=== PATIENT | male | born 1940 | race Caucasian/White ===

== ENCOUNTER 2017-12-10 10:28 | Emergency (ER) | payer OTHER, SELFPAY | END 2017-12-10 15:09 | disposition home or self-care (01) | PROVIDERS: Emergency Provider Internal Medicine; PCP Family Medicine; Visit Provider Internal Medicine | DX: K57.92 Diverticulitis of intestine, part unspecified, without perforation or abscess without bleeding (principal) | CPT/HCPCS: 74022; 80048; 82150; 82247; 83690; 84450; 84460; 85025; 86140; 99058; 99284 ==

== ENCOUNTER → 2018-02-02 12:38 | Outpatient (CLI) | payer OTHER, SELFPAY ==
[2018-02-02 13:47] LABS: Hematocrit 47.3 % (41-53); Hemoglobin 16.8 g/dL (13.5-17.5)
[2018-02-02 14:47] LABS: Ferritin 32.3 ng/mL (17.9-464)
[2018-02-03 09:14] LABS: 585 Gram Check PASS; Zero Check Sebra Scale PASS
[2018-02-03 09:15] LABS: Amount Collected in g 585 GRAM; Dizziness NO; Postdiastolic BP 82; Postsystolic BP 134; Prediastolic 83; Presystolic 127; Pulse 53; Site of phlebotomy RAC; Swelling NO; Therapeutic Phleb Comment NO COMMENT
== END ==
PROVIDERS: Family Provider Family Medicine; PCP Family Medicine; Visit Provider Family Medicine
DX: E83.119 Hemochromatosis, unspecified (principal)
CPT/HCPCS: 36415; 82728; 85014; 85018; 99195

== ENCOUNTER → 2018-02-07 09:19 | Outpatient (CLI) | payer OTHER, SELFPAY ==
[2018-02-07 10:41] LABS: C-Reactive Protein Quant < 0.5 mg/dL (<1.0)
[2018-02-07 11:22] LABS: Erythrocyte Sedimentation Rate 3 MM/HR (0-15)
== END ==
PROVIDERS: PCP Family Medicine; Visit Provider Ophthalmology
DX: H53.8 Other visual disturbances (principal)
CPT/HCPCS: 36415; 85651; 86140

== ENCOUNTER → 2018-02-10 13:53 | Outpatient (CLI) | payer OTHER, SELFPAY ==
--- NOTE | 2018-03-04 17:16 | PM.CARDMON.1 ---
Project Lead Report Referral & Results Date Patient Seen: 02/10/18 Requesting provider: Farhad Machado Indication: Bradycardia Duration of monitoring (days): 9 Diary information: There are 3 diary entries also say with sinus rhythm T there were 3 patient triggered events associated with sinus rhythm and PVCs Data: Minimum heart rate identified is 36 beats per minute at 22:39 on 02/11/2018 Maximum heart rate identified was 187 beats per minute at 00:38 on 02/11/2018. This was during a 5 beat run of SVT. The maximum sinus heart rate was 120 beats per minute at 09:11 on 02/18/2018 Less than 1% of identified beats were either supraventricular or ventricular ectopic in origin Patient did have extended periods of time with heart rate in the 40s. Clinical correlation suggested
== END ==
PROVIDERS: Family Provider Family Medicine; PCP Family Medicine; Visit Provider Family Medicine
DX: R00.1 Bradycardia, unspecified (principal)
CPT/HCPCS: 0296T; 0298T

== ENCOUNTER → 2018-02-22 14:04 | Outpatient (CLI) | payer OTHER, SELFPAY ==
[2018-02-22 16:05] LABS: Blood Urea Nitrogen 20 mg/dL (9-20); Estimated Glomerular Filt Rate > 60.0 mL/min (>60)
== END ==
PROVIDERS: Family Medicine; Family Provider Family Medicine; PCP Family Medicine; Visit Provider Family Medicine
DX: H53.121 Transient visual loss, right eye (principal)
CPT/HCPCS: 36415; 82565; 84520

== ENCOUNTER → 2018-02-28 10:35 | Outpatient (CLI) | payer OTHER, SELFPAY ==
--- NOTE | 2018-02-28 10:37 | DI.MRI.S_ITS ---
PROCEDURE: MR STROKE Pre- and post-contrast brain MRI, non-contrast brain MR angiogram, pre- and postcontrast neck MR angiogram INDICATIONS: rt eye vision loss TECHNIQUE: Brain: Noncontrast axial T1 spin echo, axial T2 fast spin echo, sagittal and axial FLAIR, coronal T2 fast spin echo, axial gradient echo, axial diffusion and ADC through the brain. After the administration of contrast, axial 3D VIBE of the cranial vasculature and brain. Brain MRA: Non-contrast 3-D time of flight MR angiogram, with multiple secvotr-xtvvqfkji-fzhxdbysfd (MIP) reformats performed. Neck MRA: Axial and sagittal TruFISP through the neck. Coronal dynamic MR angiogram during administration of contrast in the arterial and venous phases, with 3-dimenstional qtduilr-cbtxlijjo-zpgvrdpqup (MIP) reformats constructed from subtraction images. COMPARISON: None. FINDINGS: Image quality: Excellent. BRAIN: CSF spaces: Ventricles are normal in size and shape. Basal cisterns are patent. No extra-axial fluid collections. Brain: No intracranial bleeds or mass effects. Garsia-white matter interface is normal. Diffusion weighted images show no acute ischemic insults. Brainstem appears normal. Normal intravascular flow voids are present. No abnormal intracranial enhancement. Skull and face: Calvarial marrow signal is normal. Orbits appear normal. Sinuses: Sinuses and mastoids are clear. BRAIN MR ANGIOGRAM: Anterior circulation: Intracranial internal carotid arteries are normal in size and enhancement. The flow within the paired anterior cerebral arteries is normal and symmetric. The flow within the middle cerebral arteries is normal and symmetric. The anterior communicating artery is seen. No stenoses, occlusions, or aneurysms. Posterior circulation: The visualized portions of the vertebral arteries demonstrate normal caliber, and join to form a normal appearing basilar artery. The flow within the posterior cerebral arteries is normal and symmetric. No stenoses, occlusions, or aneurysms. NECK MR ANGIOGRAM: Carotids: Great vessels demonstrate a conventional anatomy as they arise from the aortic arch. The origins of the common carotid arteries appear patent. The calibers and courses of both common carotid arteries are normal. The bifurcation regions appear normal bilaterally. The internal carotid arteries demonstrate normal course and caliber. Posterior circulation: The origins of the vertebral arteries appear patent. More superior portions of both vertebral arteries demonstrate normal course and caliber, and join to form a normal appearing basilar artery. Miscellaneous: Subclavian arteries appear patent. Pre-contrast images through the neck show no soft tissue abnormalities. IMPRESSION: BRAIN MRI: Normal for age. Source of current symptoms is not seen. BRAIN MR ANGIOGRAM: Normal intracranial MR angiogram. NECK MR ANGIOGRAM: Normal cervical MR angiogram. Dictated by: David Montgomery M.D. on 02/28/2018 at 14:17 Approved by: David Montgomery M.D. on 02/28/2018 at 14:21
--- NOTE | 2018-02-28 10:37 | DI.ECHO.S_ITS ---
[facility]---------+ [facility] +---------+ : : [address] : : : : [id number] : : : : Phone: [phone]+ Echocardiogram Report + + :Name: TONIA KELLOGG Study Date: 02/28/2018 Height: 66 in : :[facility] Weight: 168 lb : : Gender: Male BSA: 1.9 m2 : :: 1940 Age: 77 yrs BP: 150/72 mmHg: :Reason For Study: TIA : : Performed By: Nurys Garvin : :Referring: MICKIE SALCEDO : + + Interpretation Summary The patient was in sinus bradycardia with heart rates between 49-59 bpm during the exam. The left ventricle is normal in size. The ejection fraction is estimated to be 60-65%. The right ventricle is normal size. The right ventricular systolic function is normal. There is mild to moderate aortic regurgitation. There is mild tricuspid regurgitation. The right ventricular systolic pressure is estimated at 26 mmHg assuming a right atrial pressure of 3 mm Hg. Procedure: A two-dimensional transthoracic echocardiogram with color flow and Doppler was performed. The study quality was technically adequate. There is no prior echocardiogram noted for this patient. The patient was in sinus bradycardia with heart rates between 49-59 bpm during the exam. Left Ventricle: The left ventricle is normal in size. There is normal left ventricular wall thickness. There is no thrombus. The ejection fraction is estimated to be 60-65%. There are no focal wall motion abnormalities. Assessment of diastolic parameters indicates normal left ventricular diastolic function and normal filling pressures. Right Ventricle: The right ventricle is normal size. The right ventricular systolic function is normal. Atria: The left atrium is moderately dilated. Right atrial size is normal. Injection of contrast documented no interatrial shunt. Mitral Valve: The mitral valve is grossly normal. There is mild mitral regurgitation. Aortic Valve: The aortic valve is trileaflet. The aortic valve opens well. There is no aortic valve stenosis. There is mild to moderate aortic regurgitation. Tricuspid Valve: The tricuspid valve is normal in structure and function. There is mild tricuspid regurgitation. The right ventricular systolic pressure is estimated at 26 mmHg assuming a right atrial pressure of 3 mm Hg. Pulmonic Valve: The pulmonic valve is not well visualized. There is mild to moderate pulmonic regurgitation. Great Vessels: The aortic root is normal size. The dimensions of the ascending aorta are normal. The IVC is of normal diameter and collapses greater than 50% with a sniff. This suggests a low right atrial pressure of 3 mm Hg. Pericardium/ Pleura There is no pericardial effusion. There is no pleural effusion. MMode/2D Measurements & Calculations LVIDd: 5.2 cm Ao root diam: 3.3 cm LVIDs: 3.2 cm Aortic Jxn: 2.5 cm FS: 38.8 % asc Aorta Diam: 3.0 cm EPSS: 1.5 cm Ao Arch Diam (Prox Trans): 2.8 cm IVSd: 0.98 cm LVPWd: 0.68 cm LV alvarado. diameter/BSA (cm/m^2): 2.8 LV sys. diameter/BSA (cm/m^2): 1.7 LA dimension: 4.1 cm RA long axis: 4.4 cm LA A2 area: 23.2 cm2 RA area: 16.7 cm2 LA A4 area: 19.6 cm2 RA vol: 53.7 ml LA length (vol): 4.7 cm RA : 28.9 ml/m2 LA vol: 82.6 ml IVC diam: 1.8 cm LA vol index: 44.5 ml/m2 RVDd major: 5.9 cm RVD1 (basal): 3.7 cm RVD2 (mid): 3.4 cm Doppler Measurements & Calculations LVOT Max Juan Daniel: 91.8 cm/sec MV E max juan daniel: 76.6 cm/sec LV V1 max P.4 mmHg MV A max juan daniel: 66.9 cm/sec LV V1 VTI: 22.3 cm MV E/A: 1.1 AI P1/2t: 525.4 msec Med Peak E' Juan Daniel: 8.5 cm/sec AI dec slope: 244.1 cm/sec2 E/E' med: 9.0 Lat Peak E' Juan Daniel: 7.4 cm/sec E/E' lat: 10.4 E/e' average: 9.7 MV dec time: 0.18 sec MV P1/2t: 53.7 msec TR max juan daniel: 241.6 cm/sec MV P1/2t max juan daniel: 76.3 cm/sec TR max P.3 mmHg MVA(P1/2t): 4.1 cm2 PA Accel Time: 0.13 sec Reading Physician:SWATI
== END ==
PROVIDERS: Family Provider Family Medicine; PCP Family Medicine; Visit Provider Family Medicine
DX: G45.9 Transient cerebral ischemic attack, unspecified (principal); H54.7 Unspecified visual loss
CPT/HCPCS: 70553; 93306; A9579

== ENCOUNTER 2018-06-09 09:00 | Emergency (ER) | payer OTHER, SELFPAY ==
[2018-06-09 09:01] VITALS: BP 159/86; PULSE 63; RESP 18; TEMP 36.8; O2SAT 99
--- NOTE | 2018-06-09 09:01 | ED.MALEGU ---
HPI - Male Genitourinary General Chief complaint: Urogenital-Male Stated complaint: URINARY RETENTION,SEVERE Time Seen by Provider: 06/09/18 09:01 Source: patient Mode of arrival: ambulatory Limitations: no limitations History of Present Illness HPI Narrative: 77-year-old male here for evaluation of urinary retention. Patient states that he does have prostate issues. He states that his last normal urination was last evening at approximately 9 o'clock. States that he has had some trickling since then. Has lower abdominal pain. No fevers. Has had a Cook placed in the past but that was after a orthopedic surgery Related Data Home Medications Medication Instructions Recorded Confirmed Travoprost (TRAVATAN OPHTH 0.004%) 1 drp OPHTH HS #0 01/04/12 03/03/18 Previous Rx's Medication Instructions Recorded diclofenac sodium 75 mg PO BIDP PRN #30 ect 09/28/16 epinephrine 1 mg IJ PRN PRN #1 vial 09/28/16 tizanidine 2 mg PO TIDP PRN #30 tab 06/29/17 omeprazole 20 mg PO QDAY #90 cap 09/29/17 gabapentin [Neurontin] 300 mg PO HS #90 cap 10/25/17 tamsulosin [Flomax] 0.4 mg PO QDAY #90 cap 10/28/17 Allergies Allergy/AdvReac Type Severity Reaction Status Date / Time bupivacaine [From MARCAINE] Allergy Severe sob Verified 06/09/18 09:29 Penicillins [PENICILLINS] Allergy Intermediate n/v, Verified 06/09/18 09:29 itching shellfish derived Allergy Intermediate prawns Verified 06/09/18 09:29 [SHELLFISH DERIVED] garlic [GARLIC] Allergy Mild GI upset Verified 06/09/18 09:29 ibuprofen [IBUPROFEN] Allergy Mild dye Verified 06/09/18 09:29 coating of tab red dye [RED DYE] Allergy Mild Verified 06/09/18 09:29 hexachlorophene Allergy Unknown Verified 06/09/18 09:29 [HEXACHLOROPHENE] propoxyphene [From DARVON] AdvReac Mild n/v itching Verified 06/09/18 09:29 raw onion Allergy Unknown GI upset Uncoded 06/09/18 09:29 Review of Systems Constitutional Denies fever(s) and Denies headache(s) ENT Ears, Nose, Mouth, and Throat: Denies headache(s) Cardiovascular Denies chest pain and Denies dyspnea Respiratory Denies dyspnea Gastrointestinal Gastrointestinal: Reports abdominal pain, Denies nausea and Denies vomiting Genitourinary Denies dysuria, Reports urinary hesitancy and Reports urinary incontinence Musculoskeletal Denies myalgias and Denies arthralgias Integumentary/Breasts Denies pruritus Neurologic Denies headache(s) Hematologic/Lymphatic Denies easy bleeding and Denies easy bruising [facility] Medical History BPH (benign prostatic hyperplasia) (Chronic) Cataract (Chronic 2012) Cervical spine disease (Chronic) Chronic back pain (Chronic) Elevated PSA (Chronic) Foot pain (Chronic) GERD (gastroesophageal reflux disease) (Chronic ~1979) Glaucoma (Chronic ~2008) Hayfever (Chronic ~1959) Hemochromatosis (Chronic 1990) IBS (irritable bowel syndrome) (Chronic ~1969) Lumbar spine pain (Chronic) Peptic ulcer disease (Chronic ~1959) Colon polyps (Resolved 2001) Hepatitis A (Resolved ~1961) Recurrent sinusitis (Resolved ~1969) Shoulder pain (Resolved ~1989) Tennis elbow (Resolved) Surgical History Anesthesia complication (Resolved) History of elbow surgery (Resolved ~2010) History of knee surgery (Resolved) History of shoulder surgery (Resolved ~1979) History of shoulder surgery (Resolved ~1979) History of spinal fusion (Resolved 2010) Hx of decompression of ulnar nerve (Resolved ~1989) Family History Father Heart disease Mother Age related osteoporosis Diabetes mellitus Heart disease Hypertension High cholesterol Pneumonia Sister Age: 80 High cholesterol Sister Parkinson's disease Sister Cancer Social History marital status: Smoking Status: Former smoker alcohol intake: current (1-2 A DAY ) substance use type: does not use Exam Initial Vital Signs Initial Vital Signs: Vital Signs Temperature 98.3 F 06/09/18 09:01 Pulse Rate 63 06/09/18 09:01 Respiratory Rate 18 06/09/18 09:01 Blood Pressure 159/86 H 06/09/18 09:01 Pulse Oximetry 99 06/09/18 09:01 Const General: cooperative, healthy appearing, comfortable, well developed, well groomed and No acute distress Orientation: alert, awake and oriented x3 HENMT Head: normal to inspection and normocephalic Resp Effort & Inspection: normal respiratory effort Auscultation: clear to auscultation bilaterally Cardio Rate: regular rate Rhythm: regular rhythm GI Inspection: distended (lower abdomen) Palpation: No firm and tender ( lower abdomen) Back/Spine/Pelvis Back: No CVA tenderness Skin Lesions: no lesions Rashes: no rashes Neuro General: alert, awake and oriented x3 Extrem General: normal to inspection and capillary refill normal Psych Appearance: grossly normal and well kempt Course Orders Ordered: ED Orders 06/09/18 09:22 Urinalysis and Microscopic Stat Vital Signs - 8 hr 06/09/18 09:01 06/09/18 09:48 Temperature 98.3 F Pulse Rate 63 64 Respiratory Rate 18 14 Blood Pressure 159/86 H Blood Pressure [Right Arm] 138/67 Pulse Oximetry 99 100 MDM - Male Genitourinary Lab Data Attestation: I reviewed the patient's lab results. Lab Results 06/09/18 Range/Units 09:22 Urine Color Yellow Urine Appearance Clear Urine pH 6.0 (4.5-8.0) Ur Specific [place] 1.010 (1.000-1.035) Urine Protein Negative (Negative) Urine Glucose (UA) Negative (Normal) g/dL Urine Ketones Trace H (NEGATIVE) Urine Occult Blood Negative (Negative) Urine Nitrate Negative (Negative) Urine Bilirubin Negative (NEGATIVE) Urine Urobilinogen 0.2 (0.2) E.U./dL Ur Leukocyte Esterase Negative (NEGATIVE) Urine RBC None seen (0-5/HPF) Urine WBC None seen (0-5/HPF) Urine Bacteria None seen (None) Ur Culture Indicated? Cult not indicated Micro UA Comment Microscopic normal MDM Narrative Medical decision making narrative: patient with a known history of BPH. Has had multiple prostate biopsies in the past all of which have been benign. Had a postvoid residual of greater than 400 cc in his bladder. Cook catheter was placed. Return of greater than 400 cc of urine. Patient states that he feels much better. Abdomen is less distended. No signs of a urinary tract infection. We did discuss the Cook catheter with the patient and his . Will send home with Cook catheter. Informed him he needed to contact his primary doctor to have a follow-up to have this removed in to discuss the indications for referral to [place] urology. He was given return precautions. He expressed understanding and agreement with plan. Discharge Plan Departure Patient Disposition: Home Clinical Impression: Acute urinary retention Instructions: How to Care for Your Cook Catheter -- Male, DI for Urinary Retention in Men Activity Restrictions/Additional Instructions: continue all of your medications. Call your primary care doctor to schedule a follow-up to have the Cook catheter removed. Return to the emergency department for any new or worsening symptoms. Prescriptions: No Action Travoprost (TRAVATAN OPHTH 0.004%) 1 drp OPHTH HS Qty: 0 RF: 0 epinephrine 1 MG/1 ML solution 1 mg IJ PRN PRNQty: 1 RF: 0 diclofenac sodium 75 MG tablet,delayed release (DR/EC) 75 mg PO BIDP PRNQty: 30 RF: 3 tizanidine 2 MG tablet 2 mg PO TIDP PRNQty: 30 RF: 3 omeprazole 20 MG capsule,delayed release(DR/EC) 20 mg PO QDAY Qty: 90 RF: 3 gabapentin [Neurontin] 300 MG capsule 300 mg PO HS Qty: 90 RF: 3 tamsulosin [Flomax] 0.4 MG capsule,extended release 24hr 0.4 mg PO QDAY Qty: 90 RF: 3
[2018-06-09 09:29] LABS: Bacteria Urine None Seen; RBC Urine None Seen (0-5/HPF); WBC Urine None Seen (0-5/HPF)
[2018-06-09 09:30] LABS: Appearance Urine UA CLEAR; Bilirubin Urine UA NEGATIVE (NEGATIVE); Color Urine UA YELLOW; Glucose Urine UA NEGATIVE (Normal); Ketones Urine UA TRACE (NEGATIVE); Leukocyte Esterase Urine UA NEGATIVE (NEGATIVE); Nitrite Urine UA NEGATIVE (Negative); Occult Blood Urine UA NEGATIVE (Negative); Protein Urine UA NEGATIVE (Negative); Urobilinogen Urine UA 0.2 E.U./dL (0.2)
[2018-06-09 09:45] LABS: Culture Indicated Urine Cult Not Indicated; Urine Comments Microscopic Normal
[2018-06-09 09:48] VITALS: BP 138/67; PULSE 64; RESP 14; O2SAT 100
[2018-06-09 10:38] VITALS: BP 137/63; PULSE 57; RESP 20; O2SAT 95
== END 2018-06-09 10:39 | disposition home or self-care (01) ==
PROVIDERS: Emergency Provider Emergency Medicine; Family Provider Family Medicine; PCP Family Medicine
DX: R33.9 Retention of urine, unspecified (principal)
CPT/HCPCS: 51798; 81001; 99283

== ENCOUNTER 2018-06-27 08:20 | Emergency (ER) | payer OTHER, SELFPAY ==
[2018-06-27 08:30] VITALS: BP 148/90; PULSE 64; RESP 14; TEMP 36.6; O2SAT 99
--- NOTE | 2018-06-27 08:36 | DI.US.S_ITS ---
PROCEDURE: US SCROTUM INDICATIONS: severe L testicle pain TECHNIQUE: Real-time scanning was performed of the scrotum and testicles, with image documentation. Color and pulse Doppler interrogation was performed of both testicles. COMPARISON: None. FINDINGS: Right: Testicle is normal in size at 6.3 x 3.1 x 3.1 cm, and homogenous in echotexture. Epididymis is normal in overall size and morphology. No hydrocele or varicoceles. Overlying scrotal skin is normal in thickness. Left: Testicle is normal in size at 5.7 x 2.6 x 3 cm, and homogeneous in echotexture. Epididymis is normal in overall size and morphology. No hydrocele or varicoceles. Overlying scrotal skin is normal in thickness. Doppler: Color and pulse Doppler demonstrate normal and symmetric arterial flow in both testicles. IMPRESSION: Normal study, without an imaging explanation found for the patient's presenting history of severe left testicle pain. No findings of testicular torsion are seen. Note: Concordant preliminary findings given by the senior operator upon the completion of the examination to Dr. Marcelino at 9 AM [place] time on June 27, 2018. Dictated by: Flavio Pearce M.D. on 06/27/2018 at 8:19 Approved by: Flavio Pearce M.D. on 06/27/2018 at 8:22
[2018-06-27] MEDS: KETOROLAC 60 MG/2 ML VIAL 15 MG IV (08:39)
[2018-06-27] MEDS: SODIUM CHLORIDE 0.9% 1,000 ML 1000 ML IV (08:40)
--- NOTE | 2018-06-27 08:42 | PC.NURSE ---
Upon exam by provider patient very tender to palpation on left testicle. Pain increases with movement.
[2018-06-27 08:44] LABS: Add Manual Diff / Slide Review NO; Basophils Percent Auto 0.9 % (0-2); Eosinophils Percent Auto 2.7 % (2-4); Hematocrit 46.1 % (41-53); Hemoglobin 16.2 g/dL (13.5-17.5); Lymphocytes Percent Auto 21.6 % (25-40); Mean Corpuscular HGB Conc 35.2 % (30-36); Mean Corpuscular Hemoglobin 32.1 PG (26-34); Mean Corpuscular Volume 91.4 fL (80-100); Monocytes Percent Auto 6.6 % (3-14); Neutrophils Absolute Auto 4500 /uL (3000-5900); Neutrophils Percent Auto 68.2 % (50-75); Platelet Count 171 X10^3/uL (150-400); Red Blood Cell Count 5.05 X10^6/uL (4.5-5.9); Red Cell Distribution Width 12.7 % (11.6-14.8); White Blood Cell Count 6.6 X10^3/uL (4.5-11.0)
[2018-06-27 08:55] LABS: BUN Creatinine Ratio 22.2 (6-22); Blood Urea Nitrogen 20 mg/dL (9-20); Calcium 9.3 mg/dL (8.4-10.2); Carbon Dioxide 21 mmol/L (22-32); Chloride 107 mmol/L (98-107); Estimated Glomerular Filt Rate > 60.0 mL/min (>60); Glucose 134 mg/dL (80-110); HEMOLYSIS 19 (0-50); Potassium 4.4 mmol/L (3.4-5.1); Sodium 142 mmol/L (137-145)
--- NOTE | 2018-06-27 08:59 | ED_ITS ---
HPI - Male Genitourinary General Chief complaint: Urogenital-Male Stated complaint: severe pain in left testicle down into lower back Time Seen by Provider: 06/27/18 08:25 Source: patient and family Mode of arrival: ambulatory Limitations: no limitations History of Present Illness HPI Narrative: 77-year-old male presents to the emergency department with a chief complaint of sudden-onset left testicular pain and radiation to his back this morning at about 6:30 a.m.. His pain is much worse with motion and improves with rest. He denies any fever chills. He denies dysuria, frequency or urgency. He denies any hematuria. MD Complaint: testicle pain Onset (ago): hour(s) Duration: constant Location: left testicle Severity: severe Quality: burning Relieving factors: rest Exacerbating factors: movement Reports denies other symptoms Related Data Sexually active: No Home Medications Medication Instructions Recorded Confirmed Travoprost (TRAVATAN OPHTH 0.004%) 1 drp OPHTH HS #0 01/04/12 06/27/18 omeprazole 20 mg PO DAILY 06/27/18 06/27/18 tamsulosin [Flomax] 0.4 mg PO QPM 06/27/18 06/27/18 Previous Rx's Medication Instructions Recorded epinephrine 1 mg IJ PRN PRN #1 vial 09/28/16 gabapentin [Neurontin] 300 mg PO HS #90 cap 10/25/17 finasteride 5 mg tablet 5 mg PO DAILY #30 tab 06/13/18 ketorolac 10 mg PO Q4-6H PRN #20 tab 06/27/18 sulfamethoxazole-trimethoprim 1 tab PO Q12H 14 Days #28 tab 06/27/18 [Bactrim DS] Allergies Allergy/AdvReac Type Severity Reaction Status Date / Time bupivacaine [From MARCAINE] Allergy Severe sob Verified 06/13/18 16:02 Penicillins [PENICILLINS] Allergy Intermediate n/v, Verified 06/13/18 16:02 itching shellfish derived Allergy Intermediate prawns Verified 06/13/18 16:02 [SHELLFISH DERIVED] garlic [GARLIC] Allergy Mild GI upset Verified 06/13/18 16:02 ibuprofen [IBUPROFEN] Allergy Mild dye Verified 06/13/18 16:02 coating of tab red dye [RED DYE] Allergy Mild Verified 06/13/18 16:02 hexachlorophene Allergy Unknown Verified 06/13/18 16:02 [HEXACHLOROPHENE] propoxyphene [From DARVON] AdvReac Mild n/v itching Verified 06/13/18 16:02 raw onion Allergy Unknown GI upset Uncoded 06/13/18 16:02 Review of Systems Review of Systems All systems reviewed & are unremarkable except as noted in HPI and below Constitutional Denies chills, Denies fever(s), Denies lethargy and Denies weakness Eyes Denies change in vision, Denies eye discharge, Denies irritation and Denies loss of vision ENT Ears, Nose, Mouth, and Throat: Denies change in voice, Denies neck pain and Denies sore throat Cardiovascular Denies chest pain, Denies irregular heart rhythm, Denies lightheadedness, Denies palpitations, Denies dyspnea, Denies dyspnea on exertion and Denies orthopnea Respiratory Denies cough, Denies dyspnea, Denies dyspnea on exertion and Denies wheezing Gastrointestinal Gastrointestinal: Denies abdominal pain, Denies change in bowel habits, Denies diarrhea, Denies nausea and Denies vomiting Genitourinary Denies hematuria, Reports flank pain, Reports testicular pain, Denies urinary incontinence and Denies urinary urgency Musculoskeletal Denies neck pain Integumentary/Breasts Denies pruritus, Denies erythema, Denies rash and Denies wounds Neurologic Denies confusion, Denies loss of vision and Denies weakness Psychiatric Denies anxiety, Denies confusion, Denies depression, Denies homicidal ideation and Denies suicidal ideation Endocrine Denies palpitations Hematologic/Lymphatic Denies easy bruising Allergic/Immunologic Denies wheezing [facility] Medical History BPH (benign prostatic hyperplasia) (Chronic) Cataract (Chronic 2012) Cervical spine disease (Chronic) Chronic back pain (Chronic) Elevated PSA (Chronic) Foot pain (Chronic) GERD (gastroesophageal reflux disease) (Chronic ~1979) Glaucoma (Chronic ~2008) Hayfever (Chronic ~1959) Hemochromatosis (Chronic 1990) IBS (irritable bowel syndrome) (Chronic ~1969) Lumbar spine pain (Chronic) Peptic ulcer disease (Chronic ~1959) Colon polyps (Resolved 2001) Hepatitis A (Resolved ~1961) Recurrent sinusitis (Resolved ~1969) Shoulder pain (Resolved ~1989) Tennis elbow (Resolved) Surgical History Anesthesia complication (Resolved) History of elbow surgery (Resolved ~2010) History of knee surgery (Resolved) History of shoulder surgery (Resolved ~1979) History of shoulder surgery (Resolved ~1979) History of spinal fusion (Resolved 2010) Hx of decompression of ulnar nerve (Resolved ~1989) Family History Father Heart disease Mother Age related osteoporosis Diabetes mellitus Heart disease Hypertension High cholesterol Pneumonia Sister Age: 81 High cholesterol Sister Parkinson's disease Sister Cancer Social History marital status: Smoking Status: Former smoker alcohol intake: current (1-2 A DAY ) substance use type: does not use Exam Narrative Exam Narrative: 77-year-old male obviously in pain, lying on his side Initial Vital Signs Initial Vital Signs: Vital Signs Temperature 97.8 F 06/27/18 08:30 Pulse Rate 64 06/27/18 08:30 Respiratory Rate 14 06/27/18 08:30 Blood Pressure 148/90 H 06/27/18 08:30 Pulse Oximetry 99 06/27/18 08:30 Const General: cooperative and well developed Nutritional Appearance: well nourished Orientation: alert, awake, oriented x3 and not confused [facility] Head: normocephalic and atraumatic Ears: external ears normal and TM's normal bilaterally Nose: external nose normal and No nasal discharge Face and sinus: sinuses nontender, face symmetric, no sinus tenderness and No dry mucous membranes Mouth: oral mucosae normal and moist mucous membranes Teeth and gingiva: dentition normal Throat: tonsils normal and uvula midline Eyes General: appearance normal, both eyes and all related structures Eyelids: eyelids normal Conjunctivae: conjunctivae normal Sclera: sclerae normal Pupils: PERRL EOM: EOM intact bilaterally Neck Neck: normal visual inspection, trachea midline, No lymphadenopathy, No midline deformity and No JVD Lymphatic: No lymphedema Chest Chest: normal inspection of the chest Resp Effort & Inspection: normal respiratory effort, able to speak in complete sentences, no respiratory distress and no use of accessory muscles Auscultation: clear to auscultation bilaterally, no rales, no rhonchi and no wheezes Cardio Rate: regular rate Rhythm: regular rhythm Heart Sounds: no click, no gallops, no murmurs and no rubs Pulses: normal peripheral pulses GI Inspection: non-distended Palpation: soft, no hepatosplenomegaly, No guarding, No pulsatile mass and No tender Auscultation: normal bowel sounds Testes: testicular lie normal, epididymides normal, no blue dot sign, not enlarged, no epididymal induration, no testicular mass and no testicular swelling Other: tremendous pain with palpation of left testicle Back/Spine/Pelvis Back: No CVA tenderness Cervical Spine: cervical ROM normal and No pain with cervical ROM Thoracic/Lumbar Spine: thoracic and lumbar spine normal to inspection Course Orders Ordered: ED Orders 06/27/18 09:50 Urine Culture Stat Urine Microscopic Stat Discontinued Medications Sodium Chloride (Normal Saline 0.9%) 1,000 mls @ 1,000 mls/hr IV BOLUS ONE Stop: 06/27/18 09:25 Last Infusion: 06/27/18 10:17 Dose: 0 mls/hr Admin: 06/27/18 08:40 Dose: 1,000 mls/hr Ketorolac Tromethamine (Toradol) 15 mg IV NOW ONE Stop: 06/27/18 08:27 Last Admin: 06/27/18 08:39 Dose: 15 mg Consultations Consultation #1: call to Urology to discuss case can lack of significant findings on ultrasound scrotum as well as CT KUB. In the setting of 70+ leukocytes in the patient's urine with reproducible left testicle pain, which was present during ultrasound it seems reasonable as there is an early epididymitis present. Negative CT KUB makes kidney stone much less likely. Additionally we discussed the possibility of a missed torsion but thought this was less likely given the presence of pain during the ultrasound Vital Signs - 8 hr 06/27/18 10:37 Pulse Rate 50 L Respiratory Rate 14 Blood Pressure [Right Arm] 135/78 Pulse Oximetry 99 MDM - Male Genitourinary Lab Data Result diagrams: 06/27/18 08:30 06/27/18 08:30 Lab Results 06/27/18 06/27/18 06/27/18 Range/Units 08:30 08:30 09:50 WBC 6.6 (4.5-11.0) X10^3/uL RBC 5.05 (4.5-5.9) X10^6/uL Hgb 16.2 (13.5-17.5) g/dL Hct 46.1 (41-53) % MCV 91.4 (80-100) fL MCH 32.1 (26-34) PG MCHC 35.2 (30-36) % RDW 12.7 (11.6-14.8) % Plt Count 171 (150-400) X10^3/uL Neut % (Auto) 68.2 (50-75) % Lymph % (Auto) 21.6 L (25-40) % [place] % (Auto) 6.6 (3-14) % Eos % (Auto) 2.7 (2-4) % Baso % (Auto) 0.9 (0-2) % Neut # (Auto) 4500 (0217-9510) /uL Sodium 142 (137-145) mmol/L Potassium 4.4 (3.4-5.1) mmol/L Chloride 107 (98-107) mmol/L Carbon Dioxide 21 L (22-32) mmol/L BUN 20 (9-20) mg/dL Creatinine 0.90 (0.66-1.25) mg/dL Estimated GFR > 60.0 (>60) mL/min BUN/Creatinine Ratio 22.2 H (6-22) Glucose 134 H (80-110) mg/dL Calcium 9.3 (8.4-10.2) mg/dL Urine RBC 0-1/hpf (0-5/HPF) Urine WBC 10-30/hpf H (0-5/HPF) Urine Bacteria Few (2-10) H (None) Urine Mucus 1+ H (Negative) Ur Culture Indicated? Specimen cultured Micro UA Comment Not Reportable Urine Dip Bedside Urine Glucose Negative Bedside Urine Bilirubin - Negative Bedside Urine Ketone - Negative Urine Specific [place] 1.020 Bedside Urine Occult Blood - Negative Bedside Urine pH 6.0 Bedside Urine Protein - Negative Bedside Urine Urobilinogen - Negative Bedside Urine Nitrite - Negative Bedside Urine Leukocytes + [address] scan - abdomen: Radiologist's impression: Patient: Maurice Field WMR#: [id number] : 3Acct:[id number] Age/Sex: 77 / MDate of Service: 06/27/18 Loc: ED Accession Number: [id number] Procedure: CT kidney ureter bladder (KUB) Ordering Provider: Sylvester Marcelino D.O. PROCEDURE: CT KIDNEY URETER BLADDER (KUB) INDICATIONS: severe LLQ pain, radiates testicle to flank TECHNIQUE: Noncontrast 5 mm thick sections acquired from the diaphragms to the symphysis. 5 mm thick coronal and sagittal reformats were then performed. For radiation dose reduction, the following was used: automated exposure control, adjustment of mA and/or kV according to patient size. COMPARISON: None. FINDINGS: Image quality: Excellent. Lung bases: There is mild dependent atelectasis. Heart size is normal. There is a small hiatal hernia. Urinary system: No kidney stones origin necrosis. There is minimal nonspecific perinephric stranding bilaterally. There is an exophytic left renal cyst identified. Both ureters appear non-dilated throughout their expected courses. Bladder wall thickness is within normal limits; no calcified bladder stones. There is minimal fat stranding along the urinary bladder with mild trabeculation of the bladder wall. There is linear hypoattenuation anteriorly along the bladder wall which may reflect small foci of luminal gas versus fatty change in the bladder wall. There is prominent enlargement of the prostate. Other solid organs: There are 2 cysts demonstrated in the left hepatic lobe. Multiple calcified gallstones are present in the gallbladder without gallbladder wall thickening or pericholecystic fluid. Pancreas is normal in contours. Spleen is normal in size. No adrenal nodules. Peritoneum and bowel: Unenhanced bowel loops demonstrate normal wall thickness and caliber. The appendix is normal in appearance. Colonic diverticulosis is demonstrated without acute diverticulitis. No free fluid or air. Nodes and vessels: No retroperitoneal or mesenteric adenopathy by size criteria. Aorta and inferior vena cava are normal in caliber. Abdominal wall: No ventral hernias. Pelvis: No free pelvic fluid. No inguinal hernias or adenopathy. Bones: No suspicious bony lesions. No vertebral body compression fractures. IMPRESSION: 1. No evidence of nephrolithiasis or obstructive uropathy. 2. Small linear hypodensity anteriorly within the urinary bladder may represent small foci of gas in the bladder versus fatty change along the bladder wall. Cystitis with infection from a gas-forming organism is not excluded. No definite fistula visualized. Recommend correlation with urinalysis. 3. Prominent prostatic enlargement with mild trabeculation of the bladder wall which reflect sequelae of chronic bladder outlet obstruction. 4. Colonic diverticulosis without acute diverticulitis. 5. Cholelithiasis. Dictated by: Pino Hammond M.D. on 06/27/2018 at 9:55 Approved by: Pino Hammond M.D. on 06/27/2018 at 10:01 Discharge Plan Departure Patient Disposition: Home Clinical Impression: Acute epididymitis Discharge Date/Time: 06/27/18 10:43 Interventions: ED Discharge Assessment Last Done: 06/27/18 10:41 Instructions: DI for Epididymitis Activity Restrictions/Additional Instructions: *You have been diagnosed with [ acute epididymitis ] *What to do: *Take medications as directed: new prescriptions have been electronically transmitted to [facility] at your request *Follow up with your primary care provider in 2-3 days, call for an appointment. Let them know you were seen in the Emergency Department and that we ask that you be seen in follow up. it would seem likely that Dr. Machado will refer you to the [facility] as we discussed *Return to ER if you should have any new, worsening or concerning symptoms , such as [ increasing pain, fever, shaking chills, persistent vomiting, other bothersome symptoms ] Prescriptions: New sulfamethoxazole-trimethoprim [Bactrim DS] 800-160 mg tablet 1 tab PO Q12H 14 Days Qty: 28 RF: 0 ketorolac 10 mg tablet 10 mg PO Q4-6H PRN (Reason: pain) Qty: 20 RF: 0 No Action Travoprost (TRAVATAN OPHTH 0.004%) 1 drp OPHTH HS Qty: 0 RF: 0 epinephrine 1 MG/1 ML solution 1 mg IJ PRN PRNQty: 1 RF: 0 gabapentin [Neurontin] 300 MG capsule 300 mg PO HS Qty: 90 RF: 3 finasteride 5 mg tablet 5 mg PO DAILY Qty: 30 RF: 0 tamsulosin [Flomax] 0.4 MG capsule 0.4 mg PO QPM RF: 0 omeprazole 20 MG capsule,delayed release(DR/EC) 20 mg PO DAILY RF: 0 Referrals: Farhad Machado MD [Primary Care Provider] -
--- NOTE | 2018-06-27 09:21 | DI.CT.S_ITS ---
PROCEDURE: CT KIDNEY URETER BLADDER (KUB) INDICATIONS: severe LLQ pain, radiates testicle to flank TECHNIQUE: Noncontrast 5 mm thick sections acquired from the diaphragms to the symphysis. 5 mm thick coronal and sagittal reformats were then performed. For radiation dose reduction, the following was used: automated exposure control, adjustment of mA and/or kV according to patient size. COMPARISON: None. FINDINGS: Image quality: Excellent. Lung bases: There is mild dependent atelectasis. Heart size is normal. There is a small hiatal hernia. Urinary system: No kidney stones origin necrosis. There is minimal nonspecific perinephric stranding bilaterally. There is an exophytic left renal cyst identified. Both ureters appear non-dilated throughout their expected courses. Bladder wall thickness is within normal limits; no calcified bladder stones. There is minimal fat stranding along the urinary bladder with mild trabeculation of the bladder wall. There is linear hypoattenuation anteriorly along the bladder wall which may reflect small foci of luminal gas versus fatty change in the bladder wall. There is prominent enlargement of the prostate. Other solid organs: There are 2 cysts demonstrated in the left hepatic lobe. Multiple calcified gallstones are present in the gallbladder without gallbladder wall thickening or pericholecystic fluid. Pancreas is normal in contours. Spleen is normal in size. No adrenal nodules. Peritoneum and bowel: Unenhanced bowel loops demonstrate normal wall thickness and caliber. The appendix is normal in appearance. Colonic diverticulosis is demonstrated without acute diverticulitis. No free fluid or air. Nodes and vessels: No retroperitoneal or mesenteric adenopathy by size criteria. Aorta and inferior vena cava are normal in caliber. Abdominal wall: No ventral hernias. Pelvis: No free pelvic fluid. No inguinal hernias or adenopathy. Bones: No suspicious bony lesions. No vertebral body compression fractures. IMPRESSION: 1. No evidence of nephrolithiasis or obstructive uropathy. 2. Small linear hypodensity anteriorly within the urinary bladder may represent small foci of gas in the bladder versus fatty change along the bladder wall. Cystitis with infection from a gas-forming organism is not excluded. No definite fistula visualized. Recommend correlation with urinalysis. 3. Prominent prostatic enlargement with mild trabeculation of the bladder wall which reflect sequelae of chronic bladder outlet obstruction. 4. Colonic diverticulosis without acute diverticulitis. 5. Cholelithiasis. Dictated by: Pino Hammond M.D. on 06/27/2018 at 9:55 Approved by: Pino Hammond M.D. on 06/27/2018 at 10:01
[2018-06-27 09:29] VITALS: BP 127/58; PULSE 54; RESP 14; O2SAT 98
[2018-06-27 10:22] LABS: Bacteria Urine Few (2-10); Culture Indicated Urine Specimen Cultured; Mucus Urine 1+ (Negative); RBC Urine 0-1/HPF (0-5/HPF); WBC Urine 10-30/HPF (0-5/HPF)
[2018-06-27 10:37] VITALS: BP 135/78; PULSE 50; RESP 14; O2SAT 99
== END 2018-06-27 10:43 | disposition home or self-care (01) ==
PROVIDERS: Emergency Provider Emergency Medicine; PCP Family Medicine
DX: N45.1 Epididymitis (principal)
CPT/HCPCS: 36591; 74176; 76870; 80048; 81003; 81015; 85025; 87086; 96361; 96374; 99283; 99284; J1885

== ENCOUNTER 2018-09-08 12:42 | Outpatient (RCR) | payer OTHER, SELFPAY | END 2019-06-20 10:49 | LOC: PHYS 12:42 | PROVIDERS: PCP Family Medicine; Visit Provider Family Medicine | DX: M79.601 Pain in right arm (principal) | CPT/HCPCS: 95885; 95886; 95909 ==

== ENCOUNTER → 2018-09-26 07:10 | Outpatient (CLI) | payer OTHER, SELFPAY ==
[2018-09-26 09:14] LABS: Add Manual Diff / Slide Review NO; Basophils Absolute Auto 0 /uL (0-100); Basophils Percent Auto 0.8 % (0-2); Eosinophils Absolute Auto 200 /uL (0-450); Eosinophils Percent Auto 3.9 % (2-4); Hematocrit 47.8 % (41-53); Hemoglobin 16.6 g/dL (13.5-17.5); Lymphocytes Absolute Auto 1400 /uL (1100-4500); Lymphocytes Percent Auto 32.3 % (25-40); Mean Corpuscular HGB Conc 34.7 % (30-36); Mean Corpuscular Hemoglobin 31.9 PG (26-34); Mean Corpuscular Volume 91.9 fL (80-100); Monocytes Absolute Auto 300 /uL (0-900); Monocytes Percent Auto 6.8 % (3-14); Neutrophils Absolute Auto 2500 /uL (1500-7000); Neutrophils Percent Auto 56.2 % (50-75); Platelet Count 162 X10^3/uL (150-400); Red Cell Distribution Width 12.8 % (11.6-14.8); White Blood Cell Count 4.4 X10^3/uL (4.5-11.0)
[2018-09-26 09:37] LABS: Alanine Aminotransferase 27 IU/L (21-72); Albumin 4.3 g/dL (3.5-5.0); Albumin Globulin Ratio 1.6 (1.0-2.8); Alkaline Phosphatase 58 U/L (38-126); Aspartate Aminotransferase 24 IU/L (17-59); Bilirubin Total 0.6 mg/dL (0.2-1.3); Blood Urea Nitrogen 21 mg/dL (9-20); Calcium 9.3 mg/dL (8.4-10.2); Carbon Dioxide 26 mmol/L (22-32); Chloride 104 mmol/L (98-107); Cholesterol 153 mg/dL (140-199); Estimated Glomerular Filt Rate > 60.0 mL/min (>60); Globulin 2.7 g/dL (1.7-4.1); Glucose 88 mg/dL (80-110); HDL Cholesterol 45 mg/dL (40-60); HEMOLYSIS 19 (0-50); LDL Cholesterol Calculated 93 mg/dL (<100); Potassium 3.9 mmol/L (3.4-5.1); Sodium 140 mmol/L (137-145); Triglycerides 74 mg/dL (35-150)
[2018-09-26 10:01] LABS: TSH w/ Reflex to FT4 1.46 uIU/mL (0.47-4.68)
[2018-09-26 10:03] LABS: Prostate Specific Antigen Scrn 7.44 ng/mL (0.1-4.0)
[2018-09-26 10:07] LABS: Ferritin 29.6 ng/mL (17.9-464)
== END ==
PROVIDERS: PCP Family Medicine; Visit Provider Family Medicine
DX: Z12.5 Encounter for screening for malignant neoplasm of prostate (principal); Z13.6 Encounter for screening for cardiovascular disorders; Z13.5 Encounter for screening for eye and ear disorders
CPT/HCPCS: 36415; 80053; 80061; 82728; 84443; 85025; G0103

== ENCOUNTER → 2019-03-07 16:31 | Outpatient (CLI) | payer OTHER, SELFPAY ==
[2019-03-07 16:58] LABS: Bacteria Urine None Seen
[2019-03-07 17:49] LABS: Appearance Urine UA CLEAR; Bilirubin Urine UA NEGATIVE (NEGATIVE); Color Urine UA YELLOW; Glucose Urine UA NEGATIVE (Negative); Ketones Urine UA NEGATIVE (NEGATIVE); Leukocyte Esterase Urine UA NEGATIVE (NEGATIVE); Nitrite Urine UA NEGATIVE (Negative); Occult Blood Urine UA TRACE-INTACT (Negative); Protein Urine UA NEGATIVE (Negative); Specific Gravity Urine UA 1.025 (1.000-1.035); Urobilinogen Urine UA 0.2 E.U./dL (0.2)
[2019-03-07 18:04] LABS: Culture Indicated Urine Cult Not Indicated; RBC Urine 1-5/HPF (0-5/HPF); WBC Urine 0-1/HPF (0-5/HPF)
== END ==
PROVIDERS: PCP Family Medicine; Visit Provider Neurological Surgery
DX: Z01.812 Encounter for preprocedural laboratory examination (principal)
CPT/HCPCS: 81001

== ENCOUNTER → 2019-04-06 09:47 | Outpatient (CLI) | payer OTHER, SELFPAY ==
[2019-04-06 10:26] LABS: 585 Gram Check PASS; Dizziness NO; Postdiastolic BP 77; Postsystolic BP 121; Prediastolic 80; Presystolic 149; Pulse 67; Site of phlebotomy RAC; Swelling NO; Therapeutic Phleb Comment NO COMMENT; Zero Check Sebra Scale PASS
[2019-04-06 10:59] LABS: Hematocrit 45.7 % (41-53); Hemoglobin 15.9 g/dL (13.5-17.5)
[2019-04-06 11:55] LABS: Ferritin 47.6 ng/mL (17.9-464)
== END ==
PROVIDERS: PCP Family Medicine; Visit Provider Family Medicine
DX: E83.119 Hemochromatosis, unspecified (principal)
CPT/HCPCS: 82728; 85014; 85018; 99195

== ENCOUNTER → 2019-04-25 12:44 | Outpatient (CLI) | payer OTHER, SELFPAY ==
--- NOTE | 2019-04-25 | DI.RAD.S_ITS ---
PROCEDURE: XR CERVICAL SPINE 2V OR 3V INDICATIONS: Spinal stenosis, cervical region TECHNIQUE: 3 view(s) of the cervical spine were acquired. COMPARISON: [facility], , CERVICAL SPINE 1 VIEW, 08/04/2011, 12:56. FINDINGS: Bones: No fractures or dislocations to the T1 level. Prior anterior fusion between C3 and C4 and C5 and C6 is noted. The lower knees 2 fusion procedures was performed between 08/04/11 the current study. The lateral masses of C1 appear intact on the odontoid view. No suspicious bony lesions. Soft tissues: No prevertebral soft tissue swelling. IMPRESSION: Prior anterior fusion plate placement as discussed C3-4 and C5-6, no evidence of device loosening or disruption. Dictated by: David Montgomery M.D. on 04/25/2019 at 13:58 Approved by: David Montgomery M.D. on 04/25/2019 at 14:00
== END ==
PROVIDERS: PCP Family Medicine; Visit Provider Neurological Surgery
DX: M48.02 Spinal stenosis, cervical region (principal); Z98.1 Arthrodesis status
CPT/HCPCS: 72040

== ENCOUNTER → 2019-05-30 15:36 | Outpatient (CLI) | payer OTHER, SELFPAY | PROVIDERS: PCP Family Medicine | DX: Z23 Encounter for immunization (principal) | CPT/HCPCS: 90471; 90662 ==

== ENCOUNTER → 2019-07-11 09:56 | Outpatient (CLI) | payer OTHER, SELFPAY ==
--- NOTE | 2019-07-11 | DI.RAD.S_ITS ---
PROCEDURE: XR CERVICAL SPINE 2V OR 3V INDICATIONS: spinal stenosis,cervical region TECHNIQUE: 3 view(s) of the cervical spine were acquired. COMPARISON: [facility], CR, XR CERVICAL SPINE 2V OR 3V, 04/25/2019, 12:49. FINDINGS: Bones: No fractures or dislocations to the T1 level. The lateral masses of C1 appear intact on the odontoid view. No suspicious bony lesions. Previously present anterior fusion plates fusing C34 and C5-6 appear stable over time with interbody disc prosthesis at C5-6 Soft tissues: No prevertebral soft tissue swelling. IMPRESSION: Stable appearance from 04/25/19 in this patient who has undergone anterior fusion procedures as noted above. Dictated by: David Montgomery M.D. on 07/11/2019 at 11:29 Approved by: David Montgomery M.D. on 07/11/2019 at 11:30
== END ==
PROVIDERS: Family Provider Family Medicine; PCP Family Medicine; Visit Provider Neurological Surgery
DX: M48.02 Spinal stenosis, cervical region (principal); Z98.1 Arthrodesis status
CPT/HCPCS: 72040

== ENCOUNTER 2019-07-12 09:00 | Outpatient (RCR) | payer OTHER, SELFPAY ==
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
--- NOTE | 2019-05-18 19:06 | PT.OPPOC ---
Current Diagnoses Pain in left shoulder (05/18/19) Radiculopathy, cervical region (05/18/19) Cervicalgia (05/18/19) Abnormal posture (05/18/19) Weakness (05/18/19) Visit Care Team Role Provider Type Farhad Machado MD Primary Care Provider Physician Specialty: Family Practice Address: [facility] [place], [address] Email: [email or web address] Afshin Blanton MD Attending Provider Non-Staff Specialty: Neurosurgery Address: [address] [place] [address], [phone] Email: Plan Of Care PT-OP-T Assessment and Plan Start: 05/18/19 12:59 Freq: Status: Active Protocol: Document 05/18/19 13:00 [facility] (Rec: 05/18/19 15:05 [facility] [id number]) Physical Therapy Assessment Rehab Potential Rehabilitation Potential Good Evaluation Complexity Number of Personal Factors/Comorbidities 3 or More Number of Body Systems Impaired 4 or More Clinical Presentation at Evaluation Evolving Impairments Impairments Activity Tolerance,Functional Activities,Functional Mobility ,Pain,Posture,ROM,Soft Tissue Mobility,Strength Goals pain Penitentiary Goal (LTG) Pt will report no greater than 5/10 pain for 2 weeks. LTG Duration 07/18/19 strength Short Term Goal (STG) Pt will be indep with HEP. STG Duration 06/17/19 Penitentiary Goal (LTG) Pt will have 5/5 UE strength B and EFT of 4/5 in order to show improved UE stability to allow pt to feel more functional and able in his daily tasks. LTG Duration 07/18/19 driving Short Term Goal (STG) Pt will improve rotations B to 50 deg to allow greater ease with driving Penitentiary Goal (LTG) Pt will be able to drive 1 hour with no more than 1 point inc on VAS scale. LTG Duration 07/18/19 Assessment Summary Assessment Pt presents with L scapular pain and occasional neck pain and radicular pain down BUE. He has hx of 2 cervial fusions with most recent being for C5-6. He has chronic radicular UE pain and L scapular pain that has been worse in this past year. He is very motivated to pariticapte in PT and would benefit from education, strengthening, ROM, and manual therarpy in order to improve his functional abilities, activity tolerance, and pain level. Physical Therapy Plan Frequency and Duration Frequency of Treatment 2x/Week Duration of Treatment 2 months Plan of Care Start Date 05/18/19 Plan of Care End Date 07/18/19 Therapeutic Interventions Therapeutic Interventions Aquatic Therapy,Home Exercise Program,Joint Mobilizations, Manual Therapy,Neuromuscular Re-education,Patient/Caregiver Education,Self-Care/Home Management,Soft Tissue Mobilization,Taping, Therapeutic Activities, Therapeutic Exercises Modalities Cold Pack/Ice Massage,Electric Stimulation,Hot Packs, Infrared Therapy,Iontophoresis ,Ultrasound Next Visit Focus/Plan Next Note Type Treatment Note Next Visit Plan wall posture, foam roll, tband rows/ext, B ER, HAbd, STM to cervical/scap region Plan of Care Dates Plan of Care Start Date 05/18/19 Plan of Care End Date 07/18/19
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
--- NOTE | 2019-07-12 13:40 | PT.OPPOC ---
Current Diagnoses Pain in left shoulder (07/12/19) Radiculopathy, cervical region (07/12/19) Cervicalgia (07/12/19) Abnormal posture (07/12/19) Weakness (07/12/19) Visit Care Team Role Provider Type Farhad Machado MD Primary Care Provider Physician Specialty: Family Practice Address: [facility] [place], [address] Email: [email or web address] Afshin Blanton MD Attending Provider Non-Staff Specialty: Neurosurgery Address: [address] [place] [address], [phone] Email: Plan Of Care PT-OP-T Assessment and Plan Start: 05/18/19 12:59 Freq: Status: Active Protocol: Document 07/12/19 09:12 [facility] (Rec: 07/12/19 12:04 [facility] [id number]) Physical Therapy Assessment Goals pain [facility]cf Goal (LTG) Pt will report no greater than 5/10 pain for 2 weeks. LTG Duration 09/11/19 strength Short Term Goal (STG) Pt will be indep with HEP. STG Duration achieved [facility]cf Goal (LTG) Pt will have 5/5 UE strength B and EFT of 4/5 in order to show improved UE stability to allow pt to feel more functional and able in his daily tasks. 07/12-improving LTG Duration 08/11 driving Short Term Goal (STG) Pt will improve rotations B to 50 deg to allow greater ease with driving STG Duration 08/06/20 [employer] In[employer] Goal (LTG) Pt will be able to drive 1 hour with no more than 1 point inc on VAS scale. LTG Duration achieved ability to drive to [facility] Assessment Summary Assessment Pt was making excellent progress prior to this past week where he has had a flair up of cervical pain over last week and R arm pain starting yesterday that caused dec arm use and pt called physician re : this. He has significant R sided scalenes, UT, SCM tightness today greater than L david with elevated 1st rib. This improved with gentle MFR in area but pt still had elevated 1st rib but was so tender to touch that even gentle MFR was tender for pt. He has driven to [place] and [place] without signfiicant issue, but about the same as his typical level of function iwth n pain. Physical Therapy Plan Frequency and Duration Frequency of Treatment 1-2x/Week Duration of Treatment 2 months Plan of Care Start Date 07/12/19 Plan of Care End Date 09/11/19 Therapeutic Interventions Therapeutic Interventions Aquatic Therapy,Home Exercise Program,Joint Mobilizations, Manual Therapy,Neuromuscular Re-education,Patient/Caregiver Education,Self-Care/Home Management,Soft Tissue Mobilization,Taping, Therapeutic Activities, Therapeutic Exercises Modalities Cold Pack/Ice Massage,Electric Stimulation,Hot Packs, Infrared Therapy,Iontophoresis ,Ultrasound Next Visit Focus/Plan Next Note Type Treatment Note Next Visit Plan Cont to work on scapular control & postural stability Plan of Care Dates Plan of Care Start Date 07/12/19 Plan of Care End Date 09/11/19
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
== END 2019-07-12 15:30 | disposition home or self-care (01) ==
LOC: PHYS 09:00
PROVIDERS: PCP Family Medicine; Visit Provider Neurological Surgery
DX: M54.2 Cervicalgia (principal); R29.3 Abnormal posture; R53.1 Weakness; M54.12 Radiculopathy, cervical region; M25.512 Pain in left shoulder
CPT/HCPCS: 97010; 97110; 97140; 97162; 97535

== ENCOUNTER → 2019-10-04 09:33 | Outpatient (CLI) | payer MEDICARE, SELFPAY ==
--- NOTE | 2019-10-04 | DI.RAD.S_ITS ---
PROCEDURE: XR CERVICAL SPINE 4V OR 5V INDICATIONS: POST STATUS FUSION FOLLOW UP TECHNIQUE: 5 views of the cervical spine were acquired. COMPARISON: [facility], CR, CERVICAL SPINE 1 VIEW, 08/04/2011, 12:56. [facility], CR, XR CERVICAL SPINE 2V OR 3V, 04/25/2019, 12:49. [facility], CR, XR CERVICAL SPINE 2V OR 3V, 07/11/2019, 10:04. FINDINGS: Bones: No fractures or dislocations to the C7 level. No suspicious bony lesions. Post surgical changes related ACDF at the C3-C4 level, and C5-C6 level. Interbody cage grafts are present at C3-C4 and C5-C6. Hardware appears intact. There is some lucency surrounding the C3 vertebral body screw, more pronounced since the prior study from 08/22/11 however unchanged since 04/25/19. Straightening of the normal lordotic curvature. Multilevel degenerative endplate sclerosis and spurring. Diffuse facet arthropathy. Grade 1 retrolisthesis of C3 on C4. No evidence of abnormal motion with dynamic flexion and extension lateral views. Moderate narrowing of the C6-C7 disc space, which is slightly progressed since 08/04/11. Mild narrowing of the remaining visualized cervical disc spaces. Soft tissues: Prevertebral soft tissues are normal in thickness. IMPRESSION: Postsurgical and degenerative changes as detailed above. Of note, lucency surrounding the C3 vertebral body screw demonstrates development since 2010 however no interval change since the more recent comparison studies as above. Please correlate clinically to exclude hardware loosening or infection. Residual grade 1 retrolisthesis of C3 on C4. No evidence of abnormal motion with dynamic flexion and extension lateral views. Cervical spondylosis and facet disease Dictated by: Lazaro Rudd M.D. on 10/04/2019 at 13:26 Approved by: Lazaro Rudd M.D. on 10/04/2019 at 13:30
== END ==
PROVIDERS: Family Provider Family Medicine; PCP Family Medicine; Referring Provider Neurological Surgery; Visit Provider Neurological Surgery
DX: Z09 Encounter for follow-up examination after completed treatment for conditions other than malignant neoplasm (principal); M43.12 Spondylolisthesis, cervical region; M47.812 Spondylosis without myelopathy or radiculopathy, cervical region; Z98.1 Arthrodesis status
CPT/HCPCS: 72050

== ENCOUNTER → 2019-10-05 07:11 | Outpatient (CLI) | payer MEDICARE, SELFPAY ==
[2019-10-05 07:34] LABS: Add Manual Diff / Slide Review NO; Basophils Absolute Auto 100 /uL (0-100); Basophils Percent Auto 1.1 % (0-2); Eosinophils Absolute Auto 300 /uL (0-450); Eosinophils Percent Auto 5.3 % (2-4); Hematocrit 45.9 % (41-53); Lymphocytes Absolute Auto 1400 /uL (1100-4500); Lymphocytes Percent Auto 29.2 % (25-40); Mean Corpuscular HGB Conc 34.9 % (30-36); Mean Corpuscular Hemoglobin 32.4 PG (26-34); Monocytes Absolute Auto 400 /uL (0-900); Monocytes Percent Auto 8.1 % (3-14); Neutrophils Absolute Auto 2700 /uL (1500-7000); Neutrophils Percent Auto 56.3 % (50-75); Platelet Count 156 X10^3/uL (150-400); Red Blood Cell Count 4.94 X10^6/uL (4.5-5.9); Red Cell Distribution Width 13.3 % (11.6-14.8); White Blood Cell Count 4.8 X10^3/uL (4.5-11.0)
[2019-10-05 08:39] LABS: TSH w/ Reflex to FT4 1.41 uIU/mL (0.47-4.68)
[2019-10-05 08:40] LABS: Prostate Specific Antigen Scrn 5.53 ng/mL (0.1-4.0)
== END ==
PROVIDERS: Family Provider Family Medicine; PCP Family Medicine; Referring Provider Family Medicine; Visit Provider Family Medicine
DX: R97.20 Elevated prostate specific antigen [PSA] (principal); Z12.5 Encounter for screening for malignant neoplasm of prostate
CPT/HCPCS: 36415; 84443; 85025; G0103

== ENCOUNTER → 2019-10-17 13:55 | Outpatient (CLI) | payer MEDICARE, SELFPAY ==
[2019-10-17 17:11] LABS: Ferritin 36 ng/mL (18-464)
== END ==
PROVIDERS: Family Provider Family Medicine; PCP Family Medicine; Referring Provider Family Medicine; Visit Provider Family Medicine
DX: E83.110 Hereditary hemochromatosis (principal)
CPT/HCPCS: 36415; 82728

== ENCOUNTER → 2020-02-06 14:29 | Outpatient (CLI) | payer MEDICARE, SELFPAY ==
--- NOTE | 2020-02-06 14:31 | DI.RAD.S_ITS ---
PROCEDURE: XR HIP W PEL IF DONE RT 2V INDICATIONS: rt hip pain TECHNIQUE: AP pelvis with lateral view(s) of the right hip(s). COMPARISON: None. FINDINGS: Bones: No fractures or dislocations but the frontal view of the pelvis does show a mild to moderate degree of symmetric hip joint osteoarthritis. A source of asymmetric right-sided predominant pain, however, is not seen. No prior or recent trauma found. Pelvic ring appears intact. No suspicious bony lesions. Soft tissues: The visualized bowel gas pattern is normal. No suspicious soft tissue calcifications. 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 No trauma found. Dictated by: David Montgomery M.D. on 02/06/2020 at 15:44 Approved by: David Montgomery M.D. on 02/06/2020 at 15:45
== END ==
PROVIDERS: Family Provider Family Medicine; PCP Family Medicine; Referring Provider Family Medicine; Visit Provider Family Medicine
DX: M25.551 Pain in right hip (principal); M16.0 Bilateral primary osteoarthritis of hip
CPT/HCPCS: 73502

== ENCOUNTER 2020-04-25 09:45 | Outpatient (RCR) | payer MEDICARE, SELFPAY ==
--- NOTE | 2020-02-20 13:59 | PT.OIE ---
Current Diagnoses Pain in unspecified hip (02/20/20) Past Medical History (Last Reviewed 06/28/18 @ 11:26 by Mercedes Whitley LPN) BPH (benign prostatic hyperplasia) (Chronic) Cataract (Chronic 2012) Cervical spine disease (Chronic) Chronic back pain (Chronic) Colon polyps (Resolved 2001) Elevated PSA (Chronic) Foot pain (Chronic) GERD (gastroesophageal reflux disease) (Chronic ~1979) Glaucoma (Chronic ~2008) Hayfever (Chronic ~1959) Hemochromatosis (Chronic 1990) Hepatitis A (Resolved ~1961) IBS (irritable bowel syndrome) (Chronic ~1969) Lumbar spine pain (Chronic) Peptic ulcer disease (Chronic ~1959) Recurrent sinusitis (Resolved ~1969) Shoulder pain (Resolved ~1989) Tennis elbow (Resolved) Past Surgical History (Last Reviewed 06/28/18 @ 11:26 by Mercedes Whitley LPN) Anesthesia complication (Resolved) History of elbow surgery (Resolved ~2010) History of knee surgery (Resolved) History of shoulder surgery (Resolved ~1979) History of shoulder surgery (Resolved ~1979) History of spinal fusion (Resolved 2010) Hx of decompression of ulnar nerve (Resolved ~1989) Visit Care Team Role Provider Type Farhad Machado MD Attending Provider Physician Family Provider Primary Care Provider Referring Provider Specialty: Family Practice Address: [address] [place] [address], [facility] Email: [email or web address] Physical Therapy Initial Evaluation PT-OP-A Visit Information Start: 02/19/20 16:10 Freq: Status: Active Protocol: Document 02/20/20 07:30 MB (Rec: 02/20/20 07:45 MB [id number]) Out-Patient Physical Therapy Visit Information Visit Information Visit Type Initial Evaluation Visit Note [employer] HMO Medicare Advantage Visit Start Time 07:29 Visit Stop Time 08:10 Total Visit Minutes 41 Visit Number 1 Evaluation Information Evaluation Date 02/20/20 PT-OP-B Current Condition Start: 02/19/20 16:10 Freq: Status: Active Protocol: Document 02/20/20 07:30 MB (Rec: 02/20/20 07:45 MB [id number]) Current Condition History of Current Condition Onset Date 2 months ago Current Complaints Right hip pain that is worse with getting up to feet after sitting (7/10) History of Current Condition Pt reports of right greater than left carpal tunnel and wears braces at night. Getting up from sitting increases right hip pain. Pt reports 4/10 lateral right hip pain and left posterior hip pain rated 3/10. Pt has pain lying on his sides at home, even on his left side. He can sleep only 45 minutes on each side. He uses pillow support between each leg. Pt states that 200 feet walking is painful and then it gets mild but he cannot walk as far as the mailbox and back , which is half a mile. He can only get up steps with left leg. He cannot get up on the mower as it is high. Pushing the clutch and brake is hard with right leg. Pt states that riding up and down to [employer] about killed him and he had to use his cane for a couple of days afterwards. 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 Pt reports some right SI pain. He received injection with Dr. Machado that did nothing. He is going to see orthopedist, Dr. Monique, next week. 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 Patient Questionnaires Lower Extremity Functional Scale LEFS Score 31 LEFS Impairment 60 to 79% Impaired (Score 17- 31) PT-OP-G Mobility & Gait Start: 02/19/20 16:10 Freq: Status: Active Protocol: Document 02/20/20 07:30 MB (Rec: 02/20/20 10:30 MB [id number]) OP Gait Assessment Gait Gait Assistance Required: Independent Distance (Feet) 65 Assistive Devices Assistive Device None Gait Deviations General Gait Pattern Antalgic,Decreased Stride Length,Decreased Feet Clearance,Lateral Trunk Lean Comments Gait Comments Pt presents with antaglic gait after getting up from chair in waiting room, favoring his right leg and having trouble reaching upright posture. PT-OP-J Posture/Palpation/Skin Start: 02/19/20 16:10 Freq: Status: Active Protocol: Document 02/20/20 07:30 MB (Rec: 02/20/20 10:30 MB [id number]) Posture Evaluation Comments Posture Comments Standing posture: forward head with tragus 2 in front of AC joint, Dowager's hump, decreased thoracic kyphosis with spine flat until lower lumbar and there is lordosis. T12-L1 area is different to palpation than the surrounding vertebrae. R iliac crest higher than the left. Increased Jocelin angle, greater on the right and supinated feet. PT-OP-K Range of Motion Start: 02/19/20 16:10 Freq: Status: Active Protocol: Document 02/20/20 07:30 MB (Rec: 02/20/20 10:30 MB [id number]) Lumbar Spine Range of Motion Lumbar Spine Active Testing Position Standing Extension 10 Lateral Flexion Left 10 Lateral Flexion Right 15 Comments Flexion with hands handing at mid orellana area and pt reports right hip pain moves down into buttock. Cannot describe well as pain versus stretch. Pt reports right SI pain, not rated, with left SB in standing Hip Goniometric Range of Motion Hip Left Hip ROM WFL No Testing Position Supine Internal Rotation 10 External Rotation 30 Right Hip ROM WFL No Testing Position Supine Internal Rotation 20 External Rotation 40 Hip ROM Limitations Comments PROM. Pt self-limits active right hip flexion d/t lateral hip discomfort, not rated. PT-OP-L Special Tests Start: 02/19/20 16:10 Freq: Status: Active Protocol: Document 02/20/20 07:30 MB (Rec: 02/20/20 10:30 MB [id number]) Special Tests Lumbar Spine Special Tests Slump Test Results Negative for radicular sxs B, increased hamstring stretch sensation Comments R hamstring tighter than the left Hip Special Tests DARRICK Comments Jump sign on the right and pt reports sharp pain 7-8/10 in lateral trochanter area Scour Comments Very limited ROM, greater on the left with Scour testing. Limited range and does not report extensive pain either side PT-OP-M Strength Start: 02/19/20 16:10 Freq: Status: Active Protocol: Document 02/20/20 07:30 MB (Rec: 02/20/20 10:30 MB [id number]) Hip Strength Hip Manual Muscle Testing Left Flexion (L2) 4 Good Abduction 4 Good Comments Supine Right Flexion (L2) 2+ Poor+ Abduction 3- Fair- Comments Supine Knee Strength Knee Manual Muscle Testing Left Flexion (S2) 4 Good Extension (L3) 5 Normal Right Flexion (S2) 3+ Fair+ Extension (L3) 5 Normal Ankle/Foot Strength Ankle and Foot Manual Muscle Testing Left Dorsiflexion (L4) 5 Normal Inversion 5 Normal Eversion (S1) 4 Good Comments Supine Great toe extension 5/5 Right Dorsiflexion (L4) 5 Normal Inversion 5 Normal Eversion (S1) 5 Normal Comments Supine Great toe extension 5/5 PT-OP-T Assessment and Plan Start: 02/19/20 16:10 Freq: Status: Active Protocol: Document 02/20/20 07:30 MB (Rec: 02/20/20 10:30 MB [id number]) Physical Therapy Assessment Rehab Potential Rehabilitation Potential Good Evaluation Complexity Number of Personal Factors/Comorbidities 1-2 Number of Body Systems Impaired 1-2 Clinical Presentation at Evaluation Evolving Impairments Impairments Activity Tolerance,Balance, Gait,Pain,Posture,ROM,Soft Tissue Mobility,Strength Goals 5 Retirement Goal (LTG) Pt will present with B hip flexion and abduction strength to 4/5 and B knee flexion strength to 5/5 to improve sit to stands by 04/22/2020. LTG Duration 8 weeks 4 Retirement Goal (LTG) Pt will perform progressive HEP with I including pelvic realignment, flexibility, strengthening and balance exercises to decrease pain and improve function by 04/22/2020 . LTG Duration 8 weeks 3 Home Health Rn Goal (LTG) Pt will report an 85% improvement in right hip pain to improve quality of life by 04/22/2020. LTG Duration 8 weeks 2 Retirement Goal (LTG) Pt will gait train at least 1000 feet in 6 minutes with reports of no more than 1/10 pain to reflect improved community ambulation by 2019. LTG Duration 8 weeks 1 Home Health Rn Goal (LTG) Pt will present with LEF score reflecting no more than 20% functional impairment by 2019. LTG Duration 8 weeks Assessment Summary Assessment Pt is a 79 y/o male presenting with right lateral and posterior hip and SI pain. Pt presents with postural changes , decreased lumbar and SI mobility on the right, left greater than right PROM ER/IR deficits, positive DARRICK right hip today. He presents with B hip and knee weakness and left ankle weakness. He denies sensory changes. At end of assessment, pt states that he had a bad fall on the bottom four steps, landing on his back in 08/2019. He shows a photo of his LB that was had a lot of ecchymosis and some edema. It is possible that given this injury, he may have lumbar contributions to symptoms. Pt presents with many areas of pain including B wrist carpal tunnel and this may be a barrier to use of hands with LE flexibility. He also states that he might need another cervical surgery. PT is concerned that pt may have an underlying systemic issue contributing to multi-joint pain and symptoms. Pt will benefit from PT to improve flexibility, pelvic alignment, balance and strength. Physical Therapy Plan Frequency and Duration Frequency of Treatment 2x/Week Duration of Treatment 8 weeks Plan of Care Start Date 02/20/20 Plan of Care End Date 04/22/20 Therapeutic Interventions Therapeutic Interventions Aquatic Therapy,Balance Training,Canalithic Repositioning,Gait Training, Home Exercise Program,Joint Mobilizations,Manual Therapy, Neuromuscular Re-education, Patient/Caregiver Education, Self-Care/Home Management,Soft Tissue Mobilization,Taping, Therapeutic Activities Modalities Cold Pack/Ice Massage,Electric Stimulation,Hot Packs, Ultrasound Other Referrals/Consults Referrals/Consults Recommended Orthopedist to possibly assess lumbar spine, possible dxs Next Visit Focus/Plan Next Note Type Treatment Note Next Visit Plan Initiate pelvic realignment exercises and progress other exercises as pt tolerates.
--- NOTE | 2020-02-20 14:00 | PT.OPPOC ---
Physical, Occupational & Speech Therapy At [facility] Current Diagnoses Pain in unspecified hip (02/20/20) Visit Care Team Role Provider Type Farhad Machado MD Attending Provider Physician Family Provider Primary Care Provider Referring Provider Specialty: Family Practice Address: [address] [place] [address], [id number] Email: [email or web address] Plan Of Care PT-OP-T Assessment and Plan Start: 02/19/20 16:10 Freq: Status: Active Protocol: Document 02/20/20 07:30 MB (Rec: 02/20/20 10:30 MB [id number]) Physical Therapy Assessment Rehab Potential Rehabilitation Potential Good Evaluation Complexity Number of Personal Factors/Comorbidities 1-2 Number of Body Systems Impaired 1-2 Clinical Presentation at Evaluation Evolving Impairments Impairments Activity Tolerance,Balance, Gait,Pain,Posture,ROM,Soft Tissue Mobility,Strength Goals 5 Fire Inspector Goal (LTG) Pt will present with B hip flexion and abduction strength to 4/5 and B knee flexion strength to 5/5 to improve sit to stands by 04/22/2020. LTG Duration 8 weeks 4 Fdc Goal (LTG) Pt will perform progressive HEP with I including pelvic realignment, flexibility, strengthening and balance exercises to decrease pain and improve function by 04/22/2020 . LTG Duration 8 weeks 3 Fire Inspector Goal (LTG) Pt will report an 85% improvement in right hip pain to improve quality of life by 04/22/2020. LTG Duration 8 weeks 2 Fdc Goal (LTG) Pt will gait train at least 1000 feet in 6 minutes with reports of no more than 1/10 pain to reflect improved community ambulation by 2019. LTG Duration 8 weeks 1 Fire Inspector Goal (LTG) Pt will present with LEF score reflecting no more than 20% functional impairment by 2019. LTG Duration 8 weeks Assessment Summary Assessment Pt is a 79 y/o male presenting with right lateral and posterior hip and SI pain. Pt presents with postural changes , decreased lumbar and SI mobility on the right, left greater than right PROM ER/IR deficits, positive DARRICK right hip today. He presents with B hip and knee weakness and left ankle weakness. He denies sensory changes. At end of assessment, pt states that he had a bad fall on the bottom four steps, landing on his back in 08/2019. He shows a photo of his LB that was had a lot of ecchymosis and some edema. It is possible that given this injury, he may have lumbar contributions to symptoms. Pt presents with many areas of pain including B wrist carpal tunnel and this may be a barrier to use of hands with LE flexibility. He also states that he might need another cervical surgery. PT is concerned that pt may have an underlying systemic issue contributing to multi-joint pain and symptoms. Pt will benefit from PT to improve flexibility, pelvic alignment, balance and strength. Physical Therapy Plan Frequency and Duration Frequency of Treatment 2x/Week Duration of Treatment 8 weeks Plan of Care Start Date 02/20/20 Plan of Care End Date 04/22/20 Therapeutic Interventions Therapeutic Interventions Aquatic Therapy,Balance Training,Canalithic Repositioning,Gait Training, Home Exercise Program,Joint Mobilizations,Manual Therapy, Neuromuscular Re-education, Patient/Caregiver Education, Self-Care/Home Management,Soft Tissue Mobilization,Taping, Therapeutic Activities Modalities Cold Pack/Ice Massage,Electric Stimulation,Hot Packs, Ultrasound Other Referrals/Consults Referrals/Consults Recommended Orthopedist to possibly assess lumbar spine, possible dxs Next Visit Focus/Plan Next Note Type Treatment Note Next Visit Plan Initiate pelvic realignment exercises and progress other exercises as pt tolerates. Plan of Care Dates Plan of Care Start Date 02/20/20 Plan of Care End Date 04/22/20 Electronically Signed by: Magi Vega PT 02/20/20 1400 Please Sign and Return: I have reviewed this Plan of Care and certify that the skilled therapy services above are required to meet the patient?s needs. Physician Signature Date Printed Name and Credentials Clinical Instructor Signature Printed Name and Credentials
--- NOTE | 2020-02-21 08:09 | PT.OTN ---
Current Diagnoses Pain in unspecified hip (02/21/20) Physical Therapy Treatment Note PT-OP-A Visit Information Start: 02/19/20 16:10 Freq: Status: Active Protocol: Document 02/21/20 07:27 MB (Rec: 02/21/20 08:09 MB [id number]) Out-Patient Physical Therapy Visit Information Visit Information Visit Type Treatment Note Visit Note [employer] HMO Medicare Advantage Visit Start Time 07:27 Visit Stop Time 08:07 Total Visit Minutes 40 Visit Number 2 Evaluation Information Evaluation Date 02/20/20 PT-OP-B Current Condition Start: 02/19/20 16:10 Freq: Status: Active Protocol: Document 02/20/20 07:30 MB (Rec: 02/20/20 07:45 MB [id number]) Current Condition History of Current Condition Onset Date 2 months ago Current Complaints Right hip pain that is worse with getting up to feet after sitting (7/10) History of Current Condition Pt reports of right greater than left carpal tunnel and wears braces at night. Getting up from sitting increases right hip pain. Pt reports 4/10 lateral right hip pain and left posterior hip pain rated 3/10. Pt has pain lying on his sides at home, even on his left side. He can sleep only 45 minutes on each side. He uses pillow support between each leg. Pt states that 200 feet walking is painful and then it gets mild but he cannot walk as far as the mailbox and back , which is half a mile. He can only get up steps with left leg. He cannot get up on the mower as it is high. Pushing the clutch and brake is hard with right leg. Pt states that riding up and down to [employer] killed him and he had to use his cane for a couple of days afterwards. 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 Pt reports some right SI pain. He received injection with Dr. Machado that did nothing. He is going to see orthopedist, Dr. Monique, next week. 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 PT-OP-G Mobility & Gait Start: 02/19/20 16:10 Freq: Status: Active Protocol: Document 02/20/20 07:30 MB (Rec: 02/20/20 10:30 MB [id number]) OP Gait Assessment Gait Gait Assistance Required: Independent Distance (Feet) 65 Assistive Devices Assistive Device None Gait Deviations General Gait Pattern Antalgic,Decreased Stride Length,Decreased Feet Clearance,Lateral Trunk Lean Comments Gait Comments Pt presents with antaglic gait after getting up from chair in waiting room, favoring his right leg and having trouble reaching upright posture. PT-OP-J Posture/Palpation/Skin Start: 02/19/20 16:10 Freq: Status: Active Protocol: Document 02/20/20 07:30 MB (Rec: 02/20/20 10:30 MB [id number]) Posture Evaluation Comments Posture Comments Standing posture: forward head with tragus 2 in front of AC joint, Dowager's hump, decreased thoracic kyphosis with spine flat until lower lumbar and there is lordosis. T12-L1 area is different to palpation than the surrounding vertebrae. R iliac crest higher than the left. Increased Jocelin angle, greater on the right and supinated feet. PT-OP-K Range of Motion Start: 02/19/20 16:10 Freq: Status: Active Protocol: Document 02/20/20 07:30 MB (Rec: 02/20/20 10:30 MB [id number]) Lumbar Spine Range of Motion Lumbar Spine Active Testing Position Standing Extension 10 Lateral Flexion Left 10 Lateral Flexion Right 15 Comments Flexion with hands handing at mid orellana area and pt reports right hip pain moves down into buttock. Cannot describe well as pain versus stretch. Pt reports right SI pain, not rated, with left SB in standing Hip Goniometric Range of Motion Hip Left Hip ROM WFL No Testing Position Supine Internal Rotation 10 External Rotation 30 Right Hip ROM WFL No Testing Position Supine Internal Rotation 20 External Rotation 40 Hip ROM Limitations Comments PROM. Pt self-limits active right hip flexion d/t lateral hip discomfort, not rated. PT-OP-L Special Tests Start: 02/19/20 16:10 Freq: Status: Active Protocol: Document 02/20/20 07:30 MB (Rec: 02/20/20 10:30 MB [id number]) Special Tests Lumbar Spine Special Tests Slump Test Results Negative for radicular sxs B, increased hamstring stretch sensation Comments R hamstring tighter than the left Hip Special Tests DARRICK Comments Jump sign on the right and pt reports sharp pain 7-8/10 in lateral trochanter area Scour Comments Very limited ROM, greater on the left with Scour testing. Limited range and does not report extensive pain either side PT-OP-M Strength Start: 02/19/20 16:10 Freq: Status: Active Protocol: Document 02/20/20 07:30 MB (Rec: 02/20/20 10:30 MB [id number]) Hip Strength Hip Manual Muscle Testing Left Flexion (L2) 4 Good Abduction 4 Good Comments Supine Right Flexion (L2) 2+ Poor+ Abduction 3- Fair- Comments Supine Knee Strength Knee Manual Muscle Testing Left Flexion (S2) 4 Good Extension (L3) 5 Normal Right Flexion (S2) 3+ Fair+ Extension (L3) 5 Normal Ankle/Foot Strength Ankle and Foot Manual Muscle Testing Left Dorsiflexion (L4) 5 Normal Inversion 5 Normal Eversion (S1) 4 Good Comments Supine Great toe extension 5/5 Right Dorsiflexion (L4) 5 Normal Inversion 5 Normal Eversion (S1) 5 Normal Comments Supine Great toe extension 5/5 PT-OP-Q Treatments Start: 02/19/20 16:10 Freq: Status: Active Protocol: Document 02/21/20 07:27 MB (Rec: 02/21/20 08:09 MB [id number]) Therapeutic Exercises Supine Exercises Pelvic realignment exercises Comments 5 reps each, 3 sec hold Gait Training Gait Activity Gait training Comments Pt presents with antalgic, stiff right leg with gait and requires cues to increase right hip and knee flexion Manual Therapy Treatment Other Other Manual Treatments Positional release right vastus lateralis anterior and posterior portions, right iliacus and psoas, pt with increased tension PT-OP-T Assessment and Plan Start: 02/19/20 16:10 Freq: Status: Active Protocol: Document 02/21/20 07:27 MB (Rec: 07/01/20 08:09 MB [id number]) Physical Therapy Assessment Rehab Potential Rehabilitation Potential Good Evaluation Complexity Number of Personal Factors/Comorbidities 1-2 Number of Body Systems Impaired 1-2 Clinical Presentation at Evaluation Evolving Impairments Impairments Activity Tolerance,Balance, Gait,Pain,Posture,ROM,Soft Tissue Mobility,Strength Goals 5 Steel Die Printer Goal (LTG) Pt will present with B hip flexion and abduction strength to 4/5 and B knee flexion strength to 5/5 to improve sit to stands by 04/22/2020. LTG Duration 8 weeks 4 Steel Die Printer Goal (LTG) Pt will perform progressive HEP with I including pelvic realignment, flexibility, strengthening and balance exercises to decrease pain and improve function by 04/22/2020 . LTG Duration 8 weeks 3 Steel Die Printer Goal (LTG) Pt will report an 85% improvement in right hip pain to improve quality of life by 04/22/2020. LTG Duration 8 weeks 2 Long-Term Goal (LTG) Pt will gait train at least 1000 feet in 6 minutes with reports of no more than 1/10 pain to reflect improved community ambulation by 2019. LTG Duration 8 weeks 1 Long-Term Goal (LTG) Pt will present with LEF score reflecting no more than 20% functional impairment by 2019. LTG Duration 8 weeks Assessment Summary Assessment Initiated pelvic realignment exercises this date. Pt con't with antalgic gait when he gets up. Physical Therapy Plan Frequency and Duration Frequency of Treatment 2x/Week Duration of Treatment 8 weeks Plan of Care Start Date 02/20/20 Plan of Care End Date 04/22/20 Therapeutic Interventions Therapeutic Interventions Aquatic Therapy,Balance Training,Canalithic Repositioning,Gait Training, Home Exercise Program,Joint Mobilizations,Manual Therapy, Neuromuscular Re-education, Patient/Caregiver Education, Self-Care/Home Management,Soft Tissue Mobilization,Taping, Therapeutic Activities Modalities Cold Pack/Ice Massage,Electric Stimulation,Hot Packs, Ultrasound Other Referrals/Consults Referrals/Consults Recommended Orthopedist to possibly assess lumbar spine, possible dxs Next Visit Focus/Plan Next Note Type Treatment Note Next Visit Plan Review exercises and progress as tolerates
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
--- NOTE | 2020-03-28 14:02 | PT.OPPOC ---
Physical, Occupational & Speech Therapy At [facility] Current Diagnoses Pain in unspecified hip (03/28/20) Visit Care Team Role Provider Type Farhad Machado MD Attending Provider Physician Family Provider Primary Care Provider Referring Provider Specialty: Family Practice Address: [address] [place] [address], [id number] Email: [email or web address] Plan Of Care PT-OP-T Assessment and Plan Start: 02/19/20 16:10 Freq: Status: Active Protocol: Document 03/28/20 13:03 MB (Rec: 03/28/20 13:49 MB [id number]) Physical Therapy Assessment Goals 5 Pump Erector Goal (LTG) Pt will present with B hip flexion and abduction strength to 4/5 and B knee flexion strength to 5/5 to improve sit to stands by 05/28/2020. 03/28/2020: B hip flexion, knee flexion and hip abduction 4/5 LTG Duration 8 weeks 4 Pump Erector Goal (LTG) Pt will perform progressive HEP with I including pelvic realignment, flexibility, strengthening and balance exercises to decrease pain and improve function by 05/28/2020 . 03/28/2020: Pt is performing some exercises but some of them may increasing pain LTG Duration 8 weeks 3 Prison Goal (LTG) Pt will report an 65% improvement in right hip pain to improve quality of life by 05/28/2020. 03/28/2020: Pt reports a 5% improvement in right hip pain since starting PT but he does not really know. His pain is intermittent. LTG Duration 8 weeks 2 Pump Erector Goal (LTG) Pt will gait train at least 1000 feet in 6 minutes with reports of no more than 3/10 right hip pain to reflect improved community ambulation by 05/28/2020. 03/28/2020: Pt reports 8/10 right hip pain before walking. It decreases to 6/10 with increased gait distance. Pt gait trains 1311 feet in 6 minutes LTG Duration 8 weeks 1 Prison Goal (LTG) Pt will present with LEF score reflecting no more than 40% functional impairment by 2019. 03/28/2020: LEF score is 23/80, over 71% impairment LTG Duration 8 weeks Assessment Summary Assessment Pt has made minimal progress since starting PT. He reports 5% improvement in overall pain , tolerance of some HEP exercises, his B hip abduction , flexion and knee flexion strength is 4/5 and he is able to gait train 1311 feet in 6 minutes but with pain. Of note , his pain lessens with gait distance on flat surface. His LE functional index score is not improved. Pt reports severe symptoms. PT impression is a lateral hip or trochanteric syndrome that may have multi-factorial contributions such as postural changes in spine and hips, fascial changes and weakness. Will try some different manual treatment in future PT visits to see if this assists in pain and can allow better tolerance to exercises. Recommend pt have consult with Dr. Aguero for dry needling of his TFL/Glute min areas as well as QL and iliopsoas. Con' t PT efforts. Physical Therapy Plan Frequency and Duration Frequency of Treatment 2x/Week Duration of Treatment 8 weeks Plan of Care Start Date 03/28/20 Plan of Care End Date 05/28/20 Other Referrals/Consults Referrals/Consults Recommended Consider consult for dry needling with Dr. Aguero Next Visit Focus/Plan Next Note Type Treatment Note Next Visit Plan Consider Counterstrain to address fascial changes. Con't to progress core, leg strengthening, flexibility exercises, manual work, balance exercises Plan of Care Dates Plan of Care Start Date 03/28/20 Plan of Care End Date 05/28/20 Electronically Signed by: Magi Vega, PT 03/28/20 [id number] Please Sign and Return: I have reviewed this Plan of Care and certify that the skilled therapy services above are required to meet the patient?s needs. Physician Signature Date Printed Name and Credentials Clinical Instructor Signature Printed Name and Credentials
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
--- NOTE | 2020-04-02 13:45 | PT.OPPOC ---
Physical, Occupational & Speech Therapy At [facility] Current Diagnoses Pain in unspecified hip (04/02/20) Visit Care Team Role Provider Type Farhad Machado MD Attending Provider Physician Family Provider Primary Care Provider Referring Provider Specialty: Family Practice Address: [address] [place] [address], [id number] Email: [email or web address] Plan Of Care PT-OP-T Assessment and Plan Start: 02/19/20 16:10 Freq: Status: Active Protocol: Document 04/02/20 13:00 MB (Rec: 04/02/20 13:29 MB [id number]) Physical Therapy Assessment Goals 5 Parts Salesperson Goal (LTG) Pt will present with B hip flexion and abduction strength to 4/5 and B knee flexion strength to 5/5 to improve sit to stands by 05/28/2020. 03/28/2020: B hip flexion, knee flexion and hip abduction 4/5 LTG Duration 8 weeks 4 Parts Salesperson Goal (LTG) Pt will perform progressive HEP with I including pelvic realignment, flexibility, strengthening and balance exercises to decrease pain and improve function by 05/28/2020 . 03/28/2020: Pt is performing some exercises but some of them may increasing pain LTG Duration 8 weeks 3 Retirement Goal (LTG) Pt will report an 65% improvement in right hip pain to improve quality of life by 05/28/2020. 03/28/2020: Pt reports a 5% improvement in right hip pain since starting PT but he does not really know. His pain is intermittent. LTG Duration 8 weeks 2 Parts Salesperson Goal (LTG) Pt will gait train at least 1000 feet in 6 minutes with reports of no more than 3/10 right hip pain to reflect improved community ambulation by 05/28/2020. 03/28/2020: Pt reports 8/10 right hip pain before walking. It decreases to 6/10 with increased gait distance. Pt gait trains 1311 feet in 6 minutes LTG Duration 8 weeks 1 Retirement Goal (LTG) Pt will present with LEF score reflecting no more than 40% functional impairment by 2019. 03/28/2020: LEF score is 23/80, over 71% impairment LTG Duration 8 weeks Assessment Summary Assessment Pt responds well to Counterstrain today. Fascial tightness of neuro and musculoskeletal spinal systems . Physical Therapy Plan Frequency and Duration Frequency of Treatment 2x/Week Duration of Treatment 8 weeks Plan of Care Start Date 03/28/20 Plan of Care End Date 05/28/20 Therapeutic Interventions Therapeutic Interventions Aquatic Therapy,Balance Training,Canalithic Repositioning,Gait Training, Home Exercise Program,Joint Mobilizations,Manual Therapy, Neuromuscular Re-education, Patient/Caregiver Education, Self-Care/Home Management,Soft Tissue Mobilization,Taping, Therapeutic Activities, Therapeutic Exercises Modalities Biofeedback,Cold Pack/Ice Massage,Electric Stimulation, Ultrasound Other Referrals/Consults Referrals/Consults Recommended Consider consult for dry needling with Dr. Aguero Next Visit Focus/Plan Next Note Type Treatment Note Next Visit Plan Con't to progress core, leg strengthening, flexibility exercises, manual work, balance exercises Plan of Care Dates Plan of Care Start Date 03/28/20 Plan of Care End Date 05/28/20 Electronically Signed by: Magi Vega, PT 04/02/20 [id number] Please Sign and Return: I have reviewed this Plan of Care and certify that the skilled therapy services above are required to meet the patient?s needs. Physician Signature Date Printed Name and Credentials Clinical Instructor Signature Printed Name and Credentials
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
--- NOTE | 2020-05-16 12:21 | PT.OPDS ---
Current Diagnoses Pain in unspecified hip (04/25/20) Visit Care Team Role Provider Type Farhad Machado MD Attending Provider Physician Family Provider Primary Care Provider Referring Provider Specialty: Family Practice Address: [address] [place] [address], [id number] Email: [email or web address] Visit Number Visit Number [id number] Discharge Summary PT-OP-B Current Condition Start: 02/19/20 16:10 Freq: Status: Active Protocol: Document 02/20/20 07:30 MB (Rec: 02/20/20 07:45 MB [id number]) Current Condition History of Current Condition Onset Date 2 months ago Current Complaints Right hip pain that is worse with getting up to feet after sitting (7/10) History of Current Condition Pt reports of right greater than left carpal tunnel and wears braces at night. Getting up from sitting increases right hip pain. Pt reports 4/10 lateral right hip pain and left posterior hip pain rated 3/10. Pt has pain lying on his sides at home, even on his left side. He can sleep only 45 minutes on each side. He uses pillow support between each leg. Pt states that 200 feet walking is painful and then it gets mild but he cannot walk as far as the mailbox and back , which is half a mile. He can only get up steps with left leg. He cannot get up on the mower as it is high. Pushing the clutch and brake is hard with right leg. Pt states that riding up and down to [place] about killed him and he had to use his cane for a couple of days afterwards. 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 Pt reports some right SI pain. He received injection with Dr. Machado that did nothing. He is going to see orthopedist, Dr. Monique, next week. 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 Aguero x3. He had manual work and dry needling twice. He did have some relief after treatments. He cancelled appointment with Dr. Monique on Wednesday because he was feeling good. He is not doing good. He had to do power washing and has had two bad days. He did lumbar rotation exercises per doctor and had increased pain. He feels like nothing is really working. Patient Reported Progress Same PT-OP-G Mobility & Gait Start: 02/19/20 16:10 Freq: Status: Active Protocol: Document 02/20/20 07:30 MB (Rec: 02/20/20 10:30 MB [id number]) OP Gait Assessment Gait Gait Assistance Required: Independent Distance (Feet) 65 Assistive Devices Assistive Device None Gait Deviations General Gait Pattern Antalgic,Decreased Stride Length,Decreased Feet Clearance,Lateral Trunk Lean Comments Gait Comments Pt presents with antaglic gait after getting up from chair in waiting room, favoring his right leg and having trouble reaching upright posture. PT-OP-J Posture/Palpation/Skin Start: 02/19/20 16:10 Freq: Status: Active Protocol: Document 02/20/20 07:30 MB (Rec: 02/20/20 10:30 MB [id number]) Posture Evaluation Comments Posture Comments Standing posture: forward head with tragus 2 in front of AC joint, Dowager's hump, decreased thoracic kyphosis with spine flat until lower lumbar and there is lordosis. T12-L1 area is different to palpation than the surrounding vertebrae. R iliac crest higher than the left. Increased Jocelin angle, greater on the right and supinated feet. PT-OP-K Range of Motion Start: 02/19/20 16:10 Freq: Status: Active Protocol: Document 02/20/20 07:30 MB (Rec: 02/20/20 10:30 MB [id number]) Lumbar Spine Range of Motion Lumbar Spine Active Testing Position Standing Extension 10 Lateral Flexion Left 10 Lateral Flexion Right 15 Comments Flexion with hands handing at mid orellana area and pt reports right hip pain moves down into buttock. Cannot describe well as pain versus stretch. Pt reports right SI pain, not rated, with left SB in standing Hip Goniometric Range of Motion Hip Left Hip ROM WFL No Testing Position Supine Internal Rotation 10 External Rotation 30 Right Hip ROM WFL No Testing Position Supine Internal Rotation 20 External Rotation 40 Hip ROM Limitations Comments PROM. Pt self-limits active right hip flexion d/t lateral hip discomfort, not rated. PT-OP-L Special Tests Start: 02/19/20 16:10 Freq: Status: Active Protocol: Document 02/20/20 07:30 MB (Rec: 02/20/20 10:30 MB [id number]) Special Tests Lumbar Spine Special Tests Slump Test Results Negative for radicular sxs B, increased hamstring stretch sensation Comments R hamstring tighter than the left Hip Special Tests DARRICK Comments Jump sign on the right and pt reports sharp pain 7-8/10 in lateral trochanter area Scour Comments Very limited ROM, greater on the left with Scour testing. Limited range and does not report extensive pain either side PT-OP-M Strength Start: 02/19/20 16:10 Freq: Status: Active Protocol: Document 02/20/20 07:30 MB (Rec: 02/20/20 10:30 MB [id number]) Hip Strength Hip Manual Muscle Testing Left Flexion (L2) 4 Good Abduction 4 Good Comments Supine Right Flexion (L2) 2+ Poor+ Abduction 3- Fair- Comments Supine Knee Strength Knee Manual Muscle Testing Left Flexion (S2) 4 Good Extension (L3) 5 Normal Right Flexion (S2) 3+ Fair+ Extension (L3) 5 Normal Ankle/Foot Strength Ankle and Foot Manual Muscle Testing Left Dorsiflexion (L4) 5 Normal Inversion 5 Normal Eversion (S1) 4 Good Comments Supine Great toe extension 5/5 Right Dorsiflexion (L4) 5 Normal Inversion 5 Normal Eversion (S1) 5 Normal Comments Supine Great toe extension 5/5 PT-OP-T Assessment and Plan Start: 02/19/20 16:10 Freq: Status: Active Protocol: Document 05/16/20 12:20 MB (Rec: 05/16/20 12:21 MB [id number]) Physical Therapy Plan Discharge Physical Therapy Discharge Reasons Patient Request Discharge Comments Front office calls patient to offer appointment. Pt communicates that he is having MRI and will be seeing pain specialist and would like to d /c PT at this time. Will d/c PT.
== END 2020-05-24 09:58 ==
LOC: PHYS 09:45
PROVIDERS: Family Provider Family Medicine; PCP Family Medicine; Referring Provider Family Medicine; Visit Provider Family Medicine
DX: M25.559 Pain in unspecified hip (principal)
CPT/HCPCS: 97110; 97116; 97140; 97161; 97530; 97535

== ENCOUNTER → 2020-04-30 14:21 | Outpatient (CLI) | payer MEDICARE, SELFPAY ==
--- NOTE | 2020-04-30 14:23 | DI.RAD.S_ITS ---
PROCEDURE: XR LUMBAR SPINE 2-3V INDICATIONS: low back pain TECHNIQUE: 3 views of the lumbar spine were acquired. COMPARISON: None. FINDINGS: Bones: No fracture identified. Multilevel degenerative endplate sclerosis and spurring. Diffuse mild to moderate lumbar disc space narrowing. Multilevel degenerative endplate sclerosis and spurring. Diffuse facet arthropathy. Mild dextrocurvature centered at L2. Soft tissues: Overlying bowel gas pattern is normal. No suspicious soft tissue calcifications. Scattered vascular calcifications seen in the aorta. IMPRESSION: Multilevel lumbar spondylosis and facet arthropathy. Mild dextrocurvature Dictated by: Lazaro Rudd M.D. on 04/30/2020 at 17:14 Approved by: Lazaro Rudd M.D. on 04/30/2020 at 17:15
== END ==
PROVIDERS: Family Provider Family Medicine; PCP Family Medicine; Referring Provider Family Medicine; Visit Provider Family Medicine
DX: M54.5 Low back pain (principal); M47.816 Spondylosis without myelopathy or radiculopathy, lumbar region; M25.551 Pain in right hip; M51.36 Other intervertebral disc degeneration, lumbar region
CPT/HCPCS: 72100

== ENCOUNTER → 2020-05-15 09:06 | Outpatient (CLI) | payer MEDICARE, SELFPAY ==
--- NOTE | 2020-05-15 09:08 | DI.MRI.S_ITS ---
PROCEDURE: MR LUMBAR SPINE WO CON INDICATIONS: Back Pain with R hip pain TECHNIQUE: Noncontrast sagittal T1 spin echo and T2 fast echo, sagittal STIR, axial T1 and T2 fast spin echo through the lumbar spine. In cases with scoliosis, additional coronal T2 fast spin echo may be performed. COMPARISON: [facility], , L-SPINE WITHOUT CONTRAST, 01/26/2008, 20:22. FINDINGS: Image quality: Excellent. Alignment and Curvature: No plain films are available for comparison, for numbering purposes. Thus, for the purposes of this examination, 5 lumbar type vertebral bodies will be presumed, as denoted on the montage panel. This should be confirmed and correlated with plain films, prior to any lumbar spinal intervention. There is mild, grade 1 retrolisthesis of L3 on L4. There is loss of normal lumbar lordosis. Bone Marrow: Marrow is of normal overall signal. No acute vertebral body compression fractures. There is mild reactive signal within the endplates adjacent to the L1-L2, L3-L4, L4-L5, and L5-S1 intervertebral discs. Spinal Cord: Conus medullaris terminates at the upper L1 level. Visualized cord demonstrates normal signal and size. Paraspinous Soft Tissues: No paravertebral masses. L1-L2: Mild disc height loss and desiccation. Mild diffuse disc bulge. Mild facet hypertrophy bilaterally. Mild canal stenosis. No foraminal stenosis. No change. L2-L3: Mild disc height loss and desiccation. Mild diffuse disc bulge. Mild facet and ligamentum flavum hypertrophy. Mild epidural lipomatosis. Mild canal stenosis. Mild bilateral foraminal stenosis. No change. L3-L4: Mild disc height loss and desiccation. Mild diffuse disc bulge with superimposed broad-based left posterolateral protrusion. Mild facet and ligamentum flavum hypertrophy. Mild epidural lipomatosis. Mild canal stenosis. Mild left greater than right foraminal stenosis. No change. L4-L5: Mild disc height loss and desiccation. Mild diffuse disc bulge. Mild facet and ligamentum flavum hypertrophy. Mild canal stenosis. Mild bilateral foraminal stenosis. No change. L5-S1: Moderate disc height loss and desiccation. Mild diffuse disc bulge. Mild bilateral facet hypertrophy. Mild canal stenosis is unchanged. Increased, moderate left foraminal stenosis. No change in mild right foraminal stenosis. IMPRESSION: 1. Multilevel degenerative disc and facet disease, as well as ligamentum flavum hypertrophy and epidural lipomatosis. 2. Mild multilevel canal stenosis. 3. Multilevel foraminal stenoses, worst on the left at L5-S1 where there is moderate foraminal stenosis. Dictated by: Meera Hughes M.D. on 05/15/2020 at 10:40 Approved by: Meera Hughes M.D. on 05/15/2020 at 10:43
== END ==
PROVIDERS: Family Provider Family Medicine; PCP Family Medicine; Referring Provider Family Medicine; Visit Provider Family Medicine
DX: M54.5 Low back pain (principal); M25.551 Pain in right hip; M51.36 Other intervertebral disc degeneration, lumbar region; M51.37 Other intervertebral disc degeneration, lumbosacral region; M48.061 Spinal stenosis, lumbar region without neurogenic claudication; M48.07 Spinal stenosis, lumbosacral region; E88.2 Lipomatosis, not elsewhere classified
CPT/HCPCS: 72148

== ENCOUNTER → 2020-05-30 14:31 | Outpatient (CLI) | payer MEDICARE, SELFPAY | PROVIDERS: Family Provider Family Medicine; PCP Family Medicine; Referring Provider Internal Medicine; Visit Provider Internal Medicine | DX: Z23 Encounter for immunization (principal) | CPT/HCPCS: 90471; 90662 ==

== ENCOUNTER → 2020-07-11 17:04 | Outpatient (CLI) | payer MEDICARE, SELFPAY ==
--- NOTE | 2020-07-11 17:05 | DI.MRI.S_ITS ---
PROCEDURE: MR PELVIS WO CON INDICATIONS: Possible sacral fx, sacral pain status post fall 08/2019 TECHNIQUE: Noncontrast coronal and axial T1 spin echo and STIR through the bony pelvis. COMPARISON: None. FINDINGS: Image quality: Excellent. Bones: Bone marrow of the pelvic ring, sacrum, and proximal femurs demonstrates normal overall signal. No bone contusions or fractures identified. The sacroiliac joints appear preserved. The visualized lower lumbar spine appears normally aligned. Tendons: The gluteus medius and minimus tendons appear intact, with mild peritendinous edema on the right distally at the greater trochanter. There is minimal peritendinous edema along the gluteal tendons at the greater trochanter distally. The proximal iliotibial band also appears intact. The iliopsoas tendon appears intact, without adjacent bursal fluid collections or evidence for impingement syndrome. The origin of the hamstring tendon is intact at the ischial tuberosity, as well as the associated sacrotuberous ligament. The straight and reflected heads of the rectus femoris muscle origin appear intact, as well as the conjoint tendon. Soft tissues: Visualized muscles demonstrate normal bulk and internal signal. No joint effusions. No free pelvic fluid. The prostate is heterogeneously enlarged measuring up to 6.2 x 5.8 x 6.4 cm. The bladder wall is slightly thickened and trabeculated suggesting sequelae of chronic bladder outlet obstruction.There is colonic diverticulosis without acute diverticulitis. IMPRESSION: 1. No evidene of sacral fracture or bone contusion. 2. Heterogeneous enlargement of the prostate likely reflecting BPH. Recommend correlation clinically. Dictated by: Pino Hammond M.D. on 07/12/2020 at 9:15 Approved by: Pino Hammond M.D. on 07/12/2020 at 9:32
== END ==
PROVIDERS: Family Provider Family Medicine; PCP Family Medicine; Referring Provider Physical Medicine & Rehabilitation; Visit Provider Physical Medicine & Rehabilitation
DX: M53.3 Sacrococcygeal disorders, not elsewhere classified (principal); M99.04 Segmental and somatic dysfunction of sacral region
CPT/HCPCS: 72195

== ENCOUNTER → 2020-08-12 08:40 | Outpatient (CLI) | payer MEDICARE, SELFPAY ==
--- NOTE | 2020-08-12 | DI.NM.S_ITS ---
PROCEDURE: NM BONE SCAN LIMITED AREA RADIOPHARMACEUTICAL: 20.4 mCi Tc-99m MDP IV. INDICATIONS: Sacroiliitis, not elsewhere classified TECHNIQUE: Multiple delayed bone scintigrams of the body part of interest were obtained approximately 3 hours after intravenous injection of Tc-99m MDP. COMPARISON: [facility], MR, MR PELVIS WO CON, 07/11/2020, 17:14. FINDINGS: No evidence of trauma or sacroiliitis. IMPRESSION: Normal pelvic nuclear medicine bone scan. Sacroiliitis is not found. Recent MR scanning 07/11/20 also did not identify evidence of spondyloarthropathy or sacroiliitis. Dictated by: David Montgomery M.D. on 08/12/2020 at 15:54 Approved by: David Montgomery M.D. on 08/12/2020 at 15:56
== END ==
PROVIDERS: Family Provider Family Medicine; PCP Family Medicine; Referring Provider Family Medicine; Visit Provider Neurological Surgery
DX: M46.1 Sacroiliitis, not elsewhere classified (principal)
CPT/HCPCS: 78300; A9503

== ENCOUNTER → 2020-11-07 07:09 | Outpatient (CLI) | payer MEDICARE, SELFPAY ==
[2020-11-07 08:00] LABS: Add Manual Diff / Slide Review NO; Basophils Absolute Auto 100 /uL (0-100); Basophils Percent Auto 1.1 % (0-2); Eosinophils Absolute Auto 300 /uL (0-450); Eosinophils Percent Auto 5.6 % (2-4); Hematocrit 45.4 % (41-53); Hemoglobin 15.8 g/dL (13.5-17.5); Lymphocytes Absolute Auto 1600 /uL (1100-4500); Mean Corpuscular HGB Conc 34.9 % (30-36); Mean Corpuscular Hemoglobin 32.2 PG (26-34); Mean Corpuscular Volume 92.3 fL (80-100); Monocytes Absolute Auto 500 /uL (0-900); Monocytes Percent Auto 8.4 % (3-14); Neutrophils Absolute Auto 3100 /uL (1500-7000); Neutrophils Percent Auto 55.9 % (50-75); Platelet Count 170 X10^3/uL (150-400); Red Blood Cell Count 4.92 X10^6/uL (4.5-5.9); Red Cell Distribution Width 12.9 % (11.6-14.8); White Blood Cell Count 5.5 X10^3/uL (4.5-11.0)
[2020-11-07 08:12] LABS: Alanine Aminotransferase 16 IU/L (<50); Albumin 3.9 g/dL (3.5-5.0); Albumin Globulin Ratio 1.6 (1.0-2.8); Alkaline Phosphatase 58 U/L (38-126); Aspartate Aminotransferase 23 IU/L (17-59); BUN Creatinine Ratio 22.8 (6-22); Bilirubin Total 0.5 mg/dL (0.2-1.3); Blood Urea Nitrogen 21 mg/dL (9-20); Calcium 9.5 mg/dL (8.4-10.2); Carbon Dioxide 28 mmol/L (22-32); Chloride 106 mmol/L (98-107); Cholesterol 155 mg/dL (140-199); Estimated Glomerular Filt Rate > 60.0 mL/min (>60); Globulin 2.4 g/dL (1.7-4.1); Glucose 108 mg/dL (80-110); HDL Cholesterol 45 mg/dL (40-60); HEMOLYSIS < 15 (0-50); LDL Cholesterol Calculated 92 mg/dL (<100); Potassium 4.3 mmol/L (3.4-5.1); Sodium 138 mmol/L (137-145); Total Protein 6.3 g/dL (6.3-8.2); Triglycerides 89 mg/dL (35-150)
[2020-11-07 08:44] LABS: TSH w/ Reflex to FT4 1.54 uIU/mL (0.47-4.68)
[2020-11-07 08:47] LABS: Ferritin 34 ng/mL (18-464)
== END ==
PROVIDERS: Family Provider Family Medicine; PCP Family Medicine; Referring Provider Family Medicine; Visit Provider Family Medicine
DX: E83.119 Hemochromatosis, unspecified (principal); R97.20 Elevated prostate specific antigen [PSA]; M17.12 Unilateral primary osteoarthritis, left knee
CPT/HCPCS: 36415; 80053; 80061; 82728; 84153; 84443; 85025

== ENCOUNTER → 2020-12-10 13:04 | Outpatient (CLI) | payer MEDICARE, SELFPAY ==
[2020-12-10 14:33] LABS: BUN Creatinine Ratio 16.3 (6-22); Blood Urea Nitrogen 16 mg/dL (9-20); Estimated Glomerular Filt Rate > 60.0 mL/min (>60)
== END ==
PROVIDERS: Family Provider Family Medicine; PCP Family Medicine; Referring Provider Family Medicine; Visit Provider Family Medicine
DX: Z01.812 Encounter for preprocedural laboratory examination (principal)
CPT/HCPCS: 36415; 82565; 84520

== ENCOUNTER → 2020-12-11 09:28 | Outpatient (CLI) | payer MEDICARE, SELFPAY ==
--- NOTE | 2020-12-11 09:28 | DI.CT.S_ITS ---
PROCEDURE: CT ABDOMEN PELVIS W CON INDICATIONS: Abd pain/diarrhea TECHNIQUE: After the administration of intravenous contrast, 5 mm thick sections acquired from the diaphragm to the symphysis. 5 mm coronal and sagittal reformats were acquired. For radiation dose reduction, the following was used: automated exposure control, adjustment of mA and/or kV according to patient size. COMPARISON: [facility], CT, ABDOMEN/PELVIS WITH CONTRAST, 12/17/2017, 17:06. FINDINGS: Image quality: Excellent. ABDOMEN: Lung bases: Lung bases are clear. Heart size is normal. Solid organs: Liver is normal in size and enhancement. There is a water density 5 cm cyst at the posterior left hepatic lobe near the left michelle hepatis. Gallbladder contains numerous partially calcified gallstones which are small in size each measuring approximately 4 mm in diameter. Biliary system is non dilated. Pancreas enhances normally. Spleen is normal in size and enhancement. No adrenal nodules. Kidneys demonstrate normal size and enhancement, without hydronephrosis. Peritoneum and bowel: Bowel loops demonstrate normal wall thickness and caliber. No free fluid or air. Nodes and vessels: No retroperitoneal or mesenteric adenopathy by size criteria. Aorta and inferior vena cava are normal in size. Miscellaneous: No ventral hernias. PELVIS: Genitourinary: Bladder wall thickness is normal. Miscellaneous: No inguinal hernias or adenopathy. Bones: No suspicious bony lesions. No vertebral body compression fractures. IMPRESSION: There is sigmoid diverticulosis without acute diverticulitis. No urinary tract stone is found. Incidental note is again made of several water density simple cysts within the liver parenchyma as was previously the case in November of 2017. Numerous 4 mm gallstones, partially calcified, are seen within the gallbladder lumen. No biliary distention is associated. Dictated by: David Montgomery M.D. on 12/11/2020 at 14:09 Approved by: David Montgomery M.D. on 12/11/2020 at 14:12
== END ==
PROVIDERS: Family Provider Family Medicine; PCP Family Medicine; Referring Provider Family Medicine; Visit Provider Family Medicine
DX: K57.30 Diverticulosis of large intestine without perforation or abscess without bleeding (principal); R19.7 Diarrhea, unspecified; R10.9 Unspecified abdominal pain; K80.20 Calculus of gallbladder without cholecystitis without obstruction; K76.89 Other specified diseases of liver
CPT/HCPCS: 74177

== ENCOUNTER → 2021-03-04 12:20 | Outpatient (CLI) | payer MEDICARE, SELFPAY ==
--- NOTE | 2021-03-04 12:22 | DI.RAD.S_ITS ---
PROCEDURE: XR HAND RT MIN 3V INDICATIONS: r thumb pain TECHNIQUE: 3 views of the hand(s) acquired. COMPARISON: None. FINDINGS: Bones: No fractures or dislocations. Carpal bones are normally aligned. No suspicious bony lesions. 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 Mild triscaphe joint osteoarthritis. Soft tissues: No suspicious soft tissue calcifications. IMPRESSION: 1. 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 2. No fracture. No acute osseous lesion. If symptoms and/or clinical suspicion for pathology persists, further assessment with repeat radiographs (7-10 days) or advanced imaging (e.g. MRI) should be considered. Dictated by: Veronique Da Silva MD, PhD on 03/04/2021 at 16:04 Approved by: Veronique Da Silva MD, PhD on 03/04/2021 at 16:05
--- NOTE | 2021-03-04 14:38 | DI.RAD.S_ITS ---
PROCEDURE: XR FINGER RT MIN 2V INDICATIONS: thumb pain TECHNIQUE: AP hand, 2 views of the right thumb acquired. COMPARISON: None. FINDINGS: Bones: No fractures or dislocations. No suspicious bony lesions. Severe degenerative arthritis at the 1st carpometacarpal joint. Mild triscaphe degenerative arthritis. Thumb IP joint degenerative arthritis. Wrist chondrocalcinosis. Soft tissues: No suspicious soft tissue calcifications. 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 Dictated by: Will Grover M.D. on 03/04/2021 at 17:07 Approved by: Will Grover M.D. on 03/04/2021 at 17:08
== END ==
PROVIDERS: Family Provider Family Medicine; PCP Family Medicine; Referring Provider Family Medicine; Visit Provider Family Medicine
DX: M79.641 Pain in right hand; M18.11 Unilateral primary osteoarthritis of first carpometacarpal joint, right hand; M19.041 Primary osteoarthritis, right hand; G89.29 Other chronic pain
CPT/HCPCS: 73130; 73140

== ENCOUNTER → 2021-04-16 09:07 | Outpatient (CLI) | payer MEDICARE, SELFPAY ==
--- NOTE | 2021-04-16 09:09 | DI.RAD.S_ITS ---
PROCEDURE: XR THORACIC SPINE 3V INDICATIONS: ongoing back pain TECHNIQUE: 3 views of the thoracic spine were acquired. COMPARISON: [facility], , THORACIC SPINE 3 VIEWS, 06/05/2010, 11:24. FINDINGS: Bones: No fractures or dislocations but there is mild degenerative disc height reduction at the middle 3rd of the thoracic spine. No subluxation is associated.. No suspicious bony lesions. 12 pairs of ribs are noted, and appear intact where visualized. Soft tissues: No paravertebral stripe thickening. IMPRESSION: No prior trauma, mild degenerative disc disease at the middle 3rd of the thoracic spine without subluxation. Dictated by: David Montgomery M.D. on 04/16/2021 at 10:49 Approved by: David Montgomery M.D. on 04/16/2021 at 10:50
== END ==
PROVIDERS: Family Provider Family Medicine; PCP Family Medicine; Referring Provider Family Medicine; Visit Provider Family Medicine
DX: M54.9 Dorsalgia, unspecified (principal); M51.34 Other intervertebral disc degeneration, thoracic region
CPT/HCPCS: 72072

== ENCOUNTER → 2021-04-17 15:56 | Outpatient (CLI) | payer MEDICARE, SELFPAY ==
--- NOTE | 2021-04-17 16:02 | DIET.CONS ---
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 Can only wear elastic banded pants. Colonoscopy and endoscopy resulting in multiple polyps but nothing else. Has sticky stools. 3-4x/d feeling like not getting it all out. Feels dairy is indeed issue with fecal urgency. Current sx 5/10 despite some work with 6w low FODMAP diet though pt did not get training in diet so has been eating a variety of FODMAP cheeses and artificial sweeteners. Nutrition Diagnosis: Nutrition related knowledge deficit r/t low FODMAP diet aeb pt dx c IBS following modified low FODMAP diet without total improvement in sx (12/30 sx severity), pt eating some high FODMAP foods, pt intolerant to onions/garlic. Interventions: 1. Using handouts educated pt on low FODMAP diet. Worked extensively c pt to identify high, moderate, and low fodmap foods with amounts of each that may be tolerable. 2. Described reintroduction phase and systematic approach to test variety of foods using food journal. 3. Provided pt meal plan to use during elimination phase to support complex dietary choices. Monitoring/Evaluations: Pt will follow diet x6w then start reintroduction phase keeping food and sx journal with goal of most liberal diet possible while attaining total sx resolvement and small list of identifiable food triggers.
== END ==
PROVIDERS: Family Provider Family Medicine; PCP Family Medicine; Referring Provider Family Medicine; Visit Provider Family Medicine
DX: K58.0 Irritable bowel syndrome with diarrhea (principal); R10.9 Unspecified abdominal pain; R15.2 Fecal urgency; Z71.3 Dietary counseling and surveillance; Z86.010 Personal history of colon polyps
CPT/HCPCS: 97802

== ENCOUNTER 2021-04-21 18:23 | Emergency (ER) | payer MEDICARE, SELFPAY ==
[2021-04-21 18:52] VITALS: BP 139/64; PULSE 54; RESP 18; TEMP 37.1; O2SAT 97; BMI 25.0
--- NOTE | 2021-04-21 20:23 | ED.GENADULT ---
HPI - General Adult General Chief complaint: Urogenital-Male Stated complaint: Back Surgery Today, Unable to Urinate for 9 Hrs Time Seen by Provider: 04/21/21 18:26 Source: patient Mode of arrival: Family Vehicle Limitations: no limitations History of Present Illness HPI narrative: 80-year-old gentleman who had a sacral fusion today in [place]. He also has a history of BPH is currently on tamsulosin. Presents with report of being unable to void for the last 9 hours. He describes no fevers, cough, chills. Abdominal pain secondary to the urinary distention but surgical site pain is well controlled. He describes no headache, diarrhea, constipation, palpitations or acute neurologic changes. Related Data Home Medications Medication Instructions Recorded Confirmed Travoprost (TRAVATAN OPHTH 0.004%) 1 drp OPHTH HS #0 01/04/12 01/08/21 Previous Rx's Medication Instructions Recorded finasteride 5 mg tablet 5 mg PO DAILY #90 tab 06/28/20 Disabled Parking Permit #1 ea 07/11/20 omeprazole 20 mg capsule,delayed See Rx Instructions .ROUTE 02/25/21 release .COMPLEX #90 cap tamsulosin 0.4 mg capsule See Rx Instructions .ROUTE 02/25/21 .COMPLEX #90 cap Allergies Allergy/AdvReac Type Severity Reaction Status Date / Time bupivacaine [From MARCAINE] Allergy Severe sob Verified 04/21/21 18:57 Penicillins [PENICILLINS] Allergy Intermediate n/v, Verified 04/21/21 18:57 itching shellfish derived Allergy Intermediate prawns Verified 04/21/21 18:57 [SHELLFISH DERIVED] garlic [GARLIC] Allergy Mild GI upset Verified 04/21/21 18:57 ibuprofen [IBUPROFEN] Allergy Mild dye Verified 04/21/21 18:57 coating of tab red dye [RED DYE] Allergy Mild Verified 04/21/21 18:57 hexachlorophene Allergy Unknown Verified 04/21/21 18:57 [HEXACHLOROPHENE] propoxyphene [From DARVON] AdvReac Mild n/v itching Verified 04/21/21 18:57 raw onion Allergy Unknown GI upset Uncoded 04/21/21 18:57 Review of Systems Review of Systems Narrative: Remainder of complete review of systems is otherwise unremarkable except for that included in the HPI. Patient History Medical History Abdominal pain Acute hip pain BPH (benign prostatic hyperplasia) Cataract (2012) Cervical spine disease Chronic back pain Chronic low back pain without sciatica Colon polyps (2001) Diverticulitis Diverticulosis Elevated PSA Foot pain GERD (gastroesophageal reflux disease) (~1979) Glaucoma (~2008) Hayfever (~1959) Hemochromatosis (1990) Hepatitis A (~1961) Herniated nucleus pulposus, L5-S1, right IBS (irritable bowel syndrome) (~1969) Iliotibial band syndrome, right leg Lumbar region somatic dysfunction Lumbar spine pain Pelvic somatic dysfunction Peptic ulcer disease (~1959) Piriformis syndrome of right side Recurrent sinusitis (~1969) Sacral fracture Sacral region somatic dysfunction Segmental and somatic dysfunction of abdomen and other regions Shoulder pain (~1989) Somatic dysfunction of lower extremity Tennis elbow Surgical History Anesthesia complication History of elbow surgery (~2010) History of knee surgery History of shoulder surgery (~1979) History of shoulder surgery (~1979) History of spinal fusion (2010) Hx of decompression of ulnar nerve (~1989) Family History Father Heart disease Mother Age related osteoporosis Diabetes mellitus Heart disease Hypertension High cholesterol Pneumonia Sister Age: 83 High cholesterol Sister Parkinson's disease Sister Cancer Social History marital status: Smoking Status: Former smoker alcohol intake: current (1-2 A DAY ) substance use type: does not use Smoking Status: Former smoker alcohol intake frequency: a few times a week Substance Use Type: does not use Exam Narrative Exam Narrative: General: Alert appropriate in no acute distress Respiratory: Able to speak in full sentences, no obvious respiratory distress Skin: No obvious rashes, warm and dry Neurologic: Grossly intact no obvious asymmetries or abnormalities Psych: appropriate insight and affect, cooperative Cook catheter is placed without difficulty with 450 cc of clear yellow urine returning. Initial Vital Signs Initial Vital Signs: Vital Signs Temperature 98.7 F 04/21/21 18:52 Pulse Rate 54 L 04/21/21 18:52 Respiratory Rate 18 04/21/21 18:52 Blood Pressure 139/64 04/21/21 18:52 Pulse Oximetry 97 04/21/21 18:52 Course Vital Signs Vital signs: Vital Signs - 8 hr 04/21/21 18:52 Temperature 98.7 F Pulse Rate 54 L Respiratory Rate 18 Blood Pressure 139/64 Pulse Oximetry 97 Medical Decision Making MDM Narrative Medical decision making narrative: 80-year-old gentleman post sacral fusion with a history of BPH presents with acute urinary retention that is resolved with Cook catheter placement without difficulty. Approximately 450 cc yellow urine returns with Cook insertion and pain is significantly improved. 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 Will ask him to follow-up with Dr. Perez regarding continued care maintenance and removal of catheter. He has a televideo postop follow-up in 2 weeks. This time he is safe for home discharge Discharge Plan Departure Patient Disposition: Home Clinical Impression: Acute urinary retention Instructions: How to Care for Your Cook Catheter -- Male, DI for Urinary Retention in Men Activity Restrictions/Additional Instructions: Thank you for coming in tonight Urinary retention in the setting of a large prostate is common and very common after surgical procedure. The Cook catheter went in without difficulty. I am glad that you know how to care for Cook catheters, it is nice to have an expert at home to help:) Please call Dr. Machado's office tomorrow and let them know that you had this episode of urinary retention, you have a catheter in place and see if they recommend an in-person follow-up appointment or if they feel comfortable with having your removed the catheter in 4-5 days. If you have new or worsening symptoms, please feel free to return. I hope you heal quickly from your surgical procedure. Prescriptions: No Action Travoprost (TRAVATAN OPHTH 0.004%) 1 drp OPHTH HS Qty: 0 RF: 0 finasteride 5 mg tablet 5 mg PO DAILY Qty: 90 RF: 3 (DME) Disabled Parking Permit See Rx Instructions .ROUTE .MEDSUPPLY Qty: 1 RF: 0 tamsulosin 0.4 mg capsule See Rx Instructions .ROUTE .COMPLEX Qty: 90 RF: 3 omeprazole 20 mg capsule,delayed release(DR/EC) See Rx Instructions .ROUTE .COMPLEX Qty: 90 RF: 3 Referrals: Farhad Machado MD [Primary Care Provider] -
== END 2021-04-21 20:40 | disposition home or self-care (01) ==
PROVIDERS: Emergency Provider Emergency Medicine; Family Provider Family Medicine; PCP Family Medicine
DX: R33.8 Other retention of urine (principal); R10.9 Unspecified abdominal pain
CPT/HCPCS: 51798; 99283

== ENCOUNTER → 2021-05-01 08:34 | Outpatient (CLI) | payer MEDICARE, SELFPAY ==
--- NOTE | 2021-05-01 | DI.RAD.S_ITS ---
PROCEDURE: XR PELVIS 1-2V INDICATIONS: post op check TECHNIQUE: 2 view(s) of the pelvis acquired. COMPARISON: None. FINDINGS: Bones: No fractures or dislocations. Patient is status post fusion of right sacroiliac joint with surgical hardware in place. No suspicious bony lesions. Soft tissues: Visualized bowel gas pattern is normal. No suspicious soft tissue calcifications. IMPRESSION: Postop changes from right sacroiliac joint fusion. Pelvic ring is intact. No fracture or dislocation. Dictated by: Francisco Dunbar M.D. on 05/01/2021 at 10:25 Approved by: Francisco Dunbar M.D. on 05/01/2021 at 10:26
== END ==
PROVIDERS: Family Provider Family Medicine; PCP Family Medicine; Referring Provider Neurological Surgery; Visit Provider Neurological Surgery
DX: Z48.89 Encounter for other specified surgical aftercare (principal); M46.1 Sacroiliitis, not elsewhere classified; Z98.1 Arthrodesis status
CPT/HCPCS: 72170

== ENCOUNTER → 2021-06-20 10:31 | Outpatient (CLI) | payer MEDICARE, SELFPAY ==
--- NOTE | 2021-06-20 | DI.RAD.S_ITS ---
PROCEDURE: XR SACRUM COCCYX MIN 2V INDICATIONS: Sacroiliitis, not elsewhere classified TECHNIQUE: 3 views of the sacrum and coccyx acquired. COMPARISON: None. FINDINGS: Bones: No fracture. Minimal degenerative changes in the left sacroiliac joint. Hardware in the right sacroiliac joint has no surrounding lucency. No facet arthrosis in the lower lumbar spine. L5-S1 has mild degenerative changes. Soft tissues: Visualized bowel gas pattern is normal. No suspicious soft tissue densities. IMPRESSION: 1. Hardware in the right sacroiliac joint with no perihardware lucency to suggest loosening. 2. Mild disc space narrowing consistent with disc disease at L5-S1. Dictated by: Matthew Stein M.D. on 06/20/2021 at 15:14 Approved by: Matthew Stein M.D. on 06/20/2021 at 15:18
--- NOTE | 2021-06-20 | DI.RAD.S_ITS ---
PROCEDURE: XR PELVIS 1-2V INDICATIONS: Sacroiliitis, not elsewhere classified TECHNIQUE: Single view(s) of the pelvis acquired. COMPARISON: [facility], CR, XR PELVIS 1-2V, 05/01/2021, 8:35. FINDINGS: Bones: No fractures or dislocations. No suspicious bony lesions. Right SI joint instrumentation is again noted, unchanged from the prior. Left SI joint unremarkable. Pelvic ring intact. Soft tissues: Visualized bowel gas pattern is normal. No suspicious soft tissue calcifications. IMPRESSION: Stable right SI joint instrumentation Approved by: Adal Guerrero M.D. on 06/20/2021 at 15:20
== END ==
PROVIDERS: Family Provider Family Medicine; PCP Family Medicine; Referring Provider Neurological Surgery; Visit Provider Neurological Surgery
DX: M46.1 Sacroiliitis, not elsewhere classified (principal)
CPT/HCPCS: 72170; 72220

== ENCOUNTER → 2021-06-28 11:36 | Outpatient (CLI) | payer MEDICARE, SELFPAY ==
--- NOTE | 2021-06-28 | DI.MRI.S_ITS ---
PROCEDURE: MR LUMBAR SPINE WO CON INDICATIONS: Radiculopathy, lumbar region TECHNIQUE: Noncontrast sagittal T1 spin echo and T2 fast echo, sagittal STIR, axial T1 and T2 fast spin echo through the lumbar spine. In cases with scoliosis, additional coronal T2 fast spin echo may be performed. COMPARISON: [facility], CR, XR LUMBAR SPINE 2-3V, 04/30/2020, 14:15. [facility], MR, MR LUMBAR SPINE WO CON, 05/15/2020, 9:20. FINDINGS: Image quality: Excellent. Alignment and Curvature: There is normal bony alignment. Bone Marrow: Marrow is of normal overall signal. No acute vertebral body compression fractures. Spinal Cord: Conus medullaris terminates at the T12-L1 level. Visualized cord demonstrates normal signal and size. Paraspinous Soft Tissues: No paravertebral masses. T12-L1: Mild disc bulge. No canal stenosis or foraminal stenosis. L1-L2: Mild disc bulge. No canal stenosis or foraminal stenosis. L2-L3: Disc bulge. Mild facet and ligament hypertrophy. Mild bilateral foraminal stenosis. Mild canal stenosis. L3-L4: Disc bulge. Facet hypertrophy. Mild bilateral foraminal narrowing. L4-L5: Diffuse disc bulge. Mildly eccentric to the left. Disc material abuts but does not displace the left L5 nerve root in the left lateral recess. Mild bilateral foraminal stenosis. Stable findings. L5-S1: Disc bulge. Facet hypertrophy. Mild right foraminal stenosis. Moderate left foraminal stenosis, unchanged, with mild flattening deformity on the exiting left L5 nerve root. IMPRESSION: 1. Mild diffuse degenerative change including multilevel facet arthropathy. 2. Mild canal stenosis at L2-L3. 3. Multilevel foraminal narrowing as described above, including moderate left foraminal narrowing at L5-S1. Dictated by: Will Grover M.D. on 06/30/2021 at 8:13 Approved by: Will Grover M.D. on 06/30/2021 at 8:24
== END ==
PROVIDERS: Family Provider Family Medicine; PCP Family Medicine; Referring Provider Neurological Surgery; Visit Provider Neurological Surgery
DX: M47.26 Other spondylosis with radiculopathy, lumbar region (principal); M47.27 Other spondylosis with radiculopathy, lumbosacral region; M48.061 Spinal stenosis, lumbar region without neurogenic claudication; M48.07 Spinal stenosis, lumbosacral region
CPT/HCPCS: 72148

== ENCOUNTER 2021-09-19 11:45 | Outpatient (RCR) | payer MEDICARE, SELFPAY ==
--- NOTE | 2021-05-27 16:05 | PT.OIE ---
Current Diagnoses Sacroiliitis, not elsewhere classified (05/27/21) Past Medical History (Last Reviewed 04/22/21 @ 03:44 by Dot Hung MD) Abdominal pain Acute hip pain BPH (benign prostatic hyperplasia) Cataract (2012) Cervical spine disease Chronic back pain Chronic low back pain without sciatica Colon polyps (2001) Diverticulitis Diverticulosis Elevated PSA Foot pain GERD (gastroesophageal reflux disease) (~1979) Glaucoma (~2008) Hayfever (~1959) Hemochromatosis (1990) Hepatitis A (~1961) Herniated nucleus pulposus, L5-S1, right History of elbow surgery (~2010) History of knee surgery History of shoulder surgery (~1979) History of shoulder surgery (~1979) Hx of decompression of ulnar nerve (~1989) IBS (irritable bowel syndrome) (~1969) Iliotibial band syndrome, right leg Lumbar region somatic dysfunction Lumbar spine pain Pelvic somatic dysfunction Peptic ulcer disease (~1959) Piriformis syndrome of right side Recurrent sinusitis (~1969) Sacral fracture Sacral region somatic dysfunction Segmental and somatic dysfunction of abdomen and other regions Shoulder pain (~1989) Somatic dysfunction of lower extremity Tennis elbow Past Surgical History (Last Reviewed 04/22/21 @ 03:44 by Dot Hung MD) Anesthesia complication History of elbow surgery (~2010) History of knee surgery History of shoulder surgery (~1979) History of shoulder surgery (~1979) History of spinal fusion (2010) Hx of decompression of ulnar nerve (~1989) Visit Care Team Role Provider Type Farhad Machado MD Family Provider Physician Primary Care Provider Specialty: Family Practice Address: [address] [place] [address], [id number] Email: [email or web address] Reynaldo Poon MD Attending Provider Non-Staff Referring Provider Specialty: Neurosurgery Address: [address] [place] [address], [address] [place] [address], [id number] Email: Physical Therapy Initial Evaluation PT-OP-A Visit Information Start: 05/27/21 08:48 Freq: Status: Active Protocol: Document 05/27/21 09:01 ADALBERTO (Rec: 05/27/21 10:28 ADALBERTO [id number]) Out-Patient Physical Therapy Visit Information Visit Information Visit Type Initial Evaluation Visit Start Time 09:01 Visit Stop Time 10:00 Total Visit Minutes 59 Visit Number 1 Evaluation Information Evaluation Date 05/27/21 Precautions Precautions as tolerated. PT-OP-B Current Condition Start: 05/27/21 08:48 Freq: Status: Active Protocol: Document 05/27/21 09:01 ADALBERTO (Rec: 05/27/21 10:28 [facility] [id number]) Current Condition History of Current Condition Onset Date 04/21/21 Current Complaints right buttock History of Current Condition Fell August 2019 onto right SI joint. Pain into gluteal region. PT not helpful, pain persisted. Unable to walk without pain. Underwent right SI fusion 04/21/21. Hasn 't gone as well as anticiipated. Prior to surgery pain in right buttock, some in SI joint. Yesterday states having pain in SI pretty severe and down the outside of his leg. Hasn't driven since the surgery until yesterday. Throughout the day got a little better. This am the pain returned in right SI and buttock. Also having some pins and needsles in right foot. When saw PA 3 weeks after surgery was concerned seemed pin was very close to sacral foramina. Iced in the very beginning, but hasn't recently. Hasn't done any exercises since the surgery. Interested in slow, gentle exercise. Orders from doctor to do activity as pain permits. Weaned from walker to cane, then no cane very carefully and slowly for 2 weeks including a little walking on driveway. Reports using cane sometimes on right when really hurting because feeling better though knowing he is supposed to use on Can't bend down to put sock on without severe pain, using sock aid. looking to leave town for a few weeks, has to put hay in bucket. Stopped doing his prescribed exercises due to increase in gluteal pain. Just started to be able to lay on right side. Has point tenderness also right greater trochanter. Occasional glut pain on left as well. Prior Treatments and Tests 5 wks post op. Seen for right hip pain summer 2019, PT rightly said pain was coming from my back. 2 neck fusions c/s Future Testing and Treatments Planned Sees surgeon next week. 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 (Rec: 05/27/21 10:28 [facility] [id number]) Patient Questionnaires Oswestry Low Back Index Oswestry Score 56 OP-PT Pain Assessment Pain Assessment Grid Paper Pain Assessment Grid Completed Yes Location Right SI, glut, lateral right LE Intensity 9 Scale Used Numeric (0 - 10) Frequency Frequent Radiating Location lateral right leg, pins and needles into right foot Pain Alleviating Factors None,Medication Home Pain Medication Use Pain Medications Used Yes: Gabapentin Pain Behaviors Pain Behaviors Facial Grimacing,Guarding PT-OP-E Functional Tests Start: 05/27/21 08:48 Freq: Status: Active Protocol: Document 05/27/21 09:01 [facility] (Rec: 05/27/21 10:28 [facility] [id number]) Functional Tests 6 Minute Walk Test Comments do next session PT-OP-G Mobility & Gait Start: 05/27/21 08:48 Freq: Status: Active Protocol: Document 05/27/21 09:01 [facility] (Rec: 05/27/21 10:28 [facility] [id number]) OP Mobility Evaluation Bed Mobility Rolling independent Supine to and from Sit independent with log roll Transfers Sit to Stand independent, decreased use of right LE Functional Movements Lifting and Carrying not doing at this time Squats not doing at this time OP Gait Assessment Assistive Devices Assistive Device Straight Cane Orthotic/Prosthetic Devices or Brace: No Gait Deviations General Gait Pattern Antalgic Comments Gait Comments Patient using cane on right side and leaning to the right; he says he does this when really hurting as it feels better. Instructed to use on left side for improved gait pattern and decreased compensation Stair Climbing Evaluation Evaluation Level of Assist On Stairs Independent Comments Stair Climbing Comments Reports alternating on short steps most of time, step-to pattern on higher stairs PT-OP-H Neuro Start: 05/27/21 08:48 Freq: Status: Active Protocol: Document 05/27/21 09:01 SAK (Rec: 05/27/21 10:28 [facility] [id number]) Sensation Evaluation Gross Sensation Gross Sensation Left LE Impaired,Right LE Impaired Sensation Description [place] Dermatome Impairments L5,S1 PT-OP-J Posture/Palpation/Skin Start: 05/27/21 08:48 Freq: Status: Active Protocol: Document 05/27/21 09:01 SAK (Rec: 05/27/21 10:28 [facility] [id number]) Posture Evaluation Position Standing Head/C-Spine Posture Forward Head T-Spine Posture Increased Kyphosis L-Spine Posture Flattened Pelvis Posture Posterior Tilted Hip Posture (L) Neutral,(R) Neutral Palpation Assessment Location reema buttocks Palpation Findings Soft Tissue Tightness,Muscle Guarding Palpation Details especially right piriformis lumbar paraspinals Palpation Findings Soft Tissue Tightness,Muscle Guarding surgical scar Palpation Location right SI Palpation Findings Soft Tissue Tightness Palpation Details decreased scar mobility PT-OP-K Range of Motion Start: 05/27/21 08:48 Freq: Status: Active Protocol: Document 05/27/21 09:01 [facility] (Rec: 05/27/21 10:28 [facility] [id number]) Lumbar Spine Range of Motion Lumbar Spine Active Comments not formally assessed due to 5 weeks post-op Hip Goniometric Range of Motion Hip Right Flexion w/Knee Flexed 95 Straight Leg Raise 45 Extension 0 Comments not fully assessed at end- range due to recent surgery and high pain level today left Flexion w/Knee Flexed 95 Straight Leg Raise 55 Extension 0 Comments not fully assessed at end- range due to recent surgery and high pain level today Hip ROM Limitations Hip ROM Limitations Soft Tissue Tightness,Pain Knee Goniometric Range of Motion Knee Right Extension Active (degrees) 10 Left Knee ROM WFL Yes Knee ROM Limitations Knee ROM Limitations Soft Tissue Tightness Comments tight hamstrings limiting knee extension in sitting PT-OP-L Special Tests Start: 05/27/21 08:48 Freq: Status: Active Protocol: Document 05/27/21 09:01 [facility] (Rec: 05/27/21 10:28 [facility] [id number]) Special Tests Neural Special Tests- Lower Body Sciatic Nerve Tension Test Results positive right PT-OP-M Strength Start: 05/27/21 08:48 Freq: Status: Active Protocol: Document 05/27/21 09:01 [facility] (Rec: 05/27/21 10:28 [facility] [id number]) Trunk Strength Trunk Manual Muscle Testing Testing Position Supine Core Stabilization difficulty activating core musculature Hip Strength Hip Manual Muscle Testing Right Comments no MMT due to recent surgery, has anti-gravity flexion in limited motion Left Comments not assessed due to recent surgery, has anti-gravity flexion Knee Strength Knee Manual Muscle Testing reema Comments has anti-gravity extension reema , no MMT Ankle/Foot Strength Ankle and Foot Manual Muscle Testing Right Dorsiflexion (L4) 4 Good Plantarflexion (S1) 4+ Good+ Left Dorsiflexion (L4) 5 Normal Plantarflexion (S1) 5 Normal Toe Strength Toe Manual Muscle Testing Great Toe Comments left 5/5, right 4/5 PT-OP-Q Treatments Start: 05/27/21 08:48 Freq: Status: Active Protocol: Document 05/27/21 09:01 [facility] (Rec: 05/27/21 10:28 [facility] [id number]) Self-Care/Home Management Treatment Education Patient Education Home Exercise Program Other Education resume doctor issued HEP as tolerated prior to next PT treatment PT-OP-R Modalities Start: 05/27/21 08:48 Freq: Status: Active Protocol: Document 05/27/21 09:01 [facility] (Rec: 05/27/21 10:28 [facility] [id number]) Hot Pack/Cold Pack Treatment Cold Pack Location R SI and buttock Patient Position Hooklying Treatment Duration (minutes) 10 Patient Tolerance Good PT-OP-T Assessment and Plan Start: 05/27/21 08:48 Freq: Status: Active Protocol: Document 05/27/21 09:01 [facility] (Rec: 05/27/21 10:28 [facility] [id number]) Physical Therapy Assessment Rehab Potential Rehabilitation Potential Good Evaluation Complexity Number of Personal Factors/Comorbidities 1-2 Number of Body Systems Impaired 3 Clinical Presentation at Evaluation Evolving Impairments Impairments Activity Tolerance,Pain,Soft Tissue Mobility,Strength Goals Four Impairment soft tissue mobility Impairment Tightness scar tissue right buttock, piriformis, reema IT bands Battery Charger Tester Goal (LTG) Improve soft tissue mobility to WNL to allow for improved ease of movement and decrease in pain LTG Duration 08/25/21 Three Impairment pain Impairment pain as high as 9/10 right SI, buttock Short Term Goal (STG) Decrease paion to no greater than 5/10 with all usual activities STG Duration 07/13/21 Battery Charger Tester Goal (LTG) Decrease pain to no greater than 2/10 with all usual activities LTG Duration 08/25/21 Two Impairment weakness Impairment weakness core and hips limiting mobility and activity tolerance Short Term Goal (STG) patient to be able to tolerate HEP for the purpose of strengthening and core/SI stabilization STG Duration 07/13/21 Battery Charger Tester Goal (LTG) Patient to demonstrate 5/5 muscle strength bilateral hips and core for improved function in the home and community with minimal pain. LTG Duration 08/25/21 One Impairment Activity tolerance Impairment Oswestery disability index score 56% Short Term Goal (STG) Decrease ANGEL score to no greater than 40% STG Duration 07/13/21 Battery Charger Tester Goal (LTG) Decrease ANGEL score to no greater than 20% LTG Duration 08/25/21 Assessment Summary Assessment Patient presents to PT with function-limiting pain in his right SI joint and buttock as well as neurological symptoms lateral right LE and into his foot with pins and needles sensation. Patient is 5 weeks post-op. Spoke with surgeon's nurse on phone with patient during evaluation, she stated no precautions, just slow and steady and listening to his body with any new activity at home or in PT. No MMT to core or hips due to recent surgery . Patient has pain with hip flexion right, limited to 95 degrees, tightness in hamstrings, piriformis, IT band right, bilateral lumbar paraspinals. Patient was issued exercise handout from surgeon and states he did them initially, but hasn't done much recently due to c/o pain. He comes to PT today using single point cane on right side for gait; stated he knows left side is recommended but it feels better when the pain is bad to use on his right. Feel patient will benefit from PT for gentle progression of ther ex for ROM, strengthening , core/SI stabilization as well as manual techniques to improve scar mobility and soft tissue mobility throughout spine and hips to allow him to return to his prior level of function. Will use modalities as needed for pain. Physical Therapy Plan Frequency and Duration Frequency of Treatment 2x/Week Duration of Treatment 12 weeks Plan of Care Start Date 05/27/21 Plan of Care End Date 08/25/21 Therapeutic Interventions Therapeutic Interventions Aquatic Therapy,Gait Training, Home Exercise Program,Manual Therapy,Neuromuscular Re- education,Patient/Caregiver Education,Self-Care/Home Management,Soft Tissue Mobilization,Taping, Therapeutic Activities, Therapeutic Exercises Next Visit Focus/Plan Next Note Type Treatment Note Next Visit Plan Review physician issued HEP, gentle progression of ther ex with emphasis on core stabilization, flexibility, and ROM. Consider kinesiotape , IFES.
--- NOTE | 2021-05-27 16:05 | PT.OPPOC ---
Physical, Occupational & Speech Therapy At [facility] Current Diagnoses Sacroiliitis, not elsewhere classified (05/27/21) Visit Care Team Role Provider Type Farhad Machado MD Family Provider Physician Primary Care Provider Specialty: Family Practice Address: [address] [place] [address], [id number] Email: [email or web address] Reynaldo Poon MD Attending Provider Non-Staff Referring Provider Specialty: Neurosurgery Address: [address] [place] [address], [address] [place] [address], [id number] Email: Plan Of Care PT-OP-T Assessment and Plan Start: 05/27/21 08:48 Freq: Status: Active Protocol: Document 05/27/21 09:01 ADALBERTO (Rec: 05/27/21 10:28 ADALBERTO [id number]) Physical Therapy Assessment Rehab Potential Rehabilitation Potential Good Evaluation Complexity Number of Personal Factors/Comorbidities 1-2 Number of Body Systems Impaired 3 Clinical Presentation at Evaluation Evolving Impairments Impairments Activity Tolerance,Pain,Soft Tissue Mobility,Strength Goals Four Impairment soft tissue mobility Impairment Tightness scar tissue right buttock, piriformis, reema IT bands Long-Term Goal (LTG) Improve soft tissue mobility to WNL to allow for improved ease of movement and decrease in pain LTG Duration 08/25/21 Three Impairment pain Impairment pain as high as 9/10 right SI, buttock Short Term Goal (STG) Decrease paion to no greater than 5/10 with all usual activities STG Duration 07/13/21 Long-Term Goal (LTG) Decrease pain to no greater than 2/10 with all usual activities LTG Duration 08/25/21 Two Impairment weakness Impairment weakness core and hips limiting mobility and activity tolerance Short Term Goal (STG) patient to be able to tolerate HEP for the purpose of strengthening and core/SI stabilization STG Duration 07/13/21 Stud Driver Goal (LTG) Patient to demonstrate 5/5 muscle strength bilateral hips and core for improved function in the home and community with minimal pain. LTG Duration 08/25/21 One Impairment Activity tolerance Impairment Oswestery disability index score 56% Short Term Goal (STG) Decrease ANGEL score to no greater than 40% STG Duration 07/13/21 Stud Driver Goal (LTG) Decrease ANGEL score to no greater than 20% LTG Duration 08/25/21 Assessment Summary Assessment Patient presents to PT with function-limiting pain in his right SI joint and buttock as well as neurological symptoms lateral right LE and into his foot with pins and needles sensation. Patient is 5 weeks post-op. Spoke with surgeon's nurse on phone with patient during evaluation, she stated no precautions, just slow and steady and listening to his body with any new activity at home or in PT. No MMT to core or hips due to recent surgery . Patient has pain with hip flexion right, limited to 95 degrees, tightness in hamstrings, piriformis, IT band right, bilateral lumbar paraspinals. Patient was issued exercise handout from surgeon and states he did them initially, but hasn't done much recently due to c/o pain. He comes to PT today using single point cane on right side for gait; stated he knows left side is recommended but it feels better when the pain is bad to use on his right. Feel patient will benefit from PT for gentle progression of ther ex for ROM, strengthening , core/SI stabilization as well as manual techniques to improve scar mobility and soft tissue mobility throughout spine and hips to allow him to return to his prior level of function. Will use modalities as needed for pain. Physical Therapy Plan Frequency and Duration Frequency of Treatment 2x/Week Duration of Treatment 12 weeks Plan of Care Start Date 05/27/21 Plan of Care End Date 08/25/21 Therapeutic Interventions Therapeutic Interventions Aquatic Therapy,Gait Training, Home Exercise Program,Manual Therapy,Neuromuscular Re- education,Patient/Caregiver Education,Self-Care/Home Management,Soft Tissue Mobilization,Taping, Therapeutic Activities, Therapeutic Exercises Next Visit Focus/Plan Next Note Type Treatment Note Next Visit Plan Review physician issued HEP, gentle progression of ther ex with emphasis on core stabilization, flexibility, and ROM. Consider kinesiotape , IFES. Plan of Care Dates Plan of Care Start Date 05/27/21 Plan of Care End Date 08/25/21 Electronically Signed by: Keyla Patel, PT 05/27/21 8630 Please Sign and Return: I have reviewed this Plan of Care and certify that the skilled therapy services above are required to meet the patient?s needs. Physician Signature Date Printed Name and Credentials Clinical Instructor Signature Printed Name and Credentials
--- NOTE | 2021-05-29 12:15 | PT.OTN ---
Current Diagnoses Sacroiliitis, not elsewhere classified (05/29/21) Physical Therapy Treatment Note PT-OP-A Visit Information Start: 05/27/21 08:48 Freq: Status: Active Protocol: Document 05/29/21 08:59 SAK (Rec: 05/29/21 09:49 SAK [id number]) Out-Patient Physical Therapy Visit Information Visit Information Visit Type Treatment Note Visit Start Time 09:00 Visit Stop Time 09:55 Total Visit Minutes 55 Visit Number 2 Evaluation Information Evaluation Date 05/29/21 Precautions Precautions activity as tolerated per surgeon nurse PT-OP-B Current Condition Start: 05/27/21 08:48 Freq: Status: Active Protocol: Document 05/27/21 09:01 SAK (Rec: 05/27/21 10:28 SAK [id number]) Current Condition History of Current Condition Onset Date 04/21/21 Current Complaints right buttock History of Current Condition Fell August 2019 onto right SI joint. Pain into gluteal region. PT not helpful, pain persisted. Unable to walk without pain. Underwent right SI fusion 04/21/21. Hasn 't gone as well as anticiipated. Prior to surgery pain in right buttock, some in SI joint. Yesterday states having pain in SI pretty severe and down the outside of his leg. Hasn't driven since the surgery until yesterday. Throughout the day got a little better. This am the pain returned in right SI and buttock. Also having some pins and needsles in right foot. When saw PA 3 weeks after surgery was concerned seemed pin was very close to sacral foramina. Iced in the very beginning, but hasn't recently. Hasn't done any exercises since the surgery. Interested in slow, gentle exercise. Orders from doctor to do activity as pain permits. Weaned from walker to cane, then no cane very carefully and slowly for 2 weeks including a little walking on driveway. Reports using cane sometimes on right when really hurting because feeling better though knowing he is supposed to use on Can't bend down to put sock on without severe pain, using sock aid. looking to leave town for a few weeks, has to put hay in bucket. Stopped doing his prescribed exercises due to increase in gluteal pain. Just started to be able to lay on right side. Has point tenderness also right greater trochanter. Occasional glut pain on left as well. Prior Treatments and Tests 5 wks post op. Seen for right hip pain summer 2019, PT rightly said pain was coming from my back. 2 neck fusions c/s Future Testing and Treatments Planned Sees surgeon next week. 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, caring for animals on property Current Functional Impairments (Reported) Functional Limitations- ADL's painful, can't put sock on without pain Functional Limitations- Mobility/Gait painful, using cane Functional Limitations- Work/School unable to take care of animals on property Personal Factors Other Personal Factors That May Effect 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 States leg pain the other night while laying on left side with pillow between knees . Not feeling need for use of cane today. Patient forgot to bring HEP issued by physician for review PT-OP-E Functional Tests Start: 05/27/21 08:48 Freq: Status: Active Protocol: Document 05/27/21 09:01 [facility] (Rec: 05/27/21 10:28 [facility] [id number]) Functional Tests 6 Minute Walk Test Comments do next session PT-OP-G Mobility & Gait Start: 05/27/21 08:48 Freq: Status: Active Protocol: Document 05/27/21 09:01 [facility] (Rec: 05/27/21 10:28 [facility] [id number]) OP Mobility Evaluation Bed Mobility Rolling independent Supine to and from Sit independent with log roll Transfers Sit to Stand independent, decreased use of right LE Functional Movements Lifting and Carrying not doing at this time Squats not doing at this time OP Gait Assessment Assistive Devices Assistive Device Straight Cane Orthotic/Prosthetic Devices or Brace: No Gait Deviations General Gait Pattern Antalgic Comments Gait Comments Patient using cane on right side and leaning to the right; he says he does this when really hurting as it feels better. Instructed to use on left side for improved gait pattern and decreased compensation Stair Climbing Evaluation Evaluation Level of Assist On Stairs Independent Comments Stair Climbing Comments Reports alternating on short steps most of time, step-to pattern on higher stairs PT-OP-H Neuro Start: 05/27/21 08:48 Freq: Status: Active Protocol: Document 05/27/21 09:01 [facility] (Rec: 05/27/21 10:28 [facility] [id number]) Sensation Evaluation Gross Sensation Gross Sensation Left LE Impaired,Right LE Impaired Sensation Description [place] [place] [employer] Impairments L5,S1 PT-OP-J Posture/Palpation/Skin Start: 05/27/21 08:48 Freq: Status: Active Protocol: Document 05/27/21 09:01 [facility] (Rec: 05/27/21 10:28 [facility] [id number]) Posture Evaluation Position Standing Head/C-Spine Posture Forward Head T-Spine Posture Increased Kyphosis L-Spine Posture Flattened Pelvis Posture Posterior Tilted Hip Posture (L) Neutral,(R) Neutral Palpation Assessment Location reema buttocks Palpation Findings Soft Tissue Tightness,Muscle Guarding Palpation Details especially right piriformis lumbar paraspinals Palpation Findings Soft Tissue Tightness,Muscle Guarding surgical scar Palpation Location right SI Palpation Findings Soft Tissue Tightness Palpation Details decreased scar mobility PT-OP-K Range of Motion Start: 05/27/21 08:48 Freq: Status: Active Protocol: Document 05/27/21 09:01 [facility] (Rec: 05/27/21 10:28 [facility] [id number]) Lumbar Spine Range of Motion Lumbar Spine Active Comments not formally assessed due to 5 weeks post-op Hip Goniometric Range of Motion Hip Right Flexion w/Knee Flexed 95 Straight Leg Raise 45 Extension 0 Comments not fully assessed at end- range due to recent surgery and high pain level today left Flexion w/Knee Flexed 95 Straight Leg Raise 55 Extension 0 Comments not fully assessed at end- range due to recent surgery and high pain level today Hip ROM Limitations Hip ROM Limitations Soft Tissue Tightness,Pain Knee Goniometric Range of Motion Knee Right Extension Active (degrees) 10 Left Knee ROM WFL Yes Knee ROM Limitations Knee ROM Limitations Soft Tissue Tightness Comments tight hamstrings limiting knee extension in sitting PT-OP-L Special Tests Start: 05/27/21 08:48 Freq: Status: Active Protocol: Document 05/27/21 09:01 [facility] (Rec: 05/27/21 10:28 [facility] [id number]) Special Tests Neural Special Tests- Lower Body Sciatic Nerve Tension Test Results positive right PT-OP-M Strength Start: 05/27/21 08:48 Freq: Status: Active Protocol: Document 05/27/21 09:01 [facility] (Rec: 05/27/21 10:28 [facility] [id number]) Trunk Strength Trunk Manual Muscle Testing Testing Position Supine Core Stabilization difficulty activating core musculature Hip Strength Hip Manual Muscle Testing Right Comments no MMT due to recent surgery, has anti-gravity flexion in limited motion Left Comments not assessed due to recent surgery, has anti-gravity flexion Knee Strength Knee Manual Muscle Testing reema Comments has anti-gravity extension reema , no MMT Ankle/Foot Strength Ankle and Foot Manual Muscle Testing Right Dorsiflexion (L4) 4 Good Plantarflexion (S1) 4+ Good+ Left Dorsiflexion (L4) 5 Normal Plantarflexion (S1) 5 Normal Toe Strength Toe Manual Muscle Testing Great Toe Comments left 5/5, right 4/5 PT-OP-Q Treatments Start: 05/27/21 08:48 Freq: Status: Active Protocol: Document 05/29/21 08:59 [facility] (Rec: 05/29/21 09:49 [facility] [id number]) Therapeutic Exercises Supine Exercises TrA with SAQ Reps/Minutes 10x TrA with bent knee fall out Reps/Minutes 10x TrA with supine clam Equipment Used L1 TB Reps/Minutes 10x TrA with isometric to UE's Reps/Minutes 10x TrA with pillow squeeze Reps/Minutes 10x TrA Reps/Minutes 10x Manual Therapy Treatment Soft Tissue Mobilization Glutes Body Location R Mobilization Type Myofascial Release,Sustained Pressure Intensity/Depth Moderate Body Position Sidelying scar tissue Body Location right buttock Mobilization Type Myofascial Release Self-Care/Home Management Treatment Education Patient Education Body Mechanics,Home Exercise Program,Posture Other Education issued written HEP PT-OP-R Modalities Start: 05/27/21 08:48 Freq: Status: Active Protocol: Document 05/29/21 08:59 ADALBERTO (Rec: 05/29/21 12:15 [facility] [id number]) Hot Pack/Cold Pack Treatment Cold Pack Location R SI and buttock Patient Position Hooklying Treatment Duration (minutes) 10 Patient Tolerance Good PT-OP-T Assessment and Plan Start: 05/27/21 08:48 Freq: Status: Active Protocol: Document 05/29/21 08:59 ADALBERTO (Rec: 05/29/21 12:15 ADALBERTO [id number]) Physical Therapy Assessment Goals Four Impairment soft tissue mobility Impairment Tightness scar tissue right buttock, piriformis, reema IT bands [facility] Goal (LTG) Improve soft tissue mobility to WNL to allow for improved ease of movement and decrease in pain LTG Duration 08/25/21 Three Impairment pain Impairment pain as high as 9/10 right SI, buttock Short Term Goal (STG) Decrease paion to no greater than 5/10 with all usual activities STG Duration 07/13/21 [facility] Goal (LTG) Decrease pain to no greater than 2/10 with all usual activities LTG Duration 08/25/21 Two Impairment weakness Impairment weakness core and hips limiting mobility and activity tolerance Short Term Goal (STG) patient to be able to tolerate HEP for the purpose of strengthening and core/SI stabilization STG Duration 07/13/21 [employer] Super[employer] Goal (LTG) Patient to demonstrate 5/5 muscle strength bilateral hips and core for improved function in the home and community with minimal pain. LTG Duration 08/25/21 One Impairment Activity tolerance Impairment Oswestery disability index score 56% Short Term Goal (STG) Decrease ANGEL score to no greater than 40% STG Duration 07/13/21 [facility] Goal (LTG) Decrease ANGEL score to no greater than 20% LTG Duration 08/25/21 Assessment Summary Assessment Patient tolerated ther ex well today, with frequent cues for postural alignment, core stabilization with all ther ex , reported abdominals feeling sore, no increase in pain in buttock or SI region. Initially decreased step- length with right LE as compared with left with walking on treadmill, improved with cues and after a few min . Patient reported posterior thigh pulling with attempts to increase stride so encouraged to decrease on left for symmetry. Physical Therapy Plan Frequency and Duration Frequency of Treatment 2x/Week Duration of Treatment 12 weeks Plan of Care Start Date 05/27/21 Plan of Care End Date 08/25/21 Therapeutic Interventions Therapeutic Interventions Aquatic Therapy,Gait Training, Home Exercise Program,Manual Therapy,Neuromuscular Re- education,Patient/Caregiver Education,Self-Care/Home Management,Soft Tissue Mobilization,Taping, Therapeutic Activities, Therapeutic Exercises Next Visit Focus/Plan Next Note Type Treatment Note Next Visit Plan Review physician issued HEP, continue gentle progression of ther ex with emphasis on core stabilization, flexibility, and ROM. Possible kinesiotape and IFES depending on pain level.
--- NOTE | 2021-06-03 13:35 | PT.OTN ---
Current Diagnoses Sacroiliitis, not elsewhere classified (06/02/21) Physical Therapy Treatment Note PT-OP-A Visit Information Start: 05/27/21 08:48 Freq: Status: Active Protocol: Document 06/02/21 09:00 SAK (Rec: 06/02/21 09:51 SAK [id number]) Out-Patient Physical Therapy Visit Information Visit Information Visit Type Treatment Note Visit Start Time 09:00 Visit Stop Time 09:55 Total Visit Minutes 55 Visit Number 3 Evaluation Information Evaluation Date 05/29/21 Precautions Precautions activity as tolerated per surgeon nurse PT-OP-B Current Condition Start: 05/27/21 08:48 Freq: Status: Active Protocol: Document 05/27/21 09:01 SAK (Rec: 05/27/21 10:28 SAK [id number]) Current Condition History of Current Condition Onset Date 04/21/21 Current Complaints right buttock History of Current Condition Fell August 2019 onto right SI joint. Pain into gluteal region. PT not helpful, pain persisted. Unable to walk without pain. Underwent right SI fusion 04/21/21. Hasn 't gone as well as anticiipated. Prior to surgery pain in right buttock, some in SI joint. Yesterday states having pain in SI pretty severe and down the outside of his leg. Hasn't driven since the surgery until yesterday. Throughout the day got a little better. This am the pain returned in right SI and buttock. Also having some pins and needsles in right foot. When saw PA 3 weeks after surgery was concerned seemed pin was very close to sacral foramina. Iced in the very beginning, but hasn't recently. Hasn't done any exercises since the surgery. Interested in slow, gentle exercise. Orders from doctor to do activity as pain permits. Weaned from walker to cane, then no cane very carefully and slowly for 2 weeks including a little walking on driveway. Reports using cane sometimes on right when really hurting because feeling better though knowing he is supposed to use on Can't bend down to put sock on without severe pain, using sock aid. looking to leave town for a few weeks, has to put hay in bucket. Stopped doing his prescribed exercises due to increase in gluteal pain. Just started to be able to lay on right side. Has point tenderness also right greater trochanter. Occasional glut pain on left as well. Prior Treatments and Tests 5 wks post op. Seen for right hip pain summer 2019, PT rightly said pain was coming from my back. 2 neck fusions c/s Future Testing and Treatments Planned Sees surgeon next week. 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, caring for animals on property Current Functional Impairments (Reported) Functional Limitations- ADL's painful, can't put sock on without pain Functional Limitations- Mobility/Gait painful, using cane Functional Limitations- Work/School unable to take care of animals on property Personal Factors Other 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 Having a hard time finding a good place to do his exercises, tried going to the floor to do them because his bed is too soft, did first few ex from doctor Wednesday and Wednesday. Can lay on right hip for about an hour, left for about 1/2 hour. Doing some gardening at home, [place], at waist level. Did some sweeping at home. States trying to be very aware of his posture, using core muscles during all activities. PT-OP-E Functional Tests Start: 05/27/21 08:48 Freq: Status: Active Protocol: Document 05/27/21 09:01 [facility] (Rec: 05/27/21 10:28 [facility] [id number]) Functional Tests 6 Minute Walk Test Comments do next session PT-OP-G Mobility & Gait Start: 05/27/21 08:48 Freq: Status: Active Protocol: Document 05/27/21 09:01 [facility] (Rec: 05/27/21 10:28 [facility] [id number]) OP Mobility Evaluation Bed Mobility Rolling independent Supine to and from Sit independent with log roll Transfers Sit to Stand independent, decreased use of right LE Functional Movements Lifting and Carrying not doing at this time Squats not doing at this time OP Gait Assessment Assistive Devices Assistive Device Straight Cane Orthotic/Prosthetic Devices or Brace: No Gait Deviations General Gait Pattern Antalgic Comments Gait Comments Patient using cane on right side and leaning to the right; he says he does this when really hurting as it feels better. Instructed to use on left side for improved gait pattern and decreased compensation Stair Climbing Evaluation Evaluation Level of Assist On Stairs Independent Comments Stair Climbing Comments Reports alternating on short steps most of time, step-to pattern on higher stairs PT-OP-H Neuro Start: 05/27/21 08:48 Freq: Status: Active Protocol: Document 05/27/21 09:01 [facility] (Rec: 05/27/21 10:28 [facility] [id number]) Sensation Evaluation Gross Sensation Gross Sensation Left LE Impaired,Right LE Impaired Sensation Description [place] Dermatome Impairments L5,S1 PT-OP-J Posture/Palpation/Skin Start: 05/27/21 08:48 Freq: Status: Active Protocol: Document 05/27/21 09:01 [facility] (Rec: 05/27/21 10:28 [facility] [id number]) Posture Evaluation Position Standing Head/C-Spine Posture Forward Head T-Spine Posture Increased Kyphosis L-Spine Posture Flattened Pelvis Posture Posterior Tilted Hip Posture (L) Neutral,(R) Neutral Palpation Assessment Location reema buttocks Palpation Findings Soft Tissue Tightness,Muscle Guarding Palpation Details especially right piriformis lumbar paraspinals Palpation Findings Soft Tissue Tightness,Muscle Guarding surgical scar Palpation Location right SI Palpation Findings Soft Tissue Tightness Palpation Details decreased scar mobility PT-OP-K Range of Motion Start: 05/27/21 08:48 Freq: Status: Active Protocol: Document 05/27/21 09:01 [facility] (Rec: 05/27/21 10:28 [facility] [id number]) Lumbar Spine Range of Motion Lumbar Spine Active Comments not formally assessed due to 5 weeks post-op Hip Goniometric Range of Motion Hip Right Flexion w/Knee Flexed 95 Straight Leg Raise 45 Extension 0 Comments not fully assessed at end- range due to recent surgery and high pain level today left Flexion w/Knee Flexed 95 Straight Leg Raise 55 Extension 0 Comments not fully assessed at end- range due to recent surgery and high pain level today Hip ROM Limitations Hip ROM Limitations Soft Tissue Tightness,Pain Knee Goniometric Range of Motion Knee Right Extension Active (degrees) 10 Left Knee ROM WFL Yes Knee ROM Limitations Knee ROM Limitations Soft Tissue Tightness Comments tight hamstrings limiting knee extension in sitting PT-OP-L Special Tests Start: 05/27/21 08:48 Freq: Status: Active Protocol: Document 05/27/21 09:01 [facility] (Rec: 05/27/21 10:28 [facility] [id number]) Special Tests Neural Special Tests- Lower Body Sciatic Nerve Tension Test Results positive right PT-OP-M Strength Start: 05/27/21 08:48 Freq: Status: Active Protocol: Document 05/27/21 09:01 [facility] (Rec: 05/27/21 10:28 [facility] [id number]) Trunk Strength Trunk Manual Muscle Testing Testing Position Supine Core Stabilization difficulty activating core musculature Hip Strength Hip Manual Muscle Testing Right Comments no MMT due to recent surgery, has anti-gravity flexion in limited motion Left Comments not assessed due to recent surgery, has anti-gravity flexion Knee Strength Knee Manual Muscle Testing reema Comments has anti-gravity extension reema , no MMT Ankle/Foot Strength Ankle and Foot Manual Muscle Testing Right Dorsiflexion (L4) 4 Good Plantarflexion (S1) 4+ Good+ Left Dorsiflexion (L4) 5 Normal Plantarflexion (S1) 5 Normal Toe Strength Toe Manual Muscle Testing Great Toe Comments left 5/5, right 4/5 PT-OP-Q Treatments Start: 05/27/21 08:48 Freq: Status: Active Protocol: Document 06/02/21 09:00 [facility] (Rec: 06/02/21 09:51 [facility] [id number]) Cardio Equipment Treadmill Duration (Minutes) 6 Speed 1.6 Gym Equipment Shuttle Recovery Bilateral Squats Resistance 50 Reps/Time 10x2 Therapeutic Exercises Supine Exercises TrA with heelslide Reps/Minutes 10x TrA with SAQ Reps/Minutes 10x TrA with bent knee fall out Reps/Minutes 10x TrA with supine clam Equipment Used L1 TB Reps/Minutes 10x TrA with isometric to UE's Reps/Minutes 10x TrA with pillow squeeze Reps/Minutes 10x TrA Reps/Minutes 10x Sidelying Exercises clamshell Reps/Minutes 10x Comments cues for core activation Manual Therapy Treatment Soft Tissue Mobilization Glutes Body Location R Mobilization Type Myofascial Release,Sustained Pressure Intensity/Depth Moderate Body Position Sidelying scar tissue Body Location right buttock Mobilization Type Myofascial Release Self-Care/Home Management Treatment Education Patient Education Body Mechanics,Home Exercise Program,Posture PT-OP-R Modalities Start: 05/27/21 08:48 Freq: Status: Active Protocol: Document 06/03/21 13:31 [facility] (Rec: 06/03/21 13:34 [facility] [id number]) Electric Stimulation Electric Stimulation Interferential Current (IFC) Body Location right buttock Duration (Minutes) 10 Intensity 11 Target/Sweep Sweep High/Low High Patient Position Sidelying Combined With Heat/Cold Hot Pack PT-OP-T Assessment and Plan Start: 05/27/21 08:48 Freq: Status: Active Protocol: Document 06/02/21 09:00 [facility] (Rec: 06/02/21 09:51 [facility] [id number]) Physical Therapy Assessment Goals Four Impairment soft tissue mobility Impairment Tightness scar tissue right buttock, piriformis, reema IT bands Foundry Patternmaker Goal (LTG) Improve soft tissue mobility to WNL to allow for improved ease of movement and decrease in pain LTG Duration 08/25/21 Three Impairment pain Impairment pain as high as 9/10 right SI, buttock Short Term Goal (STG) Decrease paion to no greater than 5/10 with all usual activities STG Duration 07/13/21 [employer] Goal (LTG) Decrease pain to no greater than 2/10 with all usual activities LTG Duration 08/25/21 Two Impairment weakness Impairment weakness core and hips limiting mobility and activity tolerance Short Term Goal (STG) patient to be able to tolerate HEP for the purpose of strengthening and core/SI stabilization STG Duration 07/13/21 [employer] Goal (LTG) Patient to demonstrate 5/5 muscle strength bilateral hips and core for improved function in the home and community with minimal pain. LTG Duration 08/25/21 One Impairment Activity tolerance Impairment Oswestery disability index score 56% Short Term Goal (STG) Decrease ANGEL score to no greater than 40% STG Duration 07/13/21 Alf Goal (LTG) Decrease ANGEL score to no greater than 20% LTG Duration 08/25/21 Physical Therapy Plan Frequency and Duration Frequency of Treatment 2x/Week Duration of Treatment 12 weeks Plan of Care Start Date 05/27/21 Plan of Care End Date 08/25/21 Therapeutic Interventions Therapeutic Interventions Aquatic Therapy,Gait Training, Home Exercise Program,Manual Therapy,Neuromuscular Re- education,Patient/Caregiver Education,Self-Care/Home Management,Soft Tissue Mobilization,Taping, Therapeutic Activities, Therapeutic Exercises Next Visit Focus/Plan Next Note Type Treatment Note Next Visit Plan Evaluate response to IFES, consider kinesiotape. Continue gentle ther ex progression.
--- NOTE | 2021-06-05 16:24 | PT.OTN ---
Current Diagnoses Sacroiliitis, not elsewhere classified (06/05/21) Physical Therapy Treatment Note PT-OP-A Visit Information Start: 05/27/21 08:48 Freq: Status: Active Protocol: Document 06/05/21 15:15 [facility] (Rec: 06/05/21 16:24 [facility]AK [id number]) Out-Patient Physical Therapy Visit Information Visit Information Visit Type Treatment Note Visit Start Time 15:15 Visit Stop Time 16:10 Total Visit Minutes 56 Visit Number 4 Precautions Precautions activity as tolerated per surgeon nurse PT-OP-B Current Condition Start: 05/27/21 08:48 Freq: Status: Active Protocol: Document 05/27/21 09:01 [facility]AK (Rec: 05/27/21 10:28 SAK [id number]) Current Condition History of Current Condition Onset Date 04/21/21 Current Complaints right buttock History of Current Condition Fell August 2019 onto right SI joint. Pain into gluteal region. PT not helpful, pain persisted. Unable to walk without pain. Underwent right SI fusion 04/21/21. Hasn 't gone as well as anticiipated. Prior to surgery pain in right buttock, some in SI joint. Yesterday states having pain in SI pretty severe and down the outside of his leg. Hasn't driven since the surgery until yesterday. Throughout the day got a little better. This am the pain returned in right SI and buttock. Also having some pins and needsles in right foot. When saw PA 3 weeks after surgery was concerned seemed pin was very close to sacral foramina. Iced in the very beginning, but hasn't recently. Hasn't done any exercises since the surgery. Interested in slow, gentle exercise. Orders from doctor to do activity as pain permits. Weaned from walker to cane, then no cane very carefully and slowly for 2 weeks including a little walking on driveway. Reports using cane sometimes on right when really hurting because feeling better though knowing he is supposed to use on Can't bend down to put sock on without severe pain, using sock aid. looking to leave town for a few weeks, has to put hay in bucket. Stopped doing his prescribed exercises due to increase in gluteal pain. Just started to be able to lay on right side. Has point tenderness also right greater trochanter. Occasional glut pain on left as well. Prior Treatments and Tests 5 wks post op. Seen for right hip pain summer 2019, PT rightly said pain was coming from my back. 2 neck fusions c/s Future Testing and Treatments Planned Sees surgeon next week. 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, caring for animals on property Current Functional Impairments (Reported) Functional Limitations- ADL's painful, can't put sock on without pain Functional Limitations- Mobility/Gait painful, using cane Functional Limitations- Work/School unable to take care of animals on property Personal Factors 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 More sore today after doing EMG for carpal tunnel yesterday, not supported well on table, had to lay supine for a long time. [place] IFES helpful. Old TENS unit , would like to get new one; had Empi. PT-OP-E Functional Tests Start: 05/27/21 08:48 Freq: Status: Active Protocol: Document 05/27/21 09:01 [facility] (Rec: 05/27/21 10:28 [facility] [id number]) Functional Tests 6 Minute Walk Test Comments do next session PT-OP-G Mobility & Gait Start: 05/27/21 08:48 Freq: Status: Active Protocol: Document 05/27/21 09:01 [facility] (Rec: 05/27/21 10:28 [facility] [id number]) OP Mobility Evaluation Bed Mobility Rolling independent Supine to and from Sit independent with log roll Transfers Sit to Stand independent, decreased use of right LE Functional Movements Lifting and Carrying not doing at this time Squats not doing at this time OP Gait Assessment Assistive Devices Assistive Device Straight Cane Orthotic/Prosthetic Devices or Brace: No Gait Deviations General Gait Pattern Antalgic Comments Gait Comments Patient using cane on right side and leaning to the right; he says he does this when really hurting as it feels better. Instructed to use on left side for improved gait pattern and decreased compensation Stair Climbing Evaluation Evaluation Level of Assist On Stairs Independent Comments Stair Climbing Comments Reports alternating on short steps most of time, step-to pattern on higher stairs PT-OP-H Neuro Start: 05/27/21 08:48 Freq: Status: Active Protocol: Document 05/27/21 09:01 [facility] (Rec: 05/27/21 10:28 [facility] [id number]) Sensation Evaluation Gross Sensation Gross Sensation Left LE Impaired,Right LE Impaired Sensation Description P[place] & [place] Dermatome Impairments L5,S1 PT-OP-J Posture/Palpation/Skin Start: 05/27/21 08:48 Freq: Status: Active Protocol: Document 05/27/21 09:01 [facility] (Rec: 05/27/21 10:28 [facility] [id number]) Posture Evaluation Position Standing Head/C-Spine Posture Forward Head T-Spine Posture Increased Kyphosis L-Spine Posture Flattened Pelvis Posture Posterior Tilted Hip Posture (L) Neutral,(R) Neutral Palpation Assessment Location reema buttocks Palpation Findings Soft Tissue Tightness,Muscle Guarding Palpation Details especially right piriformis lumbar paraspinals Palpation Findings Soft Tissue Tightness,Muscle Guarding surgical scar Palpation Location right SI Palpation Findings Soft Tissue Tightness Palpation Details decreased scar mobility PT-OP-K Range of Motion Start: 05/27/21 08:48 Freq: Status: Active Protocol: Document 05/27/21 09:01 [facility] (Rec: 05/27/21 10:28 [facility] [id number]) Lumbar Spine Range of Motion Lumbar Spine Active Comments not formally assessed due to 5 weeks post-op Hip Goniometric Range of Motion Hip Right Flexion w/Knee Flexed 95 Straight Leg Raise 45 Extension 0 Comments not fully assessed at end- range due to recent surgery and high pain level today left Flexion w/Knee Flexed 95 Straight Leg Raise 55 Extension 0 Comments not fully assessed at end- range due to recent surgery and high pain level today Hip ROM Limitations Hip ROM Limitations Soft Tissue Tightness,Pain Knee Goniometric Range of Motion Knee Right Extension Active (degrees) 10 Left Knee ROM WFL Yes Knee ROM Limitations Knee ROM Limitations Soft Tissue Tightness Comments tight hamstrings limiting knee extension in sitting PT-OP-L Special Tests Start: 05/27/21 08:48 Freq: Status: Active Protocol: Document 05/27/21 09:01 [facility] (Rec: 05/27/21 10:28 [facility]AK [id number]) Special Tests Neural Special Tests- Lower Body Sciatic Nerve Tension Test Results positive right PT-OP-M Strength Start: 05/27/21 08:48 Freq: Status: Active Protocol: Document 05/27/21 09:01 [facility] (Rec: 05/27/21 10:28 [facility] [id number]) Trunk Strength Trunk Manual Muscle Testing Testing Position Supine Core Stabilization difficulty activating core musculature Hip Strength Hip Manual Muscle Testing Right Comments no MMT due to recent surgery, has anti-gravity flexion in limited motion Left Comments not assessed due to recent surgery, has anti-gravity flexion Knee Strength Knee Manual Muscle Testing reema Comments has anti-gravity extension reema , no MMT Ankle/Foot Strength Ankle and Foot Manual Muscle Testing Right Dorsiflexion (L4) 4 Good Plantarflexion (S1) 4+ Good+ Left Dorsiflexion (L4) 5 Normal Plantarflexion (S1) 5 Normal Toe Strength Toe Manual Muscle Testing Great Toe Comments left 5/5, right 4/5 PT-OP-Q Treatments Start: 05/27/21 08:48 Freq: Status: Active Protocol: Document 06/05/21 15:15 [facility] (Rec: 06/05/21 16:24 [facility] [id number]) Cardio Equipment Treadmill Duration (Minutes) 8 Speed 1.7 Gym Equipment Shuttle Recovery Unilateral Squats Resistance 25 Reps/Time 10x1 Bilateral Squats Resistance 50 Reps/Time 10x2 Therapeutic Exercises Supine Exercises bent knee fall out Reps/Minutes 10x Comments cues for core stab TrA with heelslide Reps/Minutes 10x TrA with SAQ Reps/Minutes 10x TrA with bent knee fall out Reps/Minutes 10x TrA with supine clam Equipment Used L1 TB Reps/Minutes 10x TrA with isometric to UE's Reps/Minutes 10x TrA with pillow squeeze Reps/Minutes 10x TrA Reps/Minutes 10x Sidelying Exercises clamshell Reps/Minutes 10x Comments cues for core activation Sitting Exercises hamstring stretch Reps/Minutes 2x Comments cues for long spine Standing Exercises row, shoulder ext Reps/Minutes 5x ea Comments may start with L1 TB at home as tolerated Manual Therapy Treatment Soft Tissue Mobilization Glutes Body Location R Mobilization Type Myofascial Release,Sustained Pressure Intensity/Depth Moderate Body Position Sidelying scar tissue Body Location right buttock Mobilization Type Myofascial Release Self-Care/Home Management Treatment Education Patient Education Body Mechanics,Home Exercise Program,Posture PT-OP-R Modalities Start: 05/27/21 08:48 Freq: Status: Active Protocol: Document 06/05/21 15:15 [facility] (Rec: 06/05/21 16:24 [facility] [id number]) Electric Stimulation Electric Stimulation Interferential Current (IFC) Body Location right buttock Duration (Minutes) 10 Intensity 11 Target/Sweep Sweep High/Low High Patient Position Sidelying Combined With Heat/Cold Hot Pack PT-OP-T Assessment and Plan Start: 05/27/21 08:48 Freq: Status: Active Protocol: Document 06/05/21 15:15 [facility] (Rec: 06/05/21 16:24 [facility] [id number]) Physical Therapy Assessment Goals Four Impairment soft tissue mobility Impairment Tightness scar tissue right buttock, piriformis, reema IT bands Prison Goal (LTG) Improve soft tissue mobility to WNL to allow for improved ease of movement and decrease in pain LTG Duration 08/25/21 Three Impairment pain Impairment pain as high as 9/10 right SI, buttock Short Term Goal (STG) Decrease paion to no greater than 5/10 with all usual activities STG Duration 07/13/21 Communication Electronic Technician Goal (LTG) Decrease pain to no greater than 2/10 with all usual activities LTG Duration 08/25/21 Two Impairment weakness Impairment weakness core and hips limiting mobility and activity tolerance Short Term Goal (STG) patient to be able to tolerate HEP for the purpose of strengthening and core/SI stabilization STG Duration 07/13/21 Communication Electronic Technician Goal (LTG) Patient to demonstrate 5/5 muscle strength bilateral hips and core for improved function in the home and community with minimal pain. LTG Duration 08/25/21 One Impairment Activity tolerance Impairment Oswestery disability index score 56% Short Term Goal (STG) Decrease ANGEL score to no greater than 40% STG Duration 07/13/21 Prison Goal (LTG) Decrease ANGEL score to no greater than 20% LTG Duration 08/25/21 Assessment Summary Assessment Increased walk to 8 min on treadmill, added gentle hamstring stretch and bent knee fall out to HEP with written instructions. Trial single leg shuttle leg pres. Good pain relief after use of IFES, feel he would benefit from TENS in the home for pain management and muscle re- education in gluteal region due muscle atrophy. Physical Therapy Plan Frequency and Duration Frequency of Treatment 2x/Week Duration of Treatment 12 weeks Plan of Care Start Date 05/27/21 Plan of Care End Date 08/25/21 Therapeutic Interventions Therapeutic Interventions Aquatic Therapy,Gait Training, Home Exercise Program,Manual Therapy,Neuromuscular Re- education,Patient/Caregiver Education,Self-Care/Home Management,Soft Tissue Mobilization,Taping, Therapeutic Activities, Therapeutic Exercises Next Visit Focus/Plan Next Note Type Treatment Note Next Visit Plan PT to sent request for TENS prescription to Dr. Machado. Continue gentle ther ex progression, continue manual treatment and modalities as needed for pain. Kinesiotape next session for pain management.
--- NOTE | 2021-06-09 09:56 | PT.OTN ---
Current Diagnoses Sacroiliitis, not elsewhere classified (06/09/21) Physical Therapy Treatment Note PT-OP-A Visit Information Start: 05/27/21 08:48 Freq: Status: Active Protocol: Document 06/09/21 09:04 [facility] (Rec: 06/09/21 09:45 [facility] [id number]) Out-Patient Physical Therapy Visit Information Visit Information Visit Type Treatment Note Visit Start Time 09:02 Visit Stop Time 09:58 Total Visit Minutes 56 Visit Number 5 Precautions Precautions activity as tolerated per surgeon nurse PT-OP-B Current Condition Start: 05/27/21 08:48 Freq: Status: Active Protocol: Document 05/27/21 09:01 [facility] (Rec: 05/27/21 10:28 [facility] [id number]) Current Condition History of Current Condition Onset Date 04/21/21 Current Complaints right buttock History of Current Condition Fell August 2019 onto right SI joint. Pain into gluteal region. PT not helpful, pain persisted. Unable to walk without pain. Underwent right SI fusion 04/21/21. Hasn 't gone as well as anticiipated. Prior to surgery pain in right buttock, some in SI joint. Yesterday states having pain in SI pretty severe and down the outside of his leg. Hasn't driven since the surgery until yesterday. Throughout the day got a little better. This am the pain returned in right SI and buttock. Also having some pins and needsles in right foot. When saw PA 3 weeks after surgery was concerned seemed pin was very close to sacral foramina. Iced in the very beginning, but hasn't recently. Hasn't done any exercises since the surgery. Interested in slow, gentle exercise. Orders from doctor to do activity as pain permits. Weaned from walker to cane, then no cane very carefully and slowly for 2 weeks including a little walking on driveway. Reports using cane sometimes on right when really hurting because feeling better though knowing he is supposed to use on Can't bend down to put sock on without severe pain, using sock aid. looking to leave town for a few weeks, has to put hay in bucket. Stopped doing his prescribed exercises due to increase in gluteal pain. Just started to be able to lay on right side. Has point tenderness also right greater trochanter. Occasional glut pain on left as well. Prior Treatments and Tests 5 wks post op. Seen for right hip pain summer 2019, PT rightly said pain was coming from my back. 2 neck fusions c/s Future Testing and Treatments Planned Sees surgeon next week. 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, caring for animals on property Current Functional Impairments (Reported) Functional Limitations- ADL's painful, can't put sock on without pain Functional Limitations- Mobility/Gait painful, using cane Functional Limitations- Work/School unable to take care of animals on property Personal Factors Other 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 Doing better walking if doesn't go to fast. Making progress. IBS sometimes interferes with him doing ex. Sees surgeon first part of June, around 06/28. PT-OP-E Functional Tests Start: 05/27/21 08:48 Freq: Status: Active Protocol: Document 05/27/21 09:01 [facility] (Rec: 05/27/21 10:28 [facility] [id number]) Functional Tests 6 Minute Walk Test Comments do next session PT-OP-G Mobility & Gait Start: 05/27/21 08:48 Freq: Status: Active Protocol: Document 05/27/21 09:01 [facility] (Rec: 05/27/21 10:28 [facility] [id number]) OP Mobility Evaluation Bed Mobility Rolling independent Supine to and from Sit independent with log roll Transfers Sit to Stand independent, decreased use of right LE Functional Movements Lifting and Carrying not doing at this time Squats not doing at this time OP Gait Assessment Assistive Devices Assistive Device Straight Cane Orthotic/Prosthetic Devices or Brace: No Gait Deviations General Gait Pattern Antalgic Comments Gait Comments Patient using cane on right side and leaning to the right; he says he does this when really hurting as it feels better. Instructed to use on left side for improved gait pattern and decreased compensation Stair Climbing Evaluation Evaluation Level of Assist On Stairs Independent Comments Stair Climbing Comments Reports alternating on short steps most of time, step-to pattern on higher stairs PT-OP-H Neuro Start: 05/27/21 08:48 Freq: Status: Active Protocol: Document 05/27/21 09:01 [facility] (Rec: 05/27/21 10:28 [facility] [id number]) Sensation Evaluation Gross Sensation Gross Sensation Left LE Impaired,Right LE Impaired Sensation Description Pins & Universal Dermatome Impairments L5,S1 PT-OP-J Posture/Palpation/Skin Start: 05/27/21 08:48 Freq: Status: Active Protocol: Document 05/27/21 09:01 [facility] (Rec: 05/27/21 10:28 [facility] [id number]) Posture Evaluation Position Standing Head/C-Spine Posture Forward Head T-Spine Posture Increased Kyphosis L-Spine Posture Flattened Pelvis Posture Posterior Tilted Hip Posture (L) Neutral,(R) Neutral Palpation Assessment Location reema buttocks Palpation Findings Soft Tissue Tightness,Muscle Guarding Palpation Details especially right piriformis lumbar paraspinals Palpation Findings Soft Tissue Tightness,Muscle Guarding surgical scar Palpation Location right SI Palpation Findings Soft Tissue Tightness Palpation Details decreased scar mobility PT-OP-K Range of Motion Start: 05/27/21 08:48 Freq: Status: Active Protocol: Document 05/27/21 09:01 [facility] (Rec: 05/27/21 10:28 [facility] [id number]) Lumbar Spine Range of Motion Lumbar Spine Active Comments not formally assessed due to 5 weeks post-op Hip Goniometric Range of Motion Hip Right Flexion w/Knee Flexed 95 Straight Leg Raise 45 Extension 0 Comments not fully assessed at end- range due to recent surgery and high pain level today left Flexion w/Knee Flexed 95 Straight Leg Raise 55 Extension 0 Comments not fully assessed at end- range due to recent surgery and high pain level today Hip ROM Limitations Hip ROM Limitations Soft Tissue Tightness,Pain Knee Goniometric Range of Motion Knee Right Extension Active (degrees) 10 Left Knee ROM WFL Yes Knee ROM Limitations Knee ROM Limitations Soft Tissue Tightness Comments tight hamstrings limiting knee extension in sitting PT-OP-L Special Tests Start: 05/27/21 08:48 Freq: Status: Active Protocol: Document 05/27/21 09:01 [facility] (Rec: 05/27/21 10:28 [facility] [id number]) Special Tests Neural Special Tests- Lower Body Sciatic Nerve Tension Test Results positive right PT-OP-M Strength Start: 05/27/21 08:48 Freq: Status: Active Protocol: Document 05/27/21 09:01 [facility] (Rec: 05/27/21 10:28 [facility] [id number]) Trunk Strength Trunk Manual Muscle Testing Testing Position Supine Core Stabilization difficulty activating core musculature Hip Strength Hip Manual Muscle Testing Right Comments no MMT due to recent surgery, has anti-gravity flexion in limited motion Left Comments not assessed due to recent surgery, has anti-gravity flexion Knee Strength Knee Manual Muscle Testing reema Comments has anti-gravity extension reema , no MMT Ankle/Foot Strength Ankle and Foot Manual Muscle Testing Right Dorsiflexion (L4) 4 Good Plantarflexion (S1) 4+ Good+ Left Dorsiflexion (L4) 5 Normal Plantarflexion (S1) 5 Normal Toe Strength Toe Manual Muscle Testing Great Toe Comments left 5/5, right 4/5 PT-OP-Q Treatments Start: 05/27/21 08:48 Freq: Status: Active Protocol: Document 06/09/21 09:04 [facility] (Rec: 06/09/21 09:45 [facility] [id number]) Cardio Equipment Treadmill Duration (Minutes) 10 Speed 2.0 Gym Equipment Shuttle Recovery Bilateral Squats Resistance 50 Reps/Time 10x2 Shuttle Balance chains red Details balance and wt shift fwd and back Reps/Duration 5 min Therapeutic Exercises Supine Exercises HS stretch Reps/Minutes 2x Comments manual while laying on shuttle leg press Standing Exercises row, shoulder ext Reps/Minutes 10x ea Comments cues for neutral alignment, core stabilization Manual Therapy Treatment Soft Tissue Mobilization Glutes Body Location R Mobilization Type Myofascial Release,Sustained Pressure Intensity/Depth Moderate Body Position Sidelying scar tissue Body Location right buttock Mobilization Type Myofascial Release Self-Care/Home Management Treatment Education Patient Education Body Mechanics,Home Exercise Program,Posture PT-OP-R Modalities Start: 05/27/21 08:48 Freq: Status: Active Protocol: Document 06/09/21 09:04 [facility] (Rec: 06/09/21 09:45 [facility] [id number]) Electric Stimulation Electric Stimulation Interferential Current (IFC) Body Location right buttock Duration (Minutes) 10 Intensity 11 Target/Sweep Sweep High/Low High Patient Position Sidelying Combined With Heat/Cold Cold Pack PT-OP-T Assessment and Plan Start: 05/27/21 08:48 Freq: Status: Active Protocol: Document 06/09/21 09:04 [facility] (Rec: 06/09/21 09:45 [facility] [id number]) Physical Therapy Assessment Goals Four Impairment soft tissue mobility Impairment Tightness scar tissue right buttock, piriformis, reema IT bands Snf Goal (LTG) Improve soft tissue mobility to WNL to allow for improved ease of movement and decrease in pain LTG Duration 08/25/21 Three Impairment pain Impairment pain as high as 9/10 right SI, buttock Short Term Goal (STG) Decrease paion to no greater than 5/10 with all usual activities STG Duration 07/13/21 Snf Goal (LTG) Decrease pain to no greater than 2/10 with all usual activities LTG Duration 08/25/21 Two Impairment weakness Impairment weakness core and hips limiting mobility and activity tolerance Short Term Goal (STG) patient to be able to tolerate HEP for the purpose of strengthening and core/SI stabilization STG Duration 07/13/21 Safety And Skill Based Pay Manager Goal (LTG) Patient to demonstrate 5/5 muscle strength bilateral hips and core for improved function in the home and community with minimal pain. LTG Duration 08/25/21 One Impairment Activity tolerance Impairment Oswestery disability index score 56% Short Term Goal (STG) Decrease ANGEL score to no greater than 40% STG Duration 07/13/21 Snf Goal (LTG) Decrease ANGEL score to no greater than 20% LTG Duration 08/25/21 Progress Towards Goals Progress Towards Goals Progressing Toward Goals Assessment Summary Assessment Steady progress, fatigued after treatment. Improving soft tissue mobility, may benefit from use of suction device. Improved tolerance for HEP on floor with use of yoga mat. No kinesiotape as pain not as high. Physical Therapy Plan Frequency and Duration Frequency of Treatment 2x/Week Duration of Treatment 12 weeks Plan of Care Start Date 05/27/21 Plan of Care End Date 08/25/21 Therapeutic Interventions Therapeutic Interventions Aquatic Therapy,Gait Training, Home Exercise Program,Manual Therapy,Neuromuscular Re- education,Patient/Caregiver Education,Self-Care/Home Management,Soft Tissue Mobilization,Taping, Therapeutic Activities, Therapeutic Exercises Next Visit Focus/Plan Next Note Type Treatment Note Next Visit Plan Continue progression of ther ex as tolerated, manual treatment and modalities as needed.
--- NOTE | 2021-06-12 15:05 | PT.OTN ---
Current Diagnoses Sacroiliitis, not elsewhere classified (06/12/21) Physical Therapy Treatment Note PT-OP-A Visit Information Start: 05/27/21 08:48 Freq: Status: Active Protocol: Document 06/12/21 08:13 [facility] (Rec: 06/12/21 09:01 [facility] [id number]) Out-Patient Physical Therapy Visit Information Visit Information Visit Type Treatment Note Visit Start Time 08:15 Visit Stop Time 09:10 Total Visit Minutes 55 Visit Number 6 Precautions Precautions activity as tolerated per surgeon nurse PT-OP-B Current Condition Start: 05/27/21 08:48 Freq: Status: Active Protocol: Document 05/27/21 09:01 [facility] (Rec: 05/27/21 10:28 [facility] [id number]) Current Condition History of Current Condition Onset Date 04/21/21 Current Complaints right buttock History of Current Condition Fell August 2019 onto right SI joint. Pain into gluteal region. PT not helpful, pain persisted. Unable to walk without pain. Underwent right SI fusion 04/21/21. Hasn 't gone as well as anticiipated. Prior to surgery pain in right buttock, some in SI joint. Yesterday states having pain in SI pretty severe and down the outside of his leg. Hasn't driven since the surgery until yesterday. Throughout the day got a little better. This am the pain returned in right SI and buttock. Also having some pins and needsles in right foot. When saw PA 3 weeks after surgery was concerned seemed pin was very close to sacral foramina. Iced in the very beginning, but hasn't recently. Hasn't done any exercises since the surgery. Interested in slow, gentle exercise. Orders from doctor to do activity as pain permits. Weaned from walker to cane, then no cane very carefully and slowly for 2 weeks including a little walking on driveway. Reports using cane sometimes on right when really hurting because feeling better though knowing he is supposed to use on Can't bend down to put sock on without severe pain, using sock aid. looking to leave town for a few weeks, has to put hay in bucket. Stopped doing his prescribed exercises due to increase in gluteal pain. Just started to be able to lay on right side. Has point tenderness also right greater trochanter. Occasional glut pain on left as well. Prior Treatments and Tests 5 wks post op. Seen for right hip pain summer 2019, PT rightly said pain was coming from my back. 2 neck fusions c/s Future Testing and Treatments Planned Sees surgeon next week. 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, caring for animals on property Current Functional Impairments (Reported) Functional Limitations- ADL's painful, can't put sock on without pain Functional Limitations- Mobility/Gait painful, using cane Functional Limitations- Work/School unable to take care of animals on property Personal Factors 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 requests no standing ex today. Good compliance to HEP. Low back and buttock pain a little better today. PT-OP-E Functional Tests Start: 05/27/21 08:48 Freq: Status: Active Protocol: Document 05/27/21 09:01 [facility] (Rec: 05/27/21 10:28 [facility] [id number]) Functional Tests 6 Minute Walk Test Comments do next session PT-OP-G Mobility & Gait Start: 05/27/21 08:48 Freq: Status: Active Protocol: Document 05/27/21 09:01 [facility] (Rec: 05/27/21 10:28 [facility] [id number]) OP Mobility Evaluation Bed Mobility Rolling independent Supine to and from Sit independent with log roll Transfers Sit to Stand independent, decreased use of right LE Functional Movements Lifting and Carrying not doing at this time Squats not doing at this time OP Gait Assessment Assistive Devices Assistive Device Straight Cane Orthotic/Prosthetic Devices or Brace: No Gait Deviations General Gait Pattern Antalgic Comments Gait Comments Patient using cane on right side and leaning to the right; he says he does this when really hurting as it feels better. Instructed to use on left side for improved gait pattern and decreased compensation Stair Climbing Evaluation Evaluation Level of Assist On Stairs Independent Comments Stair Climbing Comments Reports alternating on short steps most of time, step-to pattern on higher stairs PT-OP-H Neuro Start: 05/27/21 08:48 Freq: Status: Active Protocol: Document 05/27/21 09:01 [facility] (Rec: 05/27/21 10:28 [facility] [id number]) Sensation Evaluation Gross Sensation Gross Sensation Left LE Impaired,Right LE Impaired Sensation Description Pins & [place] Dermatome Impairments L5,S1 PT-OP-J Posture/Palpation/Skin Start: 05/27/21 08:48 Freq: Status: Active Protocol: Document 05/27/21 09:01 [facility] (Rec: 05/27/21 10:28 [facility] [id number]) Posture Evaluation Position Standing Head/C-Spine Posture Forward Head T-Spine Posture Increased Kyphosis L-Spine Posture Flattened Pelvis Posture Posterior Tilted Hip Posture (L) Neutral,(R) Neutral Palpation Assessment Location reema buttocks Palpation Findings Soft Tissue Tightness,Muscle Guarding Palpation Details especially right piriformis lumbar paraspinals Palpation Findings Soft Tissue Tightness,Muscle Guarding surgical scar Palpation Location right SI Palpation Findings Soft Tissue Tightness Palpation Details decreased scar mobility PT-OP-K Range of Motion Start: 05/27/21 08:48 Freq: Status: Active Protocol: Document 05/27/21 09:01 [facility] (Rec: 05/27/21 10:28 [facility] [id number]) Lumbar Spine Range of Motion Lumbar Spine Active Comments not formally assessed due to 5 weeks post-op Hip Goniometric Range of Motion Hip Right Flexion w/Knee Flexed 95 Straight Leg Raise 45 Extension 0 Comments not fully assessed at end- range due to recent surgery and high pain level today left Flexion w/Knee Flexed 95 Straight Leg Raise 55 Extension 0 Comments not fully assessed at end- range due to recent surgery and high pain level today Hip ROM Limitations Hip ROM Limitations Soft Tissue Tightness,Pain Knee Goniometric Range of Motion Knee Right Extension Active (degrees) 10 Left Knee ROM WFL Yes Knee ROM Limitations Knee ROM Limitations Soft Tissue Tightness Comments tight hamstrings limiting knee extension in sitting PT-OP-L Special Tests Start: 05/27/21 08:48 Freq: Status: Active Protocol: Document 05/27/21 09:01 [facility] (Rec: 05/27/21 10:28 [facility] [id number]) Special Tests Neural Special Tests- Lower Body Sciatic Nerve Tension Test Results positive right PT-OP-M Strength Start: 05/27/21 08:48 Freq: Status: Active Protocol: Document 05/27/21 09:01 [facility] (Rec: 05/27/21 10:28 [facility] [id number]) Trunk Strength Trunk Manual Muscle Testing Testing Position Supine Core Stabilization difficulty activating core musculature Hip Strength Hip Manual Muscle Testing Right Comments no MMT due to recent surgery, has anti-gravity flexion in limited motion Left Comments not assessed due to recent surgery, has anti-gravity flexion Knee Strength Knee Manual Muscle Testing reema Comments has anti-gravity extension reema , no MMT Ankle/Foot Strength Ankle and Foot Manual Muscle Testing Right Dorsiflexion (L4) 4 Good Plantarflexion (S1) 4+ Good+ Left Dorsiflexion (L4) 5 Normal Plantarflexion (S1) 5 Normal Toe Strength Toe Manual Muscle Testing Great Toe Comments left 5/5, right 4/5 PT-OP-Q Treatments Start: 05/27/21 08:48 Freq: Status: Active Protocol: Document 06/12/21 08:13 [facility] (Rec: 06/12/21 09:01 [facility] [id number]) Cardio Equipment Treadmill Other not done due to heel pain Therapeutic Exercises Supine Exercises pull downs, PNF diag, pull aparts Resistance L2 TB Equipment Used cane with pull downs Reps/Minutes 10x Comments emphasis on core stab LTR Reps/Minutes 10x Comments 55 cm ball, small amplitude, TrA emphasis HS stretch Reps/Minutes 2x Comments manual;gentle TrA with heelslide Reps/Minutes 10x TrA with SAQ Reps/Minutes 10x TrA Reps/Minutes 10x Sitting Exercises HC stretch Equipment Used strap Reps/Minutes 2x30 hamstring stretch Reps/Minutes 2x Comments cues for long spine Manual Therapy Treatment Soft Tissue Mobilization Glutes Body Location R Mobilization Type Myofascial Release,Sustained Pressure Intensity/Depth Moderate Body Position Sidelying scar tissue Body Location right buttock Mobilization Type Myofascial Release Self-Care/Home Management Treatment Education Patient Education Body Mechanics,Home Exercise Program,Posture PT-OP-R Modalities Start: 05/27/21 08:48 Freq: Status: Active Protocol: Document 06/12/21 08:13 [facility] (Rec: 06/12/21 09:01 [facility] [id number]) Electric Stimulation Electric Stimulation Interferential Current (IFC) Body Location right buttock Duration (Minutes) 10 Intensity 11 Target/Sweep Sweep High/Low High Patient Position Sidelying Combined With Heat/Cold Cold Pack Hot Pack/Cold Pack Treatment Cold Pack Location R SI and buttock, right plantar fascia Patient Position Hooklying Treatment Duration (minutes) 10 Patient Tolerance Good PT-OP-T Assessment and Plan Start: 05/27/21 08:48 Freq: Status: Active Protocol: Document 06/12/21 08:13 [facility] (Rec: 06/12/21 09:01 [facility] [id number]) Physical Therapy Assessment Goals Four Impairment soft tissue mobility Impairment Tightness scar tissue right buttock, piriformis, reema IT bands Long-Term Goal (LTG) Improve soft tissue mobility to WNL to allow for improved ease of movement and decrease in pain LTG Duration 08/25/21 Three Impairment pain Impairment pain as high as 9/10 right SI, buttock Short Term Goal (STG) Decrease paion to no greater than 5/10 with all usual activities STG Duration 07/13/21 Firearms Assembly Supervisor Goal (LTG) Decrease pain to no greater than 2/10 with all usual activities LTG Duration 08/25/21 Two Impairment weakness Impairment weakness core and hips limiting mobility and activity tolerance Short Term Goal (STG) patient to be able to tolerate HEP for the purpose of strengthening and core/SI stabilization STG Duration 07/13/21 Firearms Assembly Supervisor Goal (LTG) Patient to demonstrate 5/5 muscle strength bilateral hips and core for improved function in the home and community with minimal pain. LTG Duration 08/25/21 One Impairment Activity tolerance Impairment Oswestery disability index score 56% Short Term Goal (STG) Decrease ANGEL score to no greater than 40% STG Duration 07/13/21 Firearms Assembly Supervisor Goal (LTG) Decrease ANGEL score to no greater than 20% LTG Duration 08/25/21 Assessment Summary Assessment Modified treatment today due to plantar fascitis pain. Good tolerance for HEP with improving activation of TrA especially with cues. Good compliance to HEP. Physical Therapy Plan Frequency and Duration Frequency of Treatment 2x/Week Duration of Treatment 12 weeks Plan of Care Start Date 05/27/21 Plan of Care End Date 08/25/21 Therapeutic Interventions Therapeutic Interventions Aquatic Therapy,Gait Training, Home Exercise Program,Manual Therapy,Neuromuscular Re- education,Patient/Caregiver Education,Self-Care/Home Management,Soft Tissue Mobilization,Taping, Therapeutic Activities, Therapeutic Exercises Next Visit Focus/Plan Next Note Type Treatment Note Next Visit Plan Continue progression of ther ex as tolerated, manual treatment and modalities as needed.
--- NOTE | 2021-06-16 16:46 | PT.OTN ---
Current Diagnoses Sacroiliitis, not elsewhere classified (06/16/21) Physical Therapy Treatment Note PT-OP-A Visit Information Start: 05/27/21 08:48 Freq: Status: Active Protocol: Document 06/16/21 14:30 [facility] (Rec: 06/16/21 15:15 [facility] [id number]) Out-Patient Physical Therapy Visit Information Visit Information Visit Type Treatment Note Visit Start Time 14:30 Visit Stop Time 15:28 Total Visit Minutes 58 Visit Number 7 Precautions Precautions activity as tolerated per surgeon nurse PT-OP-B Current Condition Start: 05/27/21 08:48 Freq: Status: Active Protocol: Document 05/27/21 09:01 [facility] (Rec: 05/27/21 10:28 [facility] [id number]) Current Condition History of Current Condition Onset Date 04/21/21 Current Complaints right buttock History of Current Condition Fell August 2019 onto right SI joint. Pain into gluteal region. PT not helpful, pain persisted. Unable to walk without pain. Underwent right SI fusion 04/21/21. Hasn 't gone as well as anticiipated. Prior to surgery pain in right buttock, some in SI joint. Yesterday states having pain in SI pretty severe and down the outside of his leg. Hasn't driven since the surgery until yesterday. Throughout the day got a little better. This am the pain returned in right SI and buttock. Also having some pins and needsles in right foot. When saw PA 3 weeks after surgery was concerned seemed pin was very close to sacral foramina. Iced in the very beginning, but hasn't recently. Hasn't done any exercises since the surgery. Interested in slow, gentle exercise. Orders from doctor to do activity as pain permits. Weaned from walker to cane, then no cane very carefully and slowly for 2 weeks including a little walking on driveway. Reports using cane sometimes on right when really hurting because feeling better though knowing he is supposed to use on Can't bend down to put sock on without severe pain, using sock aid. looking to leave town for a few weeks, has to put hay in bucket. Stopped doing his prescribed exercises due to increase in gluteal pain. Just started to be able to lay on right side. Has point tenderness also right greater trochanter. Occasional glut pain on left as well. Prior Treatments and Tests 5 wks post op. Seen for right hip pain summer 2019, PT rightly said pain was coming from my back. 2 neck fusions c/s Future Testing and Treatments Planned Sees surgeon next week. 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, caring for animals on property Current Functional Impairments (Reported) Functional Limitations- ADL's painful, can't put sock on without pain Functional Limitations- Mobility/Gait painful, using cane Functional Limitations- Work/School unable to take care of animals on property Personal Factors Other Personal Factors That May Effect 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 Reports continued pain down side of LE since the surgery, no improvement in symptoms since surgery. Doesn't tolerate standing for long. Hurting more past few days, unsure if anything we did in PT or what he does at home. He still finds it doesn't work well to do exercises on his bed, but also feels not enough cushion on floor on yoga mat. States he feels he gets up safely from floor after exercises when PT expressed it would be better to not get down to floor. He states he moved generator on Wednesday and also helped a neighbor unhook a trailer. Receptive to trial of SI belt or kinesiotape. Reports feels scar work helpful, flattened and improved mobility so that he can't hardly feel it anymore. PT-OP-E Functional Tests Start: 05/27/21 08:48 Freq: Status: Active Protocol: Document 05/27/21 09:01 [facility] (Rec: 05/27/21 10:28 [facility] [id number]) Functional Tests 6 Minute Walk Test Comments do next session PT-OP-G Mobility & Gait Start: 05/27/21 08:48 Freq: Status: Active Protocol: Document 05/27/21 09:01 [facility] (Rec: 05/27/21 10:28 [facility] [id number]) OP Mobility Evaluation Bed Mobility Rolling independent Supine to and from Sit independent with log roll Transfers Sit to Stand independent, decreased use of right LE Functional Movements Lifting and Carrying not doing at this time Squats not doing at this time OP Gait Assessment Assistive Devices Assistive Device Straight Cane Orthotic/Prosthetic Devices or Brace: No Gait Deviations General Gait Pattern Antalgic Comments Gait Comments Patient using cane on right side and leaning to the right; he says he does this when really hurting as it feels better. Instructed to use on left side for improved gait pattern and decreased compensation Stair Climbing Evaluation Evaluation Level of Assist On Stairs Independent Comments Stair Climbing Comments Reports alternating on short steps most of time, step-to pattern on higher stairs PT-OP-H Neuro Start: 05/27/21 08:48 Freq: Status: Active Protocol: Document 05/27/21 09:01 [facility] (Rec: 05/27/21 10:28 [facility] [id number]) Sensation Evaluation Gross Sensation Gross Sensation Left LE Impaired,Right LE Impaired Sensation Description [place] Dermatome Impairments L5,S1 PT-OP-J Posture/Palpation/Skin Start: 05/27/21 08:48 Freq: Status: Active Protocol: Document 05/27/21 09:01 [facility] (Rec: 05/27/21 10:28 [facility] [id number]) Posture Evaluation Position Standing Head/C-Spine Posture Forward Head T-Spine Posture Increased Kyphosis L-Spine Posture Flattened Pelvis Posture Posterior Tilted Hip Posture (L) Neutral,(R) Neutral Palpation Assessment Location reema buttocks Palpation Findings Soft Tissue Tightness,Muscle Guarding Palpation Details especially right piriformis lumbar paraspinals Palpation Findings Soft Tissue Tightness,Muscle Guarding surgical scar Palpation Location right SI Palpation Findings Soft Tissue Tightness Palpation Details decreased scar mobility PT-OP-K Range of Motion Start: 05/27/21 08:48 Freq: Status: Active Protocol: Document 05/27/21 09:01 [facility] (Rec: 05/27/21 10:28 [facility] [id number]) Lumbar Spine Range of Motion Lumbar Spine Active Comments not formally assessed due to 5 weeks post-op Hip Goniometric Range of Motion Hip Right Flexion w/Knee Flexed 95 Straight Leg Raise 45 Extension 0 Comments not fully assessed at end- range due to recent surgery and high pain level today left Flexion w/Knee Flexed 95 Straight Leg Raise 55 Extension 0 Comments not fully assessed at end- range due to recent surgery and high pain level today Hip ROM Limitations Hip ROM Limitations Soft Tissue Tightness,Pain Knee Goniometric Range of Motion Knee Right Extension Active (degrees) 10 Left Knee ROM WFL Yes Knee ROM Limitations Knee ROM Limitations Soft Tissue Tightness Comments tight hamstrings limiting knee extension in sitting PT-OP-L Special Tests Start: 05/27/21 08:48 Freq: Status: Active Protocol: Document 05/27/21 09:01 [facility] (Rec: 05/27/21 10:28 [facility] [id number]) Special Tests Neural Special Tests- Lower Body Sciatic Nerve Tension Test Results positive right PT-OP-M Strength Start: 05/27/21 08:48 Freq: Status: Active Protocol: Document 05/27/21 09:01 [facility] (Rec: 05/27/21 10:28 [facility] [id number]) Trunk Strength Trunk Manual Muscle Testing Testing Position Supine Core Stabilization difficulty activating core musculature Hip Strength Hip Manual Muscle Testing Right Comments no MMT due to recent surgery, has anti-gravity flexion in limited motion Left Comments not assessed due to recent surgery, has anti-gravity flexion Knee Strength Knee Manual Muscle Testing reema Comments has anti-gravity extension reema , no MMT Ankle/Foot Strength Ankle and Foot Manual Muscle Testing Right Dorsiflexion (L4) 4 Good Plantarflexion (S1) 4+ Good+ Left Dorsiflexion (L4) 5 Normal Plantarflexion (S1) 5 Normal Toe Strength Toe Manual Muscle Testing Great Toe Comments left 5/5, right 4/5 PT-OP-Q Treatments Start: 05/27/21 08:48 Freq: Status: Active Protocol: Document 06/16/21 14:30 [facility] (Rec: 06/16/21 16:46 [facility] [id number]) Cardio Equipment Treadmill Other not tolerated today due to plantar fascia pain Gym Equipment Shuttle Recovery Bilateral Squats Resistance 50 Reps/Time 10x2 Therapeutic Exercises Supine Exercises HS stretch Reps/Minutes 2x Comments manual;gentle while laying on shuttle leg press TrA with heelslide Reps/Minutes 10x Comments cues for core muscle activation Manual Therapy Treatment Taping SI Body Location reema Treatment Focus pain reduction Type of Tape kinesiotape Skin Inspection intact Comments I strip with 50-75% stretch between SI joints, 25-50% stretch around to ASIS reema Other Other Manual Treatments Brief trial use of SI belt but pressure painful for patient so removed. Self-Care/Home Management Treatment Education Patient Education Body Mechanics,Home Exercise Program,Joint Protection,Pain Management,Posture,Safety Other Education double up yoga mat for increased cushion laying supine for exercises remove kinesiotape if uncomfortable, itchy, rash, or redness no heavy lifting continue treatment for plantar fascia at home PT-OP-R Modalities Start: 05/27/21 08:48 Freq: Status: Active Protocol: Document 06/16/21 14:30 [facility] (Rec: 06/16/21 15:15 [facility] [id number]) Electric Stimulation Electric Stimulation Interferential Current (IFC) Body Location right buttock/SI joint Duration (Minutes) 10 Intensity 11 Target/Sweep Sweep High/Low High Patient Position Sidelying Combined With Heat/Cold Cold Pack Hot Pack/Cold Pack Treatment Cold Pack Location R SI and buttock, right plantar fascia Patient Position Hooklying Treatment Duration (minutes) 10 Patient Tolerance Good PT-OP-T Assessment and Plan Start: 05/27/21 08:48 Freq: Status: Active Protocol: Document 06/16/21 14:30 [facility] (Rec: 06/16/21 15:15 [facility] [id number]) Physical Therapy Assessment Goals Four Impairment soft tissue mobility Impairment Tightness scar tissue right buttock, piriformis, reema IT 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 Goal (LTG) Improve soft tissue mobility to WNL to allow for improved ease of movement and decrease in pain LTG Duration 08/25/21 Three Impairment pain Impairment pain as high as 9/10 right SI, buttock Short Term Goal (STG) Decrease paion to no greater than 5/10 with all usual activities STG Duration 07/13/21 [employer] Equipment Operator Goal (LTG) Decrease pain to no greater than 2/10 with all usual activities LTG Duration 08/25/21 Two Impairment weakness Impairment weakness core and hips limiting mobility and activity tolerance Short Term Goal (STG) patient to be able to tolerate HEP for the purpose of strengthening and core/SI stabilization STG Duration 07/13/21 Longterm Goal (LTG) Patient to demonstrate 5/5 muscle strength bilateral hips and core for improved function in the home and community with minimal pain. LTG Duration 08/25/21 One Impairment Activity tolerance Impairment Oswestery disability index score 56% Short Term Goal (STG) Decrease ANGEL score to no greater than 40% STG Duration 07/13/21 Longterm Goal (LTG) Decrease ANGEL score to no greater than 20% LTG Duration 08/25/21 Assessment Summary Assessment trial SI belt increased his symptoms so kinesiotape trial instead. Patient advised to try doubling up his yoga mat to lay on because still c/o inc pain SI laying on the floor. Would prefer patient not get to the floor but patient reports it is only place firm enough at his house . Patient instructed to discontinue moving of heavy objects as he noted he did over weekend. Feel plantar fascitis with modification of patient's movements also contributing to increase in SI symptoms. Physical Therapy Plan Frequency and Duration Frequency of Treatment 2x/Week Duration of Treatment 12 weeks Plan of Care Start Date 05/27/21 Plan of Care End Date 08/25/21 Therapeutic Interventions Therapeutic Interventions Aquatic Therapy,Gait Training, Home Exercise Program,Manual Therapy,Neuromuscular Re- education,Patient/Caregiver Education,Self-Care/Home Management,Soft Tissue Mobilization,Taping, Therapeutic Activities, Therapeutic Exercises Next Visit Focus/Plan Next Note Type Treatment Note Next Visit Plan Assess response to kinesiotape , continue gentle ther ex progression as tolerated, manual treatment and modalities as needed.
--- NOTE | 2021-06-16 16:46 | PT.OTN ---
Current Diagnoses Sacroiliitis, not elsewhere classified (06/16/21) Physical Therapy Treatment Note PT-OP-A Visit Information Start: 05/27/21 08:48 Freq: Status: Active Protocol: Document 06/16/21 14:30 [facility] (Rec: 06/16/21 15:15 [facility] [id number]) Out-Patient Physical Therapy Visit Information Visit Information Visit Type Treatment Note Visit Start Time 14:30 Visit Stop Time 15:28 Total Visit Minutes 58 Visit Number 7 Precautions Precautions activity as tolerated per surgeon nurse PT-OP-B Current Condition Start: 05/27/21 08:48 Freq: Status: Active Protocol: Document 05/27/21 09:01 [facility] (Rec: 05/27/21 10:28 [facility] [id number]) Current Condition History of Current Condition Onset Date 04/21/21 Current Complaints right buttock History of Current Condition Fell August 2019 onto right SI joint. Pain into gluteal region. PT not helpful, pain persisted. Unable to walk without pain. Underwent right SI fusion 04/21/21. Hasn 't gone as well as anticiipated. Prior to surgery pain in right buttock, some in SI joint. Yesterday states having pain in SI pretty severe and down the outside of his leg. Hasn't driven since the surgery until yesterday. Throughout the day got a little better. This am the pain returned in right SI and buttock. Also having some pins and needsles in right foot. When saw PA 3 weeks after surgery was concerned seemed pin was very close to sacral foramina. Iced in the very beginning, but hasn't recently. Hasn't done any exercises since the surgery. Interested in slow, gentle exercise. Orders from doctor to do activity as pain permits. Weaned from walker to cane, then no cane very carefully and slowly for 2 weeks including a little walking on driveway. Reports using cane sometimes on right when really hurting because feeling better though knowing he is supposed to use on Can't bend down to put sock on without severe pain, using sock aid. looking to leave town for a few weeks, has to put hay in bucket. Stopped doing his prescribed exercises due to increase in gluteal pain. Just started to be able to lay on right side. Has point tenderness also right greater trochanter. Occasional glut pain on left as well. Prior Treatments and Tests 5 wks post op. Seen for right hip pain summer 2019, PT rightly said pain was coming from my back. 2 neck fusions c/s Future Testing and Treatments Planned Sees surgeon next week. 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, caring for animals on property Current Functional Impairments (Reported) Functional Limitations- ADL's painful, can't put sock on without pain Functional Limitations- Mobility/Gait painful, using cane Functional Limitations- Work/School unable to take care of animals on property Personal Factors Other Personal Factors That May Effect 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 Reports continued pain down side of LE since the surgery, no improvement in symptoms since surgery. Doesn't tolerate standing for long. Hurting more past few days, unsure if anything we did in PT or what he does at home. He still finds it doesn't work well to do exercises on his bed, but also feels not enough cushion on floor on yoga mat. States he feels he gets up safely from floor after exercises when PT expressed it would be better to not get down to floor. He states he moved generator on Wednesday and also helped a neighbor unhook a trailer. Receptive to trial of SI belt or kinesiotape. Reports feels scar work helpful, flattened and improved mobility so that he can't hardly feel it anymore. PT-OP-E Functional Tests Start: 05/27/21 08:48 Freq: Status: Active Protocol: Document 05/27/21 09:01 [facility] (Rec: 05/27/21 10:28 [facility] [id number]) Functional Tests 6 Minute Walk Test Comments do next session PT-OP-G Mobility & Gait Start: 05/27/21 08:48 Freq: Status: Active Protocol: Document 05/27/21 09:01 [facility] (Rec: 05/27/21 10:28 [facility] [id number]) OP Mobility Evaluation Bed Mobility Rolling independent Supine to and from Sit independent with log roll Transfers Sit to Stand independent, decreased use of right LE Functional Movements Lifting and Carrying not doing at this time Squats not doing at this time OP Gait Assessment Assistive Devices Assistive Device Straight Cane Orthotic/Prosthetic Devices or Brace: No Gait Deviations General Gait Pattern Antalgic Comments Gait Comments Patient using cane on right side and leaning to the right; he says he does this when really hurting as it feels better. Instructed to use on left side for improved gait pattern and decreased compensation Stair Climbing Evaluation Evaluation Level of Assist On Stairs Independent Comments Stair Climbing Comments Reports alternating on short steps most of time, step-to pattern on higher stairs PT-OP-H Neuro Start: 05/27/21 08:48 Freq: Status: Active Protocol: Document 05/27/21 09:01 [facility] (Rec: 05/27/21 10:28 [facility] [id number]) Sensation Evaluation Gross Sensation Gross Sensation Left LE Impaired,Right LE Impaired Sensation Description [place] [place] Dermatome Impairments L5,S1 PT-OP-J Posture/Palpation/Skin Start: 05/27/21 08:48 Freq: Status: Active Protocol: Document 05/27/21 09:01 [facility] (Rec: 05/27/21 10:28 [facility] [id number]) Posture Evaluation Position Standing Head/C-Spine Posture Forward Head T-Spine Posture Increased Kyphosis L-Spine Posture Flattened Pelvis Posture Posterior Tilted Hip Posture (L) Neutral,(R) Neutral Palpation Assessment Location reema buttocks Palpation Findings Soft Tissue Tightness,Muscle Guarding Palpation Details especially right piriformis lumbar paraspinals Palpation Findings Soft Tissue Tightness,Muscle Guarding surgical scar Palpation Location right SI Palpation Findings Soft Tissue Tightness Palpation Details decreased scar mobility PT-OP-K Range of Motion Start: 05/27/21 08:48 Freq: Status: Active Protocol: Document 05/27/21 09:01 [facility] (Rec: 05/27/21 10:28 [facility] [id number]) Lumbar Spine Range of Motion Lumbar Spine Active Comments not formally assessed due to 5 weeks post-op Hip Goniometric Range of Motion Hip Right Flexion w/Knee Flexed 95 Straight Leg Raise 45 Extension 0 Comments not fully assessed at end- range due to recent surgery and high pain level today left Flexion w/Knee Flexed 95 Straight Leg Raise 55 Extension 0 Comments not fully assessed at end- range due to recent surgery and high pain level today Hip ROM Limitations Hip ROM Limitations Soft Tissue Tightness,Pain Knee Goniometric Range of Motion Knee Right Extension Active (degrees) 10 Left Knee ROM WFL Yes Knee ROM Limitations Knee ROM Limitations Soft Tissue Tightness Comments tight hamstrings limiting knee extension in sitting PT-OP-L Special Tests Start: 05/27/21 08:48 Freq: Status: Active Protocol: Document 05/27/21 09:01 [facility] (Rec: 05/27/21 10:28 [facility] [id number]) Special Tests Neural Special Tests- Lower Body Sciatic Nerve Tension Test Results positive right PT-OP-M Strength Start: 05/27/21 08:48 Freq: Status: Active Protocol: Document 05/27/21 09:01 [facility] (Rec: 05/27/21 10:28 [facility] [id number]) Trunk Strength Trunk Manual Muscle Testing Testing Position Supine Core Stabilization difficulty activating core musculature Hip Strength Hip Manual Muscle Testing Right Comments no MMT due to recent surgery, has anti-gravity flexion in limited motion Left Comments not assessed due to recent surgery, has anti-gravity flexion Knee Strength Knee Manual Muscle Testing reema Comments has anti-gravity extension reema , no MMT Ankle/Foot Strength Ankle and Foot Manual Muscle Testing Right Dorsiflexion (L4) 4 Good Plantarflexion (S1) 4+ Good+ Left Dorsiflexion (L4) 5 Normal Plantarflexion (S1) 5 Normal Toe Strength Toe Manual Muscle Testing Great Toe Comments left 5/5, right 4/5 PT-OP-Q Treatments Start: 05/27/21 08:48 Freq: Status: Active Protocol: Document 06/16/21 14:30 [facility] (Rec: 06/16/21 16:46 [facility] [id number]) Cardio Equipment Treadmill Other not tolerated today due to plantar fascia pain Gym Equipment Shuttle Recovery Bilateral Squats Resistance 50 Reps/Time 10x2 Therapeutic Exercises Supine Exercises HS stretch Reps/Minutes 2x Comments manual;gentle while laying on shuttle leg press TrA with heelslide Reps/Minutes 10x Comments cues for core muscle activation Manual Therapy Treatment Taping SI Body Location reema Treatment Focus pain reduction Type of Tape kinesiotape Skin Inspection intact Comments I strip with 50-75% stretch between SI joints, 25-50% stretch around to ASIS reema Other Other Manual Treatments Brief trial use of SI belt but pressure painful for patient so removed. Self-Care/Home Management Treatment Education Patient Education Body Mechanics,Home Exercise Program,Joint Protection,Pain Management,Posture,Safety Other Education double up yoga mat for increased cushion laying supine for exercises remove kinesiotape if uncomfortable, itchy, rash, or redness no heavy lifting continue treatment for plantar fascia at home PT-OP-R Modalities Start: 05/27/21 08:48 Freq: Status: Active Protocol: Document 06/16/21 14:30 [facility] (Rec: 06/16/21 15:15 [facility] [id number]) Electric Stimulation Electric Stimulation Interferential Current (IFC) Body Location right buttock/SI joint Duration (Minutes) 10 Intensity 11 Target/Sweep Sweep High/Low High Patient Position Sidelying Combined With Heat/Cold Cold Pack Hot Pack/Cold Pack Treatment Cold Pack Location R SI and buttock, right plantar fascia Patient Position Hooklying Treatment Duration (minutes) 10 Patient Tolerance Good PT-OP-T Assessment and Plan Start: 05/27/21 08:48 Freq: Status: Active Protocol: Document 06/16/21 14:30 [facility] (Rec: 06/16/21 15:15 [facility] [id number]) Physical Therapy Assessment Goals Four Impairment soft tissue mobility Impairment Tightness scar tissue right buttock, piriformis, reema IT bands Broaching Machine Set Up Operator Goal (LTG) Improve soft tissue mobility to WNL to allow for improved ease of movement and decrease in pain LTG Duration 08/25/21 Three Impairment pain Impairment pain as high as 9/10 right SI, buttock Short Term Goal (STG) Decrease paion to no greater than 5/10 with all usual activities STG Duration 07/13/21 Broaching Machine Set Up Operator Goal (LTG) Decrease pain to no greater than 2/10 with all usual activities LTG Duration 08/25/21 Two Impairment weakness Impairment weakness core and hips limiting mobility and activity tolerance Short Term Goal (STG) patient to be able to tolerate HEP for the purpose of strengthening and core/SI stabilization STG Duration 07/13/21 Jail Goal (LTG) Patient to demonstrate 5/5 muscle strength bilateral hips and core for improved function in the home and community with minimal pain. LTG Duration 08/25/21 One Impairment Activity tolerance Impairment Oswestery disability index score 56% Short Term Goal (STG) Decrease ANGEL score to no greater than 40% STG Duration 07/13/21 Jail Goal (LTG) Decrease ANGEL score to no greater than 20% LTG Duration 08/25/21 Assessment Summary Assessment trial SI belt increased his symptoms so kinesiotape trial instead. Patient advised to try doubling up his yoga mat to lay on because still c/o inc pain SI laying on the floor. Would prefer patient not get to the floor but patient reports it is only place firm enough at his house . Patient instructed to discontinue moving of heavy objects as he noted he did over weekend. Feel plantar fascitis with modification of patient's movements also contributing to increase in SI symptoms. Physical Therapy Plan Frequency and Duration Frequency of Treatment 2x/Week Duration of Treatment 12 weeks Plan of Care Start Date 05/27/21 Plan of Care End Date 08/25/21 Therapeutic Interventions Therapeutic Interventions Aquatic Therapy,Gait Training, Home Exercise Program,Manual Therapy,Neuromuscular Re- education,Patient/Caregiver Education,Self-Care/Home Management,Soft Tissue Mobilization,Taping, Therapeutic Activities, Therapeutic Exercises Next Visit Focus/Plan Next Note Type Treatment Note Next Visit Plan Assess response to kinesiotape , continue gentle ther ex progression as tolerated, manual treatment and modalities as needed.
--- NOTE | 2021-06-23 10:04 | PT.OTN ---
Current Diagnoses Sacroiliitis, not elsewhere classified (06/23/21) Physical Therapy Treatment Note PT-OP-A Visit Information Start: 05/27/21 08:48 Freq: Status: Active Protocol: Document 06/23/21 09:00 [facility] (Rec: 06/23/21 10:04 [facility] [id number]) Out-Patient Physical Therapy Visit Information Visit Information Visit Type Treatment Note Visit Start Time 09:00 Visit Stop Time 09:57 Total Visit Minutes 57 Visit Number 8 Precautions Precautions activity as tolerated per surgeon nurse PT-OP-B Current Condition Start: 05/27/21 08:48 Freq: Status: Active Protocol: Document 05/27/21 09:01 [facility] (Rec: 05/27/21 10:28 [facility] [id number]) Current Condition History of Current Condition Onset Date 04/21/21 Current Complaints right buttock History of Current Condition Fell August 2019 onto right SI joint. Pain into gluteal region. PT not helpful, pain persisted. Unable to walk without pain. Underwent right SI fusion 04/21/21. Hasn 't gone as well as anticiipated. Prior to surgery pain in right buttock, some in SI joint. Yesterday states having pain in SI pretty severe and down the outside of his leg. Hasn't driven since the surgery until yesterday. Throughout the day got a little better. This am the pain returned in right SI and buttock. Also having some pins and needsles in right foot. When saw PA 3 weeks after surgery was concerned seemed pin was very close to sacral foramina. Iced in the very beginning, but hasn't recently. Hasn't done any exercises since the surgery. Interested in slow, gentle exercise. Orders from doctor to do activity as pain permits. Weaned from walker to cane, then no cane very carefully and slowly for 2 weeks including a little walking on driveway. Reports using cane sometimes on right when really hurting because feeling better though knowing he is supposed to use on Can't bend down to put sock on without severe pain, using sock aid. looking to leave town for a few weeks, has to put hay in bucket. Stopped doing his prescribed exercises due to increase in gluteal pain. Just started to be able to lay on right side. Has point tenderness also right greater trochanter. Occasional glut pain on left as well. Prior Treatments and Tests 5 wks post op. Seen for right hip pain summer 2019, PT rightly said pain was coming from my back. 2 neck fusions c/s Future Testing and Treatments Planned Sees surgeon next week. 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, caring for animals on property Current Functional Impairments (Reported) Functional Limitations- ADL's painful, can't put sock on without pain Functional Limitations- Mobility/Gait painful, using cane Functional Limitations- Work/School unable to take care of animals on property Personal Factors Other Personal Factors That May Effect 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 States he did spend the week doing a lot of driving with family visited, continued to ice and used heated seats and was surprised he isn't more sore. x-rays show hardware in good position. Sees Dr. Poon tomorrow. PT-OP-E Functional Tests Start: 05/27/21 08:48 Freq: Status: Active Protocol: Document 05/27/21 09:01 [facility] (Rec: 05/27/21 10:28 [facility] [id number]) Functional Tests 6 Minute Walk Test Comments do next session PT-OP-G Mobility & Gait Start: 05/27/21 08:48 Freq: Status: Active Protocol: Document 05/27/21 09:01 [facility] (Rec: 05/27/21 10:28 [facility] [id number]) OP Mobility Evaluation Bed Mobility Rolling independent Supine to and from Sit independent with log roll Transfers Sit to Stand independent, decreased use of right LE Functional Movements Lifting and Carrying not doing at this time Squats not doing at this time OP Gait Assessment Assistive Devices Assistive Device Straight Cane Orthotic/Prosthetic Devices or Brace: No Gait Deviations General Gait Pattern Antalgic Comments Gait Comments Patient using cane on right side and leaning to the right; he says he does this when really hurting as it feels better. Instructed to use on left side for improved gait pattern and decreased compensation Stair Climbing Evaluation Evaluation Level of Assist On Stairs Independent Comments Stair Climbing Comments Reports alternating on short steps most of time, step-to pattern on higher stairs PT-OP-H Neuro Start: 05/27/21 08:48 Freq: Status: Active Protocol: Document 05/27/21 09:01 [facility] (Rec: 05/27/21 10:28 [facility] [id number]) Sensation Evaluation Gross Sensation Gross Sensation Left LE Impaired,Right LE Impaired Sensation Description [place] Dermatome Impairments L5,S1 PT-OP-J Posture/Palpation/Skin Start: 05/27/21 08:48 Freq: Status: Active Protocol: Document 05/27/21 09:01 [facility] (Rec: 05/27/21 10:28 [facility] [id number]) Posture Evaluation Position Standing Head/C-Spine Posture Forward Head T-Spine Posture Increased Kyphosis L-Spine Posture Flattened Pelvis Posture Posterior Tilted Hip Posture (L) Neutral,(R) Neutral Palpation Assessment Location reema buttocks Palpation Findings Soft Tissue Tightness,Muscle Guarding Palpation Details especially right piriformis lumbar paraspinals Palpation Findings Soft Tissue Tightness,Muscle Guarding surgical scar Palpation Location right SI Palpation Findings Soft Tissue Tightness Palpation Details decreased scar mobility PT-OP-K Range of Motion Start: 05/27/21 08:48 Freq: Status: Active Protocol: Document 05/27/21 09:01 [facility] (Rec: 05/27/21 10:28 [facility] [id number]) Lumbar Spine Range of Motion Lumbar Spine Active Comments not formally assessed due to 5 weeks post-op Hip Goniometric Range of Motion Hip Right Flexion w/Knee Flexed 95 Straight Leg Raise 45 Extension 0 Comments not fully assessed at end- range due to recent surgery and high pain level today left Flexion w/Knee Flexed 95 Straight Leg Raise 55 Extension 0 Comments not fully assessed at end- range due to recent surgery and high pain level today Hip ROM Limitations Hip ROM Limitations Soft Tissue Tightness,Pain Knee Goniometric Range of Motion Knee Right Extension Active (degrees) 10 Left Knee ROM WFL Yes Knee ROM Limitations Knee ROM Limitations Soft Tissue Tightness Comments tight hamstrings limiting knee extension in sitting PT-OP-L Special Tests Start: 05/27/21 08:48 Freq: Status: Active Protocol: Document 05/27/21 09:01 [facility] (Rec: 05/27/21 10:28 [facility] [id number]) Special Tests Neural Special Tests- Lower Body Sciatic Nerve Tension Test Results positive right PT-OP-M Strength Start: 05/27/21 08:48 Freq: Status: Active Protocol: Document 05/27/21 09:01 [facility] (Rec: 05/27/21 10:28 [facility] [id number]) Trunk Strength Trunk Manual Muscle Testing Testing Position Supine Core Stabilization difficulty activating core musculature Hip Strength Hip Manual Muscle Testing Right Comments no MMT due to recent surgery, has anti-gravity flexion in limited motion Left Comments not assessed due to recent surgery, has anti-gravity flexion Knee Strength Knee Manual Muscle Testing reema Comments has anti-gravity extension reema , no MMT Ankle/Foot Strength Ankle and Foot Manual Muscle Testing Right Dorsiflexion (L4) 4 Good Plantarflexion (S1) 4+ Good+ Left Dorsiflexion (L4) 5 Normal Plantarflexion (S1) 5 Normal Toe Strength Toe Manual Muscle Testing Great Toe Comments left 5/5, right 4/5 PT-OP-Q Treatments Start: 05/27/21 08:48 Freq: Status: Active Protocol: Document 06/23/21 09:00 [facility] (Rec: 06/23/21 10:04 [facility] [id number]) Cardio Equipment Treadmill Duration (Minutes) 8 Speed 0.9 Incline 0 Other slow speed, emphasis on gluteal activation Gym Equipment Shuttle Recovery Bilateral Squats Resistance 50 Reps/Time 10x2 Sport Cord yellow Exercise Details forward Cord/Resistance yello Reps/Duration 8x Comments emphasis on gluteal activation Therapeutic Exercises Supine Exercises HS stretch Reps/Minutes 2x Comments manual;gentle while laying on shuttle leg press Gait Training Gait Activity stairs Level of Assistance verbal cues Surface 4 stairs Distance/Duration 2x 5 stairs Treatment Focus gluteal activation Manual Therapy Treatment Soft Tissue Mobilization hamstring Body Location proximal right Mobilization Type Myofascial Release,Strumming Intensity/Depth Moderate ITB Body Location right Mobilization Type Instrument Assisted,Rolling Intensity/Depth Moderate Body Position Sidelying Comments rolling pin Taping SI Body Location reema Treatment Focus pain reduction Type of Tape kinesiotape Skin Inspection intact Comments I strip with 50-75% stretch between SI joints, 25-50% stretch around to ASIS reema Self-Care/Home Management Treatment Education Patient Education Body Mechanics,Home Exercise Program,Joint Protection,Pain Management,Posture Other Education gluteal activation with gait smaller stride to dec torque to SI PT-OP-R Modalities Start: 05/27/21 08:48 Freq: Status: Active Protocol: Document 06/23/21 09:00 [facility] (Rec: 06/23/21 10:04 [facility] [id number]) Electric Stimulation Electric Stimulation Interferential Current (IFC) Body Location right SI, proximal HS Duration (Minutes) 10 Intensity 11 Target/Sweep Sweep High/Low High Patient Position Sidelying Combined With Heat/Cold Cold Pack PT-OP-T Assessment and Plan Start: 05/27/21 08:48 Freq: Status: Active Protocol: Document 06/23/21 09:00 [facility] (Rec: 06/23/21 10:04 [facility] [id number]) Physical Therapy Assessment Goals Four Impairment soft tissue mobility Impairment Tightness scar tissue right buttock, piriformis, reema IT bands Digital Account Director Goal (LTG) Improve soft tissue mobility to WNL to allow for improved ease of movement and decrease in pain LTG Duration 08/25/21 Three Impairment pain Impairment pain as high as 9/10 right SI, buttock Short Term Goal (STG) Decrease paion to no greater than 5/10 with all usual activities STG Duration 07/13/21 Digital Account Director Goal (LTG) Decrease pain to no greater than 2/10 with all usual activities LTG Duration 08/25/21 Two Impairment weakness Impairment weakness core and hips limiting mobility and activity tolerance Short Term Goal (STG) patient to be able to tolerate HEP for the purpose of strengthening and core/SI stabilization STG Duration 07/13/21 Long-Term Goal (LTG) Patient to demonstrate 5/5 muscle strength bilateral hips and core for improved function in the home and community with minimal pain. LTG Duration 08/25/21 One Impairment Activity tolerance Impairment Oswestery disability index score 56% Short Term Goal (STG) Decrease ANGEL score to no greater than 40% STG Duration 07/13/21 Digital Account Director Goal (LTG) Decrease ANGEL score to no greater than 20% LTG Duration 08/25/21 Assessment Summary Assessment Patient reported decrease in pain with activation of gluteal muscles with gait, demonstrated good understanding. Feel tightness proximal hamstring as well as IT band tightnes contributory to pain, encouraged use of rolling pin at home. Physical Therapy Plan Frequency and Duration Frequency of Treatment 2x/Week Duration of Treatment 12 weeks Plan of Care Start Date 05/27/21 Plan of Care End Date 08/25/21 Therapeutic Interventions Therapeutic Interventions Aquatic Therapy,Gait Training, Home Exercise Program,Manual Therapy,Neuromuscular Re- education,Patient/Caregiver Education,Self-Care/Home Management,Soft Tissue Mobilization,Taping, Therapeutic Activities, Therapeutic Exercises Next Visit Focus/Plan Next Note Type Treatment Note Next Visit Plan Assess response to increased emphasis on manual work to IT band and proximal hamstring. Continue emphasis on gluteal activation.
--- NOTE | 2021-06-26 10:42 | PT.OTN ---
Current Diagnoses Sacroiliitis, not elsewhere classified (06/26/21) Physical Therapy Treatment Note PT-OP-A Visit Information Start: 05/27/21 08:48 Freq: Status: Active Protocol: Document 06/26/21 09:43 SAK (Rec: 06/26/21 10:04 SAK [id number]) Out-Patient Physical Therapy Visit Information Visit Information Visit Type Treatment Note Visit Start Time 09:45 Total Visit Minutes 57 Visit Number 9 Precautions Precautions activity as tolerated per surgeon nurse PT-OP-B Current Condition Start: 05/27/21 08:48 Freq: Status: Active Protocol: Document 05/27/21 09:01 SAK (Rec: 05/27/21 10:28 SAK [id number]) Current Condition History of Current Condition Onset Date 04/21/21 Current Complaints right buttock History of Current Condition Fell August 2019 onto right SI joint. Pain into gluteal region. PT not helpful, pain persisted. Unable to walk without pain. Underwent right SI fusion 04/21/21. Hasn 't gone as well as anticiipated. Prior to surgery pain in right buttock, some in SI joint. Yesterday states having pain in SI pretty severe and down the outside of his leg. Hasn't driven since the surgery until yesterday. Throughout the day got a little better. This am the pain returned in right SI and buttock. Also having some pins and needsles in right foot. When saw PA 3 weeks after surgery was concerned seemed pin was very close to sacral foramina. Iced in the very beginning, but hasn't recently. Hasn't done any exercises since the surgery. Interested in slow, gentle exercise. Orders from doctor to do activity as pain permits. Weaned from walker to cane, then no cane very carefully and slowly for 2 weeks including a little walking on driveway. Reports using cane sometimes on right when really hurting because feeling better though knowing he is supposed to use on Can't bend down to put sock on without severe pain, using sock aid. looking to leave town for a few weeks, has to put hay in bucket. Stopped doing his prescribed exercises due to increase in gluteal pain. Just started to be able to lay on right side. Has point tenderness also right greater trochanter. Occasional glut pain on left as well. Prior Treatments and Tests 5 wks post op. Seen for right hip pain summer 2019, PT rightly said pain was coming from my back. 2 neck fusions c/s Future Testing and Treatments Planned Sees surgeon next week. 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, caring for animals on property Current Functional Impairments (Reported) Functional Limitations- ADL's painful, can't put sock on without pain Functional Limitations- Mobility/Gait painful, using cane Functional Limitations- Work/School unable to take care of animals on property Personal Factors Other Personal Factors That May Effect 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 Didn't do rolling pin yet. [place] some improvement after manual work last session. Found a way to do ex on guest bed using a piece of plywood with cushion. [place] still out on the kinesiotape. Dr. Poon retiring end of the year. Returns for review of MRI, then will see another doctor. Borrowing a TENS unit; will be able to start using tonight . Sees Dr. Masterson on Wednesday to discuss order for TENS. PT-OP-E Functional Tests Start: 05/27/21 08:48 Freq: Status: Active Protocol: Document 05/27/21 09:01 SAK (Rec: 05/27/21 10:28 [facility] [id number]) Functional Tests 6 Minute Walk Test Comments do next session PT-OP-G Mobility & Gait Start: 05/27/21 08:48 Freq: Status: Active Protocol: Document 05/27/21 09:01 SAK (Rec: 05/27/21 10:28 [facility] [id number]) OP Mobility Evaluation Bed Mobility Rolling independent Supine to and from Sit independent with log roll Transfers Sit to Stand independent, decreased use of right LE Functional Movements Lifting and Carrying not doing at this time Squats not doing at this time OP Gait Assessment Assistive Devices Assistive Device Straight Cane Orthotic/Prosthetic Devices or Brace: No Gait Deviations General Gait Pattern Antalgic Comments Gait Comments Patient using cane on right side and leaning to the right; he says he does this when really hurting as it feels better. Instructed to use on left side for improved gait pattern and decreased compensation Stair Climbing Evaluation Evaluation Level of Assist On Stairs Independent Comments Stair Climbing Comments Reports alternating on short steps most of time, step-to pattern on higher stairs PT-OP-H Neuro Start: 05/27/21 08:48 Freq: Status: Active Protocol: Document 05/27/21 09:01 [facility] (Rec: 05/27/21 10:28 [facility] [id number]) Sensation Evaluation Gross Sensation Gross Sensation Left LE Impaired,Right LE Impaired Sensation Description [place] Dermatome Impairments L5,S1 PT-OP-J Posture/Palpation/Skin Start: 05/27/21 08:48 Freq: Status: Active Protocol: Document 05/27/21 09:01 [facility] (Rec: 05/27/21 10:28 [facility] [id number]) Posture Evaluation Position Standing Head/C-Spine Posture Forward Head T-Spine Posture Increased Kyphosis L-Spine Posture Flattened Pelvis Posture Posterior Tilted Hip Posture (L) Neutral,(R) Neutral Palpation Assessment Location reema buttocks Palpation Findings Soft Tissue Tightness,Muscle Guarding Palpation Details especially right piriformis lumbar paraspinals Palpation Findings Soft Tissue Tightness,Muscle Guarding surgical scar Palpation Location right SI Palpation Findings Soft Tissue Tightness Palpation Details decreased scar mobility PT-OP-K Range of Motion Start: 05/27/21 08:48 Freq: Status: Active Protocol: Document 05/27/21 09:01 [facility] (Rec: 05/27/21 10:28 [facility] [id number]) Lumbar Spine Range of Motion Lumbar Spine Active Comments not formally assessed due to 5 weeks post-op Hip Goniometric Range of Motion Hip Right Flexion w/Knee Flexed 95 Straight Leg Raise 45 Extension 0 Comments not fully assessed at end- range due to recent surgery and high pain level today left Flexion w/Knee Flexed 95 Straight Leg Raise 55 Extension 0 Comments not fully assessed at end- range due to recent surgery and high pain level today Hip ROM Limitations Hip ROM Limitations Soft Tissue Tightness,Pain Knee Goniometric Range of Motion Knee Right Extension Active (degrees) 10 Left Knee ROM WFL Yes Knee ROM Limitations Knee ROM Limitations Soft Tissue Tightness Comments tight hamstrings limiting knee extension in sitting PT-OP-L Special Tests Start: 05/27/21 08:48 Freq: Status: Active Protocol: Document 05/27/21 09:01 [facility] (Rec: 05/27/21 10:28 [facility] [id number]) Special Tests Neural Special Tests- Lower Body Sciatic Nerve Tension Test Results positive right PT-OP-M Strength Start: 05/27/21 08:48 Freq: Status: Active Protocol: Document 05/27/21 09:01 [facility] (Rec: 05/27/21 10:28 [facility] [id number]) Trunk Strength Trunk Manual Muscle Testing Testing Position Supine Core Stabilization difficulty activating core musculature Hip Strength Hip Manual Muscle Testing Right Comments no MMT due to recent surgery, has anti-gravity flexion in limited motion Left Comments not assessed due to recent surgery, has anti-gravity flexion Knee Strength Knee Manual Muscle Testing reema Comments has anti-gravity extension reema , no MMT Ankle/Foot Strength Ankle and Foot Manual Muscle Testing Right Dorsiflexion (L4) 4 Good Plantarflexion (S1) 4+ Good+ Left Dorsiflexion (L4) 5 Normal Plantarflexion (S1) 5 Normal Toe Strength Toe Manual Muscle Testing Great Toe Comments left 5/5, right 4/5 PT-OP-Q Treatments Start: 05/27/21 08:48 Freq: Status: Active Protocol: Document 06/26/21 09:43 [facility] (Rec: 06/26/21 10:04 [facility] [id number]) Cardio Equipment Treadmill Duration (Minutes) 10 Speed 1.8 Incline 0 Other slow speed, emphasis on gluteal activation Gym Equipment Sport Cord yellow Exercise Details forward Cord/Resistance yellow Reps/Duration 8x Comments emphasis on gluteal activation Manual Therapy Treatment Soft Tissue Mobilization hamstring Body Location proximal right Mobilization Type Myofascial Release,Strumming Intensity/Depth Moderate ITB Body Location right Mobilization Type Instrument Assisted,Rolling Intensity/Depth Moderate Body Position Sidelying Self-Care/Home Management Treatment Education Patient Education Body Mechanics,Home Exercise Program,Joint Protection,Pain Management,Posture Other Education gluteal activation with gait smaller stride to dec torque to SI PT-OP-R Modalities Start: 05/27/21 08:48 Freq: Status: Active Protocol: Document 06/26/21 09:43 SAK (Rec: 06/26/21 10:04 [facility]AK [id number]) Electric Stimulation Electric Stimulation Interferential Current (IFC) Body Location right SI, proximal HS Duration (Minutes) 10 Intensity 11 Target/Sweep Sweep High/Low High Patient Position Sidelying Combined With Heat/Cold Cold Pack Ultrasound Therapy Treatment proximal hamstring right Treatment Duration (minutes) 8 Patient Position Sidelying Coupling Medium Ultrasound Gel Mode Setting Continuous Duty Cycle 100% Intensity Setting (w/cm2) 1.4 PT-OP-T Assessment and Plan Start: 05/27/21 08:48 Freq: Status: Active Protocol: Document 06/26/21 09:43 [facility]AK (Rec: 06/26/21 10:04 [facility] [id number]) Physical Therapy Assessment Impairments Impairments Activity Tolerance,Pain,Soft Tissue Mobility,Strength Goals Four Impairment soft tissue mobility Impairment Tightness scar tissue right buttock, piriformis, reema IT bands Glue Spreader Goal (LTG) Improve soft tissue mobility to WNL to allow for improved ease of movement and decrease in pain LTG Duration 08/25/21 Three Impairment pain Impairment pain as high as 9/10 right SI, buttock Short Term Goal (STG) Decrease paion to no greater than 5/10 with all usual activities STG Duration 07/13/21 Glue Spreader Goal (LTG) Decrease pain to no greater than 2/10 with all usual activities LTG Duration 08/25/21 Two Impairment weakness Impairment weakness core and hips limiting mobility and activity tolerance Short Term Goal (STG) patient to be able to tolerate HEP for the purpose of strengthening and core/SI stabilization STG Duration 07/13/21 Glue Spreader Goal (LTG) Patient to demonstrate 5/5 muscle strength bilateral hips and core for improved function in the home and community with minimal pain. LTG Duration 08/25/21 One Impairment Activity tolerance Impairment Oswestery disability index score 56% Short Term Goal (STG) Decrease ANGEL score to no greater than 40% STG Duration 07/13/21 Mcfp Goal (LTG) Decrease ANGEL score to no greater than 20% LTG Duration 08/25/21 Progress Towards Goals Progress Towards Goals Slow Progress due to Activity Tolerance Assessment Summary Assessment Trial ultrasound and increased soft tissue mobilization with today's treatment as that is now patient primary complaint in all positions. Cues for core stab, with all activlity. Patient to have MRI when approved and scheduled. Physical Therapy Plan Frequency and Duration Frequency of Treatment 2x/Week Duration of Treatment 12 weeks Plan of Care Start Date 05/27/21 Plan of Care End Date 08/25/21 Therapeutic Interventions Therapeutic Interventions Aquatic Therapy,Gait Training, Home Exercise Program,Manual Therapy,Neuromuscular Re- education,Patient/Caregiver Education,Self-Care/Home Management,Soft Tissue Mobilization,Taping, Therapeutic Activities, Therapeutic Exercises Next Visit Focus/Plan Next Note Type Treatment Note Next Visit Plan evaluate response to ultrasound, increased manual treatment today. Continue gentle progression of ther ex with emphasis on core/SI stabilization.
--- NOTE | 2021-06-30 13:57 | PT.OPPN ---
Current Diagnoses Sacroiliitis, not elsewhere classified (07/01/21) Physical Therapy Progress Note PT-OP-A Visit Information Start: 05/27/21 08:48 Freq: Status: Active Protocol: Document 07/01/21 08:15 [facility] (Rec: 07/01/21 09:02 [facility] [id number]) Out-Patient Physical Therapy Visit Information Visit Information Visit Type Treatment Note Visit Start Time 08:15 Visit Stop Time 09:12 Total Visit Minutes 57 Visit Number 10 PT-OP-B Current Condition Start: 05/27/21 08:48 Freq: Status: Active Protocol: Document 05/27/21 09:01 [facility] (Rec: 05/27/21 10:28 [facility] [id number]) Current Condition History of Current Condition Onset Date 04/21/21 Current Complaints right buttock History of Current Condition Fell August 2019 onto right SI joint. Pain into gluteal region. PT not helpful, pain persisted. Unable to walk without pain. Underwent right SI fusion 04/21/21. Hasn 't gone as well as anticiipated. Prior to surgery pain in right buttock, some in SI joint. Yesterday states having pain in SI pretty severe and down the outside of his leg. Hasn't driven since the surgery until yesterday. Throughout the day got a little better. This am the pain returned in right SI and buttock. Also having some pins and needsles in right foot. When saw PA 3 weeks after surgery was concerned seemed pin was very close to sacral foramina. Iced in the very beginning, but hasn't recently. Hasn't done any exercises since the surgery. Interested in slow, gentle exercise. Orders from doctor to do activity as pain permits. Weaned from walker to cane, then no cane very carefully and slowly for 2 weeks including a little walking on driveway. Reports using cane sometimes on right when really hurting because feeling better though knowing he is supposed to use on Can't bend down to put sock on without severe pain, using sock aid. looking to leave town for a few weeks, has to put hay in bucket. Stopped doing his prescribed exercises due to increase in gluteal pain. Just started to be able to lay on right side. Has point tenderness also right greater trochanter. Occasional glut pain on left as well. Prior Treatments and Tests 5 wks post op. Seen for right hip pain summer 2019, PT rightly said pain was coming from my back. 2 neck fusions c/s Future Testing and Treatments Planned Sees surgeon next week. 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, caring for animals on property Current Functional Impairments (Reported) Functional Limitations- ADL's painful, can't put sock on without pain Functional Limitations- Mobility/Gait painful, using cane Functional Limitations- Work/School unable to take care of animals on property Personal Factors Other Personal 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 Wednesday was a bad evening, after doing exercises, had to take medication to be able to sleep. Interested in purchasing exercise bike, having hard time finding one that feels comfortable with; wants ability to sit up straight like one at PT. Cancelled his appointment with Dr. Machado but now wishes he wouldn't have; tried his but doesn't like. Had MRI of lumbar spine but not pelvis as expected. Sees Dr. Poon to follow up re MRI, will ask about MRI for pelvis. Not sure if ultrasound helpful. PT-OP-E Functional Tests Start: 05/27/21 08:48 Freq: Status: Active Protocol: Document 05/27/21 09:01 [facility] (Rec: 05/27/21 10:28 [facility] [id number]) Functional Tests 6 Minute Walk Test Comments do next session PT-OP-G Mobility & Gait Start: 05/27/21 08:48 Freq: Status: Active Protocol: Document 05/27/21 09:01 [facility] (Rec: 05/27/21 10:28 [facility] [id number]) OP Mobility Evaluation Bed Mobility Rolling independent Supine to and from Sit independent with log roll Transfers Sit to Stand independent, decreased use of right LE Functional Movements Lifting and Carrying not doing at this time Squats not doing at this time OP Gait Assessment Assistive Devices Assistive Device Straight Cane Orthotic/Prosthetic Devices or Brace: No Gait Deviations General Gait Pattern Antalgic Comments Gait Comments Patient using cane on right side and leaning to the right; he says he does this when really hurting as it feels better. Instructed to use on left side for improved gait pattern and decreased compensation Stair Climbing Evaluation Evaluation Level of Assist On Stairs Independent Comments Stair Climbing Comments Reports alternating on short steps most of time, step-to pattern on higher stairs PT-OP-H Neuro Start: 05/27/21 08:48 Freq: Status: Active Protocol: Document 05/27/21 09:01 [facility] (Rec: 05/27/21 10:28 [facility] [id number]) Sensation Evaluation Gross Sensation Gross Sensation Left LE Impaired,Right LE Impaired Sensation Description [place] & [place] Dermatome Impairments L5,S1 PT-OP-J Posture/Palpation/Skin Start: 05/27/21 08:48 Freq: Status: Active Protocol: Document 05/27/21 09:01 [facility] (Rec: 05/27/21 10:28 [facility] [id number]) Posture Evaluation Position Standing Head/C-Spine Posture Forward Head T-Spine Posture Increased Kyphosis L-Spine Posture Flattened Pelvis Posture Posterior Tilted Hip Posture (L) Neutral,(R) Neutral Palpation Assessment Location reema buttocks Palpation Findings Soft Tissue Tightness,Muscle Guarding Palpation Details especially right piriformis lumbar paraspinals Palpation Findings Soft Tissue Tightness,Muscle Guarding surgical scar Palpation Location right SI Palpation Findings Soft Tissue Tightness Palpation Details decreased scar mobility PT-OP-K Range of Motion Start: 05/27/21 08:48 Freq: Status: Active Protocol: Document 05/27/21 09:01 [facility] (Rec: 05/27/21 10:28 [facility] [id number]) Lumbar Spine Range of Motion Lumbar Spine Active Comments not formally assessed due to 5 weeks post-op Hip Goniometric Range of Motion Hip Measured in Degrees Right Flexion w/Knee Flexed 95 Straight Leg Raise 45 Extension 0 Comments not fully assessed at end- range due to recent surgery and high pain level today left Flexion w/Knee Flexed 95 Straight Leg Raise 55 Extension 0 Comments not fully assessed at end- range due to recent surgery and high pain level today Hip ROM Limitations Hip ROM Limitations Soft Tissue Tightness,Pain Knee Goniometric Range of Motion Knee Measured in Degrees Right Extension Active (degrees) 10 Left Knee ROM WFL Yes Knee ROM Limitations Knee ROM Limitations Soft Tissue Tightness Comments tight hamstrings limiting knee extension in sitting PT-OP-L Special Tests Start: 05/27/21 08:48 Freq: Status: Active Protocol: Document 05/27/21 09:01 [facility] (Rec: 05/27/21 10:28 [facility] [id number]) Special Tests Neural Special Tests- Lower Body Sciatic Nerve Tension Test Results positive right PT-OP-M Strength Start: 05/27/21 08:48 Freq: Status: Active Protocol: Document 05/27/21 09:01 [facility] (Rec: 05/27/21 10:28 [facility] [id number]) Trunk Strength Trunk Manual Muscle Testing Testing Position Supine Core Stabilization difficulty activating core musculature Hip Strength Hip Manual Muscle Testing Right Comments no MMT due to recent surgery, has anti-gravity flexion in limited motion Left Comments not assessed due to recent surgery, has anti-gravity flexion Knee Strength Knee Manual Muscle Testing reema Comments has anti-gravity extension reema , no MMT Ankle/Foot Strength Ankle and Foot Manual Muscle Testing Right Dorsiflexion (L4) 4 Good Plantarflexion (S1) 4+ Good+ Left Dorsiflexion (L4) 5 Normal Plantarflexion (S1) 5 Normal Toe Strength Toe Manual Muscle Testing Great Toe Comments left 5/5, right 4/5 PT-OP-T Assessment and Plan Start: 05/27/21 08:48 Freq: Status: Active Protocol: Document 07/01/21 08:15 [facility] (Rec: 07/01/21 09:02 [facility] [id number]) Physical Therapy Assessment Impairments Impairments Activity Tolerance,Pain,Soft Tissue Mobility,Strength Goals Four Impairment soft tissue mobility Impairment Tightness scar tissue right buttock, piriformis, reema IT bands Groundskeeper Goal (LTG) Improve soft tissue mobility to WNL to allow for improved ease of movement and decrease in pain 07/01/21: goal progress. LTG Duration 08/25/21 Three Impairment pain Impairment pain as high as 9/10 right SI, buttock Short Term Goal (STG) Decrease pain to no greater than 5/10 with all usual activities 07/01/21: Pain has been variable, not predictable, often unable to point to cause of exacerbation. Some goal progress STG Duration 07/13/21 Prison Goal (LTG) Decrease pain to no greater than 2/10 with all usual activities LTG Duration 08/25/21 Two Impairment weakness Impairment weakness core and hips limiting mobility and activity tolerance Short Term Goal (STG) patient to be able to tolerate HEP for the purpose of strengthening and core/SI stabilization 07/01/21: patient compliant with HEP, variable tolerance. STG Duration 07/13/21 Prison Goal (LTG) Patient to demonstrate 5/5 muscle strength bilateral hips and core for improved function in the home and community with minimal pain. LTG Duration 08/25/21 One Impairment Activity tolerance Impairment Oswestry disability index score 56% Short Term Goal (STG) Decrease ANGEL score to no greater than 40% 07/01/21: no reassessed this date STG Duration 07/13/21 Prison Goal (LTG) Decrease ANGEL score to no greater than 20% LTG Duration 08/25/21 Progress Towards Goals Progress Towards Goals Slow Progress due to Activity Tolerance Assessment Summary Assessment pain increased today for no known reason. Had good day yesterday. Focused on increased manual treatment today to address soft tissue restrictions right buttock, central l/s spine. Physical Therapy Plan Frequency and Duration Frequency of Treatment 2x/Week Duration of Treatment 12 weeks Plan of Care Start Date 05/27/21 Plan of Care End Date 08/25/21 Therapeutic Interventions Therapeutic Interventions Aquatic Therapy,Gait Training, Home Exercise Program,Manual Therapy,Neuromuscular Re- education,Patient/Caregiver Education,Self-Care/Home Management,Soft Tissue Mobilization,Taping, Therapeutic Activities, Therapeutic Exercises Next Visit Focus/Plan Next Note Type Treatment Note Next Visit Plan evaluate response to moist heat instead of ice, increased manual treatment today. Continue gentle progression of ther ex with emphasis on core /SI stabilization.
--- NOTE | 2021-07-01 16:27 | PT.OTN ---
Current Diagnoses Sacroiliitis, not elsewhere classified (07/01/21) Physical Therapy Treatment Note PT-OP-A Visit Information Start: 05/27/21 08:48 Freq: Status: Active Protocol: Document 07/01/21 08:15 [facility] (Rec: 07/01/21 09:02 [facility] [id number]) Out-Patient Physical Therapy Visit Information Visit Information Visit Type Treatment Note Visit Start Time 08:15 Visit Stop Time 09:12 Total Visit Minutes 57 Visit Number 10 PT-OP-B Current Condition Start: 05/27/21 08:48 Freq: Status: Active Protocol: Document 05/27/21 09:01 [facility] (Rec: 05/27/21 10:28 [facility] [id number]) Current Condition History of Current Condition Onset Date 04/21/21 Current Complaints right buttock History of Current Condition Fell August 2019 onto right SI joint. Pain into gluteal region. PT not helpful, pain persisted. Unable to walk without pain. Underwent right SI fusion 04/21/21. Hasn 't gone as well as anticiipated. Prior to surgery pain in right buttock, some in SI joint. Yesterday states having pain in SI pretty severe and down the outside of his leg. Hasn't driven since the surgery until yesterday. Throughout the day got a little better. This am the pain returned in right SI and buttock. Also having some pins and needsles in right foot. When saw PA 3 weeks after surgery was concerned seemed pin was very close to sacral foramina. Iced in the very beginning, but hasn't recently. Hasn't done any exercises since the surgery. Interested in slow, gentle exercise. Orders from doctor to do activity as pain permits. Weaned from walker to cane, then no cane very carefully and slowly for 2 weeks including a little walking on driveway. Reports using cane sometimes on right when really hurting because feeling better though knowing he is supposed to use on Can't bend down to put sock on without severe pain, using sock aid. looking to leave town for a few weeks, has to put hay in bucket. Stopped doing his prescribed exercises due to increase in gluteal pain. Just started to be able to lay on right side. Has point tenderness also right greater trochanter. Occasional glut pain on left as well. Prior Treatments and Tests 5 wks post op. Seen for right hip pain summer 2019, PT rightly said pain was coming from my back. 2 neck fusions c/s Future Testing and Treatments Planned Sees surgeon next week. 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, caring for animals on property Current Functional Impairments (Reported) Functional Limitations- ADL's painful, can't put sock on without pain Functional Limitations- Mobility/Gait painful, using cane Functional Limitations- Work/School unable to take care of animals on property Personal Factors 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 Wednesday was a bad evening, after doing exercises, had to take medication to be able to sleep. Interested in purchasing exercise bike, having hard time finding one that feels comfortable with; wants ability to sit up straight like one at PT. Cancelled his appointment with Dr. Machado but now wishes he wouldn't have; tried his but doesn't like. Had MRI of lumbar spine but not pelvis as expected. Sees Dr. Poon to follow up re MRI, will ask about MRI for pelvis. Not sure if ultrasound helpful. PT-OP-E Functional Tests Start: 05/27/21 08:48 Freq: Status: Active Protocol: Document 05/27/21 09:01 [facility] (Rec: 05/27/21 10:28 [facility] [id number]) Functional Tests 6 Minute Walk Test Comments do next session PT-OP-G Mobility & Gait Start: 05/27/21 08:48 Freq: Status: Active Protocol: Document 05/27/21 09:01 [facility] (Rec: 05/27/21 10:28 [facility] [id number]) OP Mobility Evaluation Bed Mobility Rolling independent Supine to and from Sit independent with log roll Transfers Sit to Stand independent, decreased use of right LE Functional Movements Lifting and Carrying not doing at this time Squats not doing at this time OP Gait Assessment Assistive Devices Assistive Device Straight Cane Orthotic/Prosthetic Devices or Brace: No Gait Deviations General Gait Pattern Antalgic Comments Gait Comments Patient using cane on right side and leaning to the right; he says he does this when really hurting as it feels better. Instructed to use on left side for improved gait pattern and decreased compensation Stair Climbing Evaluation Evaluation Level of Assist On Stairs Independent Comments Stair Climbing Comments Reports alternating on short steps most of time, step-to pattern on higher stairs PT-OP-H Neuro Start: 05/27/21 08:48 Freq: Status: Active Protocol: Document 05/27/21 09:01 [facility] (Rec: 05/27/21 10:28 [facility] [id number]) Sensation Evaluation Gross Sensation Gross Sensation Left LE Impaired,Right LE Impaired Sensation Description [place] & [place] Dermatome Impairments L5,S1 PT-OP-J Posture/Palpation/Skin Start: 05/27/21 08:48 Freq: Status: Active Protocol: Document 05/27/21 09:01 [facility] (Rec: 05/27/21 10:28 [facility] [id number]) Posture Evaluation Position Standing Head/C-Spine Posture Forward Head T-Spine Posture Increased Kyphosis L-Spine Posture Flattened Pelvis Posture Posterior Tilted Hip Posture (L) Neutral,(R) Neutral Palpation Assessment Location reema buttocks Palpation Findings Soft Tissue Tightness,Muscle Guarding Palpation Details especially right piriformis lumbar paraspinals Palpation Findings Soft Tissue Tightness,Muscle Guarding surgical scar Palpation Location right SI Palpation Findings Soft Tissue Tightness Palpation Details decreased scar mobility PT-OP-K Range of Motion Start: 05/27/21 08:48 Freq: Status: Active Protocol: Document 05/27/21 09:01 [facility] (Rec: 05/27/21 10:28 [facility] [id number]) Lumbar Spine Range of Motion Lumbar Spine Active Comments not formally assessed due to 5 weeks post-op Hip Goniometric Range of Motion Hip Right Flexion w/Knee Flexed 95 Straight Leg Raise 45 Extension 0 Comments not fully assessed at end- range due to recent surgery and high pain level today left Flexion w/Knee Flexed 95 Straight Leg Raise 55 Extension 0 Comments not fully assessed at end- range due to recent surgery and high pain level today Hip ROM Limitations Hip ROM Limitations Soft Tissue Tightness,Pain Knee Goniometric Range of Motion Knee Right Extension Active (degrees) 10 Left Knee ROM WFL Yes Knee ROM Limitations Knee ROM Limitations Soft Tissue Tightness Comments tight hamstrings limiting knee extension in sitting PT-OP-L Special Tests Start: 05/27/21 08:48 Freq: Status: Active Protocol: Document 05/27/21 09:01 [facility] (Rec: 05/27/21 10:28 [facility] [id number]) Special Tests Neural Special Tests- Lower Body Sciatic Nerve Tension Test Results positive right PT-OP-M Strength Start: 05/27/21 08:48 Freq: Status: Active Protocol: Document 05/27/21 09:01 [facility] (Rec: 05/27/21 10:28 [facility] [id number]) Trunk Strength Trunk Manual Muscle Testing Testing Position Supine Core Stabilization difficulty activating core musculature Hip Strength Hip Manual Muscle Testing Right Comments no MMT due to recent surgery, has anti-gravity flexion in limited motion Left Comments not assessed due to recent surgery, has anti-gravity flexion Knee Strength Knee Manual Muscle Testing reema Comments has anti-gravity extension reema , no MMT Ankle/Foot Strength Ankle and Foot Manual Muscle Testing Right Dorsiflexion (L4) 4 Good Plantarflexion (S1) 4+ Good+ Left Dorsiflexion (L4) 5 Normal Plantarflexion (S1) 5 Normal Toe Strength Toe Manual Muscle Testing Great Toe Comments left 5/5, right 4/5 PT-OP-Q Treatments Start: 05/27/21 08:48 Freq: Status: Active Protocol: Document 07/01/21 08:15 [facility] (Rec: 07/01/21 09:02 [facility] [id number]) Cardio Equipment Bicycle (Upright) Duration (Minutes) 5 Resistance 1 Seat Position 5 Other cues for upright posture Manual Therapy Treatment Soft Tissue Mobilization hamstring Body Location proximal right Mobilization Type Myofascial Release,Strumming Intensity/Depth Moderate Glutes Body Location R Mobilization Type Myofascial Release,Sustained Pressure Intensity/Depth Moderate Body Position Sidelying Comments piriformis scar tissue Body Location right buttock, reema LB Mobilization Type Myofascial Release PT-OP-R Modalities Start: 05/27/21 08:48 Freq: Status: Active Protocol: Document 07/01/21 08:15 [facility] (Rec: 07/01/21 16:26 [facility] [id number]) Electric Stimulation Electric Stimulation Interferential Current (IFC) Body Location reema l/s, SI Duration (Minutes) 15 Intensity 11 Target/Sweep Sweep High/Low High Patient Position Sidelying Combined With Heat/Cold Hot Pack PT-OP-T Assessment and Plan Start: 05/27/21 08:48 Freq: Status: Active Protocol: Document 07/01/21 08:15 [facility] (Rec: 07/01/21 09:02 [facility] [id number]) Physical Therapy Assessment Goals Four Impairment soft tissue mobility Impairment Tightness scar tissue right buttock, piriformis, reema IT bands Retirement Goal (LTG) Improve soft tissue mobility to WNL to allow for improved ease of movement and decrease in pain LTG Duration 08/25/21 Three Impairment pain Impairment pain as high as 9/10 right SI, buttock Short Term Goal (STG) Decrease paion to no greater than 5/10 with all usual activities STG Duration 07/13/21 Sales Rep Goal (LTG) Decrease pain to no greater than 2/10 with all usual activities LTG Duration 08/25/21 Two Impairment weakness Impairment weakness core and hips limiting mobility and activity tolerance Short Term Goal (STG) patient to be able to tolerate HEP for the purpose of strengthening and core/SI stabilization STG Duration 07/13/21 Retirement Goal (LTG) Patient to demonstrate 5/5 muscle strength bilateral hips and core for improved function in the home and community with minimal pain. LTG Duration 08/25/21 One Impairment Activity tolerance Impairment Oswestery disability index score 56% Short Term Goal (STG) Decrease ANGEL score to no greater than 40% STG Duration 07/13/21 Sales Rep Goal (LTG) Decrease ANGEL score to no greater than 20% LTG Duration 08/25/21 Progress Towards Goals Progress Towards Goals Slow Progress due to Activity Tolerance Assessment Summary Assessment pain increased, no known reason, increased manual treatment today to address soft tissue restrictions. Physical Therapy Plan Frequency and Duration Frequency of Treatment 2x/Week Duration of Treatment 12 weeks Plan of Care Start Date 05/27/21 Plan of Care End Date 08/25/21 Therapeutic Interventions Therapeutic Interventions Aquatic Therapy,Gait Training, Home Exercise Program,Manual Therapy,Neuromuscular Re- education,Patient/Caregiver Education,Self-Care/Home Management,Soft Tissue Mobilization,Taping, Therapeutic Activities, Therapeutic Exercises Next Visit Focus/Plan Next Note Type Treatment Note Next Visit Plan evaluate response to moist heat instead of ice, increased manual treatment today. Continue gentle progression of ther ex with emphasis on core /SI stabilization.
--- NOTE | 2021-07-04 10:34 | PT.OTN ---
Current Diagnoses Sacroiliitis, not elsewhere classified (07/04/21) Physical Therapy Treatment Note PT-OP-A Visit Information Start: 05/27/21 08:48 Freq: Status: Active Protocol: Document 07/04/21 09:46 MB (Rec: 07/04/21 10:25 MB [id number]) Out-Patient Physical Therapy Visit Information Visit Information Visit Type Treatment Note Visit Note Medicare 07/11 before KX Visit Start Time 09:46 Visit Stop Time 10:30 Total Visit Minutes 44 Visit Number 11 Precautions Precautions activity as tolerated per surgeon nurse PT-OP-B Current Condition Start: 05/27/21 08:48 Freq: Status: Active Protocol: Document 05/27/21 09:01 SAK (Rec: 05/27/21 10:28 SAK [id number]) Current Condition History of Current Condition Onset Date 04/21/21 Current Complaints right buttock History of Current Condition Fell August 2019 onto right SI joint. Pain into gluteal region. PT not helpful, pain persisted. Unable to walk without pain. Underwent right SI fusion 04/21/21. Hasn 't gone as well as anticiipated. Prior to surgery pain in right buttock, some in SI joint. Yesterday states having pain in SI pretty severe and down the outside of his leg. Hasn't driven since the surgery until yesterday. Throughout the day got a little better. This am the pain returned in right SI and buttock. Also having some pins and needsles in right foot. When saw PA 3 weeks after surgery was concerned seemed pin was very close to sacral foramina. Iced in the very beginning, but hasn't recently. Hasn't done any exercises since the surgery. Interested in slow, gentle exercise. Orders from doctor to do activity as pain permits. Weaned from walker to cane, then no cane very carefully and slowly for 2 weeks including a little walking on driveway. Reports using cane sometimes on right when really hurting because feeling better though knowing he is supposed to use on Can't bend down to put sock on without severe pain, using sock aid. looking to leave town for a few weeks, has to put hay in bucket. Stopped doing his prescribed exercises due to increase in gluteal pain. Just started to be able to lay on right side. Has point tenderness also right greater trochanter. Occasional glut pain on left as well. Prior Treatments and Tests 5 wks post op. Seen for right hip pain summer 2019, PT rightly said pain was coming from my back. 2 neck fusions c/s Future Testing and Treatments Planned Sees surgeon next week. 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 PT-OP-E Functional Tests Start: 05/27/21 08:48 Freq: Status: Active Protocol: Document 05/27/21 09:01 [facility] (Rec: 05/27/21 10:28 [facility] [id number]) Functional Tests 6 Minute Walk Test Comments do next session PT-OP-G Mobility & Gait Start: 05/27/21 08:48 Freq: Status: Active Protocol: Document 05/27/21 09:01 [facility] (Rec: 05/27/21 10:28 [facility] [id number]) OP Mobility Evaluation Bed Mobility Rolling independent Supine to and from Sit independent with log roll Transfers Sit to Stand independent, decreased use of right LE Functional Movements Lifting and Carrying not doing at this time Squats not doing at this time OP Gait Assessment Assistive Devices Assistive Device Straight Cane Orthotic/Prosthetic Devices or Brace: No Gait Deviations General Gait Pattern Antalgic Comments Gait Comments Patient using cane on right side and leaning to the right; he says he does this when really hurting as it feels better. Instructed to use on left side for improved gait pattern and decreased compensation Stair Climbing Evaluation Evaluation Level of Assist On Stairs Independent Comments Stair Climbing Comments Reports alternating on short steps most of time, step-to pattern on higher stairs PT-OP-H Neuro Start: 05/27/21 08:48 Freq: Status: Active Protocol: Document 05/27/21 09:01 SAK (Rec: 05/27/21 10:28 [facility] [id number]) Sensation Evaluation Gross Sensation Gross Sensation Left LE Impaired,Right LE Impaired Sensation Description [place] Dermatome Impairments L5,S1 PT-OP-J Posture/Palpation/Skin Start: 05/27/21 08:48 Freq: Status: Active Protocol: Document 05/27/21 09:01 SAK (Rec: 05/27/21 10:28 [facility] [id number]) Posture Evaluation Position Standing Head/C-Spine Posture Forward Head T-Spine Posture Increased Kyphosis L-Spine Posture Flattened Pelvis Posture Posterior Tilted Hip Posture (L) Neutral,(R) Neutral Palpation Assessment Location reema buttocks Palpation Findings Soft Tissue Tightness,Muscle Guarding Palpation Details especially right piriformis lumbar paraspinals Palpation Findings Soft Tissue Tightness,Muscle Guarding surgical scar Palpation Location right SI Palpation Findings Soft Tissue Tightness Palpation Details decreased scar mobility PT-OP-K Range of Motion Start: 05/27/21 08:48 Freq: Status: Active Protocol: Document 05/27/21 09:01 [facility] (Rec: 05/27/21 10:28 [facility] [id number]) Lumbar Spine Range of Motion Lumbar Spine Active Comments not formally assessed due to 5 weeks post-op Hip Goniometric Range of Motion Hip Right Flexion w/Knee Flexed 95 Straight Leg Raise 45 Extension 0 Comments not fully assessed at end- range due to recent surgery and high pain level today left Flexion w/Knee Flexed 95 Straight Leg Raise 55 Extension 0 Comments not fully assessed at end- range due to recent surgery and high pain level today Hip ROM Limitations Hip ROM Limitations Soft Tissue Tightness,Pain Knee Goniometric Range of Motion Knee Right Extension Active (degrees) 10 Left Knee ROM WFL Yes Knee ROM Limitations Knee ROM Limitations Soft Tissue Tightness Comments tight hamstrings limiting knee extension in sitting PT-OP-L Special Tests Start: 05/27/21 08:48 Freq: Status: Active Protocol: Document 05/27/21 09:01 [facility] (Rec: 05/27/21 10:28 [facility] [id number]) Special Tests Neural Special Tests- Lower Body Sciatic Nerve Tension Test Results positive right PT-OP-M Strength Start: 05/27/21 08:48 Freq: Status: Active Protocol: Document 05/27/21 09:01 [facility] (Rec: 05/27/21 10:28 [facility] [id number]) Trunk Strength Trunk Manual Muscle Testing Testing Position Supine Core Stabilization difficulty activating core musculature Hip Strength Hip Manual Muscle Testing Right Comments no MMT due to recent surgery, has anti-gravity flexion in limited motion Left Comments not assessed due to recent surgery, has anti-gravity flexion Knee Strength Knee Manual Muscle Testing reema Comments has anti-gravity extension reema , no MMT Ankle/Foot Strength Ankle and Foot Manual Muscle Testing Right Dorsiflexion (L4) 4 Good Plantarflexion (S1) 4+ Good+ Left Dorsiflexion (L4) 5 Normal Plantarflexion (S1) 5 Normal Toe Strength Toe Manual Muscle Testing Great Toe Comments left 5/5, right 4/5 PT-OP-Q Treatments Start: 05/27/21 08:48 Freq: Status: Active Protocol: Document 07/04/21 09:46 MB (Rec: 07/04/21 10:25 MB [id number]) Cardio Equipment Bicycle (Upright) Duration (Minutes) 12 Resistance 10 Seat Position 5 Manual Therapy Treatment Other Other Manual Treatments Pt supine with head and neck supported and thin pillow under knees: STM right rectus femoris, vastus lateralis, hamstrings distal and proximal attachment, glutes, TFL, glutes with increased tension rectus, hamstrings, TFL and glute min PT-OP-R Modalities Start: 05/27/21 08:48 Freq: Status: Active Protocol: Document 07/01/21 08:15 [facility] (Rec: 07/01/21 16:26 [facility] [id number]) Electric Stimulation Electric Stimulation Interferential Current (IFC) Body Location reema l/s, SI Duration (Minutes) 15 Intensity 11 Target/Sweep Sweep High/Low High Patient Position Sidelying Combined With Heat/Cold Hot Pack PT-OP-T Assessment and Plan Start: 05/27/21 08:48 Freq: Status: Active Protocol: Document 07/04/21 09:46 MB (Rec: 07/04/21 10:25 MB [id number]) Physical Therapy Assessment Impairments Impairments Activity Tolerance,Pain,Soft Tissue Mobility,Strength Goals Four Impairment soft tissue mobility Impairment Tightness scar tissue right buttock, piriformis, reema IT bands [employer] Goal (LTG) Improve soft tissue mobility to WNL to allow for improved ease of movement and decrease in pain 07/01/21: goal progress. LTG Duration 08/25/21 Three Impairment pain Impairment pain as high as 9/10 right SI, buttock Short Term Goal (STG) Decrease pain to no greater than 5/10 with all usual activities 07/01/21: Pain has been variable, not predictable, often unable to point to cause of exacerbation. Some goal progress STG Duration 07/13/21 Long-Term Goal (LTG) Decrease pain to no greater than 2/10 with all usual activities LTG Duration 08/25/21 Two Impairment weakness Impairment weakness core and hips limiting mobility and activity tolerance Short Term Goal (STG) patient to be able to tolerate HEP for the purpose of strengthening and core/SI stabilization 07/01/21: patient compliant with HEP, variable tolerance. STG Duration 07/13/21 Long-Term Goal (LTG) Patient to demonstrate 5/5 muscle strength bilateral hips and core for improved function in the home and community with minimal pain. LTG Duration 08/25/21 One Impairment Activity tolerance Impairment Oswestry disability index score 56% Short Term Goal (STG) Decrease ANGEL score to no greater than 40% 07/01/21: no reassessed this date STG Duration 07/13/21 Long-Term Goal (LTG) Decrease ANGEL score to no greater than 20% LTG Duration 08/25/21 Assessment Summary Assessment Ed pt in benefits of wearing biking shorts with padding for upright bike use to assist with discomfort. Also ed pt in benefits of pool therapy. He does not like to be cold because he tightens up. He will consider the pool, though . Increased myofascial tension today. Con't per primary PT plan. Physical Therapy Plan Frequency and Duration Frequency of Treatment 2x/Week Duration of Treatment 12 weeks Plan of Care Start Date 05/27/21 Plan of Care End Date 08/25/21 Therapeutic Interventions Therapeutic Interventions Aquatic Therapy,Gait Training, Home Exercise Program,Manual Therapy,Neuromuscular Re- education,Patient/Caregiver Education,Self-Care/Home Management,Soft Tissue Mobilization,Taping, Therapeutic Activities, Therapeutic Exercises Next Visit Focus/Plan Next Note Type Treatment Note Next Visit Plan Continue gentle progression of ther ex with emphasis on core /SI stabilization.
--- NOTE | 2021-07-07 16:00 | PT.OTN ---
Current Diagnoses Sacroiliitis, not elsewhere classified (07/11/21) Physical Therapy Treatment Note PT-OP-A Visit Information Start: 05/27/21 08:48 Freq: Status: Active Protocol: Document 07/11/21 09:47 MB (Rec: 07/11/21 10:24 MB [id number]) Out-Patient Physical Therapy Visit Information Visit Information Visit Type Treatment Note Visit Note Medicare 08/10 before KX Visit Start Time 09:47 Visit Stop Time 10:25 Total Visit Minutes 38 Visit Number 12 Precautions Precautions activity as tolerated per surgeon nurse PT-OP-B Current Condition Start: 05/27/21 08:48 Freq: Status: Active Protocol: Document 05/27/21 09:01 SAK (Rec: 05/27/21 10:28 SAK [id number]) Current Condition History of Current Condition Onset Date 04/21/21 Current Complaints right buttock History of Current Condition Fell August 2019 onto right SI joint. Pain into gluteal region. PT not helpful, pain persisted. Unable to walk without pain. Underwent right SI fusion 04/21/21. Hasn 't gone as well as anticiipated. Prior to surgery pain in right buttock, some in SI joint. Yesterday states having pain in SI pretty severe and down the outside of his leg. Hasn't driven since the surgery until yesterday. Throughout the day got a little better. This am the pain returned in right SI and buttock. Also having some pins and needsles in right foot. When saw PA 3 weeks after surgery was concerned seemed pin was very close to sacral foramina. Iced in the very beginning, but hasn't recently. Hasn't done any exercises since the surgery. Interested in slow, gentle exercise. Orders from doctor to do activity as pain permits. Weaned from walker to cane, then no cane very carefully and slowly for 2 weeks including a little walking on driveway. Reports using cane sometimes on right when really hurting because feeling better though knowing he is supposed to use on Can't bend down to put sock on without severe pain, using sock aid. looking to leave town for a few weeks, has to put hay in bucket. Stopped doing his prescribed exercises due to increase in gluteal pain. Just started to be able to lay on right side. Has point tenderness also right greater trochanter. Occasional glut pain on left as well. Prior Treatments and Tests 5 wks post op. Seen for right hip pain summer 2019, PT rightly said pain was coming from my back. 2 neck fusions c/s Future Testing and Treatments Planned Sees surgeon next week. 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, caring for animals on property Current Functional Impairments (Reported) Functional Limitations- ADL's painful, can't put sock on without pain Functional Limitations- Mobility/Gait painful, using cane Functional Limitations- Work/School unable to take care of animals on property Personal Factors 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 He got a stationary bike at home. He ordered a jacke for core warmth. PT-OP-E Functional Tests Start: 05/27/21 08:48 Freq: Status: Active Protocol: Document 05/27/21 09:01 [facility] (Rec: 05/27/21 10:28 [facility] [id number]) Functional Tests 6 Minute Walk Test Comments do next session PT-OP-G Mobility & Gait Start: 05/27/21 08:48 Freq: Status: Active Protocol: Document 05/27/21 09:01 [facility] (Rec: 05/27/21 10:28 SAK [id number]) OP Mobility Evaluation Bed Mobility Rolling independent Supine to and from Sit independent with log roll Transfers Sit to Stand independent, decreased use of right LE Functional Movements Lifting and Carrying not doing at this time Squats not doing at this time OP Gait Assessment Assistive Devices Assistive Device Straight Cane Orthotic/Prosthetic Devices or Brace: No Gait Deviations General Gait Pattern Antalgic Comments Gait Comments Patient using cane on right side and leaning to the right; he says he does this when really hurting as it feels better. Instructed to use on left side for improved gait pattern and decreased compensation Stair Climbing Evaluation Evaluation Level of Assist On Stairs Independent Comments Stair Climbing Comments Reports alternating on short steps most of time, step-to pattern on higher stairs PT-OP-H Neuro Start: 05/27/21 08:48 Freq: Status: Active Protocol: Document 05/27/21 09:01 [facility] (Rec: 05/27/21 10:28 [facility] [id number]) Sensation Evaluation Gross Sensation Gross Sensation Left LE Impaired,Right LE Impaired Sensation Description [place] Dermatome Impairments L5,S1 PT-OP-J Posture/Palpation/Skin Start: 05/27/21 08:48 Freq: Status: Active Protocol: Document 05/27/21 09:01 [facility] (Rec: 05/27/21 10:28 [facility] [id number]) Posture Evaluation Position Standing Head/C-Spine Posture Forward Head T-Spine Posture Increased Kyphosis L-Spine Posture Flattened Pelvis Posture Posterior Tilted Hip Posture (L) Neutral,(R) Neutral Palpation Assessment Location reema buttocks Palpation Findings Soft Tissue Tightness,Muscle Guarding Palpation Details especially right piriformis lumbar paraspinals Palpation Findings Soft Tissue Tightness,Muscle Guarding surgical scar Palpation Location right SI Palpation Findings Soft Tissue Tightness Palpation Details decreased scar mobility PT-OP-K Range of Motion Start: 05/27/21 08:48 Freq: Status: Active Protocol: Document 05/27/21 09:01 [facility] (Rec: 05/27/21 10:28 [facility] [id number]) Lumbar Spine Range of Motion Lumbar Spine Active Comments not formally assessed due to 5 weeks post-op Hip Goniometric Range of Motion Hip Right Flexion w/Knee Flexed 95 Straight Leg Raise 45 Extension 0 Comments not fully assessed at end- range due to recent surgery and high pain level today left Flexion w/Knee Flexed 95 Straight Leg Raise 55 Extension 0 Comments not fully assessed at end- range due to recent surgery and high pain level today Hip ROM Limitations Hip ROM Limitations Soft Tissue Tightness,Pain Knee Goniometric Range of Motion Knee Right Extension Active (degrees) 10 Left Knee ROM WFL Yes Knee ROM Limitations Knee ROM Limitations Soft Tissue Tightness Comments tight hamstrings limiting knee extension in sitting PT-OP-L Special Tests Start: 05/27/21 08:48 Freq: Status: Active Protocol: Document 05/27/21 09:01 SAK (Rec: 05/27/21 10:28 SAK [id number]) Special Tests Neural Special Tests- Lower Body Sciatic Nerve Tension Test Results positive right PT-OP-M Strength Start: 05/27/21 08:48 Freq: Status: Active Protocol: Document 05/27/21 09:01 SAK (Rec: 05/27/21 10:28 SAK [id number]) Trunk Strength Trunk Manual Muscle Testing Testing Position Supine Core Stabilization difficulty activating core musculature Hip Strength Hip Manual Muscle Testing Right Comments no MMT due to recent surgery, has anti-gravity flexion in limited motion Left Comments not assessed due to recent surgery, has anti-gravity flexion Knee Strength Knee Manual Muscle Testing reema Comments has anti-gravity extension reema , no MMT Ankle/Foot Strength Ankle and Foot Manual Muscle Testing Right Dorsiflexion (L4) 4 Good Plantarflexion (S1) 4+ Good+ Left Dorsiflexion (L4) 5 Normal Plantarflexion (S1) 5 Normal Toe Strength Toe Manual Muscle Testing Great Toe Comments left 5/5, right 4/5 PT-OP-Q Treatments Start: 05/27/21 08:48 Freq: Status: Active Protocol: Document 07/11/21 09:47 MB (Rec: 07/11/21 10:24 MB [id number]) Cardio Equipment Bicycle (Upright) Duration (Minutes) 11 Resistance 10 Seat Position 7 Manual Therapy Treatment Other Other Manual Treatments Pt supine with head and neck supported and thin pillow under knees: STM right rectus femoris, vastus lateralis, hamstrings, TFL, thoracolumbar paraspinals, glutes with most tension in paraspinals, proximal gastroc PT-OP-R Modalities Start: 05/27/21 08:48 Freq: Status: Active Protocol: Document 07/01/21 08:15 SAK (Rec: 07/01/21 16:26 SAK [id number]) Electric Stimulation Electric Stimulation Interferential Current (IFC) Body Location reema l/s, SI Duration (Minutes) 15 Intensity 11 Target/Sweep Sweep High/Low High Patient Position Sidelying Combined With Heat/Cold Hot Pack PT-OP-S Aquatic Treatment Start: 05/27/21 08:48 Freq: Status: Active Protocol: Document 07/07/21 08:21 SAK (Rec: 07/13/21 08:29 SAK [id number]) Aquatics Treatment Pool Entry/Exit Pool Entry/Exit Method Stairs Assistance Independent Water Walking march Water Level Chest Level Level of Assistance Verbal Cues fwd,bck,side Water Level Chest Level Level of Assistance Verbal Cues Lower Extremity Stretches SKTC Body Position Standing Water Level Angelica Comments at pool ladder HS stretch Details also groin and ITB Body Position Standing Equipment Small Noodle Reps/Duration 2x 30 Upper Extremity Exercises hor ab/ad, flex/ext Details reema and unil Body Position Standing Water Level Chest Level Reps/Duration 10x ea Comments emphasis on core stab Angelica Activities Angelica Activities Bicycle,Bicycle Backwards, Running,Hip Abduction/ Adduction Other Activities deep water hang (pool edge) Equipment noodle then waist float Duration 20 min PT-OP-T Assessment and Plan Start: 05/27/21 08:48 Freq: Status: Active Protocol: Document 07/11/21 09:47 MB (Rec: 07/11/21 10:24 MB [id number]) Physical Therapy Assessment Impairments Impairments Activity Tolerance,Pain,Soft Tissue Mobility,Strength Goals Four Impairment soft tissue mobility Impairment Tightness scar tissue right buttock, piriformis, reema IT bands Prison Goal (LTG) Improve soft tissue mobility to WNL to allow for improved ease of movement and decrease in pain 07/01/21: goal progress. LTG Duration 08/25/21 Three Impairment pain Impairment pain as high as 9/10 right SI, buttock Short Term Goal (STG) Decrease pain to no greater than 5/10 with all usual activities 07/01/21: Pain has been variable, not predictable, often unable to point to cause of exacerbation. Some goal progress STG Duration 07/13/21 Prison Goal (LTG) Decrease pain to no greater than 2/10 with all usual activities LTG Duration 08/25/21 Two Impairment weakness Impairment weakness core and hips limiting mobility and activity tolerance Short Term Goal (STG) patient to be able to tolerate HEP for the purpose of strengthening and core/SI stabilization 07/01/21: patient compliant with HEP, variable tolerance. STG Duration 07/13/21 Prison Goal (LTG) Patient to demonstrate 5/5 muscle strength bilateral hips and core for improved function in the home and community with minimal pain. LTG Duration 08/25/21 One Impairment Activity tolerance Impairment Oswestry disability index score 56% Short Term Goal (STG) Decrease ANGEL score to no greater than 40% 07/01/21: no reassessed this date STG Duration 07/13/21 Religion Instructor Goal (LTG) Decrease ANGEL score to no greater than 20% LTG Duration 08/25/21 Assessment Summary Assessment Upright bike and manual work again today as pt states that manual work from PT was very helpful last clinic visit. Will con't per primary PT plan below. Pt to bring in handouts next treatment date so that PT can review with him . Physical Therapy Plan Frequency and Duration Frequency of Treatment 2x/Week Duration of Treatment 12 weeks Plan of Care Start Date 05/27/21 Plan of Care End Date 08/25/21 Therapeutic Interventions Therapeutic Interventions Aquatic Therapy,Gait Training, Home Exercise Program,Manual Therapy,Neuromuscular Re- education,Patient/Caregiver Education,Self-Care/Home Management,Soft Tissue Mobilization,Taping, Therapeutic Activities, Therapeutic Exercises Next Visit Focus/Plan Next Note Type Treatment Note Next Visit Plan Per primary PT: Continue gentle progression of ther ex with emphasis on core/SI stabilization. Pt to bring in handouts next treatment date.
--- NOTE | 2021-07-11 10:25 | PT.OTN ---
Current Diagnoses Sacroiliitis, not elsewhere classified (07/11/21) Physical Therapy Treatment Note PT-OP-A Visit Information Start: 05/27/21 08:48 Freq: Status: Active Protocol: Document 07/11/21 09:47 MB (Rec: 07/11/21 10:24 MB [id number]) Out-Patient Physical Therapy Visit Information Visit Information Visit Type Treatment Note Visit Note Medicare 08/10 before KX Visit Start Time 09:47 Visit Stop Time 10:25 Total Visit Minutes 38 Visit Number 12 Precautions Precautions activity as tolerated per surgeon nurse PT-OP-B Current Condition Start: 05/27/21 08:48 Freq: Status: Active Protocol: Document 05/27/21 09:01 SAK (Rec: 05/27/21 10:28 SAK [id number]) Current Condition History of Current Condition Onset Date 04/21/21 Current Complaints right buttock History of Current Condition Fell August 2019 onto right SI joint. Pain into gluteal region. PT not helpful, pain persisted. Unable to walk without pain. Underwent right SI fusion 04/21/21. Hasn 't gone as well as anticiipated. Prior to surgery pain in right buttock, some in SI joint. Yesterday states having pain in SI pretty severe and down the outside of his leg. Hasn't driven since the surgery until yesterday. Throughout the day got a little better. This am the pain returned in right SI and buttock. Also having some pins and needsles in right foot. When saw PA 3 weeks after surgery was concerned seemed pin was very close to sacral foramina. Iced in the very beginning, but hasn't recently. Hasn't done any exercises since the surgery. Interested in slow, gentle exercise. Orders from doctor to do activity as pain permits. Weaned from walker to cane, then no cane very carefully and slowly for 2 weeks including a little walking on driveway. Reports using cane sometimes on right when really hurting because feeling better though knowing he is supposed to use on Can't bend down to put sock on without severe pain, using sock aid. looking to leave town for a few weeks, has to put hay in bucket. Stopped doing his prescribed exercises due to increase in gluteal pain. Just started to be able to lay on right side. Has point tenderness also right greater trochanter. Occasional glut pain on left as well. Prior Treatments and Tests 5 wks post op. Seen for right hip pain summer 2019, PT rightly said pain was coming from my back. 2 neck fusions c/s Future Testing and Treatments Planned Sees surgeon next week. 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, caring for animals on property Current Functional Impairments (Reported) Functional Limitations- ADL's painful, can't put sock on without pain Functional Limitations- Mobility/Gait painful, using cane Functional Limitations- Work/School unable to take care of animals on property Personal Factors Other 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 He got a stationary bike at home. He ordered a jacke for core warmth. PT-OP-E Functional Tests Start: 05/27/21 08:48 Freq: Status: Active Protocol: Document 05/27/21 09:01 [facility] (Rec: 05/27/21 10:28 [facility] [id number]) Functional Tests 6 Minute Walk Test Comments do next session PT-OP-G Mobility & Gait Start: 05/27/21 08:48 Freq: Status: Active Protocol: Document 05/27/21 09:01 [facility] (Rec: 05/27/21 10:28 SAK [id number]) OP Mobility Evaluation Bed Mobility Rolling independent Supine to and from Sit independent with log roll Transfers Sit to Stand independent, decreased use of right LE Functional Movements Lifting and Carrying not doing at this time Squats not doing at this time OP Gait Assessment Assistive Devices Assistive Device Straight Cane Orthotic/Prosthetic Devices or Brace: No Gait Deviations General Gait Pattern Antalgic Comments Gait Comments Patient using cane on right side and leaning to the right; he says he does this when really hurting as it feels better. Instructed to use on left side for improved gait pattern and decreased compensation Stair Climbing Evaluation Evaluation Level of Assist On Stairs Independent Comments Stair Climbing Comments Reports alternating on short steps most of time, step-to pattern on higher stairs PT-OP-H Neuro Start: 05/27/21 08:48 Freq: Status: Active Protocol: Document 05/27/21 09:01 [facility] (Rec: 05/27/21 10:28 [facility] [id number]) Sensation Evaluation Gross Sensation Gross Sensation Left LE Impaired,Right LE Impaired Sensation Description [place] Dermatome Impairments L5,S1 PT-OP-J Posture/Palpation/Skin Start: 05/27/21 08:48 Freq: Status: Active Protocol: Document 05/27/21 09:01 [facility] (Rec: 05/27/21 10:28 [facility] [id number]) Posture Evaluation Position Standing Head/C-Spine Posture Forward Head T-Spine Posture Increased Kyphosis L-Spine Posture Flattened Pelvis Posture Posterior Tilted Hip Posture (L) Neutral,(R) Neutral Palpation Assessment Location reema buttocks Palpation Findings Soft Tissue Tightness,Muscle Guarding Palpation Details especially right piriformis lumbar paraspinals Palpation Findings Soft Tissue Tightness,Muscle Guarding surgical scar Palpation Location right SI Palpation Findings Soft Tissue Tightness Palpation Details decreased scar mobility PT-OP-K Range of Motion Start: 05/27/21 08:48 Freq: Status: Active Protocol: Document 05/27/21 09:01 [facility] (Rec: 05/27/21 10:28 [facility] [id number]) Lumbar Spine Range of Motion Lumbar Spine Active Comments not formally assessed due to 5 weeks post-op Hip Goniometric Range of Motion Hip Right Flexion w/Knee Flexed 95 Straight Leg Raise 45 Extension 0 Comments not fully assessed at end- range due to recent surgery and high pain level today left Flexion w/Knee Flexed 95 Straight Leg Raise 55 Extension 0 Comments not fully assessed at end- range due to recent surgery and high pain level today Hip ROM Limitations Hip ROM Limitations Soft Tissue Tightness,Pain Knee Goniometric Range of Motion Knee Right Extension Active (degrees) 10 Left Knee ROM WFL Yes Knee ROM Limitations Knee ROM Limitations Soft Tissue Tightness Comments tight hamstrings limiting knee extension in sitting PT-OP-L Special Tests Start: 05/27/21 08:48 Freq: Status: Active Protocol: Document 05/27/21 09:01 SAK (Rec: 05/27/21 10:28 SAK [id number]) Special Tests Neural Special Tests- Lower Body Sciatic Nerve Tension Test Results positive right PT-OP-M Strength Start: 05/27/21 08:48 Freq: Status: Active Protocol: Document 05/27/21 09:01 SAK (Rec: 05/27/21 10:28 SAK [id number]) Trunk Strength Trunk Manual Muscle Testing Testing Position Supine Core Stabilization difficulty activating core musculature Hip Strength Hip Manual Muscle Testing Right Comments no MMT due to recent surgery, has anti-gravity flexion in limited motion Left Comments not assessed due to recent surgery, has anti-gravity flexion Knee Strength Knee Manual Muscle Testing reema Comments has anti-gravity extension reema , no MMT Ankle/Foot Strength Ankle and Foot Manual Muscle Testing Right Dorsiflexion (L4) 4 Good Plantarflexion (S1) 4+ Good+ Left Dorsiflexion (L4) 5 Normal Plantarflexion (S1) 5 Normal Toe Strength Toe Manual Muscle Testing Great Toe Comments left 5/5, right 4/5 PT-OP-Q Treatments Start: 05/27/21 08:48 Freq: Status: Active Protocol: Document 07/11/21 09:47 MB (Rec: 07/11/21 10:24 MB [id number]) Cardio Equipment Bicycle (Upright) Duration (Minutes) 11 Resistance 10 Seat Position 7 Manual Therapy Treatment Other Other Manual Treatments Pt supine with head and neck supported and thin pillow under knees: STM right rectus femoris, vastus lateralis, hamstrings, TFL, thoracolumbar paraspinals, glutes with most tension in paraspinals, proximal gastroc PT-OP-R Modalities Start: 05/27/21 08:48 Freq: Status: Active Protocol: Document 07/01/21 08:15 [facility] (Rec: 07/01/21 16:26 SAK [id number]) Electric Stimulation Electric Stimulation Interferential Current (IFC) Body Location reema l/s, SI Duration (Minutes) 15 Intensity 11 Target/Sweep Sweep High/Low High Patient Position Sidelying Combined With Heat/Cold Hot Pack PT-OP-T Assessment and Plan Start: 05/27/21 08:48 Freq: Status: Active Protocol: Document 07/11/21 09:47 MB (Rec: 07/11/21 10:24 MB [id number]) Physical Therapy Assessment Impairments Impairments Activity Tolerance,Pain,Soft Tissue Mobility,Strength Goals Four Impairment soft tissue mobility Impairment Tightness scar tissue right buttock, piriformis, reema IT bands Detention Goal (LTG) Improve soft tissue mobility to WNL to allow for improved ease of movement and decrease in pain 07/01/21: goal progress. LTG Duration 08/25/21 Three Impairment pain Impairment pain as high as 9/10 right SI, buttock Short Term Goal (STG) Decrease pain to no greater than 5/10 with all usual activities 07/01/21: Pain has been variable, not predictable, often unable to point to cause of exacerbation. Some goal progress STG Duration 07/13/21 Detention Goal (LTG) Decrease pain to no greater than 2/10 with all usual activities LTG Duration 08/25/21 Two Impairment weakness Impairment weakness core and hips limiting mobility and activity tolerance Short Term Goal (STG) patient to be able to tolerate HEP for the purpose of strengthening and core/SI stabilization 07/01/21: patient compliant with HEP, variable tolerance. STG Duration 07/13/21 Detention Goal (LTG) Patient to demonstrate 5/5 muscle strength bilateral hips and core for improved function in the home and community with minimal pain. LTG Duration 08/25/21 One Impairment Activity tolerance Impairment Oswestry disability index score 56% Short Term Goal (STG) Decrease ANGEL score to no greater than 40% 07/01/21: no reassessed this date STG Duration 07/13/21 Detention Goal (LTG) Decrease ANGEL score to no greater than 20% LTG Duration 08/25/21 Assessment Summary Assessment Upright bike and manual work again today as pt states that manual work from PT was very helpful last clinic visit. Will con't per primary PT plan below. Pt to bring in handouts next treatment date so that PT can review with him . Physical Therapy Plan Frequency and Duration Frequency of Treatment 2x/Week Duration of Treatment 12 weeks Plan of Care Start Date 05/27/21 Plan of Care End Date 08/25/21 Therapeutic Interventions Therapeutic Interventions Aquatic Therapy,Gait Training, Home Exercise Program,Manual Therapy,Neuromuscular Re- education,Patient/Caregiver Education,Self-Care/Home Management,Soft Tissue Mobilization,Taping, Therapeutic Activities, Therapeutic Exercises Next Visit Focus/Plan Next Note Type Treatment Note Next Visit Plan Per primary PT: Continue gentle progression of ther ex with emphasis on core/SI stabilization. Pt to bring in handouts next treatment date.
--- NOTE | 2021-07-14 13:02 | PT.OTN ---
Current Diagnoses Sacroiliitis, not elsewhere classified (07/14/21) Physical Therapy Treatment Note PT-OP-A Visit Information Start: 05/27/21 08:48 Freq: Status: Active Protocol: Document 07/14/21 12:15 MB (Rec: 07/14/21 13:02 MB [id number]) Out-Patient Physical Therapy Visit Information Visit Information Visit Type Treatment Note Visit Note Medicare before KX Visit Start Time 12:15 Visit Stop Time 13:00 Total Visit Minutes 45 Visit Number 14 Precautions Precautions activity as tolerated per surgeon nurse PT-OP-B Current Condition Start: 05/27/21 08:48 Freq: Status: Active Protocol: Document 05/27/21 09:01 SAK (Rec: 05/27/21 10:28 SAK [id number]) Current Condition History of Current Condition Onset Date 04/21/21 Current Complaints right buttock History of Current Condition Fell August 2019 onto right SI joint. Pain into gluteal region. PT not helpful, pain persisted. Unable to walk without pain. Underwent right SI fusion 04/21/21. Hasn 't gone as well as anticiipated. Prior to surgery pain in right buttock, some in SI joint. Yesterday states having pain in SI pretty severe and down the outside of his leg. Hasn't driven since the surgery until yesterday. Throughout the day got a little better. This am the pain returned in right SI and buttock. Also having some pins and needsles in right foot. When saw PA 3 weeks after surgery was concerned seemed pin was very close to sacral foramina. Iced in the very beginning, but hasn't recently. Hasn't done any exercises since the surgery. Interested in slow, gentle exercise. Orders from doctor to do activity as pain permits. Weaned from walker to cane, then no cane very carefully and slowly for 2 weeks including a little walking on driveway. Reports using cane sometimes on right when really hurting because feeling better though knowing he is supposed to use on Can't bend down to put sock on without severe pain, using sock aid. looking to leave town for a few weeks, has to put hay in bucket. Stopped doing his prescribed exercises due to increase in gluteal pain. Just started to be able to lay on right side. Has point tenderness also right greater trochanter. Occasional glut pain on left as well. Prior Treatments and Tests 5 wks post op. Seen for right hip pain summer 2019, PT rightly said pain was coming from my back. 2 neck fusions c/s Future Testing and Treatments Planned Sees surgeon next week. 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 He states that he is slowly feeling better. Pt brings in exercises today. PT-OP-E Functional Tests Start: 05/27/21 08:48 Freq: Status: Active Protocol: Document 05/27/21 09:01 [facility] (Rec: 05/27/21 10:28 [facility] [id number]) Functional Tests 6 Minute Walk Test Comments do next session PT-OP-G Mobility & Gait Start: 05/27/21 08:48 Freq: Status: Active Protocol: Document 05/27/21 09:01 [facility] (Rec: 05/27/21 10:28 [facility] [id number]) OP Mobility Evaluation Bed Mobility Rolling independent Supine to and from Sit independent with log roll Transfers Sit to Stand independent, decreased use of right LE Functional Movements Lifting and Carrying not doing at this time Squats not doing at this time OP Gait Assessment Assistive Devices Assistive Device Straight Cane Orthotic/Prosthetic Devices or Brace: No Gait Deviations General Gait Pattern Antalgic Comments Gait Comments Patient using cane on right side and leaning to the right; he says he does this when really hurting as it feels better. Instructed to use on left side for improved gait pattern and decreased compensation Stair Climbing Evaluation Evaluation Level of Assist On Stairs Independent Comments Stair Climbing Comments Reports alternating on short steps most of time, step-to pattern on higher stairs PT-OP-H Neuro Start: 05/27/21 08:48 Freq: Status: Active Protocol: Document 05/27/21 09:01 SAK (Rec: 05/27/21 10:28 [facility] [id number]) Sensation Evaluation Gross Sensation Gross Sensation Left LE Impaired,Right LE Impaired Sensation Description Pins & [place] Dermatome Impairments L5,S1 PT-OP-J Posture/Palpation/Skin Start: 05/27/21 08:48 Freq: Status: Active Protocol: Document 05/27/21 09:01 SAK (Rec: 05/27/21 10:28 [facility] [id number]) Posture Evaluation Position Standing Head/C-Spine Posture Forward Head T-Spine Posture Increased Kyphosis L-Spine Posture Flattened Pelvis Posture Posterior Tilted Hip Posture (L) Neutral,(R) Neutral Palpation Assessment Location reema buttocks Palpation Findings Soft Tissue Tightness,Muscle Guarding Palpation Details especially right piriformis lumbar paraspinals Palpation Findings Soft Tissue Tightness,Muscle Guarding surgical scar Palpation Location right SI Palpation Findings Soft Tissue Tightness Palpation Details decreased scar mobility PT-OP-K Range of Motion Start: 05/27/21 08:48 Freq: Status: Active Protocol: Document 05/27/21 09:01 [facility] (Rec: 05/27/21 10:28 [facility] [id number]) Lumbar Spine Range of Motion Lumbar Spine Active Comments not formally assessed due to 5 weeks post-op Hip Goniometric Range of Motion Hip Right Flexion w/Knee Flexed 95 Straight Leg Raise 45 Extension 0 Comments not fully assessed at end- range due to recent surgery and high pain level today left Flexion w/Knee Flexed 95 Straight Leg Raise 55 Extension 0 Comments not fully assessed at end- range due to recent surgery and high pain level today Hip ROM Limitations Hip ROM Limitations Soft Tissue Tightness,Pain Knee Goniometric Range of Motion Knee Right Extension Active (degrees) 10 Left Knee ROM WFL Yes Knee ROM Limitations Knee ROM Limitations Soft Tissue Tightness Comments tight hamstrings limiting knee extension in sitting PT-OP-L Special Tests Start: 05/27/21 08:48 Freq: Status: Active Protocol: Document 05/27/21 09:01 [facility] (Rec: 05/27/21 10:28 [facility] [id number]) Special Tests Neural Special Tests- Lower Body Sciatic Nerve Tension Test Results positive right PT-OP-M Strength Start: 05/27/21 08:48 Freq: Status: Active Protocol: Document 05/27/21 09:01 [facility] (Rec: 05/27/21 10:28 [facility] [id number]) Trunk Strength Trunk Manual Muscle Testing Testing Position Supine Core Stabilization difficulty activating core musculature Hip Strength Hip Manual Muscle Testing Right Comments no MMT due to recent surgery, has anti-gravity flexion in limited motion Left Comments not assessed due to recent surgery, has anti-gravity flexion Knee Strength Knee Manual Muscle Testing reema Comments has anti-gravity extension remea , no MMT Ankle/Foot Strength Ankle and Foot Manual Muscle Testing Right Dorsiflexion (L4) 4 Good Plantarflexion (S1) 4+ Good+ Left Dorsiflexion (L4) 5 Normal Plantarflexion (S1) 5 Normal Toe Strength Toe Manual Muscle Testing Great Toe Comments left 5/5, right 4/5 PT-OP-Q Treatments Start: 05/27/21 08:48 Freq: Status: Active Protocol: Document 07/14/21 12:15 MB (Rec: 07/14/21 13:02 MB [id number]) Cardio Equipment Bicycle (Upright) Duration (Minutes) 10 Resistance 11 Seat Position 7 Therapeutic Exercises Supine Exercises Glute squeeze Comments Performed today in supine TrA with heelslide Comments Performed today several reps each leg TrA with bent knee fall out Comments Pelvic tilt and spine flat, several reps alternating and cues not to go out TrA with supine clam Side bilateral Resistance Level 2 band Comments Glute squeeze first, 10 reps slowly TrA with pillow squeeze Equipment Used Blue ball Comments 5 reps slowly, 5 sec hold TrA Comments Ed in contraction in hook lying first Sitting Exercises hamstring stretch Side bilateral Comments 30 sec hold each side PT-OP-R Modalities Start: 05/27/21 08:48 Freq: Status: Active Protocol: Document 07/01/21 08:15 [facility] (Rec: 07/01/21 16:26 SAK [id number]) Electric Stimulation Electric Stimulation Interferential Current (IFC) Body Location reema l/s, SI Duration (Minutes) 15 Intensity 11 Target/Sweep Sweep High/Low High Patient Position Sidelying Combined With Heat/Cold Hot Pack PT-OP-S Aquatic Treatment Start: 05/27/21 08:48 Freq: Status: Active Protocol: Document 07/07/21 08:21 SAK (Rec: 07/13/21 08:29 SAK [id number]) Aquatics Treatment Pool Entry/Exit Pool Entry/Exit Method Stairs Assistance Independent Water Walking march Water Level Chest Level Level of Assistance Verbal Cues fwd,bck,side Water Level Chest Level Level of Assistance Verbal Cues Lower Extremity Stretches SKTC Body Position Standing Water Level [place] Comments at pool ladder HS stretch Details also groin and ITB Body Position Standing Equipment Small Noodle Reps/Duration 2x 30 Upper Extremity Exercises hor ab/ad, flex/ext Details reema and unil Body Position Standing Water Level Chest Level Reps/Duration 10x ea Comments emphasis on core stab Madison Activities Madison Activities Bicycle,Bicycle Backwards, Running,Hip Abduction/ Adduction Other Activities deep water hang (pool edge) Equipment noodle then waist float Duration 20 min PT-OP-T Assessment and Plan Start: 05/27/21 08:48 Freq: Status: Active Protocol: Document 07/14/21 12:15 MB (Rec: 07/14/21 13:02 MB [id number]) Physical Therapy Assessment Impairments Impairments Activity Tolerance,Pain,Soft Tissue Mobility,Strength Goals Four Impairment soft tissue mobility Impairment Tightness scar tissue right buttock, piriformis, reema IT bands Roll Weigher Goal (LTG) Improve soft tissue mobility to WNL to allow for improved ease of movement and decrease in pain 07/01/21: goal progress. LTG Duration 08/25/21 Three Impairment pain Impairment pain as high as 9/10 right SI, buttock Short Term Goal (STG) Decrease pain to no greater than 5/10 with all usual activities 07/01/21: Pain has been variable, not predictable, often unable to point to cause of exacerbation. Some goal progress STG Duration 07/13/21 Jail Goal (LTG) Decrease pain to no greater than 2/10 with all usual activities LTG Duration 08/25/21 Two Impairment weakness Impairment weakness core and hips limiting mobility and activity tolerance Short Term Goal (STG) patient to be able to tolerate HEP for the purpose of strengthening and core/SI stabilization 07/01/21: patient compliant with HEP, variable tolerance. STG Duration 07/13/21 Roll Weigher Goal (LTG) Patient to demonstrate 5/5 muscle strength bilateral hips and core for improved function in the home and community with minimal pain. LTG Duration 08/25/21 One Impairment Activity tolerance Impairment Oswestry disability index score 56% Short Term Goal (STG) Decrease ANGEL score to no greater than 40% 07/01/21: no reassessed this date STG Duration 07/13/21 Jail Goal (LTG) Decrease ANGEL score to no greater than 20% LTG Duration 08/25/21 Assessment Summary Assessment Reviewed all of exercises today that pt has handouts for . He would like some more strengthening for arms and see PT recommendations below for progression. Physical Therapy Plan Frequency and Duration Frequency of Treatment 2x/Week Duration of Treatment 12 weeks Plan of Care Start Date 05/27/21 Plan of Care End Date 08/25/21 Therapeutic Interventions Therapeutic Interventions Aquatic Therapy,Gait Training, Home Exercise Program,Manual Therapy,Neuromuscular Re- education,Patient/Caregiver Education,Self-Care/Home Management,Soft Tissue Mobilization,Taping, Therapeutic Activities, Therapeutic Exercises Next Visit Focus/Plan Next Note Type Treatment Note Next Visit Plan Per primary PT: Continue gentle progression of ther ex with emphasis on core/SI stabilization. Pt would like some more exercises for his arms (consider doorway with band exercises for intrascapular, shoulder ER and multifidi)
--- NOTE | 2021-07-16 14:14 | PT.OTN ---
Current Diagnoses Sacroiliitis, not elsewhere classified (07/16/21) Physical Therapy Treatment Note PT-OP-A Visit Information Start: 05/27/21 08:48 Freq: Status: Active Protocol: Document 07/16/21 13:59 LJ (Rec: 07/16/21 14:14 LJ [id number]) Out-Patient Physical Therapy Visit Information Visit Information Visit Type Aquatic Treatment Note Visit Start Time 10:15 Visit Stop Time 11:00 Total Visit Minutes 45 Visit Number 15 Number of WASHER MEAT Visits 1 Precautions Precautions activity as tolerated per surgeon nurse PT-OP-B Current Condition Start: 05/27/21 08:48 Freq: Status: Active Protocol: Document 05/27/21 09:01 SAK (Rec: 05/27/21 10:28 SAK [id number]) Current Condition History of Current Condition Onset Date 04/21/21 Current Complaints right buttock History of Current Condition Fell August 2019 onto right SI joint. Pain into gluteal region. PT not helpful, pain persisted. Unable to walk without pain. Underwent right SI fusion 04/21/21. Hasn 't gone as well as anticiipated. Prior to surgery pain in right buttock, some in SI joint. Yesterday states having pain in SI pretty severe and down the outside of his leg. Hasn't driven since the surgery until yesterday. Throughout the day got a little better. This am the pain returned in right SI and buttock. Also having some pins and needsles in right foot. When saw PA 3 weeks after surgery was concerned seemed pin was very close to sacral foramina. Iced in the very beginning, but hasn't recently. Hasn't done any exercises since the surgery. Interested in slow, gentle exercise. Orders from doctor to do activity as pain permits. Weaned from walker to cane, then no cane very carefully and slowly for 2 weeks including a little walking on driveway. Reports using cane sometimes on right when really hurting because feeling better though knowing he is supposed to use on Can't bend down to put sock on without severe pain, using sock aid. looking to leave town for a few weeks, has to put hay in bucket. Stopped doing his prescribed exercises due to increase in gluteal pain. Just started to be able to lay on right side. Has point tenderness also right greater trochanter. Occasional glut pain on left as well. Prior Treatments and Tests 5 wks post op. Seen for right hip pain summer 2019, PT rightly said pain was coming from my back. 2 neck fusions c/s Future Testing and Treatments Planned Sees surgeon next week. 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, caring for animals on property Current Functional Impairments (Reported) Functional Limitations- ADL's painful, can't put sock on without pain Functional Limitations- Mobility/Gait painful, using cane Functional Limitations- Work/School unable to take care of animals on property Personal Factors Other Personal Factors That May Effect 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 States he is feeling pretty good so far. OP-PT Pain Assessment Pain Assessment Grid Paper Pain Assessment Grid Completed Yes Location Right SI, glut, lateral right LE Intensity 9 Scale Used Numeric (0 - 10) Frequency Frequent Radiating Location lateral right leg, pins and needles into right foot Pain Alleviating Factors None,Medication Home Pain Medication Use Pain Medications Used Yes: Gabapentin Pain Behaviors Pain Behaviors Facial Grimacing,Guarding PT-OP-E Functional Tests Start: 05/27/21 08:48 Freq: Status: Active Protocol: Document 05/27/21 09:01 [facility] (Rec: 05/27/21 10:28 SAK [id number]) Functional Tests 6 Minute Walk Test Comments do next session PT-OP-G Mobility & Gait Start: 05/27/21 08:48 Freq: Status: Active Protocol: Document 05/27/21 09:01 [facility] (Rec: 05/27/21 10:28 SAK [id number]) OP Mobility Evaluation Bed Mobility Rolling independent Supine to and from Sit independent with log roll Transfers Sit to Stand independent, decreased use of right LE Functional Movements Lifting and Carrying not doing at this time Squats not doing at this time OP Gait Assessment Assistive Devices Assistive Device Straight Cane Orthotic/Prosthetic Devices or Brace: No Gait Deviations General Gait Pattern Antalgic Comments Gait Comments Patient using cane on right side and leaning to the right; he says he does this when really hurting as it feels better. Instructed to use on left side for improved gait pattern and decreased compensation Stair Climbing Evaluation Evaluation Level of Assist On Stairs Independent Comments Stair Climbing Comments Reports alternating on short steps most of time, step-to pattern on higher stairs PT-OP-H Neuro Start: 05/27/21 08:48 Freq: Status: Active Protocol: Document 05/27/21 09:01 [facility] (Rec: 05/27/21 10:28 [facility] [id number]) Sensation Evaluation Gross Sensation Gross Sensation Left LE Impaired,Right LE Impaired Sensation Description P[place] Dermatome Impairments L5,S1 PT-OP-J Posture/Palpation/Skin Start: 05/27/21 08:48 Freq: Status: Active Protocol: Document 05/27/21 09:01 [facility] (Rec: 05/27/21 10:28 [facility] [id number]) Posture Evaluation Position Standing Head/C-Spine Posture Forward Head T-Spine Posture Increased Kyphosis L-Spine Posture Flattened Pelvis Posture Posterior Tilted Hip Posture (L) Neutral,(R) Neutral Palpation Assessment Location reema buttocks Palpation Findings Soft Tissue Tightness,Muscle Guarding Palpation Details especially right piriformis lumbar paraspinals Palpation Findings Soft Tissue Tightness,Muscle Guarding surgical scar Palpation Location right SI Palpation Findings Soft Tissue Tightness Palpation Details decreased scar mobility PT-OP-K Range of Motion Start: 05/27/21 08:48 Freq: Status: Active Protocol: Document 05/27/21 09:01 [facility] (Rec: 05/27/21 10:28 [facility] [id number]) Lumbar Spine Range of Motion Lumbar Spine Active Comments not formally assessed due to 5 weeks post-op Hip Goniometric Range of Motion Hip Right Flexion w/Knee Flexed 95 Straight Leg Raise 45 Extension 0 Comments not fully assessed at end- range due to recent surgery and high pain level today left Flexion w/Knee Flexed 95 Straight Leg Raise 55 Extension 0 Comments not fully assessed at end- range due to recent surgery and high pain level today Hip ROM Limitations Hip ROM Limitations Soft Tissue Tightness,Pain Knee Goniometric Range of Motion Knee Right Extension Active (degrees) 10 Left Knee ROM WFL Yes Knee ROM Limitations Knee ROM Limitations Soft Tissue Tightness Comments tight hamstrings limiting knee extension in sitting PT-OP-L Special Tests Start: 05/27/21 08:48 Freq: Status: Active Protocol: Document 05/27/21 09:01 SAK (Rec: 05/27/21 10:28 [facility] [id number]) Special Tests Neural Special Tests- Lower Body Sciatic Nerve Tension Test Results positive right PT-OP-M Strength Start: 05/27/21 08:48 Freq: Status: Active Protocol: Document 05/27/21 09:01 SAK (Rec: 05/27/21 10:28 SAK [id number]) Trunk Strength Trunk Manual Muscle Testing Testing Position Supine Core Stabilization difficulty activating core musculature Hip Strength Hip Manual Muscle Testing Right Comments no MMT due to recent surgery, has anti-gravity flexion in limited motion Left Comments not assessed due to recent surgery, has anti-gravity flexion Knee Strength Knee Manual Muscle Testing reema Comments has anti-gravity extension reema , no MMT Ankle/Foot Strength Ankle and Foot Manual Muscle Testing Right Dorsiflexion (L4) 4 Good Plantarflexion (S1) 4+ Good+ Left Dorsiflexion (L4) 5 Normal Plantarflexion (S1) 5 Normal Toe Strength Toe Manual Muscle Testing Great Toe Comments left 5/5, right 4/5 PT-OP-Q Treatments Start: 05/27/21 08:48 Freq: Status: Active Protocol: Document 07/14/21 12:15 MB (Rec: 07/14/21 13:02 MB [id number]) Cardio Equipment Bicycle (Upright) Duration (Minutes) 10 Resistance 11 Seat Position 7 Therapeutic Exercises Supine Exercises Glute squeeze Comments Performed today in supine TrA with heelslide Comments Performed today several reps each leg TrA with bent knee fall out Comments Pelvic tilt and spine flat, several reps alternating and cues not to go out TrA with supine clam Side bilateral Resistance Level 2 band Comments Glute squeeze first, 10 reps slowly TrA with pillow squeeze Equipment Used Blue ball Comments 5 reps slowly, 5 sec hold TrA Comments Ed in contraction in hook lying first Sitting Exercises hamstring stretch Side bilateral Comments 30 sec hold each side PT-OP-R Modalities Start: 05/27/21 08:48 Freq: Status: Active Protocol: Document 07/01/21 08:15 SAK (Rec: 07/01/21 16:26 SAK [id number]) Electric Stimulation Electric Stimulation Interferential Current (IFC) Body Location reema l/s, SI Duration (Minutes) 15 Intensity 11 Target/Sweep Sweep High/Low High Patient Position Sidelying Combined With Heat/Cold Hot Pack PT-OP-S Aquatic Treatment Start: 05/27/21 08:48 Freq: Status: Active Protocol: Document 07/16/21 13:59 ERON (Rec: 07/16/21 14:14 LJ [id number]) Aquatics Treatment Pool Entry/Exit Pool Entry/Exit Method Stairs Assistance Independent Water Walking [place] October Water Level Chest Level Level of Assistance Verbal Cues Comments keep hip flexion within painfree range march Water Level Chest Level Level of Assistance Verbal Cues fwd,bck,side Water Level Chest Level Level of Assistance Verbal Cues Lower Extremity Stretches gastroc Details at wall Body Position Standing Water Level Waist Level Reps/Duration 30' x 2 B SKTC Body Position Standing Water Level Chest Level Reps/Duration 30' x 2 B Upper Extremity Exercises hor ab/ad, flex/ext Details reema and unil Body Position Standing Water Level Chest Level Reps/Duration 10x ea Comments emphasis on core stab Gas[place] Activities Gasport Activities Bicycle,Bicycle Backwards, Running Equipment waist float Duration 20 min Comments hip AB/AD causing pain so stopped PT-OP-T Assessment and Plan Start: 05/27/21 08:48 Freq: Status: Active Protocol: Document 07/16/21 13:59 ERON (Rec: 07/16/21 14:14 [id number]) Physical Therapy Assessment Rehab Potential Rehabilitation Potential Good Evaluation Complexity Number of Personal Factors/Comorbidities 1-2 Number of Body Systems Impaired 3 Clinical Presentation at Evaluation Evolving Impairments Impairments Activity Tolerance,Pain,Soft Tissue Mobility,Strength Goals Four Impairment soft tissue mobility Impairment Tightness scar tissue right buttock, piriformis, reema IT bands Back Tacker Goal (LTG) Improve soft tissue mobility to WNL to allow for improved ease of movement and decrease in pain 07/01/21: goal progress. LTG Duration 08/25/21 Three Impairment pain Impairment pain as high as 9/10 right SI, buttock Short Term Goal (STG) Decrease pain to no greater than 5/10 with all usual activities 07/01/21: Pain has been variable, not predictable, often unable to point to cause of exacerbation. Some goal progress STG Duration 07/13/21 Retirement Goal (LTG) Decrease pain to no greater than 2/10 with all usual activities LTG Duration 08/25/21 Two Impairment weakness Impairment weakness core and hips limiting mobility and activity tolerance Short Term Goal (STG) patient to be able to tolerate HEP for the purpose of strengthening and core/SI stabilization 07/01/21: patient compliant with HEP, variable tolerance. STG Duration 07/13/21 Retirement Goal (LTG) Patient to demonstrate 5/5 muscle strength bilateral hips and core for improved function in the home and community with minimal pain. LTG Duration 08/25/21 One Impairment Activity tolerance Impairment Oswestry disability index score 56% Short Term Goal (STG) Decrease ANGEL score to no greater than 40% 07/01/21: no reassessed this date STG Duration 07/13/21 Retirement Goal (LTG) Decrease ANGEL score to no greater than 20% LTG Duration 08/25/21 Assessment Summary Assessment Pt reported being more comfortable with the wetsuit. He was beginning to get neck pain with noodle behind and under arms so switched to front and pain decreased. Pt tolerated gentle AT and would like HEp to use on his own when he goes to the pool on his own. Physical Therapy Plan Frequency and Duration Frequency of Treatment 2x/Week Duration of Treatment 12 weeks Plan of Care Start Date 05/27/21 Plan of Care End Date 08/25/21 Therapeutic Interventions Therapeutic Interventions Aquatic Therapy,Gait Training, Home Exercise Program,Manual Therapy,Neuromuscular Re- education,Patient/Caregiver Education,Self-Care/Home Management,Soft Tissue Mobilization,Taping, Therapeutic Activities, Therapeutic Exercises Next Visit Focus/Plan Next Note Type Treatment Note Next Visit Plan Per primary PT: Continue gentle progression of ther ex with emphasis on core/SI stabilization. Pt would like some more exercises for his arms (consider doorway with band exercises for intrascapular, shoulder ER and multifidi)
--- NOTE | 2021-07-21 11:14 | PT.OTN ---
Current Diagnoses Sacroiliitis, not elsewhere classified (07/21/21) Physical Therapy Treatment Note PT-OP-A Visit Information Start: 05/27/21 08:48 Freq: Status: Active Protocol: Document 07/21/21 10:33 MB (Rec: 07/21/21 11:14 MB [id number]) Out-Patient Physical Therapy Visit Information Visit Information Visit Type Treatment Note Visit Note Medicare before KX Visit Start Time 10:33 Visit Stop Time 11:11 Total Visit Minutes 38 Visit Number 16 Number of FITNESS AND WELLNESS DIRECTOR Visits 0 Precautions Precautions activity as tolerated per surgeon nurse PT-OP-B Current Condition Start: 05/27/21 08:48 Freq: Status: Active Protocol: Document 05/27/21 09:01 SAK (Rec: 05/27/21 10:28 SAK [id number]) Current Condition History of Current Condition Onset Date 04/21/21 Current Complaints right buttock History of Current Condition Fell August 2019 onto right SI joint. Pain into gluteal region. PT not helpful, pain persisted. Unable to walk without pain. Underwent right SI fusion 04/21/21. Hasn 't gone as well as anticiipated. Prior to surgery pain in right buttock, some in SI joint. Yesterday states having pain in SI pretty severe and down the outside of his leg. Hasn't driven since the surgery until yesterday. Throughout the day got a little better. This am the pain returned in right SI and buttock. Also having some pins and needsles in right foot. When saw PA 3 weeks after surgery was concerned seemed pin was very close to sacral foramina. Iced in the very beginning, but hasn't recently. Hasn't done any exercises since the surgery. Interested in slow, gentle exercise. Orders from doctor to do activity as pain permits. Weaned from walker to cane, then no cane very carefully and slowly for 2 weeks including a little walking on driveway. Reports using cane sometimes on right when really hurting because feeling better though knowing he is supposed to use on Can't bend down to put sock on without severe pain, using sock aid. looking to leave town for a few weeks, has to put hay in bucket. Stopped doing his prescribed exercises due to increase in gluteal pain. Just started to be able to lay on right side. Has point tenderness also right greater trochanter. Occasional glut pain on left as well. Prior Treatments and Tests 5 wks post op. Seen for right hip pain summer 2019, PT rightly said pain was coming from my back. 2 neck fusions c/s Future Testing and Treatments Planned Sees surgeon next week. 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, caring for animals on property Current Functional Impairments (Reported) Functional Limitations- ADL's painful, can't put sock on without pain Functional Limitations- Mobility/Gait painful, using cane Functional Limitations- Work/School unable to take care of animals on property Personal Factors Other Personal Factors That May Effect 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 PT-OP-E Functional Tests Start: 05/27/21 08:48 Freq: Status: Active Protocol: Document 05/27/21 09:01 [facility] (Rec: 05/27/21 10:28 [facility] [id number]) Functional Tests 6 Minute Walk Test Comments do next session PT-OP-G Mobility & Gait Start: 05/27/21 08:48 Freq: Status: Active Protocol: Document 05/27/21 09:01 [facility] (Rec: 05/27/21 10:28 [facility] [id number]) OP Mobility Evaluation Bed Mobility Rolling independent Supine to and from Sit independent with log roll Transfers Sit to Stand independent, decreased use of right LE Functional Movements Lifting and Carrying not doing at this time Squats not doing at this time OP Gait Assessment Assistive Devices Assistive Device Straight Cane Orthotic/Prosthetic Devices or Brace: No Gait Deviations General Gait Pattern Antalgic Comments Gait Comments Patient using cane on right side and leaning to the right; he says he does this when really hurting as it feels better. Instructed to use on left side for improved gait pattern and decreased compensation Stair Climbing Evaluation Evaluation Level of Assist On Stairs Independent Comments Stair Climbing Comments Reports alternating on short steps most of time, step-to pattern on higher stairs PT-OP-H Neuro Start: 05/27/21 08:48 Freq: Status: Active Protocol: Document 05/27/21 09:01 SAK (Rec: 05/27/21 10:28 SAK [id number]) Sensation Evaluation Gross Sensation Gross Sensation Left LE Impaired,Right LE Impaired Sensation Description Pins & Catharpin Dermatome Impairments L5,S1 PT-OP-J Posture/Palpation/Skin Start: 05/27/21 08:48 Freq: Status: Active Protocol: Document 05/27/21 09:01 SAK (Rec: 05/27/21 10:28 [facility] [id number]) Posture Evaluation Position Standing Head/C-Spine Posture Forward Head T-Spine Posture Increased Kyphosis L-Spine Posture Flattened Pelvis Posture Posterior Tilted Hip Posture (L) Neutral,(R) Neutral Palpation Assessment Location reema buttocks Palpation Findings Soft Tissue Tightness,Muscle Guarding Palpation Details especially right piriformis lumbar paraspinals Palpation Findings Soft Tissue Tightness,Muscle Guarding surgical scar Palpation Location right SI Palpation Findings Soft Tissue Tightness Palpation Details decreased scar mobility PT-OP-K Range of Motion Start: 05/27/21 08:48 Freq: Status: Active Protocol: Document 05/27/21 09:01 SAK (Rec: 05/27/21 10:28 [facility] [id number]) Lumbar Spine Range of Motion Lumbar Spine Active Comments not formally assessed due to 5 weeks post-op Hip Goniometric Range of Motion Hip Right Flexion w/Knee Flexed 95 Straight Leg Raise 45 Extension 0 Comments not fully assessed at end- range due to recent surgery and high pain level today left Flexion w/Knee Flexed 95 Straight Leg Raise 55 Extension 0 Comments not fully assessed at end- range due to recent surgery and high pain level today Hip ROM Limitations Hip ROM Limitations Soft Tissue Tightness,Pain Knee Goniometric Range of Motion Knee Right Extension Active (degrees) 10 Left Knee ROM WFL Yes Knee ROM Limitations Knee ROM Limitations Soft Tissue Tightness Comments tight hamstrings limiting knee extension in sitting PT-OP-L Special Tests Start: 05/27/21 08:48 Freq: Status: Active Protocol: Document 05/27/21 09:01 [facility] (Rec: 05/27/21 10:28 SAK [id number]) Special Tests Neural Special Tests- Lower Body Sciatic Nerve Tension Test Results positive right PT-OP-M Strength Start: 05/27/21 08:48 Freq: Status: Active Protocol: Document 05/27/21 09:01 SAK (Rec: 05/27/21 10:28 SAK [id number]) Trunk Strength Trunk Manual Muscle Testing Testing Position Supine Core Stabilization difficulty activating core musculature Hip Strength Hip Manual Muscle Testing Right Comments no MMT due to recent surgery, has anti-gravity flexion in limited motion Left Comments not assessed due to recent surgery, has anti-gravity flexion Knee Strength Knee Manual Muscle Testing reema Comments has anti-gravity extension reema , no MMT Ankle/Foot Strength Ankle and Foot Manual Muscle Testing Right Dorsiflexion (L4) 4 Good Plantarflexion (S1) 4+ Good+ Left Dorsiflexion (L4) 5 Normal Plantarflexion (S1) 5 Normal Toe Strength Toe Manual Muscle Testing Great Toe Comments left 5/5, right 4/5 PT-OP-Q Treatments Start: 05/27/21 08:48 Freq: Status: Active Protocol: Document 07/21/21 10:33 MB (Rec: 07/21/21 11:14 MB [id number]) Therapeutic Exercises Standing Exercises Shoulder ER Side bilateral Resistance Level 2 band Comments Cues for core tight Scapular retraction and triceps band over door Side bilateral Resistance Level 2 band Comments Pull arms down, elbows straight, hold contraction, then 10 elbow flex/ext Multifidi heel raises Side bilateral Resistance Level 2 band Comments Slow heel rasies 10 reps Reverse Fly Side bilateral Resistance Level 2 band Comments 10 reps, cues for form PT-OP-R Modalities Start: 05/27/21 08:48 Freq: Status: Active Protocol: Document 07/01/21 08:15 SAK (Rec: 07/01/21 16:26 SAK [id number]) Electric Stimulation Electric Stimulation Interferential Current (IFC) Body Location reema l/s, SI Duration (Minutes) 15 Intensity 11 Target/Sweep Sweep High/Low High Patient Position Sidelying Combined With Heat/Cold Hot Pack PT-OP-S Aquatic Treatment Start: 05/27/21 08:48 Freq: Status: Active Protocol: Document 07/16/21 13:59 LJ (Rec: 07/16/21 14:14 LJ [id number]) Aquatics Treatment Pool Entry/Exit Pool Entry/Exit Method Stairs Assistance Independent Water Walking [place] October Water Level Chest Level Level of Assistance Verbal Cues Comments keep hip flexion within painfree range march Water Level Chest Level Level of Assistance Verbal Cues fwd,bck,side Water Level Chest Level Level of Assistance Verbal Cues Lower Extremity Stretches gastroc Details at wall Body Position Standing Water Level Waist Level Reps/Duration 30' x 2 B SKTC Body Position Standing Water Level Chest Level Reps/Duration 30' x 2 B Upper Extremity Exercises hor ab/ad, flex/ext Details reema and unil Body Position Standing Water Level Chest Level Reps/Duration 10x ea Comments emphasis on core stab Lerona Activities Lerona Activities Bicycle,Bicycle Backwards, Running Equipment waist float Duration 20 min Comments hip AB/AD causing pain so stopped PT-OP-T Assessment and Plan Start: 05/27/21 08:48 Freq: Status: Active Protocol: Document 07/21/21 10:33 MB (Rec: 07/21/21 11:14 MB [id number]) Physical Therapy Assessment Rehab Potential Rehabilitation Potential Good Evaluation Complexity Number of Personal Factors/Comorbidities 1-2 Number of Body Systems Impaired 3 Clinical Presentation at Evaluation Evolving Impairments Impairments Activity Tolerance,Pain,Soft Tissue Mobility,Strength Goals Four Impairment soft tissue mobility Impairment Tightness scar tissue right buttock, piriformis, reema IT bands Intermediate Goal (LTG) Improve soft tissue mobility to WNL to allow for improved ease of movement and decrease in pain 07/01/21: goal progress. LTG Duration 08/25/21 Three Impairment pain Impairment pain as high as 9/10 right SI, buttock Short Term Goal (STG) Decrease pain to no greater than 5/10 with all usual activities 07/01/21: Pain has been variable, not predictable, often unable to point to cause of exacerbation. Some goal progress STG Duration 07/13/21 Intermediate Goal (LTG) Decrease pain to no greater than 2/10 with all usual activities LTG Duration 08/25/21 Two Impairment weakness Impairment weakness core and hips limiting mobility and activity tolerance Short Term Goal (STG) patient to be able to tolerate HEP for the purpose of strengthening and core/SI stabilization 07/01/21: patient compliant with HEP, variable tolerance. 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 LTG Duration 08/25/21 One Impairment Activity tolerance Impairment Oswestry disability index score 56% Short Term Goal (STG) Decrease ANGEL score to no greater than 40% 07/01/21: no reassessed this date STG Duration 07/13/21 Intermediate Goal (LTG) Decrease ANGEL score to no greater than 20% LTG Duration 08/25/21 Assessment Summary Assessment Progressed multifidi, intrascapular, shoulder strengthening today per pt request and this should also help with spine and alignment. Heel raises with multifidi strengthening is challenging and he might benefit from balance exercises. Physical Therapy Plan Frequency and Duration Frequency of Treatment 2x/Week Duration of Treatment 12 weeks Plan of Care Start Date 05/27/21 Plan of Care End Date 08/25/21 Therapeutic Interventions Therapeutic Interventions Aquatic Therapy,Gait Training, Home Exercise Program,Manual Therapy,Neuromuscular Re- education,Patient/Caregiver Education,Self-Care/Home Management,Soft Tissue Mobilization,Taping, Therapeutic Activities, Therapeutic Exercises Next Visit Focus/Plan Next Note Type Treatment Note Next Visit Plan Per primary PT: Continue gentle progression of ther ex with emphasis on core/SI May consider wall slide for LE and core work and balance exercises
--- NOTE | 2021-07-23 14:46 | PT.OTN ---
Current Diagnoses Sacroiliitis, not elsewhere classified (07/23/21) Physical Therapy Treatment Note PT-OP-A Visit Information Start: 05/27/21 08:48 Freq: Status: Active Protocol: Document 07/23/21 14:27 LJ (Rec: 07/23/21 14:46 LJ [id number]) Out-Patient Physical Therapy Visit Information Visit Information Visit Type Aquatic Treatment Note Visit Start Time 10:15 Visit Stop Time 11:00 Total Visit Minutes 39 Visit Number 17 Precautions Precautions activity as tolerated per surgeon nurse PT-OP-B Current Condition Start: 05/27/21 08:48 Freq: Status: Active Protocol: Document 05/27/21 09:01 SAK (Rec: 05/27/21 10:28 SAK [id number]) Current Condition History of Current Condition Onset Date 04/21/21 Current Complaints right buttock History of Current Condition Fell August 2019 onto right SI joint. Pain into gluteal region. PT not helpful, pain persisted. Unable to walk without pain. Underwent right SI fusion 04/21/21. Hasn 't gone as well as anticiipated. Prior to surgery pain in right buttock, some in SI joint. Yesterday states having pain in SI pretty severe and down the outside of his leg. Hasn't driven since the surgery until yesterday. Throughout the day got a little better. This am the pain returned in right SI and buttock. Also having some pins and needsles in right foot. When saw PA 3 weeks after surgery was concerned seemed pin was very close to sacral foramina. Iced in the very beginning, but hasn't recently. Hasn't done any exercises since the surgery. Interested in slow, gentle exercise. Orders from doctor to do activity as pain permits. Weaned from walker to cane, then no cane very carefully and slowly for 2 weeks including a little walking on driveway. Reports using cane sometimes on right when really hurting because feeling better though knowing he is supposed to use on Can't bend down to put sock on without severe pain, using sock aid. looking to leave town for a few weeks, has to put hay in bucket. Stopped doing his prescribed exercises due to increase in gluteal pain. Just started to be able to lay on right side. Has point tenderness also right greater trochanter. Occasional glut pain on left as well. Prior Treatments and Tests 5 wks post op. Seen for right hip pain summer 2019, PT rightly said pain was coming from my back. 2 neck fusions c/s Future Testing and Treatments Planned Sees surgeon next week. 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, caring for animals on property Current Functional Impairments (Reported) Functional Limitations- ADL's painful, can't put sock on without pain Functional Limitations- Mobility/Gait painful, using cane Functional Limitations- Work/School unable to take care of animals on property Personal Factors Other Personal Factors That May Effect 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 States he felt fine after alast AT session PT-OP-E Functional Tests Start: 05/27/21 08:48 Freq: Status: Active Protocol: Document 05/27/21 09:01 [facility] (Rec: 05/27/21 10:28 [facility] [id number]) Functional Tests 6 Minute Walk Test Comments do next session PT-OP-G Mobility & Gait Start: 05/27/21 08:48 Freq: Status: Active Protocol: Document 05/27/21 09:01 [facility] (Rec: 05/27/21 10:28 [facility] [id number]) OP Mobility Evaluation Bed Mobility Rolling independent Supine to and from Sit independent with log roll Transfers Sit to Stand independent, decreased use of right LE Functional Movements Lifting and Carrying not doing at this time Squats not doing at this time OP Gait Assessment Assistive Devices Assistive Device Straight Cane Orthotic/Prosthetic Devices or Brace: No Gait Deviations General Gait Pattern Antalgic Comments Gait Comments Patient using cane on right side and leaning to the right; he says he does this when really hurting as it feels better. Instructed to use on left side for improved gait pattern and decreased compensation Stair Climbing Evaluation Evaluation Level of Assist On Stairs Independent Comments Stair Climbing Comments Reports alternating on short steps most of time, step-to pattern on higher stairs PT-OP-H Neuro Start: 05/27/21 08:48 Freq: Status: Active Protocol: Document 05/27/21 09:01 SAK (Rec: 05/27/21 10:28 [facility] [id number]) Sensation Evaluation Gross Sensation Gross Sensation Left LE Impaired,Right LE Impaired Sensation Description [place] Dermatome Impairments L5,S1 PT-OP-J Posture/Palpation/Skin Start: 05/27/21 08:48 Freq: Status: Active Protocol: Document 05/27/21 09:01 SAK (Rec: 05/27/21 10:28 [facility] [id number]) Posture Evaluation Position Standing Head/C-Spine Posture Forward Head T-Spine Posture Increased Kyphosis L-Spine Posture Flattened Pelvis Posture Posterior Tilted Hip Posture (L) Neutral,(R) Neutral Palpation Assessment Location reema buttocks Palpation Findings Soft Tissue Tightness,Muscle Guarding Palpation Details especially right piriformis lumbar paraspinals Palpation Findings Soft Tissue Tightness,Muscle Guarding surgical scar Palpation Location right SI Palpation Findings Soft Tissue Tightness Palpation Details decreased scar mobility PT-OP-K Range of Motion Start: 05/27/21 08:48 Freq: Status: Active Protocol: Document 05/27/21 09:01 SAK (Rec: 05/27/21 10:28 [facility] [id number]) Lumbar Spine Range of Motion Lumbar Spine Active Comments not formally assessed due to 5 weeks post-op Hip Goniometric Range of Motion Hip Right Flexion w/Knee Flexed 95 Straight Leg Raise 45 Extension 0 Comments not fully assessed at end- range due to recent surgery and high pain level today left Flexion w/Knee Flexed 95 Straight Leg Raise 55 Extension 0 Comments not fully assessed at end- range due to recent surgery and high pain level today Hip ROM Limitations Hip ROM Limitations Soft Tissue Tightness,Pain Knee Goniometric Range of Motion Knee Right Extension Active (degrees) 10 Left Knee ROM WFL Yes Knee ROM Limitations Knee ROM Limitations Soft Tissue Tightness Comments tight hamstrings limiting knee extension in sitting PT-OP-L Special Tests Start: 05/27/21 08:48 Freq: Status: Active Protocol: Document 05/27/21 09:01 SAK (Rec: 05/27/21 10:28 SAK [id number]) Special Tests Neural Special Tests- Lower Body Sciatic Nerve Tension Test Results positive right PT-OP-M Strength Start: 05/27/21 08:48 Freq: Status: Active Protocol: Document 05/27/21 09:01 SAK (Rec: 05/27/21 10:28 SAK [id number]) Trunk Strength Trunk Manual Muscle Testing Testing Position Supine Core Stabilization difficulty activating core musculature Hip Strength Hip Manual Muscle Testing Right Comments no MMT due to recent surgery, has anti-gravity flexion in limited motion Left Comments not assessed due to recent surgery, has anti-gravity flexion Knee Strength Knee Manual Muscle Testing reema Comments has anti-gravity extension reema , no MMT Ankle/Foot Strength Ankle and Foot Manual Muscle Testing Right Dorsiflexion (L4) 4 Good Plantarflexion (S1) 4+ Good+ Left Dorsiflexion (L4) 5 Normal Plantarflexion (S1) 5 Normal Toe Strength Toe Manual Muscle Testing Great Toe Comments left 5/5, right 4/5 PT-OP-Q Treatments Start: 05/27/21 08:48 Freq: Status: Active Protocol: Document 07/21/21 10:33 MB (Rec: 07/21/21 11:14 MB [id number]) Therapeutic Exercises Standing Exercises Shoulder ER Side bilateral Resistance Level 2 band Comments Cues for core tight Scapular retraction and triceps band over door Side bilateral Resistance Level 2 band Comments Pull arms down, elbows straight, hold contraction, then 10 elbow flex/ext Multifidi heel raises Side bilateral Resistance Level 2 band Comments Slow heel rasies 10 reps Reverse Fly Side bilateral Resistance Level 2 band Comments 10 reps, cues for form PT-OP-R Modalities Start: 05/27/21 08:48 Freq: Status: Active Protocol: Document 07/01/21 08:15 SAK (Rec: 07/01/21 16:26 SAK [id number]) Electric Stimulation Electric Stimulation Interferential Current (IFC) Body Location reema l/s, SI Duration (Minutes) 15 Intensity 11 Target/Sweep Sweep High/Low High Patient Position Sidelying Combined With Heat/Cold Hot Pack PT-OP-S Aquatic Treatment Start: 05/27/21 08:48 Freq: Status: Active Protocol: Document 07/23/21 14:27 LJ (Rec: 07/23/21 14:46 LJ [id number]) Aquatics Treatment Pool Entry/Exit Pool Entry/Exit Method Stairs Assistance Independent Water Walking stop start Water Level Chest Level Level of Assistance Verbal Cues march Water Level Chest Level Level of Assistance Verbal Cues fwd,bck,side Water Level Chest Level Level of Assistance Verbal Cues Comments cues for recip arm pattern Lower Extremity Exercises hip AB/AD Details at wall Body Position Standing Reps/Duration 10 B Comments hand hold hip fl/ext Details at wall Body Position Standing Reps/Duration 10 B Comments occasional hand hold Lower Extremity Stretches gastroc Details at wall Body Position Standing Water Level Waist Level Reps/Duration 30' x 2 B SKTC Body Position Standing Water Level Chest Level Reps/Duration 30' x 2 B HS stretch Details also groin and ITB Body Position Standing Equipment Small Noodle Reps/Duration 2x 30 Upper Extremity Exercises hor ab/ad, flex/ext Details reema and unil; at wall Body Position Sitting Water Level Chest Level Reps/Duration 10x ea Comments emphasis on core stab Upper Extremity Stretches walking pec stretch Body Position Standing Water Level Chest Level Equipment UE paddles Comments vc to let UE drag against water resistance Balance standing balance with perturbance Reps/Duration 1 min Comments therapist making waves SLS Details no hand hold Body Position Standing Water Level Chest Level Comments static and dynamic with opp LE movement [place] Activities [place] Activities Bicycle Other Activities T hang T hang with LE movement wall pull downs x 8 Equipment belt and 2 noodles Duration 20 Comments initially with belt and noodle but had difficulty stabilizing and maintaining neutral pelvis. With 2 lg noodles it was easier but began to bother shoulders.Next session use 2 small noodles PT-OP-T Assessment and Plan Start: 05/27/21 08:48 Freq: Status: Active Protocol: Document 07/23/21 14:27 ERON (Rec: 07/23/21 14:46 ERON [id number]) Physical Therapy Assessment Rehab Potential Rehabilitation Potential Good Evaluation Complexity Number of Personal Factors/Comorbidities 1-2 Number of Body Systems Impaired 3 Clinical Presentation at Evaluation Evolving Impairments Impairments Activity Tolerance,Pain,ROM, Soft Tissue Mobility,Strength Goals Four Impairment soft tissue mobility Impairment Tightness scar tissue right buttock, piriformis, reema IT bands Tow Motor Driver Goal (LTG) Improve soft tissue mobility to WNL to allow for improved ease of movement and decrease in pain 07/01/21: goal progress. Three Impairment pain as high as 9/10 right SI, buttock Short Term Goal (STG) Decrease pain to no greater than 5/10 with all usual activities 07/01/21: Pain has been variable, not predictable, often unable to point to cause of exacerbation. Some goal progress Snf Goal (LTG) Decrease pain to no greater than 2/10 with all usual activities Two Impairment weakness core and hips limiting mobility and activity tolerance Short Term Goal (STG) patient to be able to tolerate HEP for the purpose of strengthening and core/SI stabilization 07/01/21: patient compliant with HEP, variable tolerance. Tow Motor Driver Goal (LTG) Patient to demonstrate 5/5 muscle strength bilateral hips and core for improved function in the home and community with minimal pain. One Impairment Activity tolerance Impairment Oswestry disability index score 56% Short Term Goal (STG) Decrease ANGEL score to no greater than 40% 07/01/21: no reassessed this date STG Duration 07/13/21 Tow Motor Driver Goal (LTG) Decrease ANGEL score to no greater than 20% LTG Duration 08/25/21 Assessment Summary Assessment Pt did well in progressing with spinal stabilization in both deep and shallow exercises. When cued, he was able to correct posture and neutral pelvis. Showed progression with deep water exercises by being able to correct posture by himself. Physical Therapy Plan Frequency and Duration Frequency of Treatment 2x/Week Duration of Treatment 12 weeks Plan of Care Start Date 05/27/21 Plan of Care End Date 08/25/21 Therapeutic Interventions Therapeutic Interventions Aquatic Therapy,Gait Training, Home Exercise Program,Manual Therapy,Neuromuscular Re- education,Patient/Caregiver Education,Self-Care/Home Management,Soft Tissue Mobilization,Taping, Therapeutic Activities, Therapeutic Exercises Next Visit Focus/Plan Next Note Type Treatment Note Next Visit Plan Per primary PT: Continue gentle progression of ther ex with emphasis on core/SI. Add seated noodle balance for gentle core challenge.
--- NOTE | 2021-07-28 14:18 | PT.OTN ---
Current Diagnoses Sacroiliitis, not elsewhere classified (07/28/21) Physical Therapy Treatment Note PT-OP-A Visit Information Start: 05/27/21 08:48 Freq: Status: Active Protocol: Document 07/28/21 09:02 [facility] (Rec: 07/28/21 09:51 [facility] [id number]) Out-Patient Physical Therapy Visit Information Visit Information Visit Type Treatment Note Visit Start Time 09:00 Visit Stop Time 10:00 Total Visit Minutes 60 Visit Number 18 Precautions Precautions activity as tolerated per surgeon nurse PT-OP-B Current Condition Start: 05/27/21 08:48 Freq: Status: Active Protocol: Document 05/27/21 09:01 [facility] (Rec: 05/27/21 10:28 [facility] [id number]) Current Condition History of Current Condition Onset Date 04/21/21 Current Complaints right buttock History of Current Condition Fell August 2019 onto right SI joint. Pain into gluteal region. PT not helpful, pain persisted. Unable to walk without pain. Underwent right SI fusion 04/21/21. Hasn 't gone as well as anticiipated. Prior to surgery pain in right buttock, some in SI joint. Yesterday states having pain in SI pretty severe and down the outside of his leg. Hasn't driven since the surgery until yesterday. Throughout the day got a little better. This am the pain returned in right SI and buttock. Also having some pins and needsles in right foot. When saw PA 3 weeks after surgery was concerned seemed pin was very close to sacral foramina. Iced in the very beginning, but hasn't recently. Hasn't done any exercises since the surgery. Interested in slow, gentle exercise. Orders from doctor to do activity as pain permits. Weaned from walker to cane, then no cane very carefully and slowly for 2 weeks including a little walking on driveway. Reports using cane sometimes on right when really hurting because feeling better though knowing he is supposed to use on Can't bend down to put sock on without severe pain, using sock aid. looking to leave town for a few weeks, has to put hay in bucket. Stopped doing his prescribed exercises due to increase in gluteal pain. Just started to be able to lay on right side. Has point tenderness also right greater trochanter. Occasional glut pain on left as well. Prior Treatments and Tests 5 wks post op. Seen for right hip pain summer 2019, PT rightly said pain was coming from my back. 2 neck fusions c/s Future Testing and Treatments Planned Sees surgeon next week. 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, caring for animals on property Current Functional Impairments (Reported) Functional Limitations- ADL's painful, can't put sock on without pain Functional Limitations- Mobility/Gait painful, using cane Functional Limitations- Work/School unable to take care of animals on property Personal Factors Other Personal Factors That May Effect 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 Seems possibly to coincide with aquatic PT as well as with new bike at home. Hasn't used bike for 3 days. States pain persists. Feels PT initially helpful, not so sure right now . States scar feels more bumpy. PT-OP-E Functional Tests Start: 05/27/21 08:48 Freq: Status: Active Protocol: Document 05/27/21 09:01 [facility] (Rec: 05/27/21 10:28 [facility] [id number]) Functional Tests 6 Minute Walk Test Comments do next session PT-OP-G Mobility & Gait Start: 05/27/21 08:48 Freq: Status: Active Protocol: Document 05/27/21 09:01 [facility] (Rec: 05/27/21 10:28 [facility] [id number]) OP Mobility Evaluation Bed Mobility Rolling independent Supine to and from Sit independent with log roll Transfers Sit to Stand independent, decreased use of right LE Functional Movements Lifting and Carrying not doing at this time Squats not doing at this time OP Gait Assessment Assistive Devices Assistive Device Straight Cane Orthotic/Prosthetic Devices or Brace: No Gait Deviations General Gait Pattern Antalgic Comments Gait Comments Patient using cane on right side and leaning to the right; he says he does this when really hurting as it feels better. Instructed to use on left side for improved gait pattern and decreased compensation Stair Climbing Evaluation Evaluation Level of Assist On Stairs Independent Comments Stair Climbing Comments Reports alternating on short steps most of time, step-to pattern on higher stairs PT-OP-H Neuro Start: 05/27/21 08:48 Freq: Status: Active Protocol: Document 05/27/21 09:01 [facility] (Rec: 05/27/21 10:28 [facility] [id number]) Sensation Evaluation Gross Sensation Gross Sensation Left LE Impaired,Right LE Impaired Sensation Description [place] Dermatome Impairments L5,S1 PT-OP-J Posture/Palpation/Skin Start: 05/27/21 08:48 Freq: Status: Active Protocol: Document 05/27/21 09:01 [facility] (Rec: 05/27/21 10:28 [facility] [id number]) Posture Evaluation Position Standing Head/C-Spine Posture Forward Head T-Spine Posture Increased Kyphosis L-Spine Posture Flattened Pelvis Posture Posterior Tilted Hip Posture (L) Neutral,(R) Neutral Palpation Assessment Location reema buttocks Palpation Findings Soft Tissue Tightness,Muscle Guarding Palpation Details especially right piriformis lumbar paraspinals Palpation Findings Soft Tissue Tightness,Muscle Guarding surgical scar Palpation Location right SI Palpation Findings Soft Tissue Tightness Palpation Details decreased scar mobility PT-OP-K Range of Motion Start: 05/27/21 08:48 Freq: Status: Active Protocol: Document 05/27/21 09:01 [facility] (Rec: 05/27/21 10:28 [facility] [id number]) Lumbar Spine Range of Motion Lumbar Spine Active Comments not formally assessed due to 5 weeks post-op Hip Goniometric Range of Motion Hip Right Flexion w/Knee Flexed 95 Straight Leg Raise 45 Extension 0 Comments not fully assessed at end- range due to recent surgery and high pain level today left Flexion w/Knee Flexed 95 Straight Leg Raise 55 Extension 0 Comments not fully assessed at end- range due to recent surgery and high pain level today Hip ROM Limitations Hip ROM Limitations Soft Tissue Tightness,Pain Knee Goniometric Range of Motion Knee Right Extension Active (degrees) 10 Left Knee ROM WFL Yes Knee ROM Limitations Knee ROM Limitations Soft Tissue Tightness Comments tight hamstrings limiting knee extension in sitting PT-OP-L Special Tests Start: 05/27/21 08:48 Freq: Status: Active Protocol: Document 05/27/21 09:01 [facility] (Rec: 05/27/21 10:28 [facility] [id number]) Special Tests Neural Special Tests- Lower Body Sciatic Nerve Tension Test Results positive right PT-OP-M Strength Start: 05/27/21 08:48 Freq: Status: Active Protocol: Document 05/27/21 09:01 [facility] (Rec: 05/27/21 10:28 [facility] [id number]) Trunk Strength Trunk Manual Muscle Testing Testing Position Supine Core Stabilization difficulty activating core musculature Hip Strength Hip Manual Muscle Testing Right Comments no MMT due to recent surgery, has anti-gravity flexion in limited motion Left Comments not assessed due to recent surgery, has anti-gravity flexion Knee Strength Knee Manual Muscle Testing reema Comments has anti-gravity extension reema , no MMT Ankle/Foot Strength Ankle and Foot Manual Muscle Testing Right Dorsiflexion (L4) 4 Good Plantarflexion (S1) 4+ Good+ Left Dorsiflexion (L4) 5 Normal Plantarflexion (S1) 5 Normal Toe Strength Toe Manual Muscle Testing Great Toe Comments left 5/5, right 4/5 PT-OP-Q Treatments Start: 05/27/21 08:48 Freq: Status: Active Protocol: Document 07/28/21 09:02 [facility] (Rec: 07/28/21 09:51 [facility] [id number]) Cardio Equipment Bicycle (Upright) Duration (Minutes) 7 Resistance 11 Seat Position 7 Manual Therapy Treatment Soft Tissue Mobilization piriformis Body Location right Mobilization Type Myofascial Release,Sustained Pressure hamstring Body Location proximal right Mobilization Type Myofascial Release,Strumming Intensity/Depth Moderate ITB Body Location right Mobilization Type Instrument Assisted,Rolling Intensity/Depth Moderate Body Position Sidelying Glutes Body Location R Mobilization Type Myofascial Release,Sustained Pressure Intensity/Depth Moderate Body Position Sidelying Comments piriformis Self-Care/Home Management Treatment Education Other Education more upright posture with ex bike at home, be careful to not move into excessive ROM in pool. PT-OP-R Modalities Start: 05/27/21 08:48 Freq: Status: Active Protocol: Document 07/01/21 08:15 [facility] (Rec: 07/01/21 16:26 [facility] [id number]) Electric Stimulation Electric Stimulation Interferential Current (IFC) Body Location reema l/s, SI Duration (Minutes) 15 Intensity 11 Target/Sweep Sweep High/Low High Patient Position Sidelying Combined With Heat/Cold Hot Pack PT-OP-S Aquatic Treatment Start: 05/27/21 08:48 Freq: Status: Active Protocol: Document 07/23/21 14:27 [facility] (Rec: 07/23/21 14:46 [facility] [id number]) Aquatics Treatment Pool Entry/Exit Pool Entry/Exit Method Stairs Assistance Independent Water Walking stop start Water Level Chest Level Level of Assistance Verbal Cues march Water Level Chest Level Level of Assistance Verbal Cues fwd,bck,side Water Level Chest Level Level of Assistance Verbal Cues Comments cues for recip arm pattern Lower Extremity Exercises hip AB/AD Details at wall Body Position Standing Reps/Duration 10 B Comments hand hold hip fl/ext Details at wall Body Position Standing Reps/Duration 10 B Comments occasional hand hold Lower Extremity Stretches gastroc Details at wall Body Position Standing Water Level Waist Level Reps/Duration 30' x 2 B SKTC Body Position Standing Water Level Chest Level Reps/Duration 30' x 2 B HS stretch Details also groin and ITB Body Position Standing Equipment Small Noodle Reps/Duration 2x 30 Upper Extremity Exercises hor ab/ad, flex/ext Details reema and unil; at wall Body Position Sitting Water Level Chest Level Reps/Duration 10x ea Comments emphasis on core stab Upper Extremity Stretches walking pec stretch Body Position Standing Water Level Chest Level Equipment UE paddles Comments vc to let UE drag against water resistance Balance standing balance with perturbance Reps/Duration 1 min Comments therapist making waves SLS Details no hand hold Body Position Standing Water Level Chest Level Comments static and dynamic with opp LE movement Delaplaine Activities Delaplaine Activities Bicycle Other Activities T hang T hang with LE movement wall pull downs x 8 Equipment belt and 2 noodles Duration 20 Comments initially with belt and noodle but had difficulty stabilizing and maintaining neutral pelvis. With 2 lg noodles it was easier but began to bother shoulders.Next session use 2 small noodles PT-OP-T Assessment and Plan Start: 05/27/21 08:48 Freq: Status: Active Protocol: Document 07/28/21 09:02 [facility] (Rec: 07/28/21 09:51 [facility] [id number]) Physical Therapy Assessment Goals Four Impairment soft tissue mobility Impairment Tightness scar tissue right buttock, piriformis, reema IT bands Enamel Dipper Goal (LTG) Improve soft tissue mobility to WNL to allow for improved ease of movement and decrease in pain 07/01/21: goal progress. Three Impairment pain as high as 9/10 right SI, buttock Short Term Goal (STG) Decrease pain to no greater than 5/10 with all usual activities 07/01/21: Pain has been variable, not predictable, often unable to point to cause of exacerbation. Some goal progress Enamel Dipper Goal (LTG) Decrease pain to no greater than 2/10 with all usual activities Two Impairment weakness core and hips limiting mobility and activity tolerance Short Term Goal (STG) patient to be able to tolerate HEP for the purpose of strengthening and core/SI stabilization 07/01/21: patient compliant with HEP, variable tolerance. Halfway Goal (LTG) Patient to demonstrate 5/5 muscle strength bilateral hips and core for improved function in the home and community with minimal pain. One Impairment Activity tolerance Impairment Oswestry disability index score 56% Short Term Goal (STG) Decrease ANGEL score to no greater than 40% 07/01/21: no reassessed this date STG Duration 07/13/21 Halfway Goal (LTG) Decrease ANGEL score to no greater than 20% LTG Duration 08/25/21 Assessment Summary Assessment Has had increase in symptoms recently, uncertain why. Patient compliant to HEP. Does appear seat for ex bike at home not optimal for positioning, trial ex bike again in clinic to discuss differences, modifications patient can make at home, consider different seat. Reviewed need to not overdo with motion and assure neutral alignment when in pool. Increased manual therapy component of treatment today. Physical Therapy Plan Frequency and Duration Frequency of Treatment 2x/Week Duration of Treatment 12 weeks Plan of Care Start Date 05/27/21 Plan of Care End Date 08/25/21 Therapeutic Interventions Therapeutic Interventions Aquatic Therapy,Gait Training, Home Exercise Program,Manual Therapy,Neuromuscular Re- education,Patient/Caregiver Education,Self-Care/Home Management,Soft Tissue Mobilization,Taping, Therapeutic Activities, Therapeutic Exercises Next Visit Focus/Plan Next Note Type Treatment Note Next Visit Plan Assess response to increased manual techniques in today's treatment, continue as tolerated and as indicated. Add seated noodle balance for gentle core challenge in aquatic PT.
--- NOTE | 2021-07-31 15:55 | PT.OTN ---
Current Diagnoses Sacroiliitis, not elsewhere classified (07/31/21) Physical Therapy Treatment Note PT-OP-A Visit Information Start: 05/27/21 08:48 Freq: Status: Active Protocol: Document 07/31/21 08:12 [facility] (Rec: 07/31/21 08:57 SAK [id number]) Out-Patient Physical Therapy Visit Information Visit Information Visit Type Treatment Note Visit Start Time 08:15 Visit Stop Time 09:00 Total Visit Minutes 60 Visit Number 19 Precautions Precautions activity as tolerated per surgeon nurse PT-OP-B Current Condition Start: 05/27/21 08:48 Freq: Status: Active Protocol: Document 05/27/21 09:01 SAK (Rec: 05/27/21 10:28 SAK [id number]) Current Condition History of Current Condition Onset Date 04/21/21 Current Complaints right buttock History of Current Condition Fell August 2019 onto right SI joint. Pain into gluteal region. PT not helpful, pain persisted. Unable to walk without pain. Underwent right SI fusion 04/21/21. Hasn 't gone as well as anticiipated. Prior to surgery pain in right buttock, some in SI joint. Yesterday states having pain in SI pretty severe and down the outside of his leg. Hasn't driven since the surgery until yesterday. Throughout the day got a little better. This am the pain returned in right SI and buttock. Also having some pins and needsles in right foot. When saw PA 3 weeks after surgery was concerned seemed pin was very close to sacral foramina. Iced in the very beginning, but hasn't recently. Hasn't done any exercises since the surgery. Interested in slow, gentle exercise. Orders from doctor to do activity as pain permits. Weaned from walker to cane, then no cane very carefully and slowly for 2 weeks including a little walking on driveway. Reports using cane sometimes on right when really hurting because feeling better though knowing he is supposed to use on Can't bend down to put sock on without severe pain, using sock aid. looking to leave town for a few weeks, has to put hay in bucket. Stopped doing his prescribed exercises due to increase in gluteal pain. Just started to be able to lay on right side. Has point tenderness also right greater trochanter. Occasional glut pain on left as well. Prior Treatments and Tests 5 wks post op. Seen for right hip pain summer 2019, PT rightly said pain was coming from my back. 2 neck fusions c/s Future Testing and Treatments Planned Sees surgeon next week. 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, caring for animals on property Current Functional Impairments (Reported) Functional Limitations- ADL's painful, can't put sock on without pain Functional Limitations- Mobility/Gait painful, using cane Functional Limitations- Work/School unable to take care of animals on property Personal Factors Other Personal Factors That May Effect 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 Went to pool on own to try aquatic ex on own, states he was floundering, needs more instruction to be able to do on his own. States his left knee has been getting worse. Got appointment scheduled to see Dr. Masterson October 16 regarding his knee. SI pain some improved, worst pain is lower in buttock; no change. Patient reports compliant to HEP. Feels manual therapy helpful but can't do on own. PT-OP-E Functional Tests Start: 05/27/21 08:48 Freq: Status: Active Protocol: Document 05/27/21 09:01 [facility] (Rec: 05/27/21 10:28 [facility] [id number]) Functional Tests 6 Minute Walk Test Comments do next session PT-OP-G Mobility & Gait Start: 05/27/21 08:48 Freq: Status: Active Protocol: Document 05/27/21 09:01 [facility]AK (Rec: 05/27/21 10:28 [facility] [id number]) OP Mobility Evaluation Bed Mobility Rolling independent Supine to and from Sit independent with log roll Transfers Sit to Stand independent, decreased use of right LE Functional Movements Lifting and Carrying not doing at this time Squats not doing at this time OP Gait Assessment Assistive Devices Assistive Device Straight Cane Orthotic/Prosthetic Devices or Brace: No Gait Deviations General Gait Pattern Antalgic Comments Gait Comments Patient using cane on right side and leaning to the right; he says he does this when really hurting as it feels better. Instructed to use on left side for improved gait pattern and decreased compensation Stair Climbing Evaluation Evaluation Level of Assist On Stairs Independent Comments Stair Climbing Comments Reports alternating on short steps most of time, step-to pattern on higher stairs PT-OP-H Neuro Start: 05/27/21 08:48 Freq: Status: Active Protocol: Document 05/27/21 09:01 [facility] (Rec: 05/27/21 10:28 [facility] [id number]) Sensation Evaluation Gross Sensation Gross Sensation Left LE Impaired,Right LE Impaired Sensation Description [place] Dermatome Impairments L5,S1 PT-OP-J Posture/Palpation/Skin Start: 05/27/21 08:48 Freq: Status: Active Protocol: Document 05/27/21 09:01 [facility] (Rec: 05/27/21 10:28 [facility] [id number]) Posture Evaluation Position Standing Head/C-Spine Posture Forward Head T-Spine Posture Increased Kyphosis L-Spine Posture Flattened Pelvis Posture Posterior Tilted Hip Posture (L) Neutral,(R) Neutral Palpation Assessment Location reema buttocks Palpation Findings Soft Tissue Tightness,Muscle Guarding Palpation Details especially right piriformis lumbar paraspinals Palpation Findings Soft Tissue Tightness,Muscle Guarding surgical scar Palpation Location right SI Palpation Findings Soft Tissue Tightness Palpation Details decreased scar mobility PT-OP-K Range of Motion Start: 05/27/21 08:48 Freq: Status: Active Protocol: Document 05/27/21 09:01 [facility] (Rec: 05/27/21 10:28 [facility] [id number]) Lumbar Spine Range of Motion Lumbar Spine Active Comments not formally assessed due to 5 weeks post-op Hip Goniometric Range of Motion Hip Right Flexion w/Knee Flexed 95 Straight Leg Raise 45 Extension 0 Comments not fully assessed at end- range due to recent surgery and high pain level today left Flexion w/Knee Flexed 95 Straight Leg Raise 55 Extension 0 Comments not fully assessed at end- range due to recent surgery and high pain level today Hip ROM Limitations Hip ROM Limitations Soft Tissue Tightness,Pain Knee Goniometric Range of Motion Knee Right Extension Active (degrees) 10 Left Knee ROM WFL Yes Knee ROM Limitations Knee ROM Limitations Soft Tissue Tightness Comments tight hamstrings limiting knee extension in sitting PT-OP-L Special Tests Start: 05/27/21 08:48 Freq: Status: Active Protocol: Document 05/27/21 09:01 [facility] (Rec: 05/27/21 10:28 [facility] [id number]) Special Tests Neural Special Tests- Lower Body Sciatic Nerve Tension Test Results positive right PT-OP-M Strength Start: 05/27/21 08:48 Freq: Status: Active Protocol: Document 05/27/21 09:01 [facility] (Rec: 05/27/21 10:28 [facility] [id number]) Trunk Strength Trunk Manual Muscle Testing Testing Position Supine Core Stabilization difficulty activating core musculature Hip Strength Hip Manual Muscle Testing Right Comments no MMT due to recent surgery, has anti-gravity flexion in limited motion Left Comments not assessed due to recent surgery, has anti-gravity flexion Knee Strength Knee Manual Muscle Testing reema Comments has anti-gravity extension reema , no MMT Ankle/Foot Strength Ankle and Foot Manual Muscle Testing Right Dorsiflexion (L4) 4 Good Plantarflexion (S1) 4+ Good+ Left Dorsiflexion (L4) 5 Normal Plantarflexion (S1) 5 Normal Toe Strength Toe Manual Muscle Testing Great Toe Comments left 5/5, right 4/5 PT-OP-Q Treatments Start: 05/27/21 08:48 Freq: Status: Active Protocol: Document 07/31/21 08:12 [facility] (Rec: 07/31/21 08:57 [facility] [id number]) Cardio Equipment Bicycle (Upright) Duration (Minutes) 6 Resistance 11 Seat Position 7 Other stopped due to left knee pain Therapeutic Exercises Supine Exercises HS stretch Reps/Minutes 1x 20 Comments discontinued, painful left. Better tolerance seated stretch Therapeutic Activity Therapeutic Activity self massage Reps/Minutes 3 min Comments seated with raquetball buttock ; patient reported felt better than with other positions, gets to right spot Manual Therapy Treatment Soft Tissue Mobilization piriformis Body Location right Mobilization Type Myofascial Release,Strumming, Sustained Pressure hamstring Body Location proximal right Mobilization Type Myofascial Release,Strumming Intensity/Depth Moderate ITB Body Location right Mobilization Type Myofascial Release,Rolling Intensity/Depth Moderate Body Position Sidelying scar tissue Body Location right buttock, reema LB Mobilization Type Myofascial Release Self-Care/Home Management Treatment Activities Self-Care/Home Management Activities assessed patient's ex bike seat which he brought to PT today, compared with clinic bike seat which he finds much more comfortable. Had patient take pictures of clinic seat including with measurements; he plans to try to find same type of seat for use at home. Clinic seat allows for more full movement through hips. PT-OP-R Modalities Start: 05/27/21 08:48 Freq: Status: Active Protocol: Document 07/01/21 08:15 [facility] (Rec: 07/01/21 16:26 SAK [id number]) Electric Stimulation Electric Stimulation Interferential Current (IFC) Body Location reema l/s, SI Duration (Minutes) 15 Intensity 11 Target/Sweep Sweep High/Low High Patient Position Sidelying Combined With Heat/Cold Hot Pack PT-OP-S Aquatic Treatment Start: 05/27/21 08:48 Freq: Status: Active Protocol: Document 07/23/21 14:27 LJ (Rec: 07/23/21 14:46 LJ [id number]) Aquatics Treatment Pool Entry/Exit Pool Entry/Exit Method Stairs Assistance Independent Water Walking stop start Water Level Chest Level Level of Assistance Verbal Cues march Water Level Chest Level Level of Assistance Verbal Cues fwd,bck,side Water Level Chest Level Level of Assistance Verbal Cues Comments cues for recip arm pattern Lower Extremity Exercises hip AB/AD Details at wall Body Position Standing Reps/Duration 10 B Comments hand hold hip fl/ext Details at wall Body Position Standing Reps/Duration 10 B Comments occasional hand hold Lower Extremity Stretches gastroc Details at wall Body Position Standing Water Level Waist Level Reps/Duration 30' x 2 B SKTC Body Position Standing Water Level Chest Level Reps/Duration 30' x 2 B HS stretch Details also groin and ITB Body Position Standing Equipment Small Noodle Reps/Duration 2x 30 Upper Extremity Exercises hor ab/ad, flex/ext Details reema and unil; at wall Body Position Sitting Water Level Chest Level Reps/Duration 10x ea Comments emphasis on core stab Upper Extremity Stretches walking pec stretch Body Position Standing Water Level Chest Level Equipment UE paddles Comments vc to let UE drag against water resistance Balance standing balance with perturbance Reps/Duration 1 min Comments therapist making waves SLS Details no hand hold Body Position Standing Water Level Chest Level Comments static and dynamic with opp LE movement Wright Activities Wright Activities Bicycle Other Activities T hang T hang with LE movement wall pull downs x 8 Equipment belt and 2 noodles Duration 20 Comments initially with belt and noodle but had difficulty stabilizing and maintaining neutral pelvis. With 2 lg noodles it was easier but began to bother shoulders.Next session use 2 small noodles PT-OP-T Assessment and Plan Start: 05/27/21 08:48 Freq: Status: Active Protocol: Document 07/31/21 08:12 [facility] (Rec: 07/31/21 08:57 [facility] [id number]) Physical Therapy Assessment Goals Four Impairment soft tissue mobility Impairment Tightness scar tissue right buttock, piriformis, reema IT bands Recruiting And Selection Consultant Goal (LTG) Improve soft tissue mobility to WNL to allow for improved ease of movement and decrease in pain 07/01/21: goal progress. 07/31/21: goal progress, working on patient ability to do self massage LTG Duration 08/25/21 Three Impairment pain as high as 9/10 right SI, buttock Short Term Goal (STG) Decrease pain to no greater than 5/10 with all usual activities 07/01/21: Pain has been variable, not predictable, often unable to point to cause of exacerbation. Some goal progress 07/31/21: improved to 4/10 per pain chart [facility] Goal (LTG) Decrease pain to no greater than 2/10 with all usual activities LTG Duration 08/25/21 Two Impairment weakness core and hips limiting mobility and activity tolerance Short Term Goal (STG) patient to be able to tolerate HEP for the purpose of strengthening and core/SI stabilization 07/01/21: patient compliant with HEP, variable tolerance. 07/31/21: HEP continues to be modified according to patient tolerance. Has begun aquatic PT with good tolerance and feel that may be best treatment for this patient. Recruiting And Selection Consultant Goal (LTG) Patient to demonstrate 5/5 muscle strength bilateral hips and core for improved function in the home and community with minimal pain. 07/31/21: goal progress LTG Duration 08/25/21 One Impairment Activity tolerance Impairment Oswestry disability index score 56% Short Term Goal (STG) Decrease ANGEL score to no greater than 40% 07/01/21: no reassessed this date 07/31/21: decreased to 32% STG Duration 07/13/21 Recruiting And Selection Consultant Goal (LTG) Decrease ANGEL score to no greater than 20% LTG Duration 08/25/21 Progress Towards Goals Progress Towards Goals Progressing Toward Goals Assessment Summary Assessment Patient SI pain some improved, persists in piriformis, hamstring origin with palpable soft tissue tightness. Decrease in ANGEL and pain level per pain chart. Good tolerance for aquatic PT but needs further instruction and progression. Patient obtained exercise bike as discussed but seat uncomfortable and part of today's session was comparing and discussing problematic features of current seat, taking pictures; patient to work on obtaining different seat. Complicating recovery is left knee pain which sounds meniscal in nature. Patient to try wearing knee sleeve. Physical Therapy Plan Frequency and Duration Frequency of Treatment 2x/Week Duration of Treatment 12 weeks Plan of Care Start Date 05/27/21 Plan of Care End Date 08/25/21 Therapeutic Interventions Therapeutic Interventions Aquatic Therapy,Gait Training, Home Exercise Program,Manual Therapy,Neuromuscular Re- education,Patient/Caregiver Education,Self-Care/Home Management,Soft Tissue Mobilization,Taping, Therapeutic Activities, Therapeutic Exercises Next Visit Focus/Plan Next Note Type Progress Note Next Visit Plan Assess response to increased self-massage, see if able to obtain different exercise bike seat. Land: emphasis on manual techniques and core stabilization. Aquatic: progress core stabilization, strengthening.
--- NOTE | 2021-08-11 15:10 | PT.OTN ---
Current Diagnoses Sacroiliitis, not elsewhere classified (08/11/21) Physical Therapy Treatment Note PT-OP-A Visit Information Start: 05/27/21 08:48 Freq: Status: Active Protocol: Document 08/11/21 08:13 [facility] (Rec: 08/11/21 09:00 [facility] [id number]) Out-Patient Physical Therapy Visit Information Visit Information Visit Type Treatment Note Visit Start Time 08:15 Visit Stop Time 09:00 Total Visit Minutes 60 Visit Number 20 Precautions Precautions activity as tolerated per surgeon nurse PT-OP-B Current Condition Start: 05/27/21 08:48 Freq: Status: Active Protocol: Document 05/27/21 09:01 [facility] (Rec: 05/27/21 10:28 [facility] [id number]) Current Condition History of Current Condition Onset Date 04/21/21 Current Complaints right buttock History of Current Condition Fell August 2019 onto right SI joint. Pain into gluteal region. PT not helpful, pain persisted. Unable to walk without pain. Underwent right SI fusion 04/21/21. Hasn 't gone as well as anticiipated. Prior to surgery pain in right buttock, some in SI joint. Yesterday states having pain in SI pretty severe and down the outside of his leg. Hasn't driven since the surgery until yesterday. Throughout the day got a little better. This am the pain returned in right SI and buttock. Also having some pins and needsles in right foot. When saw PA 3 weeks after surgery was concerned seemed pin was very close to sacral foramina. Iced in the very beginning, but hasn't recently. Hasn't done any exercises since the surgery. Interested in slow, gentle exercise. Orders from doctor to do activity as pain permits. Weaned from walker to cane, then no cane very carefully and slowly for 2 weeks including a little walking on driveway. Reports using cane sometimes on right when really hurting because feeling better though knowing he is supposed to use on Can't bend down to put sock on without severe pain, using sock aid. looking to leave town for a few weeks, has to put hay in bucket. Stopped doing his prescribed exercises due to increase in gluteal pain. Just started to be able to lay on right side. Has point tenderness also right greater trochanter. Occasional glut pain on left as well. Prior Treatments and Tests 5 wks post op. Seen for right hip pain summer 2019, PT rightly said pain was coming from my back. 2 neck fusions c/s Future Testing and Treatments Planned Sees surgeon next week. 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, caring for animals on property Current Functional Impairments (Reported) Functional Limitations- ADL's painful, can't put sock on without pain Functional Limitations- Mobility/Gait painful, using cane Functional Limitations- Work/School unable to take care of animals on property Personal Factors Other Personal Factors That May Effect 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 Iced and heated and took muscle relaxant and Advil . By yesterday able to walk 1 /2 mile down to mailbox, still sore. 90% better. Hasn't gotten new ex bike seat yet. Left medial knee continues to be bothersome, has appointment with Dr. Masterson. PT-OP-E Functional Tests Start: 05/27/21 08:48 Freq: Status: Active Protocol: Document 05/27/21 09:01 [facility] (Rec: 05/27/21 10:28 [facility] [id number]) Functional Tests 6 Minute Walk Test Comments do next session PT-OP-G Mobility & Gait Start: 05/27/21 08:48 Freq: Status: Active Protocol: Document 05/27/21 09:01 [facility] (Rec: 05/27/21 10:28 [facility] [id number]) OP Mobility Evaluation Bed Mobility Rolling independent Supine to and from Sit independent with log roll Transfers Sit to Stand independent, decreased use of right LE Functional Movements Lifting and Carrying not doing at this time Squats not doing at this time OP Gait Assessment Assistive Devices Assistive Device Straight Cane Orthotic/Prosthetic Devices or Brace: No Gait Deviations General Gait Pattern Antalgic Comments Gait Comments Patient using cane on right side and leaning to the right; he says he does this when really hurting as it feels better. Instructed to use on left side for improved gait pattern and decreased compensation Stair Climbing Evaluation Evaluation Level of Assist On Stairs Independent Comments Stair Climbing Comments Reports alternating on short steps most of time, step-to pattern on higher stairs PT-OP-H Neuro Start: 05/27/21 08:48 Freq: Status: Active Protocol: Document 05/27/21 09:01 [facility] (Rec: 05/27/21 10:28 [facility] [id number]) Sensation Evaluation Gross Sensation Gross Sensation Left LE Impaired,Right LE Impaired Sensation Description Pins & Addison Dermatome Impairments L5,S1 PT-OP-J Posture/Palpation/Skin Start: 05/27/21 08:48 Freq: Status: Active Protocol: Document 05/27/21 09:01 [facility] (Rec: 05/27/21 10:28 [facility] [id number]) Posture Evaluation Position Standing Head/C-Spine Posture Forward Head T-Spine Posture Increased Kyphosis L-Spine Posture Flattened Pelvis Posture Posterior Tilted Hip Posture (L) Neutral,(R) Neutral Palpation Assessment Location reema buttocks Palpation Findings Soft Tissue Tightness,Muscle Guarding Palpation Details especially right piriformis lumbar paraspinals Palpation Findings Soft Tissue Tightness,Muscle Guarding surgical scar Palpation Location right SI Palpation Findings Soft Tissue Tightness Palpation Details decreased scar mobility PT-OP-K Range of Motion Start: 05/27/21 08:48 Freq: Status: Active Protocol: Document 05/27/21 09:01 [facility] (Rec: 05/27/21 10:28 [facility] [id number]) Lumbar Spine Range of Motion Lumbar Spine Active Comments not formally assessed due to 5 weeks post-op Hip Goniometric Range of Motion Hip Right Flexion w/Knee Flexed 95 Straight Leg Raise 45 Extension 0 Comments not fully assessed at end- range due to recent surgery and high pain level today left Flexion w/Knee Flexed 95 Straight Leg Raise 55 Extension 0 Comments not fully assessed at end- range due to recent surgery and high pain level today Hip ROM Limitations Hip ROM Limitations Soft Tissue Tightness,Pain Knee Goniometric Range of Motion Knee Right Extension Active (degrees) 10 Left Knee ROM WFL Yes Knee ROM Limitations Knee ROM Limitations Soft Tissue Tightness Comments tight hamstrings limiting knee extension in sitting PT-OP-L Special Tests Start: 05/27/21 08:48 Freq: Status: Active Protocol: Document 05/27/21 09:01 [facility] (Rec: 05/27/21 10:28 [facility] [id number]) Special Tests Neural Special Tests- Lower Body Sciatic Nerve Tension Test Results positive right PT-OP-M Strength Start: 05/27/21 08:48 Freq: Status: Active Protocol: Document 05/27/21 09:01 [facility] (Rec: 05/27/21 10:28 [facility] [id number]) Trunk Strength Trunk Manual Muscle Testing Testing Position Supine Core Stabilization difficulty activating core musculature Hip Strength Hip Manual Muscle Testing Right Comments no MMT due to recent surgery, has anti-gravity flexion in limited motion Left Comments not assessed due to recent surgery, has anti-gravity flexion Knee Strength Knee Manual Muscle Testing reema Comments has anti-gravity extension reema , no MMT Ankle/Foot Strength Ankle and Foot Manual Muscle Testing Right Dorsiflexion (L4) 4 Good Plantarflexion (S1) 4+ Good+ Left Dorsiflexion (L4) 5 Normal Plantarflexion (S1) 5 Normal Toe Strength Toe Manual Muscle Testing Great Toe Comments left 5/5, right 4/5 PT-OP-Q Treatments Start: 05/27/21 08:48 Freq: Status: Active Protocol: Document 08/11/21 08:13 [facility] (Rec: 08/11/21 09:00 [facility] [id number]) Cardio Equipment Bicycle (Upright) Duration (Minutes) 10 Resistance 7 Seat Position 7 Gym Equipment Shuttle Recovery Unilateral Squats Resistance 25 Shuttle Recovery Platform Stable Reps/Time 10x2 Bilateral Squats Resistance 50 Shuttle Recovery Platform Stable Reps/Time 10x2 Therapeutic Activity Therapeutic Activity self massage Comments verbal review Manual Therapy Treatment Soft Tissue Mobilization piriformis Body Location right Mobilization Type Myofascial Release,Strumming, Sustained Pressure hamstring Body Location proximal right Mobilization Type Myofascial Release,Strumming Intensity/Depth Moderate ITB Body Location right Mobilization Type Myofascial Release,Rolling Intensity/Depth Moderate Body Position Sidelying Glutes Body Location R Mobilization Type Myofascial Release,Sustained Pressure Intensity/Depth Moderate Body Position Sidelying Comments piriformis scar tissue Body Location right buttock, reema LB Mobilization Type Myofascial Release PT-OP-R Modalities Start: 05/27/21 08:48 Freq: Status: Active Protocol: Document 08/11/21 08:13 [facility] (Rec: 08/11/21 09:00 [facility] [id number]) Hot Pack/Cold Pack Treatment Hot Pack Location left SI, piriformis Patient Position Sidelying Treatment Duration (minutes) 15 Patient Tolerance Good PT-OP-S Aquatic Treatment Start: 05/27/21 08:48 Freq: Status: Active Protocol: Document 07/23/21 14:27 [facility] (Rec: 07/23/21 14:46 [facility] [id number]) Aquatics Treatment Pool Entry/Exit Pool Entry/Exit Method Stairs Assistance Independent Water Walking stop start Water Level Chest Level Level of Assistance Verbal Cues march Water Level Chest Level Level of Assistance Verbal Cues fwd,bck,side Water Level Chest Level Level of Assistance Verbal Cues Comments cues for recip arm pattern Lower Extremity Exercises hip AB/AD Details at wall Body Position Standing Reps/Duration 10 B Comments hand hold hip fl/ext Details at wall Body Position Standing Reps/Duration 10 B Comments occasional hand hold Lower Extremity Stretches gastroc Details at wall Body Position Standing Water Level Waist Level Reps/Duration 30' x 2 B SKTC Body Position Standing Water Level Chest Level Reps/Duration 30' x 2 B HS stretch Details also groin and ITB Body Position Standing Equipment Small Noodle Reps/Duration 2x 30 Upper Extremity Exercises hor ab/ad, flex/ext Details reema and unil; at wall Body Position Sitting Water Level Chest Level Reps/Duration 10x ea Comments emphasis on core stab Upper Extremity Stretches walking pec stretch Body Position Standing Water Level Chest Level Equipment UE paddles Comments vc to let UE drag against water resistance Balance standing balance with perturbance Reps/Duration 1 min Comments therapist making waves SLS Details no hand hold Body Position Standing Water Level Chest Level Comments static and dynamic with opp LE movement Milldale Activities Milldale Activities Bicycle Other Activities T hang T hang with LE movement wall pull downs x 8 Equipment belt and 2 noodles Duration 20 Comments initially with belt and noodle but had difficulty stabilizing and maintaining neutral pelvis. With 2 lg noodles it was easier but began to bother shoulders.Next session use 2 small noodles PT-OP-T Assessment and Plan Start: 05/27/21 08:48 Freq: Status: Active Protocol: Document 08/11/21 08:13 [facility] (Rec: 08/11/21 09:00 [facility] [id number]) Physical Therapy Assessment Goals Four Impairment soft tissue mobility Impairment Tightness scar tissue right buttock, piriformis, reema IT bands Trainmaster Goal (LTG) Improve soft tissue mobility to WNL to allow for improved ease of movement and decrease in pain 07/01/21: goal progress. 07/31/21: goal progress, working on patient ability to do self massage 08/11/21: goo LTG Duration 08/25/21 Three Impairment pain as high as 9/10 right SI, buttock Short Term Goal (STG) Decrease pain to no greater than 5/10 with all usual activities 07/01/21: Pain has been variable, not predictable, often unable to point to cause of exacerbation. Some goal progress 07/31/21: improved to 4/10 per pain chart Trainmaster Goal (LTG) Decrease pain to no greater than 2/10 with all usual activities LTG Duration 08/25/21 Two Impairment weakness core and hips limiting mobility and activity tolerance Short Term Goal (STG) patient to be able to tolerate HEP for the purpose of strengthening and core/SI stabilization 07/01/21: patient compliant with HEP, variable tolerance. 07/31/21: HEP continues to be modified according to patient tolerance. Has begun aquatic PT with good tolerance and feel that may be best treatment for this patient. Senior Care Goal (LTG) Patient to demonstrate 5/5 muscle strength bilateral hips and core for improved function in the home and community with minimal pain. 07/31/21: goal progress LTG Duration 08/25/21 One Impairment Activity tolerance Impairment Oswestry disability index score 56% Short Term Goal (STG) Decrease ANGLE score to no greater than 40% 07/01/21: no reassessed this date 07/31/21: decreased to 32% STG Duration 07/13/21 Trainmaster Goal (LTG) Decrease ANGEL score to no greater than 20% LTG Duration 08/25/21 Assessment Summary Assessment Patient c/o pain right buttock after turning in shower, gradually improving. Feels comfortable with HEP at this time, wants to mostly concentrate on aquatic exercise progression. Pain easily exacerbated. Physical Therapy Plan Frequency and Duration Frequency of Treatment 2x/Week Duration of Treatment 12 weeks Plan of Care Start Date 05/27/21 Plan of Care End Date 08/25/21 Therapeutic Interventions Therapeutic Interventions Aquatic Therapy,Gait Training, Home Exercise Program,Manual Therapy,Neuromuscular Re- education,Patient/Caregiver Education,Self-Care/Home Management,Soft Tissue Mobilization,Taping, Therapeutic Activities, Therapeutic Exercises Next Visit Focus/Plan Next Note Type Treatment Note Next Visit Plan Assess response to increased self-massage, see if able to obtain different exercise bike seat. Land: emphasis on manual techniques and core stabilization. Aquatic: progress core stabilization, strengthening.
--- NOTE | 2021-08-13 16:09 | PT.OTN ---
Current Diagnoses Sacroiliitis, not elsewhere classified (08/13/21) Physical Therapy Treatment Note PT-OP-A Visit Information Start: 05/27/21 08:48 Freq: Status: Active Protocol: Document 08/13/21 16:02 [facility] (Rec: 08/13/21 16:08 [facility] [id number]) Out-Patient Physical Therapy Visit Information Visit Information Visit Type Treatment Note Visit Start Time 11:00 Visit Stop Time 11:45 Total Visit Minutes 45 Visit Number 20 PT-OP-B Current Condition Start: 05/27/21 08:48 Freq: Status: Active Protocol: Document 05/27/21 09:01 [facility] (Rec: 05/27/21 10:28 [facility] [id number]) Current Condition History of Current Condition Onset Date 04/21/21 Current Complaints right buttock History of Current Condition Fell August 2019 onto right SI joint. Pain into gluteal region. PT not helpful, pain persisted. Unable to walk without pain. Underwent right SI fusion 04/21/21. Hasn 't gone as well as anticiipated. Prior to surgery pain in right buttock, some in SI joint. Yesterday states having pain in SI pretty severe and down the outside of his leg. Hasn't driven since the surgery until yesterday. Throughout the day got a little better. This am the pain returned in right SI and buttock. Also having some pins and needsles in right foot. When saw PA 3 weeks after surgery was concerned seemed pin was very close to sacral foramina. Iced in the very beginning, but hasn't recently. Hasn't done any exercises since the surgery. Interested in slow, gentle exercise. Orders from doctor to do activity as pain permits. Weaned from walker to cane, then no cane very carefully and slowly for 2 weeks including a little walking on driveway. Reports using cane sometimes on right when really hurting because feeling better though knowing he is supposed to use on Can't bend down to put sock on without severe pain, using sock aid. looking to leave town for a few weeks, has to put hay in bucket. Stopped doing his prescribed exercises due to increase in gluteal pain. Just started to be able to lay on right side. Has point tenderness also right greater trochanter. Occasional glut pain on left as well. Prior Treatments and Tests 5 wks post op. Seen for right hip pain summer 2019, PT rightly said pain was coming from my back. 2 neck fusions c/s Future Testing and Treatments Planned Sees surgeon next week. 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 (Rec: 08/13/21 16:08 [facility] [id number]) OP-PT Subjective Patient Comments Patient Comments Having left knee injection tomorrow. Concerned that left SI has been bothering him as well. Feels aquatic PT most helpful, wants mostly aquatic vs land-based PT. PT-OP-E Functional Tests Start: 05/27/21 08:48 Freq: Status: Active Protocol: Document 05/27/21 09:01 [facility] (Rec: 05/27/21 10:28 [facility] [id number]) Functional Tests 6 Minute Walk Test Comments do next session PT-OP-G Mobility & Gait Start: 05/27/21 08:48 Freq: Status: Active Protocol: Document 05/27/21 09:01 [facility] (Rec: 05/27/21 10:28 [facility] [id number]) OP Mobility Evaluation Bed Mobility Rolling independent Supine to and from Sit independent with log roll Transfers Sit to Stand independent, decreased use of right LE Functional Movements Lifting and Carrying not doing at this time Squats not doing at this time OP Gait Assessment Assistive Devices Assistive Device Straight Cane Orthotic/Prosthetic Devices or Brace: No Gait Deviations General Gait Pattern Antalgic Comments Gait Comments Patient using cane on right side and leaning to the right; he says he does this when really hurting as it feels better. Instructed to use on left side for improved gait pattern and decreased compensation Stair Climbing Evaluation Evaluation Level of Assist On Stairs Independent Comments Stair Climbing Comments Reports alternating on short steps most of time, step-to pattern on higher stairs PT-OP-H Neuro Start: 05/27/21 08:48 Freq: Status: Active Protocol: Document 05/27/21 09:01 [facility] (Rec: 05/27/21 10:28 [facility] [id number]) Sensation Evaluation Gross Sensation Gross Sensation Left LE Impaired,Right LE Impaired Sensation Description [place] Dermatome Impairments L5,S1 PT-OP-J Posture/Palpation/Skin Start: 05/27/21 08:48 Freq: Status: Active Protocol: Document 05/27/21 09:01 [facility] (Rec: 05/27/21 10:28 [facility] [id number]) Posture Evaluation Position Standing Head/C-Spine Posture Forward Head T-Spine Posture Increased Kyphosis L-Spine Posture Flattened Pelvis Posture Posterior Tilted Hip Posture (L) Neutral,(R) Neutral Palpation Assessment Location reema buttocks Palpation Findings Soft Tissue Tightness,Muscle Guarding Palpation Details especially right piriformis lumbar paraspinals Palpation Findings Soft Tissue Tightness,Muscle Guarding surgical scar Palpation Location right SI Palpation Findings Soft Tissue Tightness Palpation Details decreased scar mobility PT-OP-K Range of Motion Start: 05/27/21 08:48 Freq: Status: Active Protocol: Document 05/27/21 09:01 [facility] (Rec: 05/27/21 10:28 [facility] [id number]) Lumbar Spine Range of Motion Lumbar Spine Active Comments not formally assessed due to 5 weeks post-op Hip Goniometric Range of Motion Hip Right Flexion w/Knee Flexed 95 Straight Leg Raise 45 Extension 0 Comments not fully assessed at end- range due to recent surgery and high pain level today left Flexion w/Knee Flexed 95 Straight Leg Raise 55 Extension 0 Comments not fully assessed at end- range due to recent surgery and high pain level today Hip ROM Limitations Hip ROM Limitations Soft Tissue Tightness,Pain Knee Goniometric Range of Motion Knee Right Extension Active (degrees) 10 Left Knee ROM WFL Yes Knee ROM Limitations Knee ROM Limitations Soft Tissue Tightness Comments tight hamstrings limiting knee extension in sitting PT-OP-L Special Tests Start: 05/27/21 08:48 Freq: Status: Active Protocol: Document 05/27/21 09:01 [facility] (Rec: 05/27/21 10:28 [facility] [id number]) Special Tests Neural Special Tests- Lower Body Sciatic Nerve Tension Test Results positive right PT-OP-M Strength Start: 05/27/21 08:48 Freq: Status: Active Protocol: Document 05/27/21 09:01 [facility] (Rec: 05/27/21 10:28 [facility] [id number]) Trunk Strength Trunk Manual Muscle Testing Testing Position Supine Core Stabilization difficulty activating core musculature Hip Strength Hip Manual Muscle Testing Right Comments no MMT due to recent surgery, has anti-gravity flexion in limited motion Left Comments not assessed due to recent surgery, has anti-gravity flexion Knee Strength Knee Manual Muscle Testing reema Comments has anti-gravity extension reema , no MMT Ankle/Foot Strength Ankle and Foot Manual Muscle Testing Right Dorsiflexion (L4) 4 Good Plantarflexion (S1) 4+ Good+ Left Dorsiflexion (L4) 5 Normal Plantarflexion (S1) 5 Normal Toe Strength Toe Manual Muscle Testing Great Toe Comments left 5/5, right 4/5 PT-OP-Q Treatments Start: 05/27/21 08:48 Freq: Status: Active Protocol: Document 08/11/21 08:13 [facility] (Rec: 08/11/21 09:00 [facility] [id number]) Cardio Equipment Bicycle (Upright) Duration (Minutes) 10 Resistance 7 Seat Position 7 Gym Equipment Shuttle Recovery Unilateral Squats Resistance 25 Shuttle Recovery Platform Stable Reps/Time 10x2 Bilateral Squats Resistance 50 Shuttle Recovery Platform Stable Reps/Time 10x2 Therapeutic Activity Therapeutic Activity self massage Comments verbal review Manual Therapy Treatment Soft Tissue Mobilization piriformis Body Location right Mobilization Type Myofascial Release,Strumming, Sustained Pressure hamstring Body Location proximal right Mobilization Type Myofascial Release,Strumming Intensity/Depth Moderate ITB Body Location right Mobilization Type Myofascial Release,Rolling Intensity/Depth Moderate Body Position Sidelying Glutes Body Location R Mobilization Type Myofascial Release,Sustained Pressure Intensity/Depth Moderate Body Position Sidelying Comments piriformis scar tissue Body Location right buttock, reema LB Mobilization Type Myofascial Release PT-OP-R Modalities Start: 05/27/21 08:48 Freq: Status: Active Protocol: Document 08/11/21 08:13 [facility] (Rec: 08/11/21 09:00 [facility] [id number]) Hot Pack/Cold Pack Treatment Hot Pack Location left SI, piriformis Patient Position Sidelying Treatment Duration (minutes) 15 Patient Tolerance Good PT-OP-S Aquatic Treatment Start: 05/27/21 08:48 Freq: Status: Active Protocol: Document 08/13/21 16:02 [facility] (Rec: 08/13/21 16:08 [facility] [id number]) Aquatics Treatment Pool Entry/Exit Pool Entry/Exit Method Stairs Assistance Independent Water Walking march Water Level Chest Level Level of Assistance Verbal Cues fwd,bck,side Water Level Chest Level Level of Assistance Verbal Cues Comments cues for recip arm pattern Lower Extremity Exercises circles Reps/Duration 10x Comments cw and ccw hip AB/AD Details at wall Body Position Standing Reps/Duration 10 B Comments hand hold hip fl/ext Details at wall Body Position Standing Reps/Duration 10 B Comments occasional hand hold Lower Extremity Stretches SKTC Body Position Standing Water Level Chest Level Reps/Duration 30' x 2 B Comments gentle HS stretch Details also groin and ITB Body Position Standing Equipment small ankle float Reps/Duration 2x 30 Upper Extremity Exercises hor ab/ad, flex/ext Details reema and unil; at wall Body Position Sitting Water Level Chest Level Reps/Duration 10x ea Comments emphasis on core stab Balance SLS Details no hand hold Body Position Standing Water Level Chest Level Comments static and dynamic with opp LE movement [place] Activities [place] Activities Bicycle Other Activities T hang T hang with pull downs; reema and unil wall pull downs x 8 Equipment belt and 2 small noodles Duration 20 PT-OP-T Assessment and Plan Start: 05/27/21 08:48 Freq: Status: Active Protocol: Document 08/13/21 16:02 [facility] (Rec: 08/13/21 16:08 [facility] [id number]) Physical Therapy Assessment Rehab Potential Rehabilitation Potential Good Evaluation Complexity Number of Personal Factors/Comorbidities 1-2 Number of Body Systems Impaired 3 Clinical Presentation at Evaluation Evolving Impairments Impairments Activity Tolerance,Pain,ROM, Soft Tissue Mobility,Strength Goals Four Impairment soft tissue mobility Impairment Tightness scar tissue right buttock, piriformis, reema IT bands Assisted Goal (LTG) Improve soft tissue mobility to WNL to allow for improved ease of movement and decrease in pain 07/01/21: goal progress. 07/31/21: goal progress, working on patient ability to do self massage 08/11/21: goo LTG Duration 08/25/21 Three Impairment pain as high as 9/10 right SI, buttock Short Term Goal (STG) Decrease pain to no greater than 5/10 with all usual activities 07/01/21: Pain has been variable, not predictable, often unable to point to cause of exacerbation. Some goal progress 07/31/21: improved to 4/10 per pain chart Assisted Goal (LTG) Decrease pain to no greater than 2/10 with all usual activities LTG Duration 08/25/21 Two Impairment weakness core and hips limiting mobility and activity tolerance Short Term Goal (STG) patient to be able to tolerate HEP for the purpose of strengthening and core/SI stabilization 07/01/21: patient compliant with HEP, variable tolerance. 07/31/21: HEP continues to be modified according to patient tolerance. Has begun aquatic PT with good tolerance and feel that may be best treatment for this patient. Assisted Goal (LTG) Patient to demonstrate 5/5 muscle strength bilateral hips and core for improved function in the home and community with minimal pain. 07/31/21: goal progress LTG Duration 08/25/21 One Impairment Activity tolerance Impairment Oswestry disability index score 56% Short Term Goal (STG) Decrease ANGEL score to no greater than 40% 07/01/21: no reassessed this date 07/31/21: decreased to 32% STG Duration 07/13/21 Assisted Goal (LTG) Decrease ANGEL score to no greater than 20% LTG Duration 08/25/21 Progress Towards Goals Progress Towards Goals Progressing Toward Goals Assessment Summary Assessment Mod cues for alignment and core stabilization with all aquatic therapy activities. Hopeful for decrease in left knee pain with injection, may alter mechanics for improved core activation as well. C/o some increase in neck tension with deep water stab (T hang/ iron cross position). Physical Therapy Plan Frequency and Duration Frequency of Treatment 2x/Week Duration of Treatment 12 weeks Plan of Care Start Date 05/27/21 Plan of Care End Date 08/25/21 Therapeutic Interventions Therapeutic Interventions Aquatic Therapy,Gait Training, Home Exercise Program,Manual Therapy,Neuromuscular Re- education,Patient/Caregiver Education,Self-Care/Home Management,Soft Tissue Mobilization,Taping, Therapeutic Activities, Therapeutic Exercises Next Visit Focus/Plan Next Note Type Treatment Note Next Visit Plan Continue progression of aquatic and land-based exercise as tolerated for strengthening, core stabilization, and flexibility . Progress deep water stab if heber.
--- NOTE | 2021-08-20 13:08 | PT.OTN ---
Current Diagnoses Sacroiliitis, not elsewhere classified (08/20/21) Physical Therapy Treatment Note PT-OP-A Visit Information Start: 05/27/21 08:48 Freq: Status: Active Protocol: Document 08/20/21 12:53 LJ (Rec: 08/20/21 13:08 LJ [id number]) Out-Patient Physical Therapy Visit Information Visit Information Visit Type Aquatic Treatment Note Visit Start Time 10:15 Visit Stop Time 11:00 Total Visit Minutes 45 Visit Number 22 Precautions Precautions activity as tolerated per surgeon nurse PT-OP-B Current Condition Start: 05/27/21 08:48 Freq: Status: Active Protocol: Document 05/27/21 09:01 SAK (Rec: 05/27/21 10:28 SAK [id number]) Current Condition History of Current Condition Onset Date 04/21/21 Current Complaints right buttock History of Current Condition Fell August 2019 onto right SI joint. Pain into gluteal region. PT not helpful, pain persisted. Unable to walk without pain. Underwent right SI fusion 04/21/21. Hasn 't gone as well as anticiipated. Prior to surgery pain in right buttock, some in SI joint. Yesterday states having pain in SI pretty severe and down the outside of his leg. Hasn't driven since the surgery until yesterday. Throughout the day got a little better. This am the pain returned in right SI and buttock. Also having some pins and needsles in right foot. When saw PA 3 weeks after surgery was concerned seemed pin was very close to sacral foramina. Iced in the very beginning, but hasn't recently. Hasn't done any exercises since the surgery. Interested in slow, gentle exercise. Orders from doctor to do activity as pain permits. Weaned from walker to cane, then no cane very carefully and slowly for 2 weeks including a little walking on driveway. Reports using cane sometimes on right when really hurting because feeling better though knowing he is supposed to use on Can't bend down to put sock on without severe pain, using sock aid. looking to leave town for a few weeks, has to put hay in bucket. Stopped doing his prescribed exercises due to increase in gluteal pain. Just started to be able to lay on right side. Has point tenderness also right greater trochanter. Occasional glut pain on left as well. Prior Treatments and Tests 5 wks post op. Seen for right hip pain summer 2019, PT rightly said pain was coming from my back. 2 neck fusions c/s Future Testing and Treatments Planned Sees surgeon next week. 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, caring for animals on property Current Functional Impairments (Reported) Functional Limitations- ADL's painful, can't put sock on without pain Functional Limitations- Mobility/Gait painful, using cane Functional Limitations- Work/School unable to take care of animals on property Personal Factors Other Personal Factors That May Effect 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 Other than that, he doesn't have pain today. PT-OP-E Functional Tests Start: 05/27/21 08:48 Freq: Status: Active Protocol: Document 05/27/21 09:01 [facility] (Rec: 05/27/21 10:28 [facility] [id number]) Functional Tests 6 Minute Walk Test Comments do next session PT-OP-G Mobility & Gait Start: 05/27/21 08:48 Freq: Status: Active Protocol: Document 05/27/21 09:01 [facility] (Rec: 05/27/21 10:28 [facility] [id number]) OP Mobility Evaluation Bed Mobility Rolling independent Supine to and from Sit independent with log roll Transfers Sit to Stand independent, decreased use of right LE Functional Movements Lifting and Carrying not doing at this time Squats not doing at this time OP Gait Assessment Assistive Devices Assistive Device Straight Cane Orthotic/Prosthetic Devices or Brace: No Gait Deviations General Gait Pattern Antalgic Comments Gait Comments Patient using cane on right side and leaning to the right; he says he does this when really hurting as it feels better. Instructed to use on left side for improved gait pattern and decreased compensation Stair Climbing Evaluation Evaluation Level of Assist On Stairs Independent Comments Stair Climbing Comments Reports alternating on short steps most of time, step-to pattern on higher stairs PT-OP-H Neuro Start: 05/27/21 08:48 Freq: Status: Active Protocol: Document 05/27/21 09:01 SAK (Rec: 05/27/21 10:28 [facility] [id number]) Sensation Evaluation Gross Sensation Gross Sensation Left LE Impaired,Right LE Impaired Sensation Description Pins & [place] Dermatome Impairments L5,S1 PT-OP-J Posture/Palpation/Skin Start: 05/27/21 08:48 Freq: Status: Active Protocol: Document 05/27/21 09:01 SAK (Rec: 05/27/21 10:28 [facility] [id number]) Posture Evaluation Position Standing Head/C-Spine Posture Forward Head T-Spine Posture Increased Kyphosis L-Spine Posture Flattened Pelvis Posture Posterior Tilted Hip Posture (L) Neutral,(R) Neutral Palpation Assessment Location reema buttocks Palpation Findings Soft Tissue Tightness,Muscle Guarding Palpation Details especially right piriformis lumbar paraspinals Palpation Findings Soft Tissue Tightness,Muscle Guarding surgical scar Palpation Location right SI Palpation Findings Soft Tissue Tightness Palpation Details decreased scar mobility PT-OP-K Range of Motion Start: 05/27/21 08:48 Freq: Status: Active Protocol: Document 05/27/21 09:01 SAK (Rec: 05/27/21 10:28 [facility] [id number]) Lumbar Spine Range of Motion Lumbar Spine Active Comments not formally assessed due to 5 weeks post-op Hip Goniometric Range of Motion Hip Right Flexion w/Knee Flexed 95 Straight Leg Raise 45 Extension 0 Comments not fully assessed at end- range due to recent surgery and high pain level today left Flexion w/Knee Flexed 95 Straight Leg Raise 55 Extension 0 Comments not fully assessed at end- range due to recent surgery and high pain level today Hip ROM Limitations Hip ROM Limitations Soft Tissue Tightness,Pain Knee Goniometric Range of Motion Knee Right Extension Active (degrees) 10 Left Knee ROM WFL Yes Knee ROM Limitations Knee ROM Limitations Soft Tissue Tightness Comments tight hamstrings limiting knee extension in sitting PT-OP-L Special Tests Start: 05/27/21 08:48 Freq: Status: Active Protocol: Document 05/27/21 09:01 SAK (Rec: 05/27/21 10:28 [facility] [id number]) Special Tests Neural Special Tests- Lower Body Sciatic Nerve Tension Test Results positive right PT-OP-M Strength Start: 05/27/21 08:48 Freq: Status: Active Protocol: Document 05/27/21 09:01 [facility] (Rec: 05/27/21 10:28 [facility] [id number]) Trunk Strength Trunk Manual Muscle Testing Testing Position Supine Core Stabilization difficulty activating core musculature Hip Strength Hip Manual Muscle Testing Right Comments no MMT due to recent surgery, has anti-gravity flexion in limited motion Left Comments not assessed due to recent surgery, has anti-gravity flexion Knee Strength Knee Manual Muscle Testing reema Comments has anti-gravity extension reema , no MMT Ankle/Foot Strength Ankle and Foot Manual Muscle Testing Right Dorsiflexion (L4) 4 Good Plantarflexion (S1) 4+ Good+ Left Dorsiflexion (L4) 5 Normal Plantarflexion (S1) 5 Normal Toe Strength Toe Manual Muscle Testing Great Toe Comments left 5/5, right 4/5 PT-OP-Q Treatments Start: 05/27/21 08:48 Freq: Status: Active Protocol: Document 08/11/21 08:13 [facility] (Rec: 08/11/21 09:00 [facility] [id number]) Cardio Equipment Bicycle (Upright) Duration (Minutes) 10 Resistance 7 Seat Position 7 Gym Equipment Shuttle Recovery Unilateral Squats Resistance 25 Shuttle Recovery Platform Stable Reps/Time 10x2 Bilateral Squats Resistance 50 Shuttle Recovery Platform Stable Reps/Time 10x2 Therapeutic Activity Therapeutic Activity self massage Comments verbal review Manual Therapy Treatment Soft Tissue Mobilization piriformis Body Location right Mobilization Type Myofascial Release,Strumming, Sustained Pressure hamstring Body Location proximal right Mobilization Type Myofascial Release,Strumming Intensity/Depth Moderate ITB Body Location right Mobilization Type Myofascial Release,Rolling Intensity/Depth Moderate Body Position Sidelying Glutes Body Location R Mobilization Type Myofascial Release,Sustained Pressure Intensity/Depth Moderate Body Position Sidelying Comments piriformis scar tissue Body Location right buttock, reema LB Mobilization Type Myofascial Release PT-OP-R Modalities Start: 05/27/21 08:48 Freq: Status: Active Protocol: Document 08/11/21 08:13 [facility] (Rec: 08/11/21 09:00 [facility] [id number]) Hot Pack/Cold Pack Treatment Hot Pack Location left SI, piriformis Patient Position Sidelying Treatment Duration (minutes) 15 Patient Tolerance Good PT-OP-S Aquatic Treatment Start: 05/27/21 08:48 Freq: Status: Active Protocol: Document 08/20/21 12:53 ERON (Rec: 08/20/21 13:08 [id number]) Aquatics Treatment Pool Entry/Exit Pool Entry/Exit Method Stairs Assistance Independent Water Walking [place] October Water Level Chest Level Level of Assistance Verbal Cues Comments keep hip flexion within painfree range march Water Level Chest Level Level of Assistance Verbal Cues fwd,bck,side Water Level Chest Level Level of Assistance Verbal Cues Comments cues for recip arm pattern Lower Extremity Exercises circles Reps/Duration 10x Comments cw and ccw hip AB/AD Details at wall Body Position Standing Reps/Duration 10 B Comments hand hold hip fl/ext Details at wall Body Position Standing Reps/Duration 10 B Comments occasional hand hold Lower Extremity Stretches quad Body Position Standing Water Level Waist Level Equipment Ankle Floats Reps/Duration 2x 30 gastroc Details at wall Body Position Standing Water Level Waist Level Reps/Duration 30' x 2 B SKTC Body Position Standing Water Level Chest Level Reps/Duration 30' x 2 B Comments gentle HS stretch Details also groin and ITB Body Position Standing Equipment small ankle float Reps/Duration 2x 30 Upper Extremity Exercises hor ab/ad, flex/ext Details reema and unil; at wall Body Position Sitting Water Level Chest Level Reps/Duration 10x ea Comments emphasis on core stab Upper Extremity Stretches walking pec stretch Body Position Standing Water Level Chest Level Equipment UE paddles Comments vc to let UE drag against water resistance [place] Activities [place] Activities Bicycle,Bicycle Backwards, Running,Sit Kicks Other Activities T hang T hang with pull downs; reema and unil wall pull downs x 8 Equipment belt and 2 small noodles Duration 18 PT-OP-T Assessment and Plan Start: 05/27/21 08:48 Freq: Status: Active Protocol: Document 08/20/21 12:53 ERON (Rec: 08/20/21 13:08 [id number]) Physical Therapy Assessment Rehab Potential Rehabilitation Potential Good Evaluation Complexity Number of Personal Factors/Comorbidities 1-2 Number of Body Systems Impaired 3 Clinical Presentation at Evaluation Evolving Impairments Impairments Activity Tolerance,Pain,ROM, Soft Tissue Mobility,Strength Goals Four Impairment soft tissue mobility Impairment Tightness scar tissue right buttock, piriformis, reema IT bands Inpatient Services Rn Goal (LTG) Improve soft tissue mobility to WNL to allow for improved ease of movement and decrease in pain 07/01/21: goal progress. 07/31/21: goal progress, working on patient ability to do self massage 08/11/21: goo LTG Duration 08/25/21 Three Impairment pain as high as 9/10 right SI, buttock Short Term Goal (STG) Decrease pain to no greater than 5/10 with all usual activities 07/01/21: Pain has been variable, not predictable, often unable to point to cause of exacerbation. Some goal progress 07/31/21: improved to 4/10 per pain chart Inpatient Services Rn Goal (LTG) Decrease pain to no greater than 2/10 with all usual activities LTG Duration 08/25/21 Two Impairment weakness core and hips limiting mobility and activity tolerance Short Term Goal (STG) patient to be able to tolerate HEP for the purpose of strengthening and core/SI stabilization 07/01/21: patient compliant with HEP, variable tolerance. 07/31/21: HEP continues to be modified according to patient tolerance. Has begun aquatic PT with good tolerance and feel that may be best treatment for this patient. Longterm Goal (LTG) Patient to demonstrate 5/5 muscle strength bilateral hips and core for improved function in the home and community with minimal pain. 07/31/21: goal progress LTG Duration 08/25/21 One Impairment Activity tolerance Impairment Oswestry disability index score 56% Short Term Goal (STG) Decrease ANGEL score to no greater than 40% 07/01/21: no reassessed this date 07/31/21: decreased to 32% STG Duration 07/13/21 Inpatient Services Rn Goal (LTG) Decrease ANGEL score to no greater than 20% LTG Duration 08/25/21 Progress Towards Goals Progress Towards Goals Progressing Toward Goals Assessment Summary Assessment Pt progressing with coordination and balance in walking activities. No pain in L knee with exercises when kept within painfree ROM. Pt want to go to pool on his own at least x1 per week in addition to therapy visits. Physical Therapy Plan Frequency and Duration Frequency of Treatment 2x/Week Duration of Treatment 12 weeks Plan of Care Start Date 05/27/21 Plan of Care End Date 08/25/21 Therapeutic Interventions Therapeutic Interventions Aquatic Therapy,Gait Training, Home Exercise Program,Manual Therapy,Neuromuscular Re- education,Patient/Caregiver Education,Self-Care/Home Management,Soft Tissue Mobilization,Taping, Therapeutic Activities, Therapeutic Exercises Next Visit Focus/Plan Next Note Type Treatment Note Next Visit Plan Continue with land and aquatic therapy to progress activity level, strength, agility, and core strength for improved functional mobility.
--- NOTE | 2021-08-27 17:25 | PT.OTRE ---
Current Diagnoses Sacroiliitis, not elsewhere classified (08/27/21) Past Medical History (Last Reviewed 04/22/21 @ 03:44 by Dot Hung MD) Abdominal pain Acute hip pain BPH (benign prostatic hyperplasia) Cataract (2012) Cervical spine disease Chronic back pain Chronic low back pain without sciatica Colon polyps (2001) Diverticulitis Diverticulosis Elevated PSA Foot pain GERD (gastroesophageal reflux disease) (~1979) Glaucoma (~2008) Hayfever (~1959) Hemochromatosis (1990) Hepatitis A (~1961) Herniated nucleus pulposus, L5-S1, right History of elbow surgery (~2010) History of knee surgery History of shoulder surgery (~1979) History of shoulder surgery (~1979) Hx of decompression of ulnar nerve (~1989) IBS (irritable bowel syndrome) (~1969) Iliotibial band syndrome, right leg Lumbar region somatic dysfunction Lumbar spine pain Pelvic somatic dysfunction Peptic ulcer disease (~1959) Piriformis syndrome of right side Recurrent sinusitis (~1969) Sacral fracture Sacral region somatic dysfunction Segmental and somatic dysfunction of abdomen and other regions Shoulder pain (~1989) Somatic dysfunction of lower extremity Tennis elbow Surgical History (Last Reviewed 04/22/21 @ 03:44 by Dot Hung MD) Anesthesia complication History of elbow surgery (~2010) History of knee surgery History of shoulder surgery (~1979) History of shoulder surgery (~1979) History of spinal fusion (2010) Hx of decompression of ulnar nerve (~1989) Visit Care Team Role Provider Type Farhad Machado MD Family Provider Physician Primary Care Provider Specialty: Family Practice Address: [address] [place] [address], [id number] Email: [email or web address] Reynaldo Poon MD Attending Provider Non-Staff Referring Provider Specialty: Neurosurgery Address: [address] [place] [address], [address], [address] Email: Physical Therapy Re-Evaluation PT-OP-A Visit Information Start: 05/27/21 08:48 Freq: Status: Active Protocol: Document 08/27/21 17:07 [facility] (Rec: 08/27/21 17:24 [facility] [id number]) Out-Patient Physical Therapy Visit Information Visit Information Visit Type Aquatic Treatment Note Visit Start Time 11:45 Visit Stop Time 12:30 Total Visit Minutes 45 Visit Number 23 PT-OP-B Current Condition Start: 05/27/21 08:48 Freq: Status: Active Protocol: Document 05/27/21 09:01 ADALBERTO (Rec: 05/27/21 10:28 [facility] [id number]) Current Condition History of Current Condition Onset Date 04/21/21 Current Complaints right buttock History of Current Condition Fell August 2019 onto right SI joint. Pain into gluteal region. PT not helpful, pain persisted. Unable to walk without pain. Underwent right SI fusion 04/21/21. Hasn 't gone as well as anticiipated. Prior to surgery pain in right buttock, some in SI joint. Yesterday states having pain in SI pretty severe and down the outside of his leg. Hasn't driven since the surgery until yesterday. Throughout the day got a little better. This am the pain returned in right SI and buttock. Also having some pins and needsles in right foot. When saw PA 3 weeks after surgery was concerned seemed pin was very close to sacral foramina. Iced in the very beginning, but hasn't recently. Hasn't done any exercises since the surgery. Interested in slow, gentle exercise. Orders from doctor to do activity as pain permits. Weaned from walker to cane, then no cane very carefully and slowly for 2 weeks including a little walking on driveway. Reports using cane sometimes on right when really hurting because feeling better though knowing he is supposed to use on Can't bend down to put sock on without severe pain, using sock aid. looking to leave town for a few weeks, has to put hay in bucket. Stopped doing his prescribed exercises due to increase in gluteal pain. Just started to be able to lay on right side. Has point tenderness also right greater trochanter. Occasional glut pain on left as well. Prior Treatments and Tests 5 wks post op. Seen for right hip pain summer 2019, PT rightly said pain was coming from my back. 2 neck fusions c/s Future Testing and Treatments Planned Sees surgeon next week. 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, caring for animals on property Current Functional Impairments (Reported) Functional Limitations- ADL's painful, can't put sock on without pain Functional Limitations- Mobility/Gait painful, using cane Functional Limitations- Work/School unable to take care of animals on property Personal Factors Other Personal Factors That May Effect 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 Feels aquatic therapy very helpful. PT-OP-E Functional Tests Start: 05/27/21 08:48 Freq: Status: Active Protocol: Document 05/27/21 09:01 [facility] (Rec: 05/27/21 10:28 [facility] [id number]) Functional Tests 6 Minute Walk Test Comments do next session PT-OP-G Mobility & Gait Start: 05/27/21 08:48 Freq: Status: Active Protocol: Document 05/27/21 09:01 [facility] (Rec: 05/27/21 10:28 [facility] [id number]) OP Mobility Evaluation Bed Mobility Rolling independent Supine to and from Sit independent with log roll Transfers Sit to Stand independent, decreased use of right LE Functional Movements Lifting and Carrying not doing at this time Squats not doing at this time OP Gait Assessment Assistive Devices Assistive Device Straight Cane Orthotic/Prosthetic Devices or Brace: No Gait Deviations General Gait Pattern Antalgic Comments Gait Comments Patient using cane on right side and leaning to the right; he says he does this when really hurting as it feels better. Instructed to use on left side for improved gait pattern and decreased compensation Stair Climbing Evaluation Evaluation Level of Assist On Stairs Independent Comments Stair Climbing Comments Reports alternating on short steps most of time, step-to pattern on higher stairs PT-OP-H Neuro Start: 05/27/21 08:48 Freq: Status: Active Protocol: Document 05/27/21 09:01 [facility] (Rec: 05/27/21 10:28 [facility] [id number]) Sensation Evaluation Gross Sensation Gross Sensation Left LE Impaired,Right LE Impaired Sensation Description [place] Dermatome Impairments L5,S1 PT-OP-J Posture/Palpation/Skin Start: 05/27/21 08:48 Freq: Status: Active Protocol: Document 05/27/21 09:01 [facility] (Rec: 05/27/21 10:28 [facility] [id number]) Posture Evaluation Position Standing Head/C-Spine Posture Forward Head T-Spine Posture Increased Kyphosis L-Spine Posture Flattened Pelvis Posture Posterior Tilted Hip Posture (L) Neutral,(R) Neutral Palpation Assessment Location reema buttocks Palpation Findings Soft Tissue Tightness,Muscle Guarding Palpation Details especially right piriformis lumbar paraspinals Palpation Findings Soft Tissue Tightness,Muscle Guarding surgical scar Palpation Location right SI Palpation Findings Soft Tissue Tightness Palpation Details decreased scar mobility PT-OP-K Range of Motion Start: 05/27/21 08:48 Freq: Status: Active Protocol: Document 05/27/21 09:01 [facility] (Rec: 05/27/21 10:28 [facility] [id number]) Lumbar Spine Range of Motion Lumbar Spine Active Comments not formally assessed due to 5 weeks post-op Hip Goniometric Range of Motion Hip Measured in Degrees Right Flexion w/Knee Flexed 95 Straight Leg Raise 45 Extension 0 Comments not fully assessed at end- range due to recent surgery and high pain level today left Flexion w/Knee Flexed 95 Straight Leg Raise 55 Extension 0 Comments not fully assessed at end- range due to recent surgery and high pain level today Hip ROM Limitations Hip ROM Limitations Soft Tissue Tightness,Pain Knee Goniometric Range of Motion Knee Measured in Degrees Right Extension Active (degrees) 10 Left Knee ROM WFL Yes Knee ROM Limitations Knee ROM Limitations Soft Tissue Tightness Comments tight hamstrings limiting knee extension in sitting PT-OP-L Special Tests Start: 05/27/21 08:48 Freq: Status: Active Protocol: Document 05/27/21 09:01 [facility] (Rec: 05/27/21 10:28 [facility] [id number]) Special Tests Neural Special Tests- Lower Body Sciatic Nerve Tension Test Results positive right PT-OP-M Strength Start: 05/27/21 08:48 Freq: Status: Active Protocol: Document 05/27/21 09:01 [facility] (Rec: 05/27/21 10:28 [facility] [id number]) Trunk Strength Trunk Manual Muscle Testing Testing Position Supine Core Stabilization difficulty activating core musculature Hip Strength Hip Manual Muscle Testing Right Comments no MMT due to recent surgery, has anti-gravity flexion in limited motion Left Comments not assessed due to recent surgery, has anti-gravity flexion Knee Strength Knee Manual Muscle Testing reema Comments has anti-gravity extension reema , no MMT Ankle/Foot Strength Ankle and Foot Manual Muscle Testing Right Dorsiflexion (L4) 4 Good Plantarflexion (S1) 4+ Good+ Left Dorsiflexion (L4) 5 Normal Plantarflexion (S1) 5 Normal Toe Strength Toe Manual Muscle Testing Great Toe Comments left 5/5, right 4/5 PT-OP-Q Treatments Start: 05/27/21 08:48 Freq: Status: Active Protocol: Document 08/11/21 08:13 [facility] (Rec: 08/11/21 09:00 [facility] [id number]) Cardio Equipment Bicycle (Upright) Duration (Minutes) 10 Resistance 7 Seat Position 7 Gym Equipment Shuttle Recovery Unilateral Squats Resistance 25 Shuttle Recovery Platform Stable Reps/Time 10x2 Bilateral Squats Resistance 50 Shuttle Recovery Platform Stable Reps/Time 10x2 Therapeutic Activity Therapeutic Activity self massage Comments verbal review Manual Therapy Treatment Soft Tissue Mobilization piriformis Body Location right Mobilization Type Myofascial Release,Strumming, Sustained Pressure hamstring Body Location proximal right Mobilization Type Myofascial Release,Strumming Intensity/Depth Moderate ITB Body Location right Mobilization Type Myofascial Release,Rolling Intensity/Depth Moderate Body Position Sidelying Glutes Body Location R Mobilization Type Myofascial Release,Sustained Pressure Intensity/Depth Moderate Body Position Sidelying Comments piriformis scar tissue Body Location right buttock, reema LB Mobilization Type Myofascial Release PT-OP-R Modalities Start: 05/27/21 08:48 Freq: Status: Active Protocol: Document 08/11/21 08:13 [facility] (Rec: 08/11/21 09:00 [facility] [id number]) Hot Pack/Cold Pack Treatment Hot Pack Location left SI, piriformis Patient Position Sidelying Treatment Duration (minutes) 15 Patient Tolerance Good PT-OP-T Assessment and Plan Start: 05/27/21 08:48 Freq: Status: Active Protocol: Document 08/27/21 17:07 [facility] (Rec: 08/27/21 17:24 [facility] [id number]) Physical Therapy Assessment Rehab Potential Rehabilitation Potential Good Goals Four Impairment soft tissue mobility Impairment Tightness scar tissue right buttock, piriformis, reema IT bands Fpc Goal (LTG) Improve soft tissue mobility to WNL to allow for improved ease of movement and decrease in pain 07/01/21: goal progress. 07/31/21: goal progress, working on patient ability to do self massage 08/11/21: goo LTG Duration 3/ Three Impairment pain as high as 9/10 right SI, buttock Short Term Goal (STG) Decrease pain to no greater than 5/10 with all usual activities 07/01/21: Pain has been variable, not predictable, often unable to point to cause of exacerbation. Some goal progress 07/31/21: improved to 4/10 per pain chart 08/27/21: generally no greater than 4/10, less at times STG Duration goal met Furnishings Conservator Goal (LTG) Decrease pain to no greater than 2/10 with all usual activities 08/27/21: pain 4/10, occasional spike in pain with increase in activity LTG Duration 08/25/21 Two Impairment weakness core and hips limiting mobility and activity tolerance Short Term Goal (STG) patient to be able to tolerate HEP for the purpose of strengthening and core/SI stabilization 07/01/21: patient compliant with HEP, variable tolerance. 07/31/21: HEP continues to be modified according to patient tolerance. Has begun aquatic PT with good tolerance and feel that may be best treatment for this patient. 08/27/21: independent and compliant with HEP STG Duration goal met Furnishings Conservator Goal (LTG) Patient to demonstrate 5/5 muscle strength bilateral hips and core for improved function in the home and community with minimal pain. 07/31/21: goal progress 08/27/21: good goal progress with strength at 4/5 throughout, pain with resisted hip extension and abduction reema LTG Duration 08/25/21 One Impairment Activity tolerance Impairment Oswestry disability index score 56% Short Term Goal (STG) Decrease ANGEL score to no greater than 40% 07/01/21: no reassessed this date 07/31/21: decreased to 32% STG Duration goal met Furnishings Conservator Goal (LTG) Decrease ANGEL score to no greater than 15% 08/27/21: ANGEL decreased to 24% LTG Duration 10/25/21 Progress Towards Goals Progress Towards Goals Progressing Toward Goals Progress Comments Progress in all goal areas. Assessment Summary Assessment Majority of time spent in deep water today with good tolerance, though needed more cues for postural alignment especially to keep LE's under him and to assure good fit of belt to prevent anterior tipping of his pelvis. Continues to benefit from PT and recover more quickly from exacerbation of pain with activity. Left knee pain affecting recovery due to compensatory patterns of movement but these are lessened in aquatic therapy especially deep water. Physical Therapy Plan Frequency and Duration Frequency of Treatment 1x/Week Duration of Treatment 8 weeks Plan of Care Start Date 08/27/21 Plan of Care End Date 10/25/21 Therapeutic Interventions Therapeutic Interventions Aquatic Therapy,Gait Training, Home Exercise Program,Manual Therapy,Neuromuscular Re- education,Patient/Caregiver Education,Self-Care/Home Management,Soft Tissue Mobilization,Taping, Therapeutic Activities, Therapeutic Exercises Next Visit Focus/Plan Next Note Type Treatment Note Next Visit Plan Patient finding aquatic therapy more helpful, requests he continue with HEP, and discontinue further land-based PT except for possible follow -up in a few weeks. Otherwise will continue with aquatic therapy with decreased frequency at 1x/wk.
--- NOTE | 2021-08-27 17:25 | PT.OPPOC ---
Physical, Occupational & Speech Therapy At [facility] Current Diagnoses Sacroiliitis, not elsewhere classified (08/27/21) Visit Care Team Role Provider Type Farhad Machado MD Family Provider Physician Primary Care Provider Specialty: Family Practice Address: [address] [place] [address], [id number] Email: [email or web address] Reynaldo Poon MD Attending Provider Non-Staff Referring Provider Specialty: Neurosurgery Address: [address] [place] [address], Suite [facility], [place], [address] Email: Plan Of Care PT-OP-T Assessment and Plan Start: 05/27/21 08:48 Freq: Status: Active Protocol: Document 08/27/21 17:[address] [facility] (Rec: 08/27/21 17:[address] [facility] [id number]) Physical Therapy Assessment Rehab Potential Rehabilitation Potential Good Goals Four Impairment soft tissue mobility Impairment Tightness scar tissue right buttock, piriformis, reema IT bands Usp Goal (LTG) Improve soft tissue mobility to WNL to allow for improved ease of movement and decrease in pain 07/01/21: goal progress. 07/31/21: goal progress, working on patient ability to do self massage 08/11/21: goo LTG Duration 3/ Three Impairment pain as high as 9/10 right SI, buttock Short Term Goal (STG) Decrease pain to no greater than 5/10 with all usual activities 07/01/21: Pain has been variable, not predictable, often unable to point to cause of exacerbation. Some goal progress 07/31/21: improved to 4/10 per pain chart 08/27/21: generally no greater than 4/10, less at times STG Duration goal met Clinical Counselor Goal (LTG) Decrease pain to no greater than 2/10 with all usual activities 08/27/21: pain 4/10, occasional spike in pain with increase in activity LTG Duration 08/25/21 Two Impairment weakness core and hips limiting mobility and activity tolerance Short Term Goal (STG) patient to be able to tolerate HEP for the purpose of strengthening and core/SI stabilization 07/01/21: patient compliant with HEP, variable tolerance. 07/31/21: HEP continues to be modified according to patient tolerance. Has begun aquatic PT with good tolerance and feel that may be best treatment for this patient. 08/27/21: independent and compliant with HEP STG Duration goal met Clinical Counselor Goal (LTG) Patient to demonstrate 5/5 muscle strength bilateral hips and core for improved function in the home and community with minimal pain. 07/31/21: goal progress 08/27/21: good goal progress with strength at 4/5 throughout, pain with resisted hip extension and abduction reema LTG Duration 08/25/21 One Impairment Activity tolerance Impairment Oswestry disability index score 56% Short Term Goal (STG) Decrease ANGEL score to no greater than 40% 07/01/21: no reassessed this date 07/31/21: decreased to 32% STG Duration goal met Usp Goal (LTG) Decrease ANGEL score to no greater than 15% 08/27/21: ANGEL decreased to 24% LTG Duration 10/25/21 Progress Towards Goals Progress Towards Goals Progressing Toward Goals Progress Comments Progress in all goal areas. Assessment Summary Assessment Majority of time spent in deep water today with good tolerance, though needed more cues for postural alignment especially to keep LE's under him and to assure good fit of belt to prevent anterior tipping of his pelvis. Continues to benefit from PT and recover more quickly from exacerbation of pain with activity. Left knee pain affecting recovery due to compensatory patterns of movement but these are lessened in aquatic therapy especially deep water. Physical Therapy Plan Frequency and Duration Frequency of Treatment 1x/Week Duration of Treatment 8 weeks Plan of Care Start Date 08/27/21 Plan of Care End Date 10/25/21 Therapeutic Interventions Therapeutic Interventions Aquatic Therapy,Gait Training, Home Exercise Program,Manual Therapy,Neuromuscular Re- education,Patient/Caregiver Education,Self-Care/Home Management,Soft Tissue Mobilization,Taping, Therapeutic Activities, Therapeutic Exercises Next Visit Focus/Plan Next Note Type Treatment Note Next Visit Plan Patient finding aquatic therapy more helpful, requests he continue with HEP, and discontinue further land-based PT except for possible follow -up in a few weeks. Otherwise will continue with aquatic therapy with decreased frequency at 1x/wk. Plan of Care Dates Plan of Care Start Date 08/27/21 Plan of Care End Date 10/25/21 Electronically Signed by: Keyla Patel, PT 08/27/21 2342 Please Sign and Return: I have reviewed this Plan of Care and certify that the skilled therapy services above are required to meet the patient?s needs. Physician Signature Date Printed Name and Credentials Clinical Instructor Signature Printed Name and Credentials
--- NOTE | 2021-09-10 13:30 | PT.OTN ---
Current Diagnoses Sacroiliitis, not elsewhere classified (08/27/21) Physical Therapy Treatment Note PT-OP-A Visit Information Start: 05/27/21 08:48 Freq: Status: Active Protocol: Document 09/11/21 09:20 [facility] (Rec: 09/11/21 09:26 [facility] [id number]) Out-Patient Physical Therapy Visit Information Visit Information Visit Type Aquatic Treatment Note Visit Start Time 11:45 Visit Stop Time 12:30 Total Visit Minutes 45 Visit Number 24 PT-OP-B Current Condition Start: 05/27/21 08:48 Freq: Status: Active Protocol: Document 05/27/21 09:01 [facility] (Rec: 05/27/21 10:28 [facility] [id number]) Current Condition History of Current Condition Onset Date 04/21/21 Current Complaints right buttock History of Current Condition Fell August 2019 onto right SI joint. Pain into gluteal region. PT not helpful, pain persisted. Unable to walk without pain. Underwent right SI fusion 04/21/21. Hasn 't gone as well as anticiipated. Prior to surgery pain in right buttock, some in SI joint. Yesterday states having pain in SI pretty severe and down the outside of his leg. Hasn't driven since the surgery until yesterday. Throughout the day got a little better. This am the pain returned in right SI and buttock. Also having some pins and needsles in right foot. When saw PA 3 weeks after surgery was concerned seemed pin was very close to sacral foramina. Iced in the very beginning, but hasn't recently. Hasn't done any exercises since the surgery. Interested in slow, gentle exercise. Orders from doctor to do activity as pain permits. Weaned from walker to cane, then no cane very carefully and slowly for 2 weeks including a little walking on driveway. Reports using cane sometimes on right when really hurting because feeling better though knowing he is supposed to use on Can't bend down to put sock on without severe pain, using sock aid. looking to leave town for a few weeks, has to put hay in bucket. Stopped doing his prescribed exercises due to increase in gluteal pain. Just started to be able to lay on right side. Has point tenderness also right greater trochanter. Occasional glut pain on left as well. Prior Treatments and Tests 5 wks post op. Seen for right hip pain summer 2019, PT rightly said pain was coming from my back. 2 neck fusions c/s Future Testing and Treatments Planned Sees surgeon next week. 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, caring for animals on property Current Functional Impairments (Reported) Functional Limitations- ADL's painful, can't put sock on without pain Functional Limitations- Mobility/Gait painful, using cane Functional Limitations- Work/School unable to take care of animals on property Personal Factors Other Personal Factors That May Effect 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 Will take swim suit so if pool available will try to use. Pain persists but not as severely limiting as prior to PT. Decreased pain with aquatic PT and states has tried aquatic exercise on own a couple times . PT-OP-E Functional Tests Start: 05/27/21 08:48 Freq: Status: Active Protocol: Document 05/27/21 09:01 [facility] (Rec: 05/27/21 10:28 [facility] [id number]) Functional Tests 6 Minute Walk Test Comments do next session PT-OP-G Mobility & Gait Start: 05/27/21 08:48 Freq: Status: Active Protocol: Document 05/27/21 09:01 [facility] (Rec: 05/27/21 10:28 [facility] [id number]) OP Mobility Evaluation Bed Mobility Rolling independent Supine to and from Sit independent with log roll Transfers Sit to Stand independent, decreased use of right LE Functional Movements Lifting and Carrying not doing at this time Squats not doing at this time OP Gait Assessment Assistive Devices Assistive Device Straight Cane Orthotic/Prosthetic Devices or Brace: No Gait Deviations General Gait Pattern Antalgic Comments Gait Comments Patient using cane on right side and leaning to the right; he says he does this when really hurting as it feels better. Instructed to use on left side for improved gait pattern and decreased compensation Stair Climbing Evaluation Evaluation Level of Assist On Stairs Independent Comments Stair Climbing Comments Reports alternating on short steps most of time, step-to pattern on higher stairs PT-OP-H Neuro Start: 05/27/21 08:48 Freq: Status: Active Protocol: Document 05/27/21 09:01 [facility] (Rec: 05/27/21 10:28 [facility] [id number]) Sensation Evaluation Gross Sensation Gross Sensation Left LE Impaired,Right LE Impaired Sensation Description Pins & Reading Dermatome Impairments L5,S1 PT-OP-J Posture/Palpation/Skin Start: 05/27/21 08:48 Freq: Status: Active Protocol: Document 05/27/21 09:01 [facility] (Rec: 05/27/21 10:28 [facility] [id number]) Posture Evaluation Position Standing Head/C-Spine Posture Forward Head T-Spine Posture Increased Kyphosis L-Spine Posture Flattened Pelvis Posture Posterior Tilted Hip Posture (L) Neutral,(R) Neutral Palpation Assessment Location reema buttocks Palpation Findings Soft Tissue Tightness,Muscle Guarding Palpation Details especially right piriformis lumbar paraspinals Palpation Findings Soft Tissue Tightness,Muscle Guarding surgical scar Palpation Location right SI Palpation Findings Soft Tissue Tightness Palpation Details decreased scar mobility PT-OP-K Range of Motion Start: 05/27/21 08:48 Freq: Status: Active Protocol: Document 05/27/21 09:01 [facility] (Rec: 05/27/21 10:28 [facility] [id number]) Lumbar Spine Range of Motion Lumbar Spine Active Comments not formally assessed due to 5 weeks post-op Hip Goniometric Range of Motion Hip Right Flexion w/Knee Flexed 95 Straight Leg Raise 45 Extension 0 Comments not fully assessed at end- range due to recent surgery and high pain level today left Flexion w/Knee Flexed 95 Straight Leg Raise 55 Extension 0 Comments not fully assessed at end- range due to recent surgery and high pain level today Hip ROM Limitations Hip ROM Limitations Soft Tissue Tightness,Pain Knee Goniometric Range of Motion Knee Right Extension Active (degrees) 10 Left Knee ROM WFL Yes Knee ROM Limitations Knee ROM Limitations Soft Tissue Tightness Comments tight hamstrings limiting knee extension in sitting PT-OP-L Special Tests Start: 05/27/21 08:48 Freq: Status: Active Protocol: Document 05/27/21 09:01 [facility] (Rec: 05/27/21 10:28 [facility] [id number]) Special Tests Neural Special Tests- Lower Body Sciatic Nerve Tension Test Results positive right PT-OP-M Strength Start: 05/27/21 08:48 Freq: Status: Active Protocol: Document 05/27/21 09:01 [facility] (Rec: 05/27/21 10:28 [facility] [id number]) Trunk Strength Trunk Manual Muscle Testing Testing Position Supine Core Stabilization difficulty activating core musculature Hip Strength Hip Manual Muscle Testing Right Comments no MMT due to recent surgery, has anti-gravity flexion in limited motion Left Comments not assessed due to recent surgery, has anti-gravity flexion Knee Strength Knee Manual Muscle Testing reema Comments has anti-gravity extension reema , no MMT Ankle/Foot Strength Ankle and Foot Manual Muscle Testing Right Dorsiflexion (L4) 4 Good Plantarflexion (S1) 4+ Good+ Left Dorsiflexion (L4) 5 Normal Plantarflexion (S1) 5 Normal Toe Strength Toe Manual Muscle Testing Great Toe Comments left 5/5, right 4/5 PT-OP-Q Treatments Start: 05/27/21 08:48 Freq: Status: Active Protocol: Document 08/11/21 08:13 [facility] (Rec: 08/11/21 09:00 [facility] [id number]) Cardio Equipment Bicycle (Upright) Duration (Minutes) 10 Resistance 7 Seat Position 7 Gym Equipment Shuttle Recovery Unilateral Squats Resistance 25 Shuttle Recovery Platform Stable Reps/Time 10x2 Bilateral Squats Resistance 50 Shuttle Recovery Platform Stable Reps/Time 10x2 Therapeutic Activity Therapeutic Activity self massage Comments verbal review Manual Therapy Treatment Soft Tissue Mobilization piriformis Body Location right Mobilization Type Myofascial Release,Strumming, Sustained Pressure hamstring Body Location proximal right Mobilization Type Myofascial Release,Strumming Intensity/Depth Moderate ITB Body Location right Mobilization Type Myofascial Release,Rolling Intensity/Depth Moderate Body Position Sidelying Glutes Body Location R Mobilization Type Myofascial Release,Sustained Pressure Intensity/Depth Moderate Body Position Sidelying Comments piriformis scar tissue Body Location right buttock, reema LB Mobilization Type Myofascial Release PT-OP-R Modalities Start: 05/27/21 08:48 Freq: Status: Active Protocol: Document 08/11/21 08:13 [facility] (Rec: 08/11/21 09:00 [facility] [id number]) Hot Pack/Cold Pack Treatment Hot Pack Location left SI, piriformis Patient Position Sidelying Treatment Duration (minutes) 15 Patient Tolerance Good PT-OP-S Aquatic Treatment Start: 05/27/21 08:48 Freq: Status: Active Protocol: Document 09/11/21 09:20 [facility] (Rec: 09/11/21 09:26 [facility] [id number]) Aquatics Treatment Pool Entry/Exit Pool Entry/Exit Method Stairs Assistance Independent Water Walking [place] October Water Level Chest Level Level of Assistance Verbal Cues Comments keep hip flexion within painfree range march Level of Assistance Verbal Cues fwd,bck,side Water Level Chest Level Level of Assistance Verbal Cues Comments forward only today Upper Extremity Exercises hor ab/ad, flex/ext Details reema and unil Body Position Standing Water Level Chest Level Reps/Duration 10x ea Comments emphasis on core stab Fleming Activities Fleming Activities Bicycle,Bicycle Backwards, Running,Sit Kicks Other Activities T hang T hang with pull downs; reema and unil wall pull downs x 10 wall hang full body extension stretch Equipment belt and 2 small noodles Duration 30 Comments patient having more difficulty attaining and maintaining neutral alignment in deep water today PT-OP-T Assessment and Plan Start: 05/27/21 08:48 Freq: Status: Active Protocol: Document 09/11/21 09:20 [facility] (Rec: 09/11/21 09:26 [facility] [id number]) Physical Therapy Assessment Goals Four Impairment soft tissue mobility Impairment Tightness scar tissue right buttock, piriformis, reema IT bands Custodial Goal (LTG) Improve soft tissue mobility to WNL to allow for improved ease of movement and decrease in pain 07/01/21: goal progress. 07/31/21: goal progress, working on patient ability to do self massage 08/11/21: goo LTG Duration 3/ Three Impairment pain as high as 9/10 right SI, buttock Short Term Goal (STG) Decrease pain to no greater than 5/10 with all usual activities 07/01/21: Pain has been variable, not predictable, often unable to point to cause of exacerbation. Some goal progress 07/31/21: improved to 4/10 per pain chart 08/27/21: generally no greater than 4/10, less at times STG Duration goal met Sweatband Flanger Goal (LTG) Decrease pain to no greater than 2/10 with all usual activities 08/27/21: pain 4/10, occasional spike in pain with increase in activity LTG Duration 08/25/21 Two Impairment weakness core and hips limiting mobility and activity tolerance Short Term Goal (STG) patient to be able to tolerate HEP for the purpose of strengthening and core/SI stabilization 07/01/21: patient compliant with HEP, variable tolerance. 07/31/21: HEP continues to be modified according to patient tolerance. Has begun aquatic PT with good tolerance and feel that may be best treatment for this patient. 08/27/21: independent and compliant with HEP STG Duration goal met Sweatband Flanger Goal (LTG) Patient to demonstrate 5/5 muscle strength bilateral hips and core for improved function in the home and community with minimal pain. 07/31/21: goal progress 08/27/21: good goal progress with strength at 4/5 throughout, pain with resisted hip extension and abduction reema LTG Duration 08/25/21 One Impairment Activity tolerance Impairment Oswestry disability index score 56% Short Term Goal (STG) Decrease ANGEL score to no greater than 40% 07/01/21: no reassessed this date 07/31/21: decreased to 32% STG Duration goal met Custodial Goal (LTG) Decrease ANGEL score to no greater than 15% 08/27/21: ANGEL decreased to 24% LTG Duration 10/25/21 Assessment Summary Assessment Best tolerance for increased deep water focus with aquatic exercise, improving ability to regain alignment with all deep water tasks, mod cues. Physical Therapy Plan Frequency and Duration Frequency of Treatment 1x/Week Duration of Treatment 8 weeks Plan of Care Start Date 08/27/21 Plan of Care End Date 10/25/21 Therapeutic Interventions Therapeutic Interventions Aquatic Therapy,Gait Training, Home Exercise Program,Manual Therapy,Neuromuscular Re- education,Patient/Caregiver Education,Self-Care/Home Management,Soft Tissue Mobilization,Taping, Therapeutic Activities, Therapeutic Exercises Next Visit Focus/Plan Next Note Type Treatment Note Next Visit Plan Assess response to travel, possible independent performance of some aquatic exercise. Progress aquatic exercises as tolerated for strengthening, core stab
--- NOTE | 2021-09-19 14:42 | PT.OTN ---
Current Diagnoses Sacroiliitis, not elsewhere classified (09/19/21) Physical Therapy Treatment Note PT-OP-A Visit Information Start: 05/27/21 08:48 Freq: Status: Active Protocol: Document 09/19/21 14:28 ERON (Rec: 09/19/21 14:42 LJ [id number]) Out-Patient Physical Therapy Visit Information Visit Information Visit Type Aquatic Treatment Note Visit Start Time 11:45 Visit Stop Time 12:30 Total Visit Minutes 45 Visit Number 25 Number of FAMILY DEVELOPMENT EXTENSION SPECIALIST Visits 1 PT-OP-B Current Condition Start: 05/27/21 08:48 Freq: Status: Active Protocol: Document 05/27/21 09:01 SAK (Rec: 05/27/21 10:28 SAK [id number]) Current Condition History of Current Condition Onset Date 04/21/21 Current Complaints right buttock History of Current Condition Fell August 2019 onto right SI joint. Pain into gluteal region. PT not helpful, pain persisted. Unable to walk without pain. Underwent right SI fusion 04/21/21. Hasn 't gone as well as anticiipated. Prior to surgery pain in right buttock, some in SI joint. Yesterday states having pain in SI pretty severe and down the outside of his leg. Hasn't driven since the surgery until yesterday. Throughout the day got a little better. This am the pain returned in right SI and buttock. Also having some pins and needsles in right foot. When saw PA 3 weeks after surgery was concerned seemed pin was very close to sacral foramina. Iced in the very beginning, but hasn't recently. Hasn't done any exercises since the surgery. Interested in slow, gentle exercise. Orders from doctor to do activity as pain permits. Weaned from walker to cane, then no cane very carefully and slowly for 2 weeks including a little walking on driveway. Reports using cane sometimes on right when really hurting because feeling better though knowing he is supposed to use on Can't bend down to put sock on without severe pain, using sock aid. looking to leave town for a few weeks, has to put hay in bucket. Stopped doing his prescribed exercises due to increase in gluteal pain. Just started to be able to lay on right side. Has point tenderness also right greater trochanter. Occasional glut pain on left as well. Prior Treatments and Tests 5 wks post op. Seen for right hip pain summer 2019, PT rightly said pain was coming from my back. 2 neck fusions c/s Future Testing and Treatments Planned Sees surgeon next week. 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, caring for animals on property Current Functional Impairments (Reported) Functional Limitations- ADL's painful, can't put sock on without pain Functional Limitations- Mobility/Gait painful, using cane Functional Limitations- Work/School unable to take care of animals on property Personal Factors Other Personal Factors That May Effect 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 He will attempt to get to the pool a couple times on his own before he leaves town again on another trip. PT-OP-E Functional Tests Start: 05/27/21 08:48 Freq: Status: Active Protocol: Document 05/27/21 09:01 [facility] (Rec: 05/27/21 10:28 [facility] [id number]) Functional Tests 6 Minute Walk Test Comments do next session PT-OP-G Mobility & Gait Start: 05/27/21 08:48 Freq: Status: Active Protocol: Document 05/27/21 09:01 [facility] (Rec: 05/27/21 10:28 [facility] [id number]) OP Mobility Evaluation Bed Mobility Rolling independent Supine to and from Sit independent with log roll Transfers Sit to Stand independent, decreased use of right LE Functional Movements Lifting and Carrying not doing at this time Squats not doing at this time OP Gait Assessment Assistive Devices Assistive Device Straight Cane Orthotic/Prosthetic Devices or Brace: No Gait Deviations General Gait Pattern Antalgic Comments Gait Comments Patient using cane on right side and leaning to the right; he says he does this when really hurting as it feels better. Instructed to use on left side for improved gait pattern and decreased compensation Stair Climbing Evaluation Evaluation Level of Assist On Stairs Independent Comments Stair Climbing Comments Reports alternating on short steps most of time, step-to pattern on higher stairs PT-OP-H Neuro Start: 05/27/21 08:48 Freq: Status: Active Protocol: Document 05/27/21 09:01 SAK (Rec: 05/27/21 10:28 SAK [id number]) Sensation Evaluation Gross Sensation Gross Sensation Left LE Impaired,Right LE Impaired Sensation Description [place] Dermatome Impairments L5,S1 PT-OP-J Posture/Palpation/Skin Start: 05/27/21 08:48 Freq: Status: Active Protocol: Document 05/27/21 09:01 SAK (Rec: 05/27/21 10:28 [facility] [id number]) Posture Evaluation Position Standing Head/C-Spine Posture Forward Head T-Spine Posture Increased Kyphosis L-Spine Posture Flattened Pelvis Posture Posterior Tilted Hip Posture (L) Neutral,(R) Neutral Palpation Assessment Location reema buttocks Palpation Findings Soft Tissue Tightness,Muscle Guarding Palpation Details especially right piriformis lumbar paraspinals Palpation Findings Soft Tissue Tightness,Muscle Guarding surgical scar Palpation Location right SI Palpation Findings Soft Tissue Tightness Palpation Details decreased scar mobility PT-OP-K Range of Motion Start: 05/27/21 08:48 Freq: Status: Active Protocol: Document 05/27/21 09:01 SAK (Rec: 05/27/21 10:28 [facility] [id number]) Lumbar Spine Range of Motion Lumbar Spine Active Comments not formally assessed due to 5 weeks post-op Hip Goniometric Range of Motion Hip Right Flexion w/Knee Flexed 95 Straight Leg Raise 45 Extension 0 Comments not fully assessed at end- range due to recent surgery and high pain level today left Flexion w/Knee Flexed 95 Straight Leg Raise 55 Extension 0 Comments not fully assessed at end- range due to recent surgery and high pain level today Hip ROM Limitations Hip ROM Limitations Soft Tissue Tightness,Pain Knee Goniometric Range of Motion Knee Right Extension Active (degrees) 10 Left Knee ROM WFL Yes Knee ROM Limitations Knee ROM Limitations Soft Tissue Tightness Comments tight hamstrings limiting knee extension in sitting PT-OP-L Special Tests Start: 05/27/21 08:48 Freq: Status: Active Protocol: Document 05/27/21 09:01 [facility] (Rec: 05/27/21 10:28 [facility] [id number]) Special Tests Neural Special Tests- Lower Body Sciatic Nerve Tension Test Results positive right PT-OP-M Strength Start: 05/27/21 08:48 Freq: Status: Active Protocol: Document 05/27/21 09:01 [facility] (Rec: 05/27/21 10:28 [facility] [id number]) Trunk Strength Trunk Manual Muscle Testing Testing Position Supine Core Stabilization difficulty activating core musculature Hip Strength Hip Manual Muscle Testing Right Comments no MMT due to recent surgery, has anti-gravity flexion in limited motion Left Comments not assessed due to recent surgery, has anti-gravity flexion Knee Strength Knee Manual Muscle Testing reema Comments has anti-gravity extension reema , no MMT Ankle/Foot Strength Ankle and Foot Manual Muscle Testing Right Dorsiflexion (L4) 4 Good Plantarflexion (S1) 4+ Good+ Left Dorsiflexion (L4) 5 Normal Plantarflexion (S1) 5 Normal Toe Strength Toe Manual Muscle Testing Great Toe Comments left 5/5, right 4/5 PT-OP-Q Treatments Start: 05/27/21 08:48 Freq: Status: Active Protocol: Document 08/11/21 08:13 [facility] (Rec: 08/11/21 09:00 [facility] [id number]) Cardio Equipment Bicycle (Upright) Duration (Minutes) 10 Resistance 7 Seat Position 7 Gym Equipment Shuttle Recovery Unilateral Squats Resistance 25 Shuttle Recovery Platform Stable Reps/Time 10x2 Bilateral Squats Resistance 50 Shuttle Recovery Platform Stable Reps/Time 10x2 Therapeutic Activity Therapeutic Activity self massage Comments verbal review Manual Therapy Treatment Soft Tissue Mobilization piriformis Body Location right Mobilization Type Myofascial Release,Strumming, Sustained Pressure hamstring Body Location proximal right Mobilization Type Myofascial Release,Strumming Intensity/Depth Moderate ITB Body Location right Mobilization Type Myofascial Release,Rolling Intensity/Depth Moderate Body Position Sidelying Glutes Body Location R Mobilization Type Myofascial Release,Sustained Pressure Intensity/Depth Moderate Body Position Sidelying Comments piriformis scar tissue Body Location right buttock, reema LB Mobilization Type Myofascial Release PT-OP-R Modalities Start: 05/27/21 08:48 Freq: Status: Active Protocol: Document 08/11/21 08:13 [facility] (Rec: 08/11/21 09:00 [facility] [id number]) Hot Pack/Cold Pack Treatment Hot Pack Location left SI, piriformis Patient Position Sidelying Treatment Duration (minutes) 15 Patient Tolerance Good PT-OP-S Aquatic Treatment Start: 05/27/21 08:48 Freq: Status: Active Protocol: Document 09/19/21 14:28 ERON (Rec: 09/19/21 14:42 [id number]) Aquatics Treatment Pool Entry/Exit Pool Entry/Exit Method Stairs Assistance Independent Water Walking stop start Water Level Chest Level Level of Assistance Verbal Cues [place] October Water Level Chest Level Level of Assistance Verbal Cues march Level of Assistance Verbal Cues fwd,bck,side Water Level Chest Level Level of Assistance Verbal Cues Lower Extremity Exercises circles Reps/Duration 10x Comments cw and ccw hip AB/AD Details at wall Body Position Standing Reps/Duration 10 B Comments hand hold hip fl/ext Details at wall Body Position Standing Reps/Duration 10 B Comments occasional hand hold Lower Extremity Stretches quad Body Position Standing Water Level Waist Level Equipment Ankle Floats Reps/Duration 2x 30 gastroc Details at wall Body Position Standing Water Level Waist Level Reps/Duration 30' x 2 B SKTC Body Position Standing Water Level Chest Level Reps/Duration 30' x 2 B Comments gentle HS stretch Details also groin and ITB Body Position Standing Equipment small ankle float Reps/Duration 2x 30 Upper Extremity Exercises hor ab/ad, flex/ext Details reema and unil Body Position Standing Water Level Chest Level Equipment med BBs Reps/Duration 10x ea Comments emphasis on core stab Upper Extremity Stretches walking pec stretch Body Position Standing Water Level Chest Level Equipment UE paddles Spinal Exercises abd pull down at wall Details sitting at wall Equipment 2 M BBs Reps/Duration 15 each dir Comments fwd, left, right [place] Activities [place] Activities Bicycle,Bicycle Backwards, Cross Country,Running,Hip Abduction/Adduction,Sit Kicks Other Activities T hang T hang with pull downs wall pull downs x 10 wall hang full body extension stretch Equipment belt and 2 M BBs Duration 20 Comments pt able to stabilize without noodles or BBs while performing bike, running, sit kicks, and gentle ski and jacks PT-OP-T Assessment and Plan Start: 05/27/21 08:48 Freq: Status: Active Protocol: Document 09/19/21 14:28 ERON (Rec: 09/19/21 14:42 [id number]) Physical Therapy Assessment Rehab Potential Rehabilitation Potential Good Goals Four Impairment soft tissue mobility Impairment Tightness scar tissue right buttock, piriformis, reema IT bands Data Consultant Goal (LTG) Improve soft tissue mobility to WNL to allow for improved ease of movement and decrease in pain 07/01/21: goal progress. 07/31/21: goal progress, working on patient ability to do self massage 08/11/21: goo LTG Duration 3/ Three Impairment pain as high as 9/10 right SI, buttock Short Term Goal (STG) Decrease pain to no greater than 5/10 with all usual activities 07/01/21: Pain has been variable, not predictable, often unable to point to cause of exacerbation. Some goal progress 07/31/21: improved to 4/10 per pain chart 08/27/21: generally no greater than 4/10, less at times STG Duration goal met Correction Goal (LTG) Decrease pain to no greater than 2/10 with all usual activities 08/27/21: pain 4/10, occasional spike in pain with increase in activity LTG Duration 08/25/21 Two Impairment weakness core and hips limiting mobility and activity tolerance Short Term Goal (STG) patient to be able to tolerate HEP for the purpose of strengthening and core/SI stabilization 07/01/21: patient compliant with HEP, variable tolerance. 07/31/21: HEP continues to be modified according to patient tolerance. Has begun aquatic PT with good tolerance and feel that may be best treatment for this patient. 08/27/21: independent and compliant with HEP STG Duration goal met Correction Goal (LTG) Patient to demonstrate 5/5 muscle strength bilateral hips and core for improved function in the home and community with minimal pain. 07/31/21: goal progress 08/27/21: good goal progress with strength at 4/5 throughout, pain with resisted hip extension and abduction reema LTG Duration 08/25/21 One Impairment Activity tolerance Impairment Oswestry disability index score 56% Short Term Goal (STG) Decrease ANGEL score to no greater than 40% 07/01/21: no reassessed this date 07/31/21: decreased to 32% STG Duration goal met Data Consultant Goal (LTG) Decrease ANGEL score to no greater than 15% 08/27/21: ANGEL decreased to 24% LTG Duration 10/25/21 Progress Towards Goals Progress Towards Goals Progressing Toward Goals Assessment Summary Assessment Pt much improved with coordination and core stability. Able to progress ROM and activity tolerance without pain. No longer needs noodles in deep water to control core and legs. Physical Therapy Plan Frequency and Duration Frequency of Treatment 1x/Week Duration of Treatment 8 weeks Plan of Care Start Date 08/27/21 Plan of Care End Date 10/25/21 Therapeutic Interventions Therapeutic Interventions Aquatic Therapy,Gait Training, Home Exercise Program,Manual Therapy,Neuromuscular Re- education,Patient/Caregiver Education,Self-Care/Home Management,Soft Tissue Mobilization,Taping, Therapeutic Activities, Therapeutic Exercises Next Visit Focus/Plan Next Note Type Treatment Note Next Visit Plan Pt will travel again and will be without aquatic exercise sessions. Reassess upon return to AT.
--- NOTE | 2022-01-12 09:21 | PT.OPDS ---
Current Diagnoses Sacroiliitis, not elsewhere classified (09/19/21) Visit Care Team Role Provider Type Farhad Machado MD Family Provider Physician Primary Care Provider Specialty: Family Practice Address: [facility] [place], [address] Email: [email or web address] Reynaldo Poon MD Attending Provider Non-Staff Referring Provider Specialty: Neurosurgery Address: [address] [place] [address], [address], [address] Email: Visit Number Visit Number 25 Discharge Summary PT-OP-B Current Condition Start: 05/27/21 08:48 Freq: Status: Active Protocol: Document 05/27/21 09:01 ADALBERTO (Rec: 05/27/21 10:28 [facility] [id number]) Current Condition History of Current Condition Onset Date 04/21/21 Current Complaints right buttock History of Current Condition Fell August 2019 onto right SI joint. Pain into gluteal region. PT not helpful, pain persisted. Unable to walk without pain. Underwent right SI fusion 04/21/21. Hasn 't gone as well as anticiipated. Prior to surgery pain in right buttock, some in SI joint. Yesterday states having pain in SI pretty severe and down the outside of his leg. Hasn't driven since the surgery until yesterday. Throughout the day got a little better. This am the pain returned in right SI and buttock. Also having some pins and needsles in right foot. When saw PA 3 weeks after surgery was concerned seemed pin was very close to sacral foramina. Iced in the very beginning, but hasn't recently. Hasn't done any exercises since the surgery. Interested in slow, gentle exercise. Orders from doctor to do activity as pain permits. Weaned from walker to cane, then no cane very carefully and slowly for 2 weeks including a little walking on driveway. Reports using cane sometimes on right when really hurting because feeling better though knowing he is supposed to use on Can't bend down to put sock on without severe pain, using sock aid. looking to leave town for a few weeks, has to put hay in bucket. Stopped doing his prescribed exercises due to increase in gluteal pain. Just started to be able to lay on right side. Has point tenderness also right greater trochanter. Occasional glut pain on left as well. Prior Treatments and Tests 5 wks post op. Seen for right hip pain summer 2019, PT rightly said pain was coming from my back. 2 neck fusions c/s Future Testing and Treatments Planned Sees surgeon next week. 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, caring for animals on property Current Functional Impairments (Reported) Functional Limitations- ADL's painful, can't put sock on without pain Functional Limitations- Mobility/Gait painful, using cane Functional Limitations- Work/School unable to take care of animals on property Personal Factors Other 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 He will attempt to get to the pool a couple times on his own before he leaves town again on another trip. PT-OP-E Functional Tests Start: 05/27/21 08:48 Freq: Status: Active Protocol: Document 05/27/21 09:01 [facility] (Rec: 05/27/21 10:28 [facility] [id number]) Functional Tests 6 Minute Walk Test Comments do next session PT-OP-G Mobility & Gait Start: 05/27/21 08:48 Freq: Status: Active Protocol: Document 05/27/21 09:01 [facility] (Rec: 05/27/21 10:28 [facility] [id number]) OP Mobility Evaluation Bed Mobility Rolling independent Supine to and from Sit independent with log roll Transfers Sit to Stand independent, decreased use of right LE Functional Movements Lifting and Carrying not doing at this time Squats not doing at this time OP Gait Assessment Assistive Devices Assistive Device Straight Cane Orthotic/Prosthetic Devices or Brace: No Gait Deviations General Gait Pattern Antalgic Comments Gait Comments Patient using cane on right side and leaning to the right; he says he does this when really hurting as it feels better. Instructed to use on left side for improved gait pattern and decreased compensation Stair Climbing Evaluation Evaluation Level of Assist On Stairs Independent Comments Stair Climbing Comments Reports alternating on short steps most of time, step-to pattern on higher stairs PT-OP-H Neuro Start: 05/27/21 08:48 Freq: Status: Active Protocol: Document 05/27/21 09:01 [facility] (Rec: 05/27/21 10:28 [facility] [id number]) Sensation Evaluation Gross Sensation Gross Sensation Left LE Impaired,Right LE Impaired Sensation Description [place] Dermatome Impairments L5,S1 PT-OP-J Posture/Palpation/Skin Start: 05/27/21 08:48 Freq: Status: Active Protocol: Document 05/27/21 09:01 [facility] (Rec: 05/27/21 10:28 [facility] [id number]) Posture Evaluation Position Standing Head/C-Spine Posture Forward Head T-Spine Posture Increased Kyphosis L-Spine Posture Flattened Pelvis Posture Posterior Tilted Hip Posture (L) Neutral,(R) Neutral Palpation Assessment Location reema buttocks Palpation Findings Soft Tissue Tightness,Muscle Guarding Palpation Details especially right piriformis lumbar paraspinals Palpation Findings Soft Tissue Tightness,Muscle Guarding surgical scar Palpation Location right SI Palpation Findings Soft Tissue Tightness Palpation Details decreased scar mobility PT-OP-K Range of Motion Start: 05/27/21 08:48 Freq: Status: Active Protocol: Document 05/27/21 09:01 [facility] (Rec: 05/27/21 10:28 [facility] [id number]) Lumbar Spine Range of Motion Lumbar Spine Active Comments not formally assessed due to 5 weeks post-op Hip Goniometric Range of Motion Hip Right Flexion w/Knee Flexed 95 Straight Leg Raise 45 Extension 0 Comments not fully assessed at end- range due to recent surgery and high pain level today left Flexion w/Knee Flexed 95 Straight Leg Raise 55 Extension 0 Comments not fully assessed at end- range due to recent surgery and high pain level today Hip ROM Limitations Hip ROM Limitations Soft Tissue Tightness,Pain Knee Goniometric Range of Motion Knee Right Extension Active (degrees) 10 Left Knee ROM WFL Yes Knee ROM Limitations Knee ROM Limitations Soft Tissue Tightness Comments tight hamstrings limiting knee extension in sitting PT-OP-L Special Tests Start: 05/27/21 08:48 Freq: Status: Active Protocol: Document 05/27/21 09:01 [facility] (Rec: 05/27/21 10:28 [facility] [id number]) Special Tests Neural Special Tests- Lower Body Sciatic Nerve Tension Test Results positive right PT-OP-M Strength Start: 05/27/21 08:48 Freq: Status: Active Protocol: Document 05/27/21 09:01 [facility] (Rec: 05/27/21 10:28 [facility] [id number]) Trunk Strength Trunk Manual Muscle Testing Testing Position Supine Core Stabilization difficulty activating core musculature Hip Strength Hip Manual Muscle Testing Right Comments no MMT due to recent surgery, has anti-gravity flexion in limited motion Left Comments not assessed due to recent surgery, has anti-gravity flexion Knee Strength Knee Manual Muscle Testing reema Comments has anti-gravity extension reema , no MMT Ankle/Foot Strength Ankle and Foot Manual Muscle Testing Right Dorsiflexion (L4) 4 Good Plantarflexion (S1) 4+ Good+ Left Dorsiflexion (L4) 5 Normal Plantarflexion (S1) 5 Normal Toe Strength Toe Manual Muscle Testing Great Toe Comments left 5/5, right 4/5 PT-OP-T Assessment and Plan Start: 05/27/21 08:48 Freq: Status: Active Protocol: Document 01/12/22 09:19 [facility] (Rec: 01/12/22 09:21 [facility] [id number]) Physical Therapy Plan Discharge Physical Therapy Discharge Reasons Change in Medical Status Discharge Comments had carpal tunnel surgery, not able to attend at this time. Requests discharge
--- NOTE | 2022-01-12 11:18 | PT.OPDS ---
Current Diagnoses Sacroiliitis, not elsewhere classified (09/19/21) Visit Care Team Role Provider Type Farhad Machado MD Family Provider Physician Primary Care Provider Specialty: Family Practice Address: [facility] [place], [address] Email: [email or web address] Reynaldo Poon MD Attending Provider Non-Staff Referring Provider Specialty: Neurosurgery Address: [address] [place] [address], [address], [address] Email: Visit Number Visit Number 25 Discharge Summary PT-OP-B Current Condition Start: 05/27/21 08:48 Freq: Status: Active Protocol: Document 05/27/21 09:01 ADALBERTO (Rec: 05/27/21 10:28 [facility] [id number]) Current Condition History of Current Condition Onset Date 04/21/21 Current Complaints right buttock History of Current Condition Fell August 2019 onto right SI joint. Pain into gluteal region. PT not helpful, pain persisted. Unable to walk without pain. Underwent right SI fusion 04/21/21. Hasn 't gone as well as anticiipated. Prior to surgery pain in right buttock, some in SI joint. Yesterday states having pain in SI pretty severe and down the outside of his leg. Hasn't driven since the surgery until yesterday. Throughout the day got a little better. This am the pain returned in right SI and buttock. Also having some pins and needsles in right foot. When saw PA 3 weeks after surgery was concerned seemed pin was very close to sacral foramina. Iced in the very beginning, but hasn't recently. Hasn't done any exercises since the surgery. Interested in slow, gentle exercise. Orders from doctor to do activity as pain permits. Weaned from walker to cane, then no cane very carefully and slowly for 2 weeks including a little walking on driveway. Reports using cane sometimes on right when really hurting because feeling better though knowing he is supposed to use on Can't bend down to put sock on without severe pain, using sock aid. looking to leave town for a few weeks, has to put hay in bucket. Stopped doing his prescribed exercises due to increase in gluteal pain. Just started to be able to lay on right side. Has point tenderness also right greater trochanter. Occasional glut pain on left as well. Prior Treatments and Tests 5 wks post op. Seen for right hip pain summer 2019, PT rightly said pain was coming from my back. 2 neck fusions c/s Future Testing and Treatments Planned Sees surgeon next week. 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, caring for animals on property Current Functional Impairments (Reported) Functional Limitations- ADL's painful, can't put sock on without pain Functional Limitations- Mobility/Gait painful, using cane Functional Limitations- Work/School unable to take care of animals on property Personal Factors Other Personal Factors That May Effect 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 He will attempt to get to the pool a couple times on his own before he leaves town again on another trip. PT-OP-E Functional Tests Start: 05/27/21 08:48 Freq: Status: Active Protocol: Document 05/27/21 09:01 [facility] (Rec: 05/27/21 10:28 [facility] [id number]) Functional Tests 6 Minute Walk Test Comments do next session PT-OP-G Mobility & Gait Start: 05/27/21 08:48 Freq: Status: Active Protocol: Document 05/27/21 09:01 [facility] (Rec: 05/27/21 10:28 [facility] [id number]) OP Mobility Evaluation Bed Mobility Rolling independent Supine to and from Sit independent with log roll Transfers Sit to Stand independent, decreased use of right LE Functional Movements Lifting and Carrying not doing at this time Squats not doing at this time OP Gait Assessment Assistive Devices Assistive Device Straight Cane Orthotic/Prosthetic Devices or Brace: No Gait Deviations General Gait Pattern Antalgic Comments Gait Comments Patient using cane on right side and leaning to the right; he says he does this when really hurting as it feels better. Instructed to use on left side for improved gait pattern and decreased compensation Stair Climbing Evaluation Evaluation Level of Assist On Stairs Independent Comments Stair Climbing Comments Reports alternating on short steps most of time, step-to pattern on higher stairs PT-OP-H Neuro Start: 05/27/21 08:48 Freq: Status: Active Protocol: Document 05/27/21 09:01 [facility] (Rec: 05/27/21 10:28 [facility] [id number]) Sensation Evaluation Gross Sensation Gross Sensation Left LE Impaired,Right LE Impaired Sensation Description [place] Dermatome Impairments L5,S1 PT-OP-J Posture/Palpation/Skin Start: 05/27/21 08:48 Freq: Status: Active Protocol: Document 05/27/21 09:01 [facility] (Rec: 05/27/21 10:28 [facility] [id number]) Posture Evaluation Position Standing Head/C-Spine Posture Forward Head T-Spine Posture Increased Kyphosis L-Spine Posture Flattened Pelvis Posture Posterior Tilted Hip Posture (L) Neutral,(R) Neutral Palpation Assessment Location reema buttocks Palpation Findings Soft Tissue Tightness,Muscle Guarding Palpation Details especially right piriformis lumbar paraspinals Palpation Findings Soft Tissue Tightness,Muscle Guarding surgical scar Palpation Location right SI Palpation Findings Soft Tissue Tightness Palpation Details decreased scar mobility PT-OP-K Range of Motion Start: 05/27/21 08:48 Freq: Status: Active Protocol: Document 05/27/21 09:01 [facility] (Rec: 05/27/21 10:28 [facility] [id number]) Lumbar Spine Range of Motion Lumbar Spine Active Comments not formally assessed due to 5 weeks post-op Hip Goniometric Range of Motion Hip Right Flexion w/Knee Flexed 95 Straight Leg Raise 45 Extension 0 Comments not fully assessed at end- range due to recent surgery and high pain level today left Flexion w/Knee Flexed 95 Straight Leg Raise 55 Extension 0 Comments not fully assessed at end- range due to recent surgery and high pain level today Hip ROM Limitations Hip ROM Limitations Soft Tissue Tightness,Pain Knee Goniometric Range of Motion Knee Right Extension Active (degrees) 10 Left Knee ROM WFL Yes Knee ROM Limitations Knee ROM Limitations Soft Tissue Tightness Comments tight hamstrings limiting knee extension in sitting PT-OP-L Special Tests Start: 05/27/21 08:48 Freq: Status: Active Protocol: Document 05/27/21 09:01 [facility] (Rec: 05/27/21 10:28 [facility] [id number]) Special Tests Neural Special Tests- Lower Body Sciatic Nerve Tension Test Results positive right PT-OP-M Strength Start: 05/27/21 08:48 Freq: Status: Active Protocol: Document 05/27/21 09:01 [facility] (Rec: 05/27/21 10:28 [facility] [id number]) Trunk Strength Trunk Manual Muscle Testing Testing Position Supine Core Stabilization difficulty activating core musculature Hip Strength Hip Manual Muscle Testing Right Comments no MMT due to recent surgery, has anti-gravity flexion in limited motion Left Comments not assessed due to recent surgery, has anti-gravity flexion Knee Strength Knee Manual Muscle Testing reema Comments has anti-gravity extension reema , no MMT Ankle/Foot Strength Ankle and Foot Manual Muscle Testing Right Dorsiflexion (L4) 4 Good Plantarflexion (S1) 4+ Good+ Left Dorsiflexion (L4) 5 Normal Plantarflexion (S1) 5 Normal Toe Strength Toe Manual Muscle Testing Great Toe Comments left 5/5, right 4/5 PT-OP-T Assessment and Plan Start: 05/27/21 08:48 Freq: Status: Active Protocol: Document 01/12/22 09:19 [facility] (Rec: 01/12/22 09:21 [facility] [id number]) Physical Therapy Plan Discharge Physical Therapy Discharge Reasons Change in Medical Status Discharge Comments had carpal tunnel surgery, not able to attend at this time. Requests discharge
== END 2022-07-02 10:48 | disposition home or self-care (01) ==
LOC: PHYS 11:45
PROVIDERS: Family Provider Family Medicine; PCP Family Medicine; Referring Provider Neurological Surgery; Visit Provider Neurological Surgery
DX: M46.1 Sacroiliitis, not elsewhere classified (principal)
CPT/HCPCS: 97014; 97035; 97110; 97113; 97140; 97162; 97535; G0283

== ENCOUNTER → 2021-11-07 08:38 | Outpatient (CLI) | payer MEDICARE, SELFPAY ==
[2021-11-07 09:36] LABS: Add Manual Diff / Slide Review NO; Basophils Absolute Auto 0 /uL (0-100); Basophils Percent Auto 0.6 % (0-2); Eosinophils Absolute Auto 100 /uL (0-450); Eosinophils Percent Auto 2.7 % (2-4); Hematocrit 45.8 % (41-53); Hemoglobin 16.3 g/dL (13.5-17.5); Lymphocytes Absolute Auto 1400 /uL (1100-4500); Lymphocytes Percent Auto 24.8 % (25-40); Mean Corpuscular HGB Conc 35.5 % (30-36); Mean Corpuscular Hemoglobin 32.8 PG (26-34); Mean Corpuscular Volume 92.3 fL (80-100); Monocytes Absolute Auto 300 /uL (0-900); Monocytes Percent Auto 5.8 % (3-14); Neutrophils Absolute Auto 3700 /uL (1500-7000); Neutrophils Percent Auto 66.1 % (50-75); Platelet Count 160 X10^3/uL (150-400); Red Blood Cell Count 4.96 X10^6/uL (4.5-5.9); Red Cell Distribution Width 13.2 % (11.6-14.8); White Blood Cell Count 5.6 X10^3/uL (4.5-11.0)
[2021-11-07 09:52] LABS: Hemoglobin A1C% w Est Avg Glu 5.1 % (4.0-6.0)
[2021-11-07 10:13] LABS: Alanine Aminotransferase 12 IU/L (<50); Albumin 4.1 g/dL (3.5-5.0); Albumin Globulin Ratio 1.5 (1.0-2.8); Alkaline Phosphatase 65 U/L (38-126); Aspartate Aminotransferase 21 IU/L (17-59); BUN Creatinine Ratio 18.4 (6-22); Bilirubin Total 0.9 mg/dL (0.2-1.3); Blood Urea Nitrogen 18 mg/dL (9-20); Calcium 9.5 mg/dL (8.4-10.2); Carbon Dioxide 26 mmol/L (22-32); Chloride 106 mmol/L (98-107); Cholesterol 180 mg/dL (140-199); Estimated Glomerular Filt Rate > 60.0 mL/min (>60); Globulin 2.8 g/dL (1.7-4.1); Glucose 100 mg/dL (80-110); HDL Cholesterol 50 mg/dL (40-60); HEMOLYSIS < 15 (0-50); LDL Cholesterol Calculated 107 mg/dL (<100); Potassium 4.2 mmol/L (3.4-5.1); Sodium 141 mmol/L (137-145); Total Protein 6.9 g/dL (6.3-8.2); Triglycerides 114 mg/dL (35-150)
[2021-11-07 10:46] LABS: Prostate Specific Antigen Scrn 5.37 ng/mL (0.1-4.0)
[2021-11-07 10:49] LABS: Ferritin 44 ng/mL (18-464)
== END ==
PROVIDERS: Family Provider Family Medicine; PCP Family Medicine; Referring Provider Family Medicine; Visit Provider Family Medicine
DX: E83.119 Hemochromatosis, unspecified (principal); K58.9 Irritable bowel syndrome, unspecified; Z12.5 Encounter for screening for malignant neoplasm of prostate; R97.20 Elevated prostate specific antigen [PSA]
CPT/HCPCS: 36415; 80053; 80061; 82728; 83036; 85025; G0103

== ENCOUNTER → 2022-06-19 14:58 | Outpatient (CLI) | payer MEDICARE, SELFPAY | PROVIDERS: Family Provider Family Medicine; PCP Family Medicine; Referring Provider Internal Medicine; Visit Provider Internal Medicine | DX: Z23 Encounter for immunization (principal) | CPT/HCPCS: 90471; 90662 ==

== ENCOUNTER → 2022-10-06 16:03 | Outpatient (CLI) | payer MEDICARE, SELFPAY ==
--- NOTE | 2022-10-06 16:05 | DI.CT.S_ITS ---
PROCEDURE: CT HEAD/BRAIN WO CON INDICATIONS: CHI. fell wednesday. worsening BAUGH TECHNIQUE: Noncontrast 4.5 mm thick angled axial sections acquired from the foramen magnum to the vertex, with coronal and sagittal reformats. For radiation dose reduction, the following was used: automated exposure control, adjustment of mA and/or kV according to patient size. COMPARISON: None. FINDINGS: Image quality: Excellent. CSF spaces: Basal cisterns are patent. No extra-axial fluid collections. Ventricles are normal in size and shape. Brain: No midline shift. No intracranial masses or hemorrhage. No area of hypodensity in a large vascular distribution to suggest acute infarction. Periventricular hypodensity consistent with chronic microvascular ischemic change. Age-related parenchymal loss. Skull and face: Calvarium and visualized facial bones are intact, without suspicious lesions. Sinuses: Visualized sinuses and mastoids are clear. IMPRESSION: No acute intracranial abnormality. Dictated by: Eliazar Collier M.D. on 10/06/2022 at 16:18 Approved by: Eliazar Collier M.D. on 10/06/2022 at 16:22
== END ==
PROVIDERS: Family Provider Family Medicine; PCP Family Medicine; Referring Provider Family Medicine; Visit Provider Family Medicine
DX: R51.9 Headache, unspecified (principal); S09.90XA Unspecified injury of head, initial encounter; W19.XXXA Unspecified fall, initial encounter
CPT/HCPCS: 70450

== ENCOUNTER 2022-11-24 12:13 | Emergency (ER) | payer MEDICARE, SELFPAY ==
[2022-11-24 12:14] VITALS: BP 135/74; PULSE 77; RESP 15; TEMP 36.6; O2SAT 99; BMI 25.8
--- NOTE | 2022-11-24 12:19 | DI.RAD.S_ITS ---
PROCEDURE: XR CHEST 1V INDICATIONS: chest pain TECHNIQUE: One view of the chest was acquired. COMPARISON: None. FINDINGS: Surgical changes and devices: None. Lungs and pleura: Lungs are clear. No pleural effusions or pneumothorax. Mediastinum: Mediastinal contours appear normal. Heart size is normal. Bones and chest wall: No suspicious bony lesions. Overlying soft tissues appear unremarkable. IMPRESSION: No acute pulmonary process. Dictated by: Anni Amezcua M.D. on 11/24/2022 at 12:54 Approved by: Anni Amezcua M.D. on 11/24/2022 at 12:54
[2022-11-24 12:35] VITALS: PULSE 80; O2SAT 96
[2022-11-24 13:00] VITALS: PULSE 73; O2SAT 94
[2022-11-24 13:06] LABS: INR 1.3 (0.9-1.3); Prothrombin Time 14.5 SECONDS (10.1-12.7)
[2022-11-24 13:07] LABS: Add Manual Diff / Slide Review NO; Basophils Absolute Auto 0 /uL (0-100); Basophils Percent Auto 0.4 % (0-2); Eosinophils Absolute Auto 400 /uL (0-450); Eosinophils Percent Auto 4.2 % (2-4); Hematocrit 46.1 % (41-53); Hemoglobin 16.1 g/dL (13.5-17.5); Lymphocytes Absolute Auto 800 /uL (1100-4500); Lymphocytes Percent Auto 8.3 % (25-40); Mean Corpuscular HGB Conc 34.9 % (30-36); Mean Corpuscular Hemoglobin 32.6 PG (26-34); Mean Corpuscular Volume 93.4 fL (80-100); Monocytes Absolute Auto 600 /uL (0-900); Monocytes Percent Auto 6.9 % (3-14); Neutrophils Absolute Auto 7300 /uL (1500-7000); Neutrophils Percent Auto 80.2 % (50-75); Platelet Count 174 X10^3/uL (150-400); Red Blood Cell Count 4.93 X10^6/uL (4.5-5.9); Red Cell Distribution Width 12.9 % (11.6-14.8); White Blood Cell Count 9.1 X10^3/uL (4.5-11.0)
[2022-11-24 13:08] LABS: PTT Partial Thromboplastin Tim 33 SECONDS (26-36)
[2022-11-24 13:11] LABS: Alanine Aminotransferase 16 IU/L (<50); Albumin 4.1 g/dL (3.5-5.0); Albumin Globulin Ratio 1.3 (1.0-2.8); Alkaline Phosphatase 64 U/L (38-126); Aspartate Aminotransferase 22 IU/L (17-59); Blood Urea Nitrogen 17 mg/dL (9-20); Calcium 9.1 mg/dL (8.4-10.2); Carbon Dioxide 24 mmol/L (22-32); Chloride 106 mmol/L (98-107); Creatine Kinase 47 U/L (55-170); Estimated Glomerular Filt Rate > 60 mL/min (>60); Globulin 3.1 g/dL (1.7-4.1); Glucose 124 mg/dL (80-110); HEMOLYSIS < 15 (0-50); Lipase 143 U/L (23-300); Potassium 3.9 mmol/L (3.4-5.1); Sodium 138 mmol/L (137-145); Total Protein 7.2 g/dL (6.3-8.2)
[2022-11-24 13:23] LABS: Troponin I < 0.012 ng/mL (0.01-0.034)
[2022-11-24 14:05] LABS: D Dimer 317 ng/ml (<500)
[2022-11-24 14:10] LABS: NT-proBNP (BNP-Adult 18+) 71 pg/mL (<450)
[2022-11-24] MEDS: ACETAMINOPHEN 325 MG TABLET 975 MG PO (14:37)
--- NOTE | 2022-11-24 15:35 | ED.CHESTPAIN ---
HPI - Chest Pain <Nick Lema PA-C - Last Filed: 11/24/22 16:22> General Chief Complaint: Chest Pain Stated Complaint: R/O Pnuemonia Time Seen by Provider: 11/24/22 12:57 Source: patient Mode of arrival: Ambulatory Limitations: no limitations History of Present Illness HPI narrative: 81-year-old male with past medical history GERD, osteoarthritis, hemochromatosis, BPH, environmental allergy presents to the ED with 1 month of worsening cough, chest pain, shortness of breath. Patient states that his shortness of breath worsens with talking, activity. Patient denies history of asthma, COPD, emphysema. Patient denies any cardiac history. Patient is a nonsmoker. Patient's is currently sick at home with COVID-19. Patient tested himself this morning at home with a negative result. Patient denies fever, chills, nausea, vomiting, dysuria, lightheadedness, dizziness, syncope. Patient states he has also been having rhinorrhea which he has all the time due to his allergies. Patient takes a antihistamine daily for allergies. Related Data Home Medications Medication Instructions Recorded Confirmed Travoprost (TRAVATAN OPH 0.004%) 1 [facility] OPH HS ##0 01/04/12 10/06/22 Previous Rx's Medication Instructions Recorded Disabled Parking Permit #1 ea 07/11/20 omeprazole 20 mg capsule,delayed See Rx Instructions .Route 02/18/22 release .COMPLEX #90 caps finasteride 5 mg tablet 5 mg PO DAILY #90 tabs 05/11/22 tamsulosin 0.4 mg capsule See Rx Instructions .Route 05/11/22 .COMPLEX #90 caps gabapentin 100 mg capsule 100 mg PO BID #180 caps 08/05/22 cyclobenzaprine 10 mg tablet 10 mg PO TID PRN muscle spasm #60 08/26/22 tabs benzonatate 200 mg capsule 200 mg PO TID PRN cough #30 caps 11/24/22 Allergies Allergy/AdvReac Type Severity Reaction Status Date / Time bupivacaine [From MARCAINE] Allergy Severe sob Verified 11/24/22 12:16 Penicillins [PENICILLINS] Allergy Intermediate n/v, Verified 11/24/22 12:16 itching shellfish derived Allergy Intermediate prawns Verified 11/24/22 12:16 [SHELLFISH DERIVED] garlic [GARLIC] Allergy Mild GI upset Verified 11/24/22 12:16 ibuprofen [IBUPROFEN] Allergy Mild dye Verified 11/24/22 12:16 coating of tab red dye [RED DYE] Allergy Mild Verified 11/24/22 12:16 hexachlorophene Allergy Unknown Verified 11/24/22 12:16 [HEXACHLOROPHENE] propoxyphene [From DARVON] AdvReac Mild n/v itching Verified 11/24/22 12:16 raw onion Allergy Unknown GI upset Uncoded 10/06/22 15:32 Review of Systems <Nick Lema PA-C - Last Filed: 11/24/22 16:22> Review of Systems ROS Unobtainable: All systems reviewed & are unremarkable except as noted in HPI and below Constitutional Constitutional: Denies chills, Denies fatigue, Denies fever(s), Denies frequent falls, Denies lethargy and Denies weakness Eyes Eyes: Denies change in vision, Denies eye discharge, Denies irritation and Denies loss of vision ENT Ears, Nose, Mouth, and Throat: Denies change in voice, Denies dizziness, Reports nasal discharge, Denies neck pain, Reports sore throat and Denies throat swelling Cardiovascular Cardiovascular: Denies chest pain, Denies irregular heart rhythm, Denies lightheadedness, Denies palpitations, Reports dyspnea, Reports dyspnea on exertion and Denies orthopnea Respiratory Respiratory: Reports cough, Reports dyspnea, Reports dyspnea on exertion and Denies wheezing Gastrointestinal Gastrointestinal: Reports abdominal pain, Denies change in bowel habits, Denies diarrhea, Denies nausea and Denies vomiting Genitourinary Genitourinary: Denies hematuria, Denies flank pain, Denies urinary incontinence and Denies urinary urgency Musculoskeletal Musculoskeletal: Denies back pain, Denies muscle weakness, Denies neck pain, Denies numbness and Denies tingling Integumentary/Breasts Skin/Breast: Denies pruritus, Denies erythema, Denies rash and Denies wounds Neurologic Neurologic: Denies behavioral changes, Denies confusion, Denies dizziness, Denies frequent falls, Denies loss of vision, Denies numbness, Denies tingling and Denies weakness Psychiatric Psychiatric: Denies anxiety, Denies behavioral changes, Denies confusion, Denies depression, Denies homicidal ideation and Denies suicidal ideation Endocrine Endocrine: Denies fatigue, Denies flushing and Denies palpitations Hematologic/Lymphatic Hematologic/Lymphatic: Denies easy bruising Allergic/Immunologic Allergic/Immunologic: Denies urticaria, Denies throat swelling and Denies wheezing Patient History <Nick Lema PA-C - Last Filed: 11/24/22 16:22> Medical History Abdominal pain Acute hip pain BPH (benign prostatic hyperplasia) Cataract (2012) Cervical spine disease Chronic back pain Chronic low back pain without sciatica Colon polyps (2001) Diverticulitis Diverticulosis Elevated PSA Foot pain GERD (gastroesophageal reflux disease) (~1979) Glaucoma (~2008) Hayfever (~1959) Hemochromatosis (1990) Hepatitis A (~1961) Herniated nucleus pulposus, L5-S1, right IBS (irritable bowel syndrome) (~1969) Iliotibial band syndrome, right leg Lumbar region somatic dysfunction Lumbar spine pain Pelvic somatic dysfunction Peptic ulcer disease (~1959) Piriformis syndrome of right side Recurrent sinusitis (~1969) Sacral fracture Sacral region somatic dysfunction Segmental and somatic dysfunction of abdomen and other regions Shoulder pain (~1989) Somatic dysfunction of lower extremity Tennis elbow Surgical History Anesthesia complication History of elbow surgery (~2010) History of knee surgery History of shoulder surgery (~1979) History of shoulder surgery (~1979) History of spinal fusion (2010) Hx of decompression of ulnar nerve (~1989) Family History Father Heart disease Mother Age related osteoporosis Diabetes mellitus Heart disease Hypertension High cholesterol Pneumonia Sister Age: 85 High cholesterol Sister Parkinson's disease Sister Cancer Social History marital status: Smoking Status: Former smoker alcohol intake: current (1-2 A DAY ) substance use type: does not use Smoking Status: Former smoker alcohol intake frequency: a few times a week Substance Use Type: does not use Exam <Nick Lema PA-C - Last Filed: 11/24/22 16:22> Narrative Exam Narrative: Const General:?cooperative, healthy appearing and comfortable HENNY Head:?normal to inspection Ears:?hearing grossly normal bilaterally Nose:?external nose normal Face and sinus:?normal facial exam and sinuses nontender Mouth:?oral mucosae normal Throat:?posterior oropharynx normal Eyes General:?appearance normal, both eyes and all related structures Neck Neck:?normal visual inspection and no lymphadenopathy noted Resp Effort & Inspection:?normal respiratory effort Auscultation:?clear to auscultation bilaterally Cardio Rate:?regular rate Rhythm:?regular rhythm GI Abdomen is soft, nondistended. Abdomen is tender to palpation in the epigastric region. Neuro General:?patient alert, patient awake and patient oriented x3 Initial Vital Signs Initial Vital Signs: Vital Signs Temperature 97.8 F 11/24/22 12:14 Pulse Rate 77 11/24/22 12:14 Respiratory Rate 15 11/24/22 12:14 Blood Pressure 135/74 11/24/22 12:14 Pulse Oximetry 99 11/24/22 12:14 Oxygen Delivery Method Room Air 11/24/22 12:14 <Georgina Boston DO - Last Filed: 11/24/22 18:52> Initial Vital Signs Initial Vital Signs: Vital Signs Temperature 97.8 F 11/24/22 12:14 Pulse Rate 77 11/24/22 12:14 Respiratory Rate 15 11/24/22 12:14 Blood Pressure 135/74 11/24/22 12:14 Pulse Oximetry 99 11/24/22 12:14 Oxygen Delivery Method Room Air 11/24/22 12:14 Course <Nick Lema PA-C - Last Filed: 11/24/22 16:22> Orders Ordered: ED Orders 11/24/22 12:19 XR chest 1V Stat 11/24/22 12:27 EKG-12 Lead Stat 11/24/22 12:37 BNP [NT-proBNP (BNP-Adult 18+)] Stat Complete Blood Count AUTO DIFF Stat Comprehensive Metabolic Panel Stat D Dimer Stat Lipase Stat Magnesium Stat PTT Partial Thromboplastin Jamil Stat Procalcitonin Stat Prothrombin Time INR Stat Troponin & CK Cardiac Panel Stat 11/24/22 14:40 Covid-19 + FLU A/B + RSV - PCR Stat Discontinued Medications Acetaminophen (Acetaminophen 325 Mg Tablet) 975 mg PO NOW ONE Stop: 11/24/22 14:38 Last Admin: 11/24/22 14:37 Dose: 975 mg Documented By: CTS Vital Signs Vital signs: Vital Signs - 8 hr 11/24/22 12:14 11/24/22 12:35 11/24/22 13:00 Temperature 97.8 F Pulse Rate 77 80 73 Respiratory Rate 15 Blood Pressure 135/74 Pulse Oximetry 99 96 94 Oxygen Delivery Method Room Air 11/24/22 16:03 Temperature Pulse Rate 76 Respiratory Rate Blood Pressure 132/70 Pulse Oximetry 97 Oxygen Delivery Method Room Air <Georgina Boston DO - Last Filed: 11/24/22 18:52> Orders Ordered: ED Orders 11/24/22 12:19 XR chest 1V Stat 11/24/22 12:27 EKG-12 Lead Stat 11/24/22 12:37 BNP [NT-proBNP (BNP-Adult 18+)] Stat Complete Blood Count AUTO DIFF Stat Comprehensive Metabolic Panel Stat D Dimer Stat Lipase Stat Magnesium Stat PTT Partial Thromboplastin Jamil Stat Procalcitonin Stat Prothrombin Time INR Stat Troponin & CK Cardiac Panel Stat 11/24/22 14:40 Covid-19 + FLU A/B + RSV - PCR Stat Discontinued Medications Acetaminophen (Acetaminophen 325 Mg Tablet) 975 mg PO NOW ONE Stop: 11/24/22 14:38 Last Admin: 11/24/22 14:37 Dose: 975 mg Documented By: CTS Vital Signs Vital signs: Vital Signs - 8 hr 11/24/22 12:14 11/24/22 12:35 11/24/22 13:00 Temperature 97.8 F Pulse Rate 77 80 73 Respiratory Rate 15 Blood Pressure 135/74 Pulse Oximetry 99 96 94 Oxygen Delivery Method Room Air 11/24/22 16:03 Temperature Pulse Rate 76 Respiratory Rate Blood Pressure 132/70 Pulse Oximetry 97 Oxygen Delivery Method Room Air MDM - Chest Pain <Nick Lema PA-C - Last Filed: 11/24/22 16:22> Lab Data 11/24/22 12:37 11/24/22 12:37 Labs: Lab Results 11/24/22 11/24/22 11/24/22 Range/Units 12:37 12:37 12:37 WBC 9.1 (4.5-11.0) X10^3/uL RBC 4.93 (4.5-5.9) X10^6/uL Hgb 16.1 (13.5-17.5) g/dL Hct 46.1 (41-53) % MCV 93.4 (80-100) fL MCH 32.6 (26-34) PG MCHC 34.9 (30-36) % RDW 12.9 (11.6-14.8) % Plt Count 174 (150-400) X10^3/uL Neut % (Auto) 80.2 H (50-75) % Lymph % (Auto) 8.3 L (25-40) % [place] % (Auto) 6.9 (3-14) % Eos % (Auto) 4.2 H (2-4) % Baso % (Auto) 0.4 (0-2) % Neut # (Auto) 7300 H (3909-3391) /uL Lymph # (Auto) 800 L (3685-6716) /uL [place] # (Auto) 600 (0-900) /uL Eos # (Auto) 400 (0-450) /uL Baso # (Auto) 0 (0-100) /uL PT 14.5 H (10.1-12.7) SECONDS INR 1.3 (0.9-1.3) APTT 33 (26-36) SECONDS D-Dimer (<500) ng/ml Sodium 138 (137-145) mmol/L Potassium 3.9 (3.4-5.1) mmol/L Chloride 106 (98-107) mmol/L Carbon Dioxide 24 (22-32) mmol/L BUN 17 (9-20) mg/dL Creatinine 0.81 (0.66-1.25) mg/dL Estimated GFR > 60 (>60) mL/min BUN/Creatinine Ratio 21.0 (6-22) Glucose 124 H (80-110) mg/dL Calcium 9.1 (8.4-10.2) mg/dL Magnesium 2.0 (1.6-2.3) mg/dL Total Bilirubin 1.0 (0.2-1.3) mg/dL AST 22 (17-59) IU/L ALT 16 (<50) IU/L Alkaline Phosphatase 64 (38-126) U/L Total Creatine Kinase 47 L (55-170) U/L CK-MB (CK-2) TNP CK-MB (CK-2) Rel Index TNP Troponin I < 0.012 (0.01-0.034) ng/mL NT-Pro-B Natriuret Pep (<450) pg/mL Total Protein 7.2 (6.3-8.2) g/dL Albumin 4.1 (3.5-5.0) g/dL Globulin 3.1 (1.7-4.1) g/dL Albumin/Globulin Ratio 1.3 (1.0-2.8) Lipase 143 (23-300) U/L Procalcitonin (<0.5) ng/mL SARS-CoV-2 (PCR) (Negative) Influenza A (RT-PCR) (NEGATIVE) Influenza B (RT-PCR) (NEGATIVE) RSV (PCR) (Negative) 11/24/22 11/24/22 11/24/22 Range/Units 12:37 12:37 12:37 WBC (4.5-11.0) X10^3/uL RBC (4.5-5.9) X10^6/uL Hgb (13.5-17.5) g/dL Hct (41-53) % MCV (80-100) fL MCH (26-34) PG MCHC (30-36) % RDW (11.6-14.8) % Plt Count (150-400) X10^3/uL Neut % (Auto) (50-75) % Lymph % (Auto) (25-40) % [place] % (Auto) (3-14) % Eos % (Auto) (2-4) % Baso % (Auto) (0-2) % Neut # (Auto) (5376-3901) /uL Lymph # (Auto) (0080-4394) /uL [place] # (Auto) (0-900) /uL Eos # (Auto) (0-450) /uL Baso # (Auto) (0-100) /uL PT (10.1-12.7) SECONDS INR (0.9-1.3) APTT (26-36) SECONDS D-Dimer 317 (<500) ng/ml Sodium (137-145) mmol/L Potassium (3.4-5.1) mmol/L Chloride (98-107) mmol/L Carbon Dioxide (22-32) mmol/L BUN (9-20) mg/dL Creatinine (0.66-1.25) mg/dL Estimated GFR (>60) mL/min BUN/Creatinine Ratio (6-22) Glucose (80-110) mg/dL Calcium (8.4-10.2) mg/dL Magnesium (1.6-2.3) mg/dL Total Bilirubin (0.2-1.3) mg/dL AST (17-59) IU/L ALT (<50) IU/L Alkaline Phosphatase (38-126) U/L Total Creatine Kinase (55-170) U/L CK-MB (CK-2) CK-MB (CK-2) Rel Index Troponin I (0.01-0.034) ng/mL NT-Pro-B Natriuret Pep 71 (<450) pg/mL Total Protein (6.3-8.2) g/dL Albumin (3.5-5.0) g/dL Globulin (1.7-4.1) g/dL Albumin/Globulin Ratio (1.0-2.8) Lipase (23-300) U/L Procalcitonin 0.04 (<0.5) ng/mL SARS-CoV-2 (PCR) (Negative) Influenza A (RT-PCR) (NEGATIVE) Influenza B (RT-PCR) (NEGATIVE) RSV (PCR) (Negative) 11/24/22 Range/Units 14:40 WBC (4.5-11.0) X10^3/uL RBC (4.5-5.9) X10^6/uL Hgb (13.5-17.5) g/dL Hct (41-53) % MCV (80-100) fL MCH (26-34) PG MCHC (30-36) % RDW (11.6-14.8) % Plt Count (150-400) X10^3/uL Neut % (Auto) (50-75) % Lymph % (Auto) (25-40) % [place] % (Auto) (3-14) % Eos % (Auto) (2-4) % Baso % (Auto) (0-2) % Neut # (Auto) (8450-6216) /uL Lymph # (Auto) (0087-0627) /uL [place] # (Auto) (0-900) /uL Eos # (Auto) (0-450) /uL Baso # (Auto) (0-100) /uL PT (10.1-12.7) SECONDS INR (0.9-1.3) APTT (26-36) SECONDS D-Dimer (<500) ng/ml Sodium (137-145) mmol/L Potassium (3.4-5.1) mmol/L Chloride (98-107) mmol/L Carbon Dioxide (22-32) mmol/L BUN (9-20) mg/dL Creatinine (0.66-1.25) mg/dL Estimated GFR (>60) mL/min BUN/Creatinine Ratio (6-22) Glucose (80-110) mg/dL Calcium (8.4-10.2) mg/dL Magnesium (1.6-2.3) mg/dL Total Bilirubin (0.2-1.3) mg/dL AST (17-59) IU/L ALT (<50) IU/L Alkaline Phosphatase (38-126) U/L Total Creatine Kinase (55-170) U/L CK-MB (CK-2) CK-MB (CK-2) Rel Index Troponin I (0.01-0.034) ng/mL NT-Pro-B Natriuret Pep (<450) pg/mL Total Protein (6.3-8.2) g/dL Albumin (3.5-5.0) g/dL Globulin (1.7-4.1) g/dL Albumin/Globulin Ratio (1.0-2.8) Lipase (23-300) U/L Procalcitonin (<0.5) ng/mL SARS-CoV-2 (PCR) Positive H (Negative) Influenza A (RT-PCR) Flu a negative (NEGATIVE) Influenza B (RT-PCR) Flu b negative (NEGATIVE) RSV (PCR) Negative (Negative) MDM Narrative Medical decision making narrative: 81-year-old male with past medical history GERD, osteoarthritis, hemochromatosis, BPH, environmental allergy presents to the ED with 1 month of worsening cough, chest pain, shortness of breath. Concern for COVID-19 versus other viral URI versus ACS versus pneumonia versus GERD versus CHF exacerbation versus PE versus other. Will obtain labs, troponin, BNP, D-dimer, EKG, chest x-ray, procalcitonin, respiratory panel. Patient complained of a headache, was given Tylenol with good relief. Patient was positive for COVID-19 infection. Workup was otherwise largely unremarkable. EKGs normal sinus rhythm with no acute ST-T changes, no axis deviation. Chest x-ray without acute changes. Labs within normal limits. Troponin, BNP, D-dimer, procalcitonin within normal limits. Discussed findings with patient. Supportive measures recommended. Prescribed Tessalon Perles for cough. Patient agrees to follow-up with PCP as soon as possible. Patient agrees to return to the ED if chest pain or shortness of breath worsens. Medical records reviewed: Yes <Georgina Boston, DO - Last Filed: 11/24/22 18:52> Lab Data Labs: Lab Results 11/24/22 11/24/22 11/24/22 Range/Units 12:37 12:37 12:37 WBC 9.1 (4.5-11.0) X10^3/uL RBC 4.93 (4.5-5.9) X10^6/uL Hgb 16.1 (13.5-17.5) g/dL Hct 46.1 (41-53) % MCV 93.4 (80-100) fL MCH 32.6 (26-34) PG MCHC 34.9 (30-36) % RDW 12.9 (11.6-14.8) % Plt Count 174 (150-400) X10^3/uL Neut % (Auto) 80.2 H (50-75) % Lymph % (Auto) 8.3 L (25-40) % [place] % (Auto) 6.9 (3-14) % Eos % (Auto) 4.2 H (2-4) % Baso % (Auto) 0.4 (0-2) % Neut # (Auto) 7300 H (9440-1688) /uL Lymph # (Auto) 800 L (1554-1902) /uL [place] # (Auto) 600 (0-900) /uL Eos # (Auto) 400 (0-450) /uL Baso # (Auto) 0 (0-100) /uL PT 14.5 H (10.1-12.7) SECONDS INR 1.3 (0.9-1.3) APTT 33 (26-36) SECONDS D-Dimer (<500) ng/ml Sodium 138 (137-145) mmol/L Potassium 3.9 (3.4-5.1) mmol/L Chloride 106 (98-107) mmol/L Carbon Dioxide 24 (22-32) mmol/L BUN 17 (9-20) mg/dL Creatinine 0.81 (0.66-1.25) mg/dL Estimated GFR > 60 (>60) mL/min BUN/Creatinine Ratio 21.0 (6-22) Glucose 124 H (80-110) mg/dL Calcium 9.1 (8.4-10.2) mg/dL Magnesium 2.0 (1.6-2.3) mg/dL Total Bilirubin 1.0 (0.2-1.3) mg/dL AST 22 (17-59) IU/L ALT 16 (<50) IU/L Alkaline Phosphatase 64 (38-126) U/L Total Creatine Kinase 47 L (55-170) U/L CK-MB (CK-2) TNP CK-MB (CK-2) Rel Index TNP Troponin I < 0.012 (0.01-0.034) ng/mL NT-Pro-B Natriuret Pep (<450) pg/mL Total Protein 7.2 (6.3-8.2) g/dL Albumin 4.1 (3.5-5.0) g/dL Globulin 3.1 (1.7-4.1) g/dL Albumin/Globulin Ratio 1.3 (1.0-2.8) Lipase 143 (23-300) U/L Procalcitonin (<0.5) ng/mL SARS-CoV-2 (PCR) (Negative) Influenza A (RT-PCR) (NEGATIVE) Influenza B (RT-PCR) (NEGATIVE) RSV (PCR) (Negative) 11/24/22 11/24/22 11/24/22 Range/Units 12:37 12:37 12:37 WBC (4.5-11.0) X10^3/uL RBC (4.5-5.9) X10^6/uL Hgb (13.5-17.5) g/dL Hct (41-53) % MCV (80-100) fL MCH (26-34) PG MCHC (30-36) % RDW (11.6-14.8) % Plt Count (150-400) X10^3/uL Neut % (Auto) (50-75) % Lymph % (Auto) (25-40) % [place] % (Auto) (3-14) % Eos % (Auto) (2-4) % Baso % (Auto) (0-2) % Neut # (Auto) (0993-3576) /uL Lymph # (Auto) (9170-4412) /uL [place] # (Auto) (0-900) /uL Eos # (Auto) (0-450) /uL Baso # (Auto) (0-100) /uL PT (10.1-12.7) SECONDS INR (0.9-1.3) APTT (26-36) SECONDS D-Dimer 317 (<500) ng/ml Sodium (137-145) mmol/L Potassium (3.4-5.1) mmol/L Chloride (98-107) mmol/L Carbon Dioxide (22-32) mmol/L BUN (9-20) mg/dL Creatinine (0.66-1.25) mg/dL Estimated GFR (>60) mL/min BUN/Creatinine Ratio (6-22) Glucose (80-110) mg/dL Calcium (8.4-10.2) mg/dL Magnesium (1.6-2.3) mg/dL Total Bilirubin (0.2-1.3) mg/dL AST (17-59) IU/L ALT (<50) IU/L Alkaline Phosphatase (38-126) U/L Total Creatine Kinase (55-170) U/L CK-MB (CK-2) CK-MB (CK-2) Rel Index Troponin I (0.01-0.034) ng/mL NT-Pro-B Natriuret Pep 71 (<450) pg/mL Total Protein (6.3-8.2) g/dL Albumin (3.5-5.0) g/dL Globulin (1.7-4.1) g/dL Albumin/Globulin Ratio (1.0-2.8) Lipase (23-300) U/L Procalcitonin 0.04 (<0.5) ng/mL SARS-CoV-2 (PCR) (Negative) Influenza A (RT-PCR) (NEGATIVE) Influenza B (RT-PCR) (NEGATIVE) RSV (PCR) (Negative) 11/24/22 Range/Units 14:40 WBC (4.5-11.0) X10^3/uL RBC (4.5-5.9) X10^6/uL Hgb (13.5-17.5) g/dL Hct (41-53) % MCV (80-100) fL MCH (26-34) PG MCHC (30-36) % RDW (11.6-14.8) % Plt Count (150-400) X10^3/uL Neut % (Auto) (50-75) % Lymph % (Auto) (25-40) % [place] % (Auto) (3-14) % Eos % (Auto) (2-4) % Baso % (Auto) (0-2) % Neut # (Auto) (4577-1693) /uL Lymph # (Auto) (6686-1351) /uL [place] # (Auto) (0-900) /uL Eos # (Auto) (0-450) /uL Baso # (Auto) (0-100) /uL PT (10.1-12.7) SECONDS INR (0.9-1.3) APTT (26-36) SECONDS D-Dimer (<500) ng/ml Sodium (137-145) mmol/L Potassium (3.4-5.1) mmol/L Chloride (98-107) mmol/L Carbon Dioxide (22-32) mmol/L BUN (9-20) mg/dL Creatinine (0.66-1.25) mg/dL Estimated GFR (>60) mL/min BUN/Creatinine Ratio (6-22) Glucose (80-110) mg/dL Calcium (8.4-10.2) mg/dL Magnesium (1.6-2.3) mg/dL Total Bilirubin (0.2-1.3) mg/dL AST (17-59) IU/L ALT (<50) IU/L Alkaline Phosphatase (38-126) U/L Total Creatine Kinase (55-170) U/L CK-MB (CK-2) CK-MB (CK-2) Rel Index Troponin I (0.01-0.034) ng/mL NT-Pro-B Natriuret Pep (<450) pg/mL Total Protein (6.3-8.2) g/dL Albumin (3.5-5.0) g/dL Globulin (1.7-4.1) g/dL Albumin/Globulin Ratio (1.0-2.8) Lipase (23-300) U/L Procalcitonin (<0.5) ng/mL SARS-CoV-2 (PCR) Positive H (Negative) Influenza A (RT-PCR) Flu a negative (NEGATIVE) Influenza B (RT-PCR) Flu b negative (NEGATIVE) RSV (PCR) Negative (Negative) Imaging Data Chest x-ray: Radiologist's Impression: PROCEDURE:? XR CHEST 1V ? INDICATIONS:? chest pain ? TECHNIQUE:? One view of the chest was acquired.? ? COMPARISON:? None. ? FINDINGS:? ? Surgical changes and devices:? None.? ? Lungs and pleura:? Lungs are clear.? No pleural effusions or pneumothorax.? ? Mediastinum:? Mediastinal contours appear normal.? Heart size is normal.? ? Bones and chest wall:? No suspicious bony lesions.? Overlying soft tissues appear unremarkable.? ? IMPRESSION:? No acute pulmonary process. ? ? Dictated by: Anni Amezcua M.D. on 11/24/2022 at 12:54 ? ECG Data Interpretation: Dr. Boston- Normal sinus rhythm he 86 UT interval 176 QRS [address] changes T-wave inversions no priors to compare Discharge Plan Departure Patient Disposition: Home Clinical Impression: COVID-19 Instructions: COVID-19 Activity Restrictions/Additional Instructions: You were evaluated in the ED for chest pain, cough, shortness of breath. Your chest x-ray, EKG, labs, urine were normal. You tested positive for the COVID-19 infection. You may continue to take Tylenol or ibuprofen for your symptoms. Please continue to stay well hydrated and rest well. Return to the ED if you experience worsening shortness of breath, chest pain. Please follow-up with your primary care doctor as soon as possible. Prescriptions: New benzonatate 200 mg capsule 200 mg PO TID PRN (Reason: cough) Qty: 30 0RF No Action Travoprost (TRAVATAN OPHTH 0.004%) 1 drp OPHTH HS Qty: 0 (DME) Disabled Parking Permit See Rx Instructions .ROUTE .MEDSUPPLY Qty: 1 0RF Rx Instructions: I find this person to be disabled omeprazole 20 mg capsule,delayed release(DR/EC) See Rx Instructions .ROUTE .COMPLEX Qty: 90 3RF Dose Instruction: TAKE 1 CAPSULE BY MOUTH DAILY Rx Instructions: TAKE 1 CAPSULE BY MOUTH DAILY finasteride 5 mg tablet 5 mg PO DAILY Qty: 90 3RF tamsulosin 0.4 mg capsule See Rx Instructions .ROUTE .COMPLEX Qty: 90 3RF Dose Instruction: TAKE 1 CAPSULE BY MOUTH IN THE EVENING Rx Instructions: TAKE 1 CAPSULE BY MOUTH IN THE EVENING gabapentin 100 mg capsule 100 mg PO BID Qty: 180 1RF cyclobenzaprine 10 mg tablet 10 mg PO TID PRN (Reason: muscle spasm) Qty: 60 3RF Referrals: Farhad Machado MD [Primary Care Provider] - Stand Alone Forms: Patient Portal/API <Georgina Boston DO - Last Filed: 11/24/22 18:52> Cosign ED Attending Ankurature Attestation: I was immediately available in the department for consultation. Documentation has been reviewed.
[2022-11-24 15:50] LABS: Influenza A - CEPHEID Flu A NEGATIVE (NEGATIVE); Influenza B - CEPHEID Flu B NEGATIVE (NEGATIVE); Respiratory Syncytial Virus Negative (Negative)
[2022-11-24 15:55] LABS: COVID-19 CEPHEID 4-PLEX PCR POSITIVE (Negative)
[2022-11-24 16:01] LABS: Procalcitonin 0.04 ng/mL (<0.5)
[2022-11-24 16:03] VITALS: BP 132/70; PULSE 76; O2SAT 97
== END 2022-11-24 16:11 | disposition home or self-care (01) ==
PROVIDERS: Emergency Medicine; Emergency Provider Student in an Organized Health Care Education/Training Program; Family Provider Family Medicine; PCP Family Medicine
DX: U07.1 COVID-19 (principal); R07.9 Chest pain, unspecified
CPT/HCPCS: 0241U; 36415; 71045; 80053; 82550; 83690; 83735; 83880; 84145; 84484; 85025; 85379; 85610; 85730; 93005; 99284

== ENCOUNTER → 2022-12-09 07:07 | Outpatient (CLI) | payer MEDICARE, SELFPAY ==
[2022-12-09 08:21] LABS: HEMOLYSIS < 15 (0-50); Iron 121 ug/dL (49-181)
[2022-12-09 08:29] LABS: Transferrin 165 mg/dL (206-381)
[2022-12-09 08:33] LABS: Percent Iron Saturation 58 % (20-50); Total Iron Binding Capacity 208 ug/dL (261-462)
[2022-12-09 08:58] LABS: Ferritin 74 ng/mL (18-464)
== END ==
PROVIDERS: Family Provider Family Medicine; PCP Family Medicine; Referring Provider Physician Assistant; Visit Provider Physician Assistant
DX: E83.119 Hemochromatosis, unspecified (principal)
CPT/HCPCS: 36415; 82728; 83540; 83550

== ENCOUNTER → 2023-04-07 10:42 | Outpatient (CLI) | payer MEDICARE, SELFPAY ==
--- NOTE | 2023-04-07 10:44 | DI.US.S_ITS ---
PROCEDURE: US ABDOMEN COMPLETE INDICATIONS: RUQ PAIN TECHNIQUE: Real-time scanning was performed of the abdominal and retroperitoneal organs, with image documentation. COMPARISON: None. FINDINGS: Liver: Liver is normal in size and homogeneous in echotexture. Simple hepatic cysts measure 5.5 x 5.3 cm in 2.2 x 2.8 cm. Gallbladder: Multiple shadowing calculi without gallbladder wall thickening pericholecystic fluid Biliary ducts: Intrahepatic bile ducts are non-dilated. Extrahepatic bile duct caliber measures 2 mm. Normal is 6-7 mm or less in diameter, or 10 mm or less post-cholecystectomy. Pancreas: Visualized portions of the pancreas are sonographically normal. Spleen: Spleen is normal in size and homogeneous in echotexture. Kidneys: Kidneys are normal in size and echotexture. Right kidney measures 11.2 cm long; left kidney measures 11.5 cm long. No hydronephrosis or nephrolithiasis. No solid masses. Simple left renal cyst measures 3.1 x 2.9 cm Aorta: Visualized aorta is normal in caliber at less than 3 cm. Iliacs: Proximal common iliac arteries are normal in caliber at less than 2.5 cm. IVC: Intrahepatic inferior vena cava is patent. Miscellaneous: No free abdominal fluid. IMPRESSION: Cholelithiasis without ultrasound evidence of acute cholecystitis. Hepatic and renal cysts Approved by: Adal Guerrero M.D. on 04/07/2023 at 18:33
== END ==
PROVIDERS: Family Provider Family Medicine; PCP Family Medicine; Referring Provider Family Medicine; Visit Provider Family Medicine
DX: K80.20 Calculus of gallbladder without cholecystitis without obstruction (principal); K76.89 Other specified diseases of liver; N28.1 Cyst of kidney, acquired; R10.11 Right upper quadrant pain
CPT/HCPCS: 76700

== ENCOUNTER → 2023-04-29 12:50 | Outpatient (CLI) | payer MEDICARE, SELFPAY ==
--- NOTE | 2023-04-29 12:52 | DI.RAD.S_ITS ---
PROCEDURE: XR HIP W PEL IF DONE SHAYY MIN 4V INDICATIONS: Right hip pain w/pain radiating down to foot suspect OA TECHNIQUE: AP pelvis with lateral view(s) of the bilateral hip(s). COMPARISON: None. FINDINGS: Bones: No fractures or dislocations. Prior right sacroiliac joint arthrodesis. Pelvic ring appears intact. No suspicious bony lesions. Mild to moderate bilateral hip osteoarthritis with osseous hypertrophy and mild joint space narrowing.. Soft tissues: The visualized bowel gas pattern is normal. No suspicious soft tissue calcifications. IMPRESSION: [id number] bilateral hip osteoarthritis. Dictated by: Veronique Da Silva MD, PhD on 04/29/2023 at 13:38 Approved by: Veronique Da Silva MD, PhD on 04/29/2023 at 13:39
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
== END ==
PROVIDERS: Family Provider Family Medicine; PCP Family Medicine; Referring Provider Physician Assistant; Visit Provider Physician Assistant
DX: M16.0 Bilateral primary osteoarthritis of hip (principal); M25.551 Pain in right hip; Z98.1 Arthrodesis status; M51.16 Intervertebral disc disorders with radiculopathy, lumbar region
CPT/HCPCS: 72220; 73522

== ENCOUNTER → 2023-05-06 13:12 | Outpatient (CLI) | payer MEDICARE, SELFPAY ==
--- NOTE | 2023-05-06 13:13 | DI.MRI.S_ITS ---
PROCEDURE: MR LUMBAR SPINE WO CON INDICATIONS: LBP w/radiculopathy affecting right leg TECHNIQUE: Noncontrast sagittal T1 spin echo and T2 fast echo, sagittal STIR, and T2 fast spin echo through the lumbar spine. In cases with scoliosis, additional coronal T2 fast spin echo may be performed. COMPARISON: [facility], , MR LUMBAR SPINE WO CON, 06/28/2021, 12:02. FINDINGS: Image quality: Excellent. Alignment and Curvature: There is normal bony alignment. Bone Marrow: Marrow is of normal overall signal. No acute vertebral body compression fractures. Instrumented right SI joint arthrodesis remains unchanged Spinal Cord: Conus medullaris terminates at the L1 level. Visualized cord demonstrates normal signal and size. Paraspinous Soft Tissues: No paravertebral masses. T12-L1: Normal appearance. L1-L2: Normal appearance. L2-L3: Normal appearance. L3-L4: Disc space narrowing with circumferential disc bulge and hypertrophic facet joints results in mild central and mild bilateral foraminal stenosis L4-L5: Disc space is maintained. Mild disc bulge present with hypertrophic facet joints results in trace central stenosis. Mild bilateral foraminal stenosis. L5-S1: Disc space narrowing with circumferential disc bulge hypertrophic facet joints. No central stenosis or right foraminal stenosis. Moderate left foraminal stenosis present. IMPRESSION: Multilevel degenerative disc disease and arthropathy results in varying degrees of central and foraminal stenosis including moderate left foraminal stenosis L5-S1 Stable instrumented right SI joint arthrodesis Approved by: Adal Guerrero M.D. on 05/06/2023 at 13:22
== END ==
PROVIDERS: Family Provider Family Medicine; PCP Family Medicine; Referring Provider Physician Assistant; Visit Provider Physician Assistant
DX: M51.16 Intervertebral disc disorders with radiculopathy, lumbar region; M51.17 Intervertebral disc disorders with radiculopathy, lumbosacral region; M47.26 Other spondylosis with radiculopathy, lumbar region; M47.27 Other spondylosis with radiculopathy, lumbosacral region; M48.07 Spinal stenosis, lumbosacral region; Z98.1 Arthrodesis status
CPT/HCPCS: 72148

== ENCOUNTER → 2023-06-07 10:56 | Outpatient (CLI) | payer MEDICARE, SELFPAY ==
[2023-06-07 12:41] LABS: HEMOLYSIS < 15 (0-50); Iron 160 ug/dL (49-181)
[2023-06-07 12:52] LABS: Percent Iron Saturation 63 % (20-50); Total Iron Binding Capacity 254 ug/dL (261-462); Transferrin 162 mg/dL (206-381)
[2023-06-07 13:04] LABS: Ferritin 33 ng/mL (18-464)
== END ==
PROVIDERS: Family Provider Family Medicine; PCP Family Medicine; Referring Provider Family Medicine; Visit Provider Family Medicine
DX: E83.119 Hemochromatosis, unspecified (principal)
CPT/HCPCS: 36415; 82728; 83540; 83550

== ENCOUNTER → 2023-07-26 14:11 | Outpatient (CLI) | payer MEDICARE, SELFPAY ==
--- NOTE | 2023-07-26 14:13 | DI.RAD.S_ITS ---
PROCEDURE: XR CERVICAL SPINE 2V OR 3V INDICATIONS: cervical spine pain TECHNIQUE: 3 view(s) of the cervical spine were acquired. COMPARISON: [facility], CR, XR CERVICAL SPINE 4V OR 5V, 10/04/2019, 9:38. [facility], CR, XR CERVICAL SPINE 2V OR 3V, 07/11/2019, 10:04. FINDINGS: Bones: No fractures or dislocations to the T1 level. The lateral masses of C1 appear intact on the odontoid view. Status post anterior spinal fusion at C3-C4 and C5-C6. Interbody cage grafts at C3-C4 and C5-C6. Hardware is intact. There is multilevel degenerative changes including endplate sclerosis and osteophytosis, not significantly changed since prior study on 10/04/2019. Redemonstration of diffuse bilateral facet arthropathy, slightly progressed since prior. Grade 1 retrolisthesis of C3 on C4, unchanged from prior. Soft tissues: No prevertebral soft tissue swelling. IMPRESSION: Status post anterior spinal fusion at C3-C4 and C5-C6 without evidence of hardware complication. Persistent grade 1 retrolisthesis of C3 on C4, not significantly changed since 10/04/2019. Multilevel discogenic degenerative changes and facet arthropathy, overall slightly progressed since 2020 study. Approved by: Zainab Cobos M.D. on 07/26/2023 at 17:38
== END ==
PROVIDERS: Family Provider Family Medicine; PCP Family Medicine; Referring Provider Family Medicine; Visit Provider Family Medicine
DX: M43.12 Spondylolisthesis, cervical region (principal); M96.1 Postlaminectomy syndrome, not elsewhere classified; M47.812 Spondylosis without myelopathy or radiculopathy, cervical region; M50.90 Cervical disc disorder, unspecified, unspecified cervical region
CPT/HCPCS: 72040

== ENCOUNTER → 2023-08-13 09:12 | Outpatient (CLI) | payer MEDICARE, SELFPAY ==
--- NOTE | 2023-08-13 09:12 | DI.MRI.S_ITS ---
PROCEDURE: MR CERVICAL SPINE WO CON INDICATIONS: Cervical radiculopathy TECHNIQUE: Noncontrast sagittal T1 spin echo and T2 fast spin echo, sagittal STIR, foraminal oblique sagittal T2 fast spin echo, and axial gradient echo or T2 fast spin echo through the cervical spine. COMPARISON: [facility], MR, C-SPINE WITHOUT CONTRAST, 08/05/2010, 15:56. FINDINGS: Image quality: Excellent. Alignment and Curvature: There is normal bony alignment. Bone Marrow: C3 through C6 ACDF. Marrow demonstrates normal overall signal. Spinal Cord: Visualized spinal cord has normal size and signal. No cerebellar tonsillar herniation. Paraspinous Soft Tissues: No paravertebral masses. Prevertebral soft tissues are normal in thickness. C2-C3: Disc desiccation. No central canal stenosis. Facet and uncovertebral arthropathy. Moderate right and mild left neural foraminal stenosis. C3-C4: ACDF. No central canal stenosis. Facet and uncovertebral arthropathy. Mild right and moderate left neural foraminal stenosis. C4-C5: Disc desiccation. Mild posterior disc osteophyte complex. Mild central canal stenosis. Facet and uncovertebral arthropathy. Moderate bilateral neural foraminal stenosis. C5-C6: ACDF. No central canal stenosis. Facet and uncovertebral arthropathy. Mild bilateral neural foraminal stenosis. C6-C7: Disc desiccation. No central canal stenosis. Facet and uncovertebral arthropathy. Moderate bilateral neural foraminal stenosis. C7-T1: Central disc protrusion. No central canal stenosis. No neural foraminal stenosis. IMPRESSION: 1. Multilevel degenerative changes of the cervical spine status post C3-C4 and C5-C6 ACDF. 2. Mild central canal stenosis at C4-C5. Otherwise, the central canal is patent. 3. Multilevel moderate neural foraminal stenosis, as above. Dictated by: Aron Antoine M.D. on 08/13/2023 at 13:47 Approved by: Aron Antoine M.D. on 08/13/2023 at 13:54
== END ==
PROVIDERS: Family Provider Family Medicine; PCP Family Medicine; Referring Provider Anesthesiology; Visit Provider Anesthesiology
DX: M47.22 Other spondylosis with radiculopathy, cervical region (principal); Z98.1 Arthrodesis status; M48.02 Spinal stenosis, cervical region
CPT/HCPCS: 72141

== ENCOUNTER → 2023-09-14 11:12 | Outpatient (CLI) | payer MEDICARE, SELFPAY ==
[2023-09-14 12:55] LABS: Influenza A - CEPHEID Flu A POSITIVE (NEGATIVE); Influenza B - CEPHEID Flu B NEGATIVE (NEGATIVE); Respiratory Syncytial Virus Negative (Negative)
[2023-09-14 12:56] LABS: COVID-19 CEPHEID 4-PLEX PCR Negative (Negative)
== END ==
PROVIDERS: Family Provider Family Medicine; PCP Family Medicine; Visit Provider Physician Assistant
DX: R50.9 Fever, unspecified (principal)
CPT/HCPCS: 0241U

== ENCOUNTER → 2023-09-21 09:57 | Outpatient (CLI) | payer MEDICARE, SELFPAY ==
[2023-09-21 10:30] LABS: Add Manual Diff / Slide Review NO; Basophils Absolute Auto 0 /uL (0-100); Basophils Percent Auto 0.6 % (0-2); Eosinophils Absolute Auto 100 /uL (0-450); Eosinophils Percent Auto 1.4 % (2-4); Hematocrit 43.8 % (41-53); Hemoglobin 15.6 g/dL (13.5-17.5); Lymphocytes Absolute Auto 1100 /uL (1100-4500); Lymphocytes Percent Auto 21.3 % (25-40); Mean Corpuscular HGB Conc 35.5 % (30-36); Mean Corpuscular Hemoglobin 32.4 PG (26-34); Mean Corpuscular Volume 91.3 fL (80-100); Monocytes Absolute Auto 300 /uL (0-900); Monocytes Percent Auto 6.4 % (3-14); Neutrophils Absolute Auto 3600 /uL (1500-7000); Neutrophils Percent Auto 70.3 % (50-75); Platelet Count 174 X10^3/uL (150-400); Red Cell Distribution Width 12.4 % (11.6-14.8); White Blood Cell Count 5.2 X10^3/uL (4.5-11.0)
[2023-09-21 10:36] LABS: Hemoglobin A1C% w Est Avg Glu 5.2 % (4.0-6.0)
[2023-09-21 10:48] LABS: Alanine Aminotransferase 18 IU/L (<50); Albumin Globulin Ratio 1.3 (1.0-2.8); Alkaline Phosphatase 58 U/L (38-126); Aspartate Aminotransferase 23 IU/L (17-59); BUN Creatinine Ratio 14.4 (6-22); Bilirubin Total 1.1 mg/dL (0.2-1.3); Blood Urea Nitrogen 13 mg/dL (9-20); Calcium 9.4 mg/dL (8.4-10.2); Carbon Dioxide 25 mmol/L (22-32); Chloride 107 mmol/L (98-107); Estimated Glomerular Filt Rate > 60 mL/min (>60); Globulin 3.2 g/dL (1.7-4.1); Glucose 125 mg/dL (80-110); HEMOLYSIS < 15 (0-50); Potassium 3.9 mmol/L (3.4-5.1); Sodium 140 mmol/L (137-145); Total Protein 7.2 g/dL (6.3-8.2)
== END ==
PROVIDERS: Family Provider Family Medicine; PCP Family Medicine; Referring Provider Physician Assistant; Visit Provider Physician Assistant
DX: B37.0 Candidal stomatitis (principal); R73.01 Impaired fasting glucose; K21.9 Gastro-esophageal reflux disease without esophagitis; J10.1 Influenza due to other identified influenza virus with other respiratory manifestations
CPT/HCPCS: 36415; 80053; 83036; 85025; 87070; 87075; 87102; 87205

== ENCOUNTER 2023-10-20 08:15 | Outpatient (RCR) | payer MEDICARE, SELFPAY ==
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
--- NOTE | 2023-10-10 09:54 | PT-OP ANOTE ---
Pt agreeable and PT plan for three treatments on evaluation. PT reviews chart and notes that pt has six appointments scheduled. Left message for pt. Will cancel CRIMINAL INTELLIGENCE ANALYST appointment 10/11 and keep last appointment with PT on 10/20 and will cancel / appointment per POC. PT communicates with front office.
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
== END 2023-10-28 13:02 | disposition home or self-care (01) ==
LOC: PHYS 08:15
PROVIDERS: Family Provider Family Medicine; PCP Family Medicine; Referring Provider Anesthesiology; Visit Provider Anesthesiology
DX: M79.601 Pain in right arm (principal); M54.12 Radiculopathy, cervical region; M54.2 Cervicalgia
CPT/HCPCS: 97110; 97140; 97161; 97535

== ENCOUNTER 2023-11-24 11:02 | Outpatient (CLI) | payer MEDICARE, SELFPAY ==
[2023-11-24] VITALS (7 sets, daily range): BP systolic 125–150; BP diastolic 65–72; PULSE 12–64; RESP 11–20; TEMP 36.2; O2SAT 96–98
--- NOTE | 2023-11-24 11:03 | DI.RAD.S_ITS ---
PROCEDURE: PAIN C/T INTERLAMINAR INJECT INDICATIONS: Radiculopathy COMPARISON: None. FINDINGS: Fluoroscopic spot filming was performed to verify placement of spinal needle at the C7-T1 level(s), as labeled on the film. IMPRESSION: Fluoroscopic imaging provided for a cervical epidural steroid injection performed by the interventional pain specialist Dictated by: Will Grover M.D. on 11/24/2023 at 16:13 Approved by: Will Grover M.D. on 11/24/2023 at 16:15
[2023-11-24] MEDS: DEXAMETHASONE 10 MG/ML VIAL INJ (11:28)
[2023-11-24] MEDS: iopamidoL 15 ML VIAL 3 ML INJ (11:29)
--- NOTE | 2023-11-24 11:49 | P.PCN_ITS ---
Date/Time/Diagnoses Date of procedure: 11/24/23 Time of procedure: 11:30 Procedure Notes Physician: Miguel Mullins Total Fluoroscopy time (seconds): 32 Total sedation minutes: 0 Procedure in detail & Post-procedure care: C7-T1 Interlaminar Epidural Steroid Injection Indications: Maurice is presenting for treatment of cervical radiculopathy with neck and arm pain. Preoperative diagnosis: Cervical radiculopathy Postoperative diagnosis: Same Focused Examination: Ax3 Mood and affect are normal Vital Signs: VSS ASA: 2 Consent: Risks, benefits and alternatives discussed at a prior clinic visit and the patient voiced understanding at that time. Prior to today's injection, we again went over the risks, benefits and alternatives. Following review of allergies and potential side effects/complications, including, but not necessarily limited to, infection, allergic reaction, local tissue breakdown, stroke, temporary or permanent nerve injury, paralysis, and possible , the patient indicated that they understood and agreed to proceed.? A consent document was signed by the patient, witnessed by a nurse and placed in the patient's chart.? Additionally, other treatment options including medications and physical therapy were reviewed with the patient. All questions were answered. Site was then marked. Anesthesia: 5 mg diazepam prescribed to be taken 1 hour prior to procedure. Unbeknownst to the provider, the patient took an additional 5 mg from a previous prescription from a different provider (about 4 years old) for a total of 10 mg of diazepam. This was discovered during the time out process prior to the procedure. No further sedation was provided. Position: Prone Monitoring: NIBP, Pulse oximetry, 3 lead EKG Needle used: 18 G 3.5? Tuohy Contrast: Isovue 300-M 2 mL Injectate: Dexamethasone 10 mg followed by Normal Saline 2 mL Technique: The skin was prepped with chloraprep and then draped in a sterile fashion. Time out was performed as per protocol. Oxygen applied via NC. Skin and subcutaneous structures of the needle entry site was then infiltrated with 3 mL of lidocaine 1%. Under AP, lateral and contralateral oblique fluoroscopic control, the Tuohy needle was guided into the C7-T1 epidural space. The space was accessed with loss of resistance technique. Isovue 300-M was then injected and the spread was consistent with the epidural space. There was no evidence for intravascular or intrathecal uptake. After negative aspiration, the above- mentioned injectate was then slowly administered and the needle withdrawn. The patient expressed no unusual discomfort or paresthesias during the injection. Band-Aids applied to injection sites. EBL: less than 1 ml Complications: None Post Procedure: Patient was taken to the recovery and monitored. The patient was provided a Pain Log to continue to record the patient's response to the target- specific procedure prior to the patient's follow-up visit with the referring physician. Patient was stable upon discharge. Detailed post procedure instructions were provided. Patient was asked to call in the event of worsening pain, fever, weakness, numbness or bladder or bowel incontinence.
== END 2023-11-24 11:55 | disposition home or self-care (01) ==
LOC: RAD 11:02
PROVIDERS: Family Provider Family Medicine; PCP Family Medicine; Referring Provider Anesthesiology; Visit Provider Anesthesiology
DX: M54.12 Radiculopathy, cervical region (principal)
CPT/HCPCS: 62321; J1100

== ENCOUNTER → 2024-02-23 09:35 | Outpatient (CLI) | payer MEDICARE, SELFPAY ==
[2024-02-23 10:28] LABS: HEMOLYSIS < 15 (0-50); Iron 152 ug/dL (49-181)
[2024-02-23 10:40] LABS: Total Iron Binding Capacity 209 ug/dL (261-462); Transferrin 167 mg/dL (206-381)
[2024-02-23 10:42] LABS: Percent Iron Saturation 73 % (20-50)
[2024-02-23 10:59] LABS: Prostate Specific Antigen Scrn 5.01 ng/mL (0.1-4.0)
[2024-02-23 11:03] LABS: Ferritin 38 ng/mL (18-464)
== END ==
LOC: LAB 09:36
PROVIDERS: Family Provider Family Medicine; PCP Family Medicine; Referring Provider Physician Assistant; Visit Provider Physician Assistant
DX: Z12.5 Encounter for screening for malignant neoplasm of prostate (principal); E83.119 Hemochromatosis, unspecified; N40.0 Benign prostatic hyperplasia without lower urinary tract symptoms
CPT/HCPCS: 36415; 82728; 83540; 83550; G0103

== ENCOUNTER → 2024-04-21 08:25 | Outpatient (CLI) | payer MEDICARE, SELFPAY | PROVIDERS: Family Provider Family Medicine; PCP Family Medicine; Referring Provider Nurse Practitioner Family; Visit Provider Nurse Practitioner Family | DX: J34.89 Other specified disorders of nose and nasal sinuses (principal) | CPT/HCPCS: 87070; 87077; 87147; 87255 ==

== ENCOUNTER → 2024-05-23 12:45 | Outpatient (CLI) | payer MEDICARE, SELFPAY ==
[2024-05-23 14:34] LABS: Vitamin D 25 Hydroxy (D3) 29.8 ng/mL (30.0-100.0)
[2024-05-23 15:13] LABS: Vitamin B12 297 pg/mL (239-931)
== END ==
PROVIDERS: Family Provider Family Medicine; PCP Family Medicine; Referring Provider Physician Assistant; Visit Provider Physician Assistant
DX: E55.9 Vitamin D deficiency, unspecified (principal); R53.83 Other fatigue
CPT/HCPCS: 36415; 82306; 82607

== ENCOUNTER 2024-06-06 15:48 | Emergency (ER) | payer MEDICARE, SELFPAY ==
[2024-06-06 16:00] VITALS: BP 174/78; PULSE 60; RESP 16; TEMP 36.4; O2SAT 99; BMI 26.8
--- NOTE | 2024-06-06 16:32 | ED_ITS ---
<Statement entered by Jason Fraga DO - 06/07/24 07:03> Dr. Fraga: I was immediately available in the department for consultation. Documentation has been reviewed. I agree with assessment and plan. HPI - Male Genitourinary General Chief complaint: Urogenital-Male Stated complaint: painful urination, blood per urethra Time Seen by Provider: 06/06/24 16:24 Source: patient Mode of arrival: Ambulatory History of Present Illness HPI Narrative: 83-year-old male with past medical history BPH, osteoarthritis, GERD presents to the ED with 1 day of dysuria, hematuria, urinary urgency. Patient states that he has had sporadic urinary urgency over the last 2-3 years, but no dysuria. Patient states that today he pinched the end of his penis in an effort to get to the bathroom and not urinate on the floor. Patient noted blood at the end of his penis at this time and states that it has been painful to urinate since then. Patient denies fever, chills, nausea, vomiting, abdominal pain, flank pain. Patient does not have a history of nephrolithiasis. Related Data Home Medications Medication Instructions Recorded Confirmed travoprost 0.004 % eye drops 1 drp EYE-BOTH QPM 08/26/23 05/23/24 dorzolamide-timolol (PF) 2 %-0.5 % 1 drp EYE-BOTH BID 04/21/24 05/23/24 eye drops in a dropperette gabapentin 300 mg capsule 300 mg PO 3XD 04/21/24 05/23/24 Previous Rx's Medication Instructions Recorded Disabled Parking Permit #1 ea 07/11/20 finasteride 5 mg tablet 5 mg PO DAILY #90 tabs 06/21/23 cyclobenzaprine 10 mg tablet 10 mg PO TID PRN muscle spasm #60 12/20/23 tabs omeprazole 20 mg capsule,delayed See Rx Instructions .Route 04/03/24 release .COMPLEX #90 caps doxycycline monohydrate 100 mg 100 mg PO BID #20 caps 05/03/24 capsule tamsulosin 0.4 mg capsule See Rx Instructions .Route 05/15/24 .COMPLEX #90 caps cyanocobalamin (vitamin B-12) 1,000 mcg IM QMONTH #1 ea 05/23/24 1,000 mcg/mL injection kit meloxicam 15 mg tablet 15 mg PO DAILY PRN joint pain #90 05/23/24 tabs Allergies Allergy/AdvReac Type Severity Reaction Status Date / Time Penicillins [PENICILLINS] Allergy Intermediate n/v, Verified 05/24/24 09:31 itching shellfish derived Allergy Intermediate prawns Verified 05/24/24 09:31 [SHELLFISH DERIVED] garlic [GARLIC] Allergy Mild GI upset Verified 05/24/24 09:31 ibuprofen [IBUPROFEN] Allergy Mild dye Verified 05/24/24 09:31 coating of tab red dye [RED DYE] Allergy Mild Verified 05/24/24 09:31 hexachlorophene Allergy Unknown Verified 05/24/24 09:31 [HEXACHLOROPHENE] propoxyphene [From DARVON] AdvReac Mild n/v itching Verified 05/24/24 09:31 raw onion Allergy Unknown GI upset Uncoded 05/24/24 09:31 Review of Systems Constitutional Constitutional: Denies chills, Denies fatigue, Denies fever(s), Denies frequent falls, Denies lethargy and Denies weakness Eyes Eyes: Denies change in vision, Denies eye discharge, Denies irritation and Denies loss of vision ENT Ears, Nose, Mouth, and Throat: Denies change in voice, Denies dizziness, Denies neck pain, Denies sore throat and Denies throat swelling Cardiovascular Cardiovascular: Denies chest pain, Denies irregular heart rhythm, Denies lightheadedness, Denies palpitations, Denies dyspnea, Denies dyspnea on exertion and Denies orthopnea Respiratory Respiratory: Denies cough, Denies dyspnea, Denies dyspnea on exertion and Denies wheezing Gastrointestinal Gastrointestinal: Denies abdominal pain, Denies change in bowel habits, Denies diarrhea, Denies nausea and Denies vomiting Genitourinary Genitourinary: Reports hematuria, Reports dysuria, Reports urinary frequency and Reports urinary urgency Musculoskeletal Musculoskeletal: Denies neck pain and Denies numbness Integumentary/Breasts Skin/Breast: Denies pruritus, Denies erythema, Denies rash and Denies wounds Neurologic Neurologic: Denies behavioral changes, Denies confusion, Denies dizziness, Denies frequent falls, Denies loss of vision, Denies numbness and Denies weakness Psychiatric Psychiatric: Denies anxiety, Denies behavioral changes, Denies confusion, Denies depression, Denies homicidal ideation and Denies suicidal ideation Endocrine Endocrine: Denies fatigue, Denies flushing and Denies palpitations Hematologic/Lymphatic Hematologic/Lymphatic: Denies easy bruising Allergic/Immunologic Allergic/Immunologic: Denies urticaria, Denies throat swelling and Denies wheezing Patient History Medical History Hemochromatosis Benign prostatic hyperplasia Myofascial pain Neck pain Right arm pain Cervical radiculopathy COVID-19 Herniated nucleus pulposus, L5-S1, right Sacral fracture Chronic low back pain without sciatica Somatic dysfunction of lower extremity Sacral region somatic dysfunction Pelvic somatic dysfunction Segmental and somatic dysfunction of abdomen and other regions Lumbar region somatic dysfunction Piriformis syndrome of right side Iliotibial band syndrome, right leg Acute hip pain Colon polyps (2001) Elevated PSA BPH (benign prostatic hyperplasia) Hayfever (~1959) Cataract (2012) GERD (gastroesophageal reflux disease) (~1979) IBS (irritable bowel syndrome) (~1969) Hepatitis A (~1961) Recurrent sinusitis (~1969) Glaucoma (~2008) Hemochromatosis (1990) Peptic ulcer disease (~1959) Tennis elbow Shoulder pain (~1989) Lumbar spine pain Foot pain Chronic back pain Cervical spine disease Diverticulosis Abdominal pain Diverticulitis Surgical History Anesthesia complication Hx of decompression of ulnar nerve (~1989) History of elbow surgery (~2010) History of knee surgery History of shoulder surgery (~1979) History of shoulder surgery (~1979) History of spinal fusion (2010) Family History Father Heart disease Mother Age related osteoporosis Diabetes mellitus Heart disease Hypertension High cholesterol Pneumonia Sister Age: 86 High cholesterol Sister Parkinson's disease Sister Cancer Social History marital status: Smoking Status: Former smoker alcohol intake: current (1-2 A DAY ) substance use type: does not use Smoking Status: Former smoker alcohol intake frequency: 0-2 drinks per day Substance Use Type: does not use Exam Narrative Exam Narrative: Const General:?cooperative, healthy appearing and comfortable HENIA Head:?normal to inspection Ears:?hearing grossly normal bilaterally Nose:?external nose normal Face and sinus:?normal facial exam and sinuses nontender Mouth:?oral mucosae normal Throat:?posterior oropharynx normal Eyes General:?appearance normal, both eyes and all related structures Neck Neck:?normal visual inspection and no lymphadenopathy noted Resp Effort & Inspection:?normal respiratory effort Auscultation:?clear to auscultation bilaterally Cardio Rate:?regular rate Rhythm:?regular rhythm GI Abdomen is soft, nondistended, nontender to palpation. There is no CVA tenderness. Neuro General:?patient alert, patient awake and patient oriented x3 Initial Vital Signs Initial Vital Signs: Vital Signs Temperature 97.6 F 06/06/24 16:00 Pulse Rate 60 06/06/24 16:00 Respiratory Rate 16 06/06/24 16:00 Blood Pressure 174/78 H 06/06/24 16:00 Pulse Oximetry 99 06/06/24 16:00 Oxygen Delivery Method Room Air 06/06/24 16:00 Course Orders Ordered: ED Orders 06/06/24 16:55 Urine Culture Stat Urine Microscopic Stat Vital Signs Vital signs: Vital Signs - 8 hr 06/06/24 16:00 06/06/24 18:40 Temperature 97.6 F 97.6 F Pulse Rate 60 61 Respiratory Rate 16 16 Blood Pressure 174/78 H 174/80 H Pulse Oximetry 99 100 Oxygen Delivery Method Room Air Room Air MDM - Male Genitourinary Lab Data Labs: Lab Results 06/06/24 Range/Units 16:55 Urine RBC 30-100/hpf H (0-5/HPF) Urine WBC None seen (0-5/HPF) Ur Squamous Epith Cells 0-1 /hpf (0-5/HPF) Urine Bacteria None seen (None) Ur Culture Indicated? Cult not indicated Vol Urine Centrifuged 10ml (spun) Urine Dip Bedside Urine Glucose Negative Bedside Urine Bilirubin - Negative Bedside Urine Ketone - Negative Urine Specific [place] 1.01 Bedside Urine Occult Blood ++ Bedside Urine pH 7.0 Bedside Urine Protein - Negative Bedside Urine Urobilinogen - Negative Bedside Urine Nitrite - Negative Bedside Urine Leukocytes - Negative Esterase MDM Narrative Medical decision making narrative: 83-year-old male with past medical history BPH, osteoarthritis, GERD presents to the ED with 1 day of dysuria, hematuria, urinary urgency. Concern for UTI versus pyelonephritis versus urethral injury versus other. Will obtain UA, reassess. Scan shows 86 mL of retained urine. Urine positive for hematuria, negative for infection. Patient's symptoms are likely due to some penis/urethra tip trauma from pinching the penis to prevent an accident. No intervention indicated at this time. Discussed findings with patient. Recommend following up with PCP Dr. Machado if symptoms do not improve. ED return precautions discussed with patient. Patient verbalized understanding. Medical records reviewed: Yes Discharge Plan Departure Patient Disposition: Home Clinical Impression: Hematuria Qualifiers: Hematuria type: gross Qualified Code(s): R31.0 - Gross hematuria Instructions: DI for Hematuria Activity Restrictions/Additional Instructions: You were evaluated in the ED today for blood in the urine. Your urine did not show a infection today. It is likely that there was a cut inflicted on the tip of the penis that is causing it to bleed and sting with the urine comes in contact with it. This should heal by itself. Please follow-up with your PCP Dr. Machado if you continue to experience symptoms. Prescriptions: No Action dorzolamide-timolol (PF) 2-0.5 % dropperette 1 drp EYE-BOTH BID gabapentin 300 mg capsule 300 mg PO 3XD (DME) Disabled Parking Permit See Rx Instructions .ROUTE .MEDSUPPLY Qty: 1 0RF Rx Instructions: I find this person to be disabled finasteride 5 mg tablet 5 mg PO DAILY Qty: 90 3RF cyclobenzaprine 10 mg tablet 10 mg PO TID PRN (Reason: muscle spasm) Qty: 60 3RF omeprazole 20 mg capsule,delayed release(DR/EC) See Rx Instructions .ROUTE .COMPLEX Qty: 90 3RF Dose Instruction: TAKE 1 CAPSULE BY MOUTH DAILY Rx Instructions: TAKE 1 CAPSULE BY MOUTH DAILY tamsulosin 0.4 mg capsule See Rx Instructions .ROUTE .COMPLEX Qty: 90 3RF Dose Instruction: TAKE 1 CAPSULE BY MOUTH IN THE EVENING Rx Instructions: TAKE 1 CAPSULE BY MOUTH IN THE EVENING cyanocobalamin (vitamin B-12) 1,000 mcg/mL kit 1,000 mcg IM QMONTH Qty: 1 1RF Rx Instructions: Give Vitamin B-12 injection intramuscular once a month x 2 months. Repeat blood work in 4 months doxycycline monohydrate 100 mg capsule 100 mg PO BID Qty: 20 0RF meloxicam 15 mg tablet 15 mg PO DAILY PRN (Reason: joint pain) Qty: 90 0RF Rx Instructions: Take one tablet once daily NEEDED for joint, back or neck pain travoprost 0.004 % drops 1 drp EYE-BOTH QPM Referrals: Farhad Machado MD [Primary Care Provider] - Stand Alone Forms: Patient Portal/API
--- NOTE | 2024-06-06 16:32 | PC.NURSE ---
Pt states that this morning he had urinary urgency and pain while urinating. States that he grabbed his penis and ran to the bathroom. C/o pain only while urinating and pink-tinged urine. Denies any pain at this time. Denies flank and abd pain. A&Ox4.
[2024-06-06 17:17] LABS: Bacteria Urine None Seen; Culture Indicated Urine Cult Not Indicated; RBC Urine 30-100/HPF (0-5/HPF); Squamous Epithelial Cell Urine 0-1 /HPF (0-5/HPF); Urine Volume 10mL (spun); WBC Urine None Seen (0-5/HPF)
[2024-06-06 18:40] VITALS: BP 174/80; PULSE 61; RESP 16; TEMP 36.4; O2SAT 100
== END 2024-06-06 18:40 | disposition home or self-care (01) ==
PROVIDERS: Emergency Provider Student in an Organized Health Care Education/Training Program; Family Provider Family Medicine; PCP Family Medicine
DX: R31.0 Gross hematuria (principal); R30.0 Dysuria; R39.15 Urgency of urination
CPT/HCPCS: 51798; 81003; 81015; 87086; 99282

== ENCOUNTER → 2024-08-28 10:45 | Outpatient (CLI) | payer MEDICARE, SELFPAY ==
[2024-08-28 11:42] LABS: Add Manual Diff / Slide Review NO; Basophils Absolute Auto 100 /uL (0-100); Basophils Percent Auto 0.9 % (0-2); Eosinophils Absolute Auto 500 /uL (0-450); Eosinophils Percent Auto 8.3 % (2-4); Hematocrit 46.5 % (41-53); Hemoglobin 16.1 g/dL (13.5-17.5); Lymphocytes Absolute Auto 1900 /uL (1100-4500); Lymphocytes Percent Auto 29.1 % (25-40); Mean Corpuscular HGB Conc 34.6 % (30-36); Mean Corpuscular Hemoglobin 32.4 PG (26-34); Mean Corpuscular Volume 93.6 fL (80-100); Monocytes Absolute Auto 400 /uL (0-900); Monocytes Percent Auto 6.3 % (3-14); Neutrophils Absolute Auto 3500 /uL (1500-7000); Neutrophils Percent Auto 55.4 % (50-75); Platelet Count 179 X10^3/uL (150-400); Red Blood Cell Count 4.97 X10^6/uL (4.5-5.9); Red Cell Distribution Width 12.7 % (11.6-14.8); White Blood Cell Count 6.4 X10^3/uL (4.5-11.0)
[2024-08-28 11:50] LABS: Alanine Aminotransferase 22 IU/L (<50); Albumin 4.1 g/dL (3.5-5.0); Albumin Globulin Ratio 1.6 (1.0-2.8); Alkaline Phosphatase 56 U/L (38-126); Aspartate Aminotransferase 27 IU/L (17-59); BUN Creatinine Ratio 16.3 (6-22); Bilirubin Total 0.7 mg/dL (0.2-1.3); Blood Urea Nitrogen 14 mg/dL (9-20); Calcium 9.7 mg/dL (8.4-10.2); Carbon Dioxide 22 mmol/L (22-32); Chloride 109 mmol/L (98-107); Estimated Glomerular Filt Rate > 60 mL/min (>60); Globulin 2.5 g/dL (1.7-4.1); Glucose 130 mg/dL (80-110); HEMOLYSIS < 15 (0-50); Potassium 4.4 mmol/L (3.4-5.1); Sodium 138 mmol/L (137-145); Total Protein 6.6 g/dL (6.3-8.2)
[2024-08-28 13:49] LABS: Vitamin B12 660 pg/mL (239-931)
== END ==
LOC: LAB 10:46
PROVIDERS: Family Provider Family Medicine; PCP Family Medicine; Referring Provider Physician Assistant; Visit Provider Physician Assistant
DX: Z01.812 Encounter for preprocedural laboratory examination (principal); E53.8 Deficiency of other specified B group vitamins
CPT/HCPCS: 36415; 80053; 82607; 85025

== ENCOUNTER → 2024-10-24 12:40 | Outpatient (CLI) | payer MEDICARE, SELFPAY ==
[2024-10-24 14:42] LABS: Vitamin B12 604 pg/mL (239-931)
== END ==
PROVIDERS: Family Provider Family Medicine; PCP Family Medicine; Referring Provider Physician Assistant; Visit Provider Physician Assistant
DX: E53.8 Deficiency of other specified B group vitamins (principal)
CPT/HCPCS: 36415; 82607

== ENCOUNTER → 2024-11-07 07:19 | Outpatient (CLI) | payer MEDICARE, SELFPAY ==
--- NOTE | 2024-11-07 07:20 | DI.US.S_ITS ---
PROCEDURE: US ABDOMEN LIMITED INDICATIONS: RUQ pain - enlarged liver (?) TECHNIQUE: Real-time focused scanning was performed of the abdomen, with image documentation. COMPARISON: [facility], US, US ABDOMEN COMPLETE, 04/07/2023, 11:01. FINDINGS: Liver measures 15.3 cm with steatosis. Simple cysts are identified the largest measuring 5.1 x 4.7 x 4.9 cm in the left lobe. Gallbladder stone demonstrates multiple mobile foci of increased echogenicity. Wall thickness is normal measuring 1 mm. Common bile duct measures 5.7 mm. IMPRESSION: Cholelithiasis without cholecystitis. Liver is normal in size with steatosis as well as simple cysts. Dictated by: Anni Amezcua M.D. on 11/07/2024 at 14:48 Approved by: Anni Amezcua M.D. on 11/07/2024 at 14:48
== END ==
PROVIDERS: Family Provider Family Medicine; PCP Family Medicine; Referring Provider Physician Assistant; Visit Provider Physician Assistant
DX: K80.20 Calculus of gallbladder without cholecystitis without obstruction (principal); K76.0 Fatty (change of) liver, not elsewhere classified; K76.89 Other specified diseases of liver; R10.11 Right upper quadrant pain
CPT/HCPCS: 76705

== ENCOUNTER → 2025-05-08 07:07 | Outpatient (CLI) | payer MEDICARE, SELFPAY ==
[2025-05-08 07:40] LABS: Add Manual Diff / Slide Review NO; Hematocrit 47.1 % (41-53); Hemoglobin 16.5 g/dL (13.5-17.5); Lymphocytes Absolute Auto 1300 /uL (1100-4500); Mean Corpuscular HGB Conc 35.1 % (30-36); Mean Corpuscular Hemoglobin 32.6 PG (26-34); Mean Corpuscular Volume 92.8 fL (80-100); Platelet Count 151 X10^3/uL (150-400)
[2025-05-08 08:05] LABS: Alanine Aminotransferase 16 IU/L (<50); Albumin 4.3 g/dL (3.5-5.0); Albumin Globulin Ratio 1.8 (1.0-2.8); Alkaline Phosphatase 63 U/L (38-126); Blood Urea Nitrogen 17 mg/dL (9-20); Calcium 9.4 mg/dL (8.4-10.2); Carbon Dioxide 27 mmol/L (22-32); Chloride 105 mmol/L (98-107); Estimated Glomerular Filt Rate > 60 mL/min (>60); Globulin 2.4 g/dL (1.7-4.1); Glucose 99 mg/dL (70-99); HEMOLYSIS < 15 (0-50); Potassium 4.3 mmol/L (3.4-5.1); Sodium 140 mmol/L (137-145); Total Protein 6.7 g/dL (6.3-8.2)
== END ==
PROVIDERS: PCP Family Medicine; Referring Provider Family Medicine; Visit Provider Family Medicine
DX: Z90.01 Acquired absence of eye (principal); Z01.812 Encounter for preprocedural laboratory examination
CPT/HCPCS: 36415; 80053; 85025